=== PATIENT | male | born 1995 | race Hispanic/Latino ===

== ENCOUNTER → 2018-10-18 | Day surgery (SDC) | payer BC ==
[2018-10-17 09:21] LABS: BASOPHILS # (AUTO) 0.1 (0.0-0.1); BASOPHILS % 0.6 % (0.0-1.0); EOSINOPHILS # (AUTO) 0.2 (0.0-0.4); EOSINOPHILS % 1.4 % (0.0-6.0); HEMOGLOBIN 16.2 g/dL (14.0-18.0); LYMPHOCYTES # (AUTO) 1.8 (1.0-3.2); LYMPHOCYTES % 16.9 % (18.0-39.1); MEAN CORPUSCULAR HEMOGLOBIN 29.8 pg (28-32); MEAN CORPUSCULAR HGB CONC 33.8 g/dL (31-35); MEAN CORPUSCULAR VOLUME 88.2 fL (81-99); MONOCYTES # (AUTO) 0.6 (0.2-0.8); MONOCYTES % 5.4 % (4.4-11.3); NEUTROPHILS # (AUTO) 8.1 (2.1-6.9); NEUTROPHILS % 74.7 % (38.7-80.0); PLATELET COUNT 281 x10e3/uL (140-360); RED BLOOD COUNT 5.44 x10e6/uL (4.3-5.7); RED CELL DISTRIBUTION WIDTH 12.9 % (11.7-14.4)
[~2018-10-18] MED LIST: ACETAMINOPHEN 1000 MG/100 ML IV ONE; BUPIVACAINE HCL 0.5% INJ 30 ML VIAL INJ ONE; CEFAZOLIN SOD 1 GM/NS 50ML 100 ML IV ONE; DEXAMETHASONE SOD PHOS INJ 4 MG/ML VIAL ONE; FENTANYL CITRATE/PF 100MCG/2 ML INJ ONE; GLYCOPYRROLATE INJ 1MG/ 5 ML SYR ONE; KETOROLAC TROMETHAMINE 30 MG/ML VIAL ONE; LIDOCAINE HCL 2% LOCAL INJ 5 ML SDV VIAL INJ ONE; MIDAZOLAM HCL 2 MG/2 ML VIAL ONE; NEOSTIGMINE 5 MG/5ML SYR ONE; ONDANSETRON HCL INJ 2MG/ML 2ML 2 MG/ML VIAL ONE; PROPOFOL IV EMULSION 10 MG/ML 20 ML VIAL ONE; ROCURONIUM BROMIDE 10 MG/ML 5ML VIAL ONE; SEVOFLURANE INHAL SOLN 250 ML PEN BTL ONE
--- OUTSIDE RECORDS SUMMARY | 2018-10-18 07:35 | XMS REPORT ---
Author Author [facility] Address Unknown Phone Unavailable Care Team Providers Care Goat Driver Name Role Phone Unavailable Unavailable Payers Payer Name Policy Type Policy Number Effective Date Expiration Date Problems This patient has no known problems. Allergies, Adverse Reactions, Alerts This patient has no known allergies or adverse reactions. Medications This patient has no known medications.
[2018-10-18 11:30] VITALS: BP 145/91
--- NOTE | 2018-10-18 12:34 | Operative Report ---
DATE OF PROCEDURE: 10/18/2018 SURGEON: Branden Mejía MD PREOPERATIVE DIAGNOSES: Chronic cholecystitis, cholelithiasis. POSTOPERATIVE DIAGNOSES: Chronic cholecystitis, cholelithiasis. PROCEDURES: Diagnostic laparoscopy, laparoscopic cholecystectomy. TRANSLATOR/INTERPRETER: None. ANESTHESIA: General endotracheal. INDICATIONS AND FINDINGS: The patient is a 22-year-old male with frequent episodes of right upper quadrant abdominal pain. Workup revealed abnormal HIDA scan, ejection fraction 2.5%. Surgery based on the gallbladder was distended with extensive adhesions involving the omentum over the neck and fundus of the gallbladder. Cystic duct was about 2 mm in diameter. Common bile duct was about 5 mm in diameter. Liver, stomach, lower abdomen all appeared normal. TECHNIQUE: After adequate general endotracheal anesthesia, the patient in supine position, the abdomen was prepped and draped in sterile fashion with ChloraPrep solution. Skin in the umbilicus was infiltrated with 0.5% Marcaine. Incision made in the umbilicus, abdominal wall was elevated and Veress needle was introduced. Pneumoperitoneum was then created. A 10 mm trocar and cannula was then passed through the umbilical wound. Laparoscopic camera was introduced. Initial laparoscopy revealed the gallbladder to be distended with adhesions over the edge of the liver. Stomach and lower abdomen appeared normal. Liver appeared normal. A 10 mm trocar and cannula was placed in the epigastrium and two 5 mm trocars and cannulas were placed in right upper quadrant. These were placed under direct vision. Fundus of the gallbladder was grasped, retracted superiorly. The adhesions of the liver to the gallbladder were lysed staying close to the gallbladder using electrocautery. Neck of the gallbladder was grasped, retracted laterally. Peritoneum over the neck of the gallbladder was incised. The gallbladder cystic duct junction was dissected free. Cystic artery was also dissected free. The neck of the gallbladder completely dissected free. Cystic duct was divided between hemoclips with three clips being left on the common bile duct side. Cystic artery was also divided between hemoclips close to the gallbladder. The gallbladder was dissected free from the liver using scissors and electrocautery. Once it was entirely free, it was placed into an Endopouch and brought through the epigastric cannula. There were no stones that were definitely palpable. Gallbladder bed was inspected for hemostasis which was seen to be adequate. It was irrigated with saline. All fluid aspirated, inspected once again for hemostasis which was seen to be adequate. Instruments and cannulas were then removed. Pneumoperitoneum was evacuated. Wounds were then closed. Fascia in the umbilical and epigastrium closed with 0 Vicryl. Skin to all wounds closed with 4-0 Vicryl and subcuticular fashion. Dermabond and sterile dressing were applied to each wound. The patient tolerated the procedure well. Estimated blood loss was 10 mL. There were no complications. All counts were correct. The patient was taken to the recovery room in satisfactory condition. MD LACI SilvaG/MODL /[id number] cc: Kristian Lai MD
== END | disposition home or self-care (01) ==
LOC: OR 07:02
PROVIDERS: ATTEND Surgery
DX: K80.10 Calculus of gallbladder with chronic cholecystitis without obstruction (principal); F41.9 Anxiety disorder, unspecified; R06.83 Snoring; Z68.32 Body mass index [BMI] 32.0-32.9, adult
CPT/HCPCS: 36415; 47562; 85025; 88304; J0131; J0690; J1100; J1885; J2001; J2250; J2405; J2704; J3010; J3490

== ENCOUNTER 2020-04-11 07:38 | Inpatient (IN) | payer BC, SELFPAY ==
[~2020-04-11] VITALS: Ht 177.8 cm; Wt 86.7 kg
[2020-04-11] MEDS ORDERED: LIPITOR20 MG PO (08:07)
[2020-04-11] MEDS ORDERED: GLIMEPIRIDE2 MG PO (08:07)
[2020-04-11 08:21] LABS: BASOPHILS # (AUTO) 0.1 (0.0-0.1); BASOPHILS % 0.5 % (0.0-1.0); HEMATOCRIT 52.9 % (38.2-49.6); HEMOGLOBIN 17.9 g/dL (14.0-18.0); LYMPHOCYTES % 7.1 % (18.0-39.1); MEAN CORPUSCULAR HGB CONC 33.8 g/dL (31-35); MEAN CORPUSCULAR VOLUME 85.6 fL (81-99); MONOCYTES # (AUTO) 0.4 (0.2-0.8); MONOCYTES % 2.6 % (4.4-11.3); NEUTROPHILS # (AUTO) 12.6 (2.1-6.9); NEUTROPHILS % 89.2 % (38.7-80.0); PLATELET COUNT 388 x10e3/uL (140-360); RED BLOOD COUNT 6.18 x10e6/uL (4.3-5.7); RED CELL DISTRIBUTION WIDTH 12.2 % (11.7-14.4)
[2020-04-11] MEDS ORDERED: LACTATED RINGER'S 1,000 ML INJ STA ×2 (08:52)
[2020-04-11 08:57] LABS: CLARITY,URINE CLEAR (CLEAR); COLOR,URINE YELLOW (YELLOW); LEUKOCYTE ESTERASE ,URINE NEGATIVE (NEGATIVE); NITRITE,URINE NEGATIVE (NEGATIVE); PROTEIN,URINE DIPSTICK >=300 (NEGATIVE)
[2020-04-11 08:58] LABS: KETONES,URINE >=160 (NEGATIVE); URINE UROBILINOGEN 0.2 mg/dL (0.2 - 1)
[2020-04-11] MEDS ORDERED: LACTATED RINGER'S 1,000 ML INJ ONE (09:00)
[2020-04-11 09:02] LABS: ALANINE AMINOTRANSFERASE 74 IU/L (0-55); ALBUMIN 4.6 g/dL (3.5-5.0); ALBUMIN/GLOBULIN RATIO 1.1 (0.8-2.0); ALKALINE PHOSPHATASE 144 IU/L (40-150); ANION GAP 30.8 mmol/L (8-16); BLOOD UREA NITROGEN 18 mg/dL (7-26); BUN/CREATININE RATIO 10 (6-25); CALCIUM 8.9 mg/dL (8.4-10.2); CHLORIDE 97 mmol/L (98-107); CREATINE KINASE 74 IU/L (30-200); CREATININE, SERUM 1.88 mg/dL (0.72-1.25); EST GLOMERULAR FILTRATION RATE 44 ML/MIN (60-); POTASSIUM 3.8 mmol/L (3.5-5.1); SODIUM 130 mmol/L (136-145)
[2020-04-11] MEDS ORDERED: SODIUM CHLORIDE 0.9% 1000ML 3,000 ML ONE (09:02)
[2020-04-11 09:07] LABS: CARBON DIOXIDE 6 mmol/L (22-29); GLUCOSE 500 mg/dL (74-118)
[2020-04-11 09:27] LABS: BACTERIA,URINE MODERATE /HPF; EPITHELIAL CELLS,URINE MODERATE /LPF; RBC,URINE 0-5 /HPF (0-5)
[2020-04-11] MEDS ORDERED: ADENOSINE 6MG/2ML 1 ML ONE (09:31)
[2020-04-11] MEDS ORDERED: CEFEPIME 1GM/NS 0.9% 50 ML 50 ML IV STA (09:37)
[2020-04-11] MEDS: SODIUM CHLORIDE 0.9% 1000ML 1,000 ML IV SCH ×3 (10:28→18:49)
[2020-04-11] MEDS: DEXTROSE 5%/0.45% SOD CHL 1,000 ML IV SCH ×2 (10:29→16:30)
[2020-04-11] MEDS: INSULIN REGULAR, HUMAN 3ML VL 100 UNIT in SODIUM CHLORIDE 0.9% 100 ML IV SCH ×4 (10:29→20:15)
[2020-04-11 11:37] LABS: ANION GAP 20.8 mmol/L (8-16); BLOOD UREA NITROGEN 15 mg/dL (7-26); BUN/CREATININE RATIO 14 (6-25); CHLORIDE 113 mmol/L (98-107); CREATININE, SERUM 1.04 mg/dL (0.72-1.25); EST GLOMERULAR FILTRATION RATE > 60 ML/MIN (60-); GLUCOSE 335 mg/dL (74-118); SODIUM 137 mmol/L (136-145)
[2020-04-11 11:40] LABS: CARBON DIOXIDE 6 mmol/L (22-29); POTASSIUM 2.8 mmol/L (3.5-5.1)
[2020-04-11 11:41] LABS: CALCIUM 6.2 mg/dL (8.4-10.2)
[2020-04-11] MEDS: POTASSIUM CHLORIDE 20MEQ/100ML 200 ML IV PRN (11:56)
[2020-04-11] MEDS ORDERED: POTASSIUM CHLORIDE 20 MEQ TAB CR PO ONE (13:30)
[2020-04-11] MEDS: MAGNESIUM SULF 1GRAM/DEXTROSE 100 ML IV PRN (14:21)
[2020-04-11] MEDS ORDERED: MAGNESIUM SULFATE 2GM/50ML 50 ML IV ONE (14:25)
[2020-04-11 15:24] LABS: ANION GAP 21.2 mmol/L (8-16); BLOOD UREA NITROGEN 15 mg/dL (7-26); BUN/CREATININE RATIO 11 (6-25); CALCIUM 7.7 mg/dL (8.4-10.2); CHLORIDE 109 mmol/L (98-107); EST GLOMERULAR FILTRATION RATE > 60 ML/MIN (60-); GLUCOSE 272 mg/dL (74-118); POTASSIUM 3.2 mmol/L (3.5-5.1); SODIUM 134 mmol/L (136-145)
[2020-04-11 15:26] LABS: CARBON DIOXIDE 7 mmol/L (22-29)
[2020-04-11] MEDS ORDERED: ONDANSETRON HCL INJ 2MG/ML 2ML 2 MG/ML VIAL IV STA (15:38)
[2020-04-11 15:43] LABS: ABG PH 7.11 (7.35-7.45)
[2020-04-11 15:44] LABS: ABG HCO3 3 mmol/L (22-26); ABG PCO2 11 mmHg (35-45); ABG PO2 132 mmHg (80-105); ABG TCO2 5
[2020-04-11] MEDS ORDERED: MORPHINE SULFATE INJ 4 MG/ML INJ 1ML IV ONE (15:45)
[2020-04-11 15:50] LABS: CREATINE KINASE 64 IU/L (30-200)
[2020-04-11 17:41] LABS: ANION GAP 19.2 mmol/L (8-16); BLOOD UREA NITROGEN 17 mg/dL (7-26); BUN/CREATININE RATIO 13 (6-25); CALCIUM 7.9 mg/dL (8.4-10.2); CHLORIDE 112 mmol/L (98-107); CREATININE, SERUM 1.29 mg/dL (0.72-1.25); EST GLOMERULAR FILTRATION RATE > 60 ML/MIN (60-); GLUCOSE 271 mg/dL (74-118); POTASSIUM 3.2 mmol/L (3.5-5.1); SODIUM 133 mmol/L (136-145)
[2020-04-11 17:43] LABS: CARBON DIOXIDE 5 mmol/L (22-29)
[2020-04-11] MEDS: DICYCLOMINE HCL 20 MG TAB PO PRN (18:43)
[2020-04-11 19:22] LABS: ANION GAP 19.2 mmol/L (8-16); BLOOD UREA NITROGEN 17 mg/dL (7-26); BUN/CREATININE RATIO 13 (6-25); CALCIUM 7.9 mg/dL (8.4-10.2); CHLORIDE 111 mmol/L (98-107); CREATININE, SERUM 1.34 mg/dL (0.72-1.25); EST GLOMERULAR FILTRATION RATE > 60 ML/MIN (60-); GLUCOSE 299 mg/dL (74-118); POTASSIUM 3.2 mmol/L (3.5-5.1); SODIUM 132 mmol/L (136-145)
[2020-04-11 19:29] LABS: CARBON DIOXIDE 5 mmol/L (22-29)
[2020-04-11] MEDS: ONDANSETRON HCL INJ 2MG/ML 2ML 2 MG/ML VIAL IV PRN (20:40)
[2020-04-11] MEDS: HYDROMORPHONE 1MG/1ML INJ IV PRN (20:40)
[2020-04-11 21:24] LABS: ANION GAP 16.6 mmol/L (8-16); CALCIUM 7.9 mg/dL (8.4-10.2); CREATININE, SERUM 1.44 mg/dL (0.72-1.25); POTASSIUM 3.6 mmol/L (3.5-5.1)
[2020-04-11 23:39] LABS: ANION GAP 17.6 mmol/L (8-16); CREATININE, SERUM 1.5 mg/dL (0.72-1.25); POTASSIUM 3.6 mmol/L (3.5-5.1)
[2020-04-11 23:53] LABS: CREATINE KINASE 54 IU/L (30-200)
[2020-04-12] VITALS (11 sets, daily range): BP systolic 98–188; BP diastolic 62–126
[2020-04-12] MEDS: SODIUM CHLORIDE 0.9% 1000ML 1,000 ML IV SCH ×4 (00:56→10:25)
[2020-04-12] MEDS ORDERED: SODIUM BICARBONATE 8.4% INJ 50 ML SYR IV STA (02:38)
[2020-04-12] MEDS ORDERED: SODIUM BICARBONATE 8.4% SYRING 100 ML ONE (02:50)
[2020-04-12] MEDS: DEXTROSE 5%/0.45% SOD CHL 1,000 ML IV SCH ×5 (02:58→22:24)
[2020-04-12 04:16] LABS: ANION GAP 17.5 mmol/L (8-16); CREATININE, SERUM 1.72 mg/dL (0.72-1.25); POTASSIUM 3.5 mmol/L (3.5-5.1)
[2020-04-12] MEDS: HYDROMORPHONE 1MG/1ML INJ IV PRN ×4 (04:30→20:56)
[2020-04-12] MEDS ORDERED: CEFEPIME HCL 1 GM VIAL IV SCH (04:30)
[2020-04-12] MEDS: ONDANSETRON HCL INJ 2MG/ML 2ML 2 MG/ML VIAL IV PRN ×3 (04:30→18:07)
[2020-04-12 05:02] LABS: ABG PH 7.21 (7.35-7.45)
[2020-04-12 05:03] LABS: ABG HCO3 13 mmol/L (22-26); ABG PCO2 32 mmHg (35-45); ABG PO2 133 mmHg (80-105); ABG TCO2 14
[2020-04-12] MEDS: INSULIN REGULAR, HUMAN 3ML VL 100 UNIT in SODIUM CHLORIDE 0.9% 100 ML IV SCH ×4 (05:50→14:27)
[2020-04-12] MEDS: CEFEPIME 1GM/NS 0.9% 50 ML 50 ML IV SCH ×2 (06:30→16:14)
[2020-04-12 08:25] LABS: BASOPHILS # (AUTO) 0.2 (0.0-0.1); BASOPHILS % 0.5 % (0.0-1.0); HEMATOCRIT 54.2 % (38.2-49.6); HEMOGLOBIN 18.7 g/dL (14.0-18.0); LYMPHOCYTES # (AUTO) 0.7 (1.0-3.2); LYMPHOCYTES % 1.9 % (18.0-39.1); MEAN CORPUSCULAR HEMOGLOBIN 29.3 pg (28-32); MEAN CORPUSCULAR HGB CONC 34.5 g/dL (31-35); MONOCYTES # (AUTO) 1.7 (0.2-0.8); MONOCYTES % 4.6 % (4.4-11.3); NEUTROPHILS # (AUTO) 33.9 (2.1-6.9); NEUTROPHILS % 92.3 % (38.7-80.0); PLATELET COUNT 183 x10e3/uL (140-360); RED BLOOD COUNT 6.38 x10e6/uL (4.3-5.7); RED CELL DISTRIBUTION WIDTH 12.4 % (11.7-14.4)
[2020-04-12 08:52] LABS: AMYLASE 1078 U/L (25-125)
[2020-04-12 08:53] LABS: ANION GAP 17.4 mmol/L (8-16); CREATININE, SERUM 1.93 mg/dL (0.72-1.25); POTASSIUM 3.4 mmol/L (3.5-5.1)
[2020-04-12] MEDS: PANTOPRAZOLE 40 MG 10ML VIAL IV SCH ×2 (09:01→16:14)
[2020-04-12 09:15] LABS: LIPASE 2708 U/L (8-78)
[2020-04-12 13:01] LABS: ANION GAP 15.5 mmol/L (8-16); CALCIUM 8.1 mg/dL (8.4-10.2); CREATININE, SERUM 2.43 mg/dL (0.72-1.25); POTASSIUM 3.5 mmol/L (3.5-5.1)
[2020-04-12] MEDS ORDERED: DEXTROSE 50% SYRINGE 50 ML IV PRN (14:00)
[2020-04-12] MEDS ORDERED: DEXTROSE 5%/0.45% SOD CHL 1,000 ML IV SCH (14:15)
[2020-04-12 14:34] LABS: CHOL/HDL RATIO 8.4 (3.9-4.7)
[2020-04-12] MEDS ORDERED: LACTATED RINGER'S 1,000 ML INJ ONE ×2 (16:15→19:00)
[2020-04-12 16:30] LABS: FREE T4 (FREE THYROXINE) 0.76 ng/dL (0.8-1.8); THYROID STIMULATING HORMONE 0.255 uIU/mL (0.350-4.940)
[2020-04-12] MEDS: METOPROLOL TARTRATE INJ 1 MG/ML VIAL IV SCH ×2 (17:00→22:22)
[2020-04-12] MEDS ORDERED: AZITHROMYCIN 500MG/NS 250 ML 250 ML IV SCH (17:00)
[2020-04-12 18:17] LABS: ALBUMIN 2.6 g/dL (3.5-5.0); ALBUMIN/GLOBULIN RATIO 0.9 (0.8-2.0); ANION GAP 14.6 mmol/L (8-16); CALCIUM 7.9 mg/dL (8.4-10.2); CREATININE, SERUM 2.67 mg/dL (0.72-1.25); POTASSIUM 3.6 mmol/L (3.5-5.1)
[2020-04-12] MEDS: DICYCLOMINE HCL 20 MG TAB PO PRN (20:56)
[2020-04-12] MEDS ORDERED: DIGOXIN INJ 0.25 MG/ML 2 ML AMP IV PRN (21:45)
[2020-04-12] MEDS ORDERED: DIGOXIN INJ 0.25 MG/ML 2 ML AMP ONE (21:45)
[2020-04-12] MEDS ORDERED: HYDRALAZINE HCL 20 MG/ML VIAL IV PRN (21:45)
[2020-04-12] MEDS ORDERED: LACTATED RINGER'S 1,000 ML ONE ×2 (21:59→23:55)
[2020-04-12] MEDS: PIPERACILLIN/TAZO 2.25 GM 50 ML IV SCH (22:22)
[2020-04-13] VITALS (24 sets, daily range): BP systolic 114–164; BP diastolic 59–88
[2020-04-13 00:03] LABS: BASOPHILS # (AUTO) 0.1 (0.0-0.1); BASOPHILS % 0.3 % (0.0-1.0); LYMPHOCYTES # (AUTO) 0.6 (1.0-3.2); LYMPHOCYTES % 2.7 % (18.0-39.1); MEAN CORPUSCULAR HEMOGLOBIN 29.2 pg (28-32); MEAN CORPUSCULAR VOLUME 83.3 fL (81-99); MONOCYTES # (AUTO) 1.4 (0.2-0.8); MONOCYTES % 6.1 % (4.4-11.3); NEUTROPHILS % 90.1 % (38.7-80.0); PLATELET COUNT 80 x10e3/uL (140-360); RED CELL DISTRIBUTION WIDTH 12.8 % (11.7-14.4)
[2020-04-13 00:21] LABS: ALBUMIN 2.3 g/dL (3.5-5.0); ALBUMIN/GLOBULIN RATIO 0.9 (0.8-2.0); ANION GAP 11.5 mmol/L (8-16); CALCIUM 7.4 mg/dL (8.4-10.2); CREATININE, SERUM 2.86 mg/dL (0.72-1.25); POTASSIUM 3.5 mmol/L (3.5-5.1)
[2020-04-13 00:34] LABS: MAGNESIUM 1.7 MG/DL (1.3-2.1); PHOSPHORUS 2.1 MG/DL (2.3-4.7)
[2020-04-13] MEDS: HYDROMORPHONE 1MG/1ML INJ IV PRN ×5 (00:43→22:10)
[2020-04-13 03:04] LABS: CALCIUM IONIZED 1.3 mmol/L (1.09-1.30)
[2020-04-13 03:25] LABS: ALBUMIN 2.3 g/dL (3.5-5.0); ALBUMIN/GLOBULIN RATIO 0.9 (0.8-2.0); ANION GAP 14.4 mmol/L (8-16); CALCIUM 7.3 mg/dL (8.4-10.2); CREATININE, SERUM 3.14 mg/dL (0.72-1.25); POTASSIUM 3.4 mmol/L (3.5-5.1)
[2020-04-13] MEDS: INSULIN REGULAR, HUMAN 3ML VL 100 UNIT in SODIUM CHLORIDE 0.9% 100 ML IV SCH ×2 (03:38)
[2020-04-13] MEDS ORDERED: LACTATED RINGER'S 1,000 ML INJ SCH (03:45)
[2020-04-13] MEDS: METOPROLOL TARTRATE INJ 1 MG/ML VIAL IV SCH ×3 (05:10→17:00)
[2020-04-13] MEDS: PIPERACILLIN/TAZO 2.25 GM 50 ML IV SCH ×3 (05:10→22:10)
[2020-04-13] MEDS: PANTOPRAZOLE 40 MG 10ML VIAL IV SCH ×2 (08:13→16:41)
[2020-04-13] MEDS: DEXTROSE 5%/0.45% SOD CHL 1,000 ML IV SCH ×2 (08:13→16:41)
[2020-04-13] MEDS ORDERED: DIGOXIN INJ 0.25 MG/ML 2 ML AMP IV ONE (08:15)
[2020-04-13] MEDS ORDERED: ENOXAPARIN 30 MG/0.3 ML SYR SC SCH (09:00)
[2020-04-13] MEDS ORDERED: METHYLPREDNISOLONE SOD SUCC 40 MG/ML VIAL 1ML IV SCH (09:00)
[2020-04-13] MEDS ORDERED: FUROSEMIDE INJ 10 MG/ML 4 ML VIAL IV NR (11:30)
[2020-04-13] MEDS ORDERED: MIDAZOLAM HCL 2 MG/2 ML VIAL IV NR (11:45)
[2020-04-13] MEDS: ONDANSETRON HCL INJ 2MG/ML 2ML 2 MG/ML VIAL IV PRN ×2 (11:46→17:47)
[2020-04-13 14:44] LABS: BASOPHILS # (AUTO) 0.1 (0.0-0.1); BASOPHILS % 0.3 % (0.0-1.0); HEMATOCRIT 40.3 % (38.2-49.6); LYMPHOCYTES # (AUTO) 0.5 (1.0-3.2); LYMPHOCYTES % 2.3 % (18.0-39.1); MEAN CORPUSCULAR HEMOGLOBIN 29.4 pg (28-32); MEAN CORPUSCULAR HGB CONC 34.7 g/dL (31-35); MEAN CORPUSCULAR VOLUME 84.5 fL (81-99); MONOCYTES % 4.7 % (4.4-11.3); NEUTROPHILS # (AUTO) 20.2 (2.1-6.9); NEUTROPHILS % 92.2 % (38.7-80.0); PLATELET COUNT 68 x10e3/uL (140-360); RED BLOOD COUNT 4.77 x10e6/uL (4.3-5.7); RED CELL DISTRIBUTION WIDTH 12.8 % (11.7-14.4)
[2020-04-13 15:05] LABS: ALBUMIN 2.3 g/dL (3.5-5.0); ALBUMIN/GLOBULIN RATIO 0.8 (0.8-2.0); ANION GAP 11.5 mmol/L (8-16); CALCIUM 7.4 mg/dL (8.4-10.2); CREATININE, SERUM 4.37 mg/dL (0.72-1.25); POTASSIUM 3.5 mmol/L (3.5-5.1)
[2020-04-13 15:25] LABS: BAND NEUTROPHILS % (MANUAL) 6 %; METAMYELOCYTES % (MANUAL) 1 % (0-0); MONOCYTES % (MANUAL) 7 % (3.4-9.0); NEUTROPHILS % (MANUAL) 86 % (40-74)
[2020-04-13 15:26] LABS: PLATELET ESTIMATE MODERATELY DECREASED; PLATELET MORPHOLOGY COMMENT FEW LARGE; RBC MORPHOLOGY COMMENT NORMAL
[2020-04-13] MEDS ORDERED: SODIUM CHLORIDE 0.9% 1000ML 2,000 ML ONE (15:54)
[2020-04-13] MEDS ORDERED: HEPARIN SOD (PORCINE) 1000 UNIT/ML 10ML MDV IM ONE (17:30)
[2020-04-13 21:22] LABS: BASOPHILS % 0.2 % (0.0-1.0); HEMATOCRIT 34.2 % (38.2-49.6); HEMOGLOBIN 12.3 g/dL (14.0-18.0); MEAN CORPUSCULAR HEMOGLOBIN 29.3 pg (28-32); MONOCYTES # (AUTO) 1.2 (0.2-0.8); MONOCYTES % 6.2 % (4.4-11.3); NEUTROPHILS # (AUTO) 17.1 (2.1-6.9); NEUTROPHILS % 87.9 % (38.7-80.0); PLATELET COUNT 59 x10e3/uL (140-360); RED CELL DISTRIBUTION WIDTH 12.9 % (11.7-14.4)
[2020-04-13 21:23] LABS: MEAN CORPUSCULAR VOLUME 81.4 fL (81-99)
[2020-04-13 22:02] LABS: ALBUMIN 2.1 g/dL (3.5-5.0); ALBUMIN/GLOBULIN RATIO 0.7 (0.8-2.0); ANION GAP 14.6 mmol/L (8-16); CREATININE, SERUM 3.92 mg/dL (0.72-1.25)
[2020-04-13 22:03] LABS: POTASSIUM 2.6 mmol/L (3.5-5.1)
[2020-04-13] MEDS: POTASSIUM CHLORIDE 20MEQ/100ML 200 ML IV PRN (22:10)
[2020-04-13] MEDS ORDERED: POTASSIUM CHLORIDE 20MEQ/100ML 200 ML ONE (22:16)
[2020-04-14] VITALS (24 sets, daily range): BP systolic 108–151; BP diastolic 31–93
[2020-04-14] MEDS: METOPROLOL TARTRATE INJ 1 MG/ML VIAL IV SCH ×4 (01:00→17:03)
[2020-04-14] MEDS: DEXTROSE 5%/0.45% SOD CHL 1,000 ML IV SCH ×4 (01:57→21:28)
[2020-04-14 03:01] LABS: BASOPHILS % 0.2 % (0.0-1.0); HEMATOCRIT 29.1 % (38.2-49.6); HEMOGLOBIN 10.4 g/dL (14.0-18.0); LYMPHOCYTES # (AUTO) 0.8 (1.0-3.2); LYMPHOCYTES % 5.7 % (18.0-39.1); MEAN CORPUSCULAR HEMOGLOBIN 29.3 pg (28-32); MEAN CORPUSCULAR HGB CONC 35.7 g/dL (31-35); MONOCYTES # (AUTO) 0.9 (0.2-0.8); MONOCYTES % 6.1 % (4.4-11.3); NEUTROPHILS # (AUTO) 12.6 (2.1-6.9); NEUTROPHILS % 87.2 % (38.7-80.0); PLATELET COUNT 58 x10e3/uL (140-360); RED BLOOD COUNT 3.55 x10e6/uL (4.3-5.7); RED CELL DISTRIBUTION WIDTH 13.1 % (11.7-14.4)
[2020-04-14 03:11] LABS: ALBUMIN 1.7 g/dL (3.5-5.0); ALBUMIN/GLOBULIN RATIO 0.7 (0.8-2.0); ANION GAP 11.6 mmol/L (8-16); CREATININE, SERUM 4.26 mg/dL (0.72-1.25)
[2020-04-14 03:15] LABS: POTASSIUM 2.6 mmol/L (3.5-5.1)
[2020-04-14 03:17] LABS: CALCIUM 5.9 mg/dL (8.4-10.2)
[2020-04-14] MEDS ORDERED: POTASSIUM CHLORIDE 20MEQ/100ML 200 ML ONE (03:25)
[2020-04-14 03:46] LABS: HYPOCHROMASIA SLIGHT; LYMPHOCYTES % (MANUAL) 6 % (19-48); MONOCYTES % (MANUAL) 8 % (3.4-9.0); NEUTROPHILS % (MANUAL) 86 % (40-74); POIKILOCYTOSIS SLIGHT
[2020-04-14 03:47] LABS: PLATELET ESTIMATE MARKEDLY DECREASED; PLATELET MORPHOLOGY COMMENT FEW LARGE
[2020-04-14 03:53] LABS: ALBUMIN 1.7 g/dL (3.5-5.0); ALBUMIN/GLOBULIN RATIO 0.7 (0.8-2.0); ANION GAP 11.4 mmol/L (8-16); CREATININE, SERUM 4.35 mg/dL (0.72-1.25)
[2020-04-14 03:59] LABS: POTASSIUM 2.4 mmol/L (3.5-5.1)
[2020-04-14] MEDS: HYDROMORPHONE 1MG/1ML INJ IV PRN ×3 (04:15→15:46)
[2020-04-14] MEDS: POTASSIUM CHLORIDE 20MEQ/100ML 200 ML IV PRN (04:15)
[2020-04-14 04:18] LABS: CALCIUM 5.8 mg/dL (8.4-10.2)
[2020-04-14] MEDS ORDERED: LACTATED RINGER'S 1,000 ML INJ SCH (05:15)
[2020-04-14] MEDS: PIPERACILLIN/TAZO 2.25 GM 50 ML IV SCH ×3 (05:45→21:28)
[2020-04-14 06:34] LABS: BASOPHILS % 0.2 % (0.0-1.0); HEMOGLOBIN 11.3 g/dL (14.0-18.0); LYMPHOCYTES # (AUTO) 0.8 (1.0-3.2); LYMPHOCYTES % 5.6 % (18.0-39.1); MEAN CORPUSCULAR HEMOGLOBIN 28.9 pg (28-32); MEAN CORPUSCULAR HGB CONC 35.3 g/dL (31-35); MEAN CORPUSCULAR VOLUME 81.8 fL (81-99); MONOCYTES # (AUTO) 0.9 (0.2-0.8); MONOCYTES % 5.7 % (4.4-11.3); NEUTROPHILS # (AUTO) 13.2 (2.1-6.9); NEUTROPHILS % 87.4 % (38.7-80.0); PLATELET COUNT 66 x10e3/uL (140-360); RED BLOOD COUNT 3.91 x10e6/uL (4.3-5.7)
[2020-04-14 07:14] LABS: ALBUMIN/GLOBULIN RATIO 0.7 (0.8-2.0); ANION GAP 13.1 mmol/L (8-16); POTASSIUM 3.1 mmol/L (3.5-5.1)
[2020-04-14 07:30] LABS: AMYLASE 563 U/L (25-125); MAGNESIUM 1.5 MG/DL (1.3-2.1)
[2020-04-14 07:47] LABS: CALCIUM 6.7 mg/dL (8.4-10.2)
[2020-04-14] MEDS: PANTOPRAZOLE 40 MG 10ML VIAL IV SCH ×2 (08:08→16:45)
[2020-04-14] MEDS: ENOXAPARIN 30 MG/0.3 ML SYR SC SCH (08:11)
[2020-04-14 08:12] LABS: PHOSPHORUS 0.7 MG/DL (2.3-4.7)
[2020-04-14 08:39] LABS: LIPASE 1506 U/L (8-78)
[2020-04-14] MEDS: ONDANSETRON HCL INJ 2MG/ML 2ML 2 MG/ML VIAL IV PRN ×3 (09:18→19:52)
[2020-04-14] MEDS: INSULIN REGULAR, HUMAN 3ML VL 100 UNIT in SODIUM CHLORIDE 0.9% 100 ML IV SCH ×4 (09:21→19:53)
[2020-04-14] MEDS ORDERED: HEPARIN SOD (PORCINE) 1000 UNIT/ML SDV IV PRN (10:45)
[2020-04-14 11:02] LABS: PLATELET ESTIMATE MODERATELY DECREASED; PLATELET MORPHOLOGY COMMENT NORMAL
[2020-04-14 11:43] LABS: BASOPHILS # (AUTO) 0.1 (0.0-0.1); BASOPHILS % 0.3 % (0.0-1.0); EOSINOPHILS # (AUTO) 0.1 (0.0-0.4); EOSINOPHILS % 0.6 % (0.0-6.0); HEMATOCRIT 34.4 % (38.2-49.6); HEMOGLOBIN 11.8 g/dL (14.0-18.0); LYMPHOCYTES # (AUTO) 1.2 (1.0-3.2); LYMPHOCYTES % 7.3 % (18.0-39.1); MEAN CORPUSCULAR HEMOGLOBIN 29.1 pg (28-32); MEAN CORPUSCULAR HGB CONC 34.3 g/dL (31-35); MEAN CORPUSCULAR VOLUME 84.7 fL (81-99); MONOCYTES # (AUTO) 1.5 (0.2-0.8); NEUTROPHILS # (AUTO) 13.2 (2.1-6.9); NEUTROPHILS % 81.2 % (38.7-80.0); PLATELET COUNT 74 x10e3/uL (140-360); RED BLOOD COUNT 4.06 x10e6/uL (4.3-5.7); RED CELL DISTRIBUTION WIDTH 13.3 % (11.7-14.4)
[2020-04-14 12:00] LABS: HIV 1&2 AB SCREEN NON-REACTIVE (NONREACTIVE)
[2020-04-14 12:02] LABS: ALBUMIN 1.9 g/dL (3.5-5.0); ALBUMIN/GLOBULIN RATIO 0.6 (0.8-2.0); ANION GAP 16.2 mmol/L (8-16); CREATININE, SERUM 5.49 mg/dL (0.72-1.25); POTASSIUM 3.2 mmol/L (3.5-5.1)
[2020-04-14 12:08] LABS: CALCIUM 6.7 mg/dL (8.4-10.2)
[2020-04-14] MEDS ORDERED: CALCIUM CHLORIDE 13.6 MEQ in SODIUM CHLORIDE 0.9% 100 ML 100 ML IV ONE ×2 (14:30→19:00)
[2020-04-14 14:38] LABS: ABG HCO3 11 mmol/L (22-26); ABG PCO2 22 mmHg (35-45); ABG PH 7.31 (7.35-7.45); ABG PO2 70 mmHg (80-105); ABG TCO2 12
[2020-04-14 14:54] LABS: BASOPHILS % 0.2 % (0.0-1.0); HEMATOCRIT 30.8 % (38.2-49.6); HEMOGLOBIN 10.8 g/dL (14.0-18.0); LYMPHOCYTES # (AUTO) 0.8 (1.0-3.2); LYMPHOCYTES % 5.4 % (18.0-39.1); MEAN CORPUSCULAR HEMOGLOBIN 28.9 pg (28-32); MEAN CORPUSCULAR HGB CONC 35.1 g/dL (31-35); MEAN CORPUSCULAR VOLUME 82.4 fL (81-99); MONOCYTES # (AUTO) 1.2 (0.2-0.8); NEUTROPHILS # (AUTO) 12.6 (2.1-6.9); NEUTROPHILS % 84.9 % (38.7-80.0); PLATELET COUNT 78 x10e3/uL (140-360); RED BLOOD COUNT 3.74 x10e6/uL (4.3-5.7); RED CELL DISTRIBUTION WIDTH 13.3 % (11.7-14.4)
[2020-04-14] MEDS: FUROSEMIDE INJ 100 MG in SODIUM CHLORIDE 0.9% 100 ML 90 ML IV SCH (14:54)
[2020-04-14 15:09] LABS: ALBUMIN 1.8 g/dL (3.5-5.0); ALBUMIN/GLOBULIN RATIO 0.6 (0.8-2.0)
[2020-04-14 15:14] LABS: CALCIUM 6.3 mg/dL (8.4-10.2)
[2020-04-14] MEDS ORDERED: DEXTROSE 5%/0.45% SOD CHL 1,000 ML IV SCH (16:15)
[2020-04-14 16:28] LABS: FERRITIN 1363.26 ng/mL (21.81-274.66)
[2020-04-14] MEDS: MORPHINE SULFATE INJ 4 MG/ML INJ 1ML IV PRN ×2 (19:52→23:08)
[2020-04-15] VITALS (33 sets, daily range): BP systolic 106–162; BP diastolic 28–96
[2020-04-15] MEDS: METOPROLOL TARTRATE INJ 1 MG/ML VIAL IV SCH ×4 (00:52→19:15)
[2020-04-15 01:03] LABS: ALBUMIN 1.7 g/dL (3.5-5.0); ALBUMIN/GLOBULIN RATIO 0.6 (0.8-2.0); ANION GAP 13.8 mmol/L (8-16); CREATININE, SERUM 4.78 mg/dL (0.72-1.25)
[2020-04-15 01:04] LABS: CALCIUM 6.8 mg/dL (8.4-10.2); POTASSIUM 2.8 mmol/L (3.5-5.1)
[2020-04-15] MEDS: POTASSIUM CHLORIDE 20MEQ/100ML 200 ML IV PRN ×2 (01:20→06:14)
[2020-04-15] MEDS ORDERED: POTASSIUM CHLORIDE 20MEQ/100ML 200 ML ONE ×2 (01:21→06:19)
[2020-04-15] MEDS: MORPHINE SULFATE INJ 4 MG/ML INJ 1ML IV PRN ×4 (02:09→20:45)
[2020-04-15 05:08] LABS: BASOPHILS # (AUTO) 0.1 (0.0-0.1); BASOPHILS % 0.3 % (0.0-1.0); EOSINOPHILS % 0.1 % (0.0-6.0); HEMATOCRIT 27.6 % (38.2-49.6); HEMOGLOBIN 9.8 g/dL (14.0-18.0); LYMPHOCYTES # (AUTO) 1.5 (1.0-3.2); MEAN CORPUSCULAR HEMOGLOBIN 28.6 pg (28-32); MEAN CORPUSCULAR HGB CONC 35.5 g/dL (31-35); MEAN CORPUSCULAR VOLUME 80.5 fL (81-99); MONOCYTES # (AUTO) 1.3 (0.2-0.8); MONOCYTES % 9.2 % (4.4-11.3); NEUTROPHILS # (AUTO) 11.4 (2.1-6.9); NEUTROPHILS % 78.3 % (38.7-80.0); PLATELET COUNT 106 x10e3/uL (140-360); RED BLOOD COUNT 3.43 x10e6/uL (4.3-5.7); RED CELL DISTRIBUTION WIDTH 13.2 % (11.7-14.4)
[2020-04-15 05:42] LABS: ALBUMIN 1.7 g/dL (3.5-5.0); ALBUMIN/GLOBULIN RATIO 0.6 (0.8-2.0); CREATININE, SERUM 5.36 mg/dL (0.72-1.25)
[2020-04-15 05:45] LABS: CALCIUM 6.5 mg/dL (8.4-10.2)
[2020-04-15 06:08] LABS: MAGNESIUM 1.6 MG/DL (1.3-2.1)
[2020-04-15 06:13] LABS: PHOSPHORUS < 0.7 MG/DL (2.3-4.7)
[2020-04-15] MEDS: DEXTROSE 5%/0.45% SOD CHL 1,000 ML IV SCH ×2 (06:15→20:58)
[2020-04-15] MEDS: PIPERACILLIN/TAZO 2.25 GM 50 ML IV SCH ×2 (06:15→13:00)
[2020-04-15 06:39] LABS: AMYLASE 261 U/L (25-125); LIPASE 446 U/L (8-78)
[2020-04-15] MEDS: FUROSEMIDE INJ 100 MG in SODIUM CHLORIDE 0.9% 100 ML 90 ML IV SCH (08:56)
[2020-04-15] MEDS: PANTOPRAZOLE 40 MG 10ML VIAL IV SCH ×2 (09:31→17:14)
[2020-04-15] MEDS: ENOXAPARIN 30 MG/0.3 ML SYR SC SCH (09:47)
[2020-04-15] MEDS ORDERED: CALCIUM CHLORIDE 13.6 MEQ in SODIUM CHLORIDE 0.9% 100 ML 100 ML IV ONE ×2 (10:30→19:30)
[2020-04-15] MEDS ORDERED: ALBUMIN 25% 12.5GM 0.25 GM/ML BTL IV PRN (11:00)
[2020-04-15] MEDS: ACETAMINOPHEN 325 MG TAB PO PRN (13:07)
[2020-04-15] MEDS: IRON SUCROSE 100 MG in SODIUM CHLORIDE 0.9% 100 ML 100 ML IV SCH (14:06)
[2020-04-15] MEDS ORDERED: REMDESIVIR 200MG/NS 100ML 200 MG in SODIUM CHLORIDE 0.9% 100 ML 100 ML IV ONE (15:00)
[2020-04-15] MEDS ORDERED: POTASSIUM PHOSPHATE 20 MM in SODIUM CHLORIDE 0.9% 250ML 250 ML IV ONE (15:00)
[2020-04-15 16:00] LABS: BASOPHILS # (AUTO) 0.1 (0.0-0.1); BASOPHILS % 0.4 % (0.0-1.0); EOSINOPHILS % 0.2 % (0.0-6.0); HEMATOCRIT 28.1 % (38.2-49.6); LYMPHOCYTES # (AUTO) 1.4 (1.0-3.2); LYMPHOCYTES % 8.8 % (18.0-39.1); MEAN CORPUSCULAR HEMOGLOBIN 29.1 pg (28-32); MEAN CORPUSCULAR HGB CONC 35.6 g/dL (31-35); MEAN CORPUSCULAR VOLUME 81.7 fL (81-99); MONOCYTES # (AUTO) 1.9 (0.2-0.8); MONOCYTES % 11.7 % (4.4-11.3); NEUTROPHILS # (AUTO) 12.1 (2.1-6.9); NEUTROPHILS % 74.7 % (38.7-80.0); PLATELET COUNT 127 x10e3/uL (140-360); RED BLOOD COUNT 3.44 x10e6/uL (4.3-5.7); RED CELL DISTRIBUTION WIDTH 13.2 % (11.7-14.4)
[2020-04-15 16:20] LABS: INR 1.24; PROTHROMBIN TIME 16.4 seconds (11.9-14.5)
[2020-04-15 16:28] LABS: AMYLASE 172 U/L (25-125); LIPASE 238 U/L (8-78)
[2020-04-15] MEDS ORDERED: DILTIAZEM HCL 5 MG/ML 5 ML VIAL IV STA (16:54)
[2020-04-15] MEDS: MAGNESIUM SULF 1GRAM/DEXTROSE 100 ML IV PRN (17:35)
[2020-04-15] MEDS ORDERED: SODIUM PHOSPHATE 20 MMOL in SODIUM CHLORIDE 0.9% 250ML 250 ML INJ ONE (20:30)
[2020-04-16] VITALS (30 sets, daily range): BP systolic 106–155; BP diastolic 35–96
[2020-04-16] MEDS: MORPHINE SULFATE INJ 4 MG/ML INJ 1ML IV PRN ×5 (00:11→21:20)
[2020-04-16] MEDS: METOPROLOL TARTRATE INJ 1 MG/ML VIAL IV SCH ×4 (00:11→18:50)
[2020-04-16 01:05] LABS: BASOPHILS # (AUTO) 0.1 (0.0-0.1); BASOPHILS % 0.4 % (0.0-1.0); EOSINOPHILS # (AUTO) 0.1 (0.0-0.4); EOSINOPHILS % 0.8 % (0.0-6.0); HEMATOCRIT 27.4 % (38.2-49.6); HEMOGLOBIN 9.9 g/dL (14.0-18.0); LYMPHOCYTES # (AUTO) 1.4 (1.0-3.2); LYMPHOCYTES % 9.5 % (18.0-39.1); MEAN CORPUSCULAR HEMOGLOBIN 29.1 pg (28-32); MEAN CORPUSCULAR HGB CONC 36.1 g/dL (31-35); MEAN CORPUSCULAR VOLUME 80.6 fL (81-99); MONOCYTES % 13.5 % (4.4-11.3); NEUTROPHILS # (AUTO) 10.6 (2.1-6.9); NEUTROPHILS % 71.2 % (38.7-80.0); PLATELET COUNT 121 x10e3/uL (140-360); RED CELL DISTRIBUTION WIDTH 13.4 % (11.7-14.4)
[2020-04-16 01:11] LABS: AMYLASE 125 U/L (25-125); LIPASE 196 U/L (8-78)
[2020-04-16 01:25] LABS: MAGNESIUM 1.6 MG/DL (1.3-2.1); PHOSPHORUS 2.3 MG/DL (2.3-4.7)
[2020-04-16 01:39] LABS: ALBUMIN 1.6 g/dL (3.5-5.0); ALBUMIN/GLOBULIN RATIO 0.5 (0.8-2.0); CREATININE, SERUM 4.76 mg/dL (0.72-1.25)
[2020-04-16] MEDS: DEXTROSE 5%/0.45% SOD CHL 1,000 ML IV SCH ×2 (01:39→09:27)
[2020-04-16 05:38] LABS: BASOPHILS # (AUTO) 0.1 (0.0-0.1); BASOPHILS % 0.4 % (0.0-1.0); EOSINOPHILS # (AUTO) 0.1 (0.0-0.4); EOSINOPHILS % 0.8 % (0.0-6.0); HEMATOCRIT 27.1 % (38.2-49.6); HEMOGLOBIN 10.1 g/dL (14.0-18.0); LYMPHOCYTES # (AUTO) 1.6 (1.0-3.2); LYMPHOCYTES % 10.9 % (18.0-39.1); MEAN CORPUSCULAR HEMOGLOBIN 30.8 pg (28-32); MEAN CORPUSCULAR HGB CONC 37.3 g/dL (31-35); MEAN CORPUSCULAR VOLUME 82.6 fL (81-99); MONOCYTES # (AUTO) 2.1 (0.2-0.8); MONOCYTES % 13.8 % (4.4-11.3); NEUTROPHILS # (AUTO) 10.4 (2.1-6.9); NEUTROPHILS % 69.8 % (38.7-80.0); PLATELET COUNT 120 x10e3/uL (140-360); RED BLOOD COUNT 3.28 x10e6/uL (4.3-5.7); RED CELL DISTRIBUTION WIDTH 13.6 % (11.7-14.4)
[2020-04-16 06:11] LABS: ALBUMIN 1.7 g/dL (3.5-5.0); ALBUMIN/GLOBULIN RATIO 0.5 (0.8-2.0); ANION GAP 15.9 mmol/L (8-16); CREATININE, SERUM 5.19 mg/dL (0.72-1.25)
[2020-04-16 06:13] LABS: CALCIUM 6.3 mg/dL (8.4-10.2); POTASSIUM 2.9 mmol/L (3.5-5.1)
[2020-04-16] MEDS: POTASSIUM CHLORIDE 20MEQ/100ML 200 ML IV PRN (06:25)
[2020-04-16] MEDS ORDERED: POTASSIUM CHLORIDE 20MEQ/100ML 200 ML ONE (06:25)
[2020-04-16 07:24] LABS: EOSINOPHILS % (MANUAL) 2 % (0-7); LYMPHOCYTES % (MANUAL) 7 % (19-48); MONOCYTES % (MANUAL) 9 % (3.4-9.0); NEUTROPHILS % (MANUAL) 76 % (40-74); NUCLEATED RED BLOOD CELLS 2
[2020-04-16 07:25] LABS: PLATELET ESTIMATE SLIGHTLY DECREASED; PLATELET MORPHOLOGY COMMENT FEW LARGE; RBC MORPHOLOGY COMMENT NORMAL
[2020-04-16] MEDS: ACETAMINOPHEN 325 MG TAB PO PRN ×2 (07:31→16:59)
[2020-04-16] MEDS: ENOXAPARIN 30 MG/0.3 ML SYR SC SCH (09:08)
[2020-04-16] MEDS: PANTOPRAZOLE 40 MG 10ML VIAL IV SCH ×2 (09:08→16:58)
[2020-04-16] MEDS: FUROSEMIDE INJ 100 MG in SODIUM CHLORIDE 0.9% 100 ML 90 ML IV SCH (09:25)
[2020-04-16] MEDS: IRON SUCROSE 100 MG in SODIUM CHLORIDE 0.9% 100 ML 100 ML IV SCH (09:25)
[2020-04-16 11:05] LABS: BASOPHILS # (AUTO) 0.1 (0.0-0.1); BASOPHILS % 0.7 % (0.0-1.0); EOSINOPHILS # (AUTO) 0.1 (0.0-0.4); EOSINOPHILS % 0.6 % (0.0-6.0); HEMATOCRIT 28.3 % (38.2-49.6); HEMOGLOBIN 9.9 g/dL (14.0-18.0); LYMPHOCYTES # (AUTO) 1.4 (1.0-3.2); LYMPHOCYTES % 9.9 % (18.0-39.1); MEAN CORPUSCULAR HEMOGLOBIN 28.8 pg (28-32); MEAN CORPUSCULAR VOLUME 82.3 fL (81-99); MONOCYTES % 14.5 % (4.4-11.3); NEUTROPHILS # (AUTO) 9.5 (2.1-6.9); NEUTROPHILS % 68.4 % (38.7-80.0); PLATELET COUNT 137 x10e3/uL (140-360); RED BLOOD COUNT 3.44 x10e6/uL (4.3-5.7); RED CELL DISTRIBUTION WIDTH 13.7 % (11.7-14.4)
[2020-04-16] MEDS ORDERED: MAGNESIUM SULFATE 2GM/50ML 50 ML IV ONE (11:15)
[2020-04-16] MEDS ORDERED: CALCIUM CHLORIDE 13.6 MEQ in SODIUM CHLORIDE 0.9% 100 ML 100 ML IV ONE ×2 (11:45→21:00)
[2020-04-16 12:02] LABS: ALBUMIN 1.6 g/dL (3.5-5.0); ALBUMIN/GLOBULIN RATIO 0.5 (0.8-2.0); ANION GAP 15.2 mmol/L (8-16); CREATININE, SERUM 5.95 mg/dL (0.72-1.25); POTASSIUM 3.2 mmol/L (3.5-5.1)
[2020-04-16 12:04] LABS: CALCIUM 6.4 mg/dL (8.4-10.2)
[2020-04-16] MEDS ORDERED: SODIUM PHOSPHATE IN 0.9 % NACL 20 MMOL in SODIUM CHLORIDE 0.9% 250ML 250 ML IV ONE ×2 (13:00)
[2020-04-16] MEDS: REMDESIVIR 100MG/NS 100ML 100 MG in SODIUM CHLORIDE 0.9% 100 ML 100 ML IV SCH (15:34)
[2020-04-16] MEDS: DEXTROSE 5%/0.9% SOD CHL 1,000 ML IV SCH (16:58)
[2020-04-17] VITALS (24 sets, daily range): BP systolic 105–178; BP diastolic 61–108
[2020-04-17] MEDS: FUROSEMIDE INJ 100 MG in SODIUM CHLORIDE 0.9% 100 ML 90 ML IV SCH ×3 (00:02→09:12)
[2020-04-17] MEDS: METOPROLOL TARTRATE INJ 1 MG/ML VIAL IV SCH ×2 (00:03→06:19)
[2020-04-17] MEDS: MORPHINE SULFATE INJ 4 MG/ML INJ 1ML IV PRN ×3 (02:52→14:25)
[2020-04-17] MEDS: DEXTROSE 5%/0.9% SOD CHL 1,000 ML IV SCH ×2 (04:00→11:50)
[2020-04-17 05:36] LABS: BASOPHILS # (AUTO) 0.1 (0.0-0.1); BASOPHILS % 0.6 % (0.0-1.0); EOSINOPHILS # (AUTO) 0.2 (0.0-0.4); EOSINOPHILS % 1.1 % (0.0-6.0); HEMATOCRIT 27.8 % (38.2-49.6); LYMPHOCYTES # (AUTO) 1.5 (1.0-3.2); LYMPHOCYTES % 7.9 % (18.0-39.1); MEAN CORPUSCULAR VOLUME 83.5 fL (81-99); MONOCYTES # (AUTO) 2.8 (0.2-0.8); MONOCYTES % 15.5 % (4.4-11.3); NEUTROPHILS # (AUTO) 12.7 (2.1-6.9); NEUTROPHILS % 69.1 % (38.7-80.0); PLATELET COUNT 155 x10e3/uL (140-360); RED BLOOD COUNT 3.33 x10e6/uL (4.3-5.7); RED CELL DISTRIBUTION WIDTH 13.6 % (11.7-14.4)
[2020-04-17 06:09] LABS: ALBUMIN 1.5 g/dL (3.5-5.0); ALBUMIN/GLOBULIN RATIO 0.4 (0.8-2.0); CREATININE, SERUM 7.32 mg/dL (0.72-1.25)
[2020-04-17 06:15] LABS: CALCIUM 6.7 mg/dL (8.4-10.2)
[2020-04-17] MEDS ORDERED: POTASSIUM CHLORIDE 20MEQ/100ML 200 ML ONE (06:36)
[2020-04-17] MEDS: POTASSIUM CHLORIDE 20MEQ/100ML 200 ML IV PRN (06:38)
[2020-04-17 08:08] LABS: BAND NEUTROPHILS % (MANUAL) 3 %; LYMPHOCYTES % (MANUAL) 7 % (19-48); MONOCYTES % (MANUAL) 13 % (3.4-9.0); NEUTROPHILS % (MANUAL) 77 % (40-74)
[2020-04-17] MEDS: IRON SUCROSE 100 MG in SODIUM CHLORIDE 0.9% 100 ML 100 ML IV SCH (09:11)
[2020-04-17] MEDS: PANTOPRAZOLE 40 MG 10ML VIAL IV SCH ×2 (09:11→16:35)
[2020-04-17] MEDS: POTASSIUM CHLORIDE 10MEQ EA PO SCH (09:11)
[2020-04-17] MEDS: ENOXAPARIN 30 MG/0.3 ML SYR SC SCH (09:12)
[2020-04-17] MEDS: METOPROLOL TARTRATE 25 MG TAB PO SCH ×2 (12:02→16:35)
[2020-04-17] MEDS ORDERED: CALCIUM GLUCONATE 10% INJ 4.65 MEQ in SODIUM CHLORIDE 0.9% 50ML 50 ML IV ONE ×2 (15:00→19:30)
[2020-04-17] MEDS: REMDESIVIR 100MG/NS 100ML 100 MG in SODIUM CHLORIDE 0.9% 100 ML 100 ML IV SCH (15:32)
[2020-04-17] MEDS: CALCIUM CARBONATE 500 MG CHEWABLE TABS PO SCH ×2 (15:33→21:28)
[2020-04-18] VITALS (26 sets, daily range): BP systolic 116–152; BP diastolic 57–99
[2020-04-18] MEDS: METOPROLOL TARTRATE 25 MG TAB PO SCH ×4 (01:10→16:39)
[2020-04-18] MEDS: INSULIN REGULAR, HUMAN 3ML VL 100 UNIT in SODIUM CHLORIDE 0.9% 100 ML IV SCH ×2 (05:45)
[2020-04-18 06:05] LABS: BASOPHILS # (AUTO) 0.1 (0.0-0.1); BASOPHILS % 0.6 % (0.0-1.0); EOSINOPHILS # (AUTO) 0.2 (0.0-0.4); EOSINOPHILS % 0.9 % (0.0-6.0); HEMATOCRIT 26.5 % (38.2-49.6); HEMOGLOBIN 9.5 g/dL (14.0-18.0); LYMPHOCYTES # (AUTO) 1.4 (1.0-3.2); LYMPHOCYTES % 6.8 % (18.0-39.1); MEAN CORPUSCULAR HEMOGLOBIN 29.5 pg (28-32); MEAN CORPUSCULAR HGB CONC 35.8 g/dL (31-35); MEAN CORPUSCULAR VOLUME 82.3 fL (81-99); MONOCYTES # (AUTO) 2.3 (0.2-0.8); MONOCYTES % 11.6 % (4.4-11.3); NEUTROPHILS # (AUTO) 14.9 (2.1-6.9); NEUTROPHILS % 74.5 % (38.7-80.0); PLATELET COUNT 167 x10e3/uL (140-360); RED BLOOD COUNT 3.22 x10e6/uL (4.3-5.7); RED CELL DISTRIBUTION WIDTH 14.4 % (11.7-14.4)
[2020-04-18 06:23] LABS: ALBUMIN 1.4 g/dL (3.5-5.0); ALBUMIN/GLOBULIN RATIO 0.5 (0.8-2.0); ANION GAP 16.4 mmol/L (8-16); CREATININE, SERUM 5.24 mg/dL (0.72-1.25); MAGNESIUM 1.7 MG/DL (1.3-2.1); PHOSPHORUS 1.6 MG/DL (2.3-4.7); POTASSIUM 3.4 mmol/L (3.5-5.1)
[2020-04-18 06:27] LABS: CALCIUM 6.9 mg/dL (8.4-10.2)
[2020-04-18] MEDS: DEXTROSE 5%/0.9% SOD CHL 1,000 ML IV SCH ×3 (06:43→20:21)
[2020-04-18] MEDS: ACETAMINOPHEN 325 MG TAB PO PRN ×2 (06:43→16:39)
[2020-04-18] MEDS: PANTOPRAZOLE 40 MG 10ML VIAL IV SCH ×2 (07:55→16:38)
[2020-04-18] MEDS: CALCIUM CARBONATE 500 MG CHEWABLE TABS PO SCH ×4 (07:56→21:06)
[2020-04-18] MEDS: POTASSIUM CHLORIDE 10MEQ EA PO SCH (07:56)
[2020-04-18] MEDS: ENOXAPARIN 30 MG/0.3 ML SYR SC SCH (07:56)
[2020-04-18] MEDS: IRON SUCROSE 100 MG in SODIUM CHLORIDE 0.9% 100 ML 100 ML IV SCH (09:14)
[2020-04-18 10:41] LABS: EOSINOPHILS % (MANUAL) 2 % (0-7); LYMPHOCYTES % (MANUAL) 3 % (19-48); MONOCYTES % (MANUAL) 8 % (3.4-9.0); MYELOCYTES % (MANUAL) 1 % (0-0); NEUTROPHILS % (MANUAL) 84 % (40-74); NUCLEATED RED BLOOD CELLS 1; PLATELET ESTIMATE ADEQUATE; PLATELET MORPHOLOGY COMMENT NORMAL; RBC MORPHOLOGY COMMENT NORMAL
[2020-04-18 10:42] LABS: TEAR DROP CELLS FEW
[2020-04-18] MEDS ORDERED: SODIUM CHLORIDE 0.9% 250ML 500 ML IV PRN (11:00)
[2020-04-18] MEDS ORDERED: MANNITOL 25% 12.5GM/50 ML VIAL IV PRN (11:00)
[2020-04-18] MEDS: REMDESIVIR 100MG/NS 100ML 100 MG in SODIUM CHLORIDE 0.9% 100 ML 100 ML IV SCH (13:47)
[2020-04-18] MEDS ORDERED: POTASSIUM PHOSPHATE 20 MM in SODIUM CHLORIDE 0.9% 250ML 250 ML IV ONE (16:00)
[2020-04-18] MEDS: VANCOMYCIN 250MG/5ML ORAL SOLN PO SCH (17:21)
[2020-04-18] MEDS ORDERED: DEXTROSE 5% 0 ML IV ONE (20:12)
[2020-04-19] VITALS (20 sets, daily range): BP systolic 112–173; BP diastolic 63–100
[2020-04-19] MEDS ORDERED: MORPHINE SULFATE INJ 2 MG/ML SYR IV PRN
[2020-04-19] MEDS ORDERED: NALOXONE HCL INJ 0.4 MG/ML AMP IV PRN
[2020-04-19] MEDS ORDERED: HALOPERIDOL LACTATE 5 MG/ML VIAL IM ONE
[2020-04-19] MEDS: METOPROLOL TARTRATE 25 MG TAB PO SCH ×5 (00:11→23:05)
[2020-04-19] MEDS: VANCOMYCIN 250MG/5ML ORAL SOLN PO SCH ×5 (00:11→23:05)
[2020-04-19] MEDS: ACETAMINOPHEN 325 MG TAB PO PRN ×3 (00:24→21:27)
[2020-04-19 06:14] LABS: BASOPHILS # (AUTO) 0.1 (0.0-0.1); BASOPHILS % 0.4 % (0.0-1.0); EOSINOPHILS # (AUTO) 0.1 (0.0-0.4); EOSINOPHILS % 0.5 % (0.0-6.0); HEMATOCRIT 26.1 % (38.2-49.6); LYMPHOCYTES # (AUTO) 1.4 (1.0-3.2); LYMPHOCYTES % 6.2 % (18.0-39.1); MEAN CORPUSCULAR HEMOGLOBIN 28.8 pg (28-32); MEAN CORPUSCULAR HGB CONC 34.5 g/dL (31-35); MEAN CORPUSCULAR VOLUME 83.7 fL (81-99); MONOCYTES # (AUTO) 1.9 (0.2-0.8); MONOCYTES % 8.4 % (4.4-11.3); NEUTROPHILS # (AUTO) 17.9 (2.1-6.9); NEUTROPHILS % 80.4 % (38.7-80.0); PLATELET COUNT 170 x10e3/uL (140-360); RED BLOOD COUNT 3.12 x10e6/uL (4.3-5.7); RED CELL DISTRIBUTION WIDTH 15.3 % (11.7-14.4)
[2020-04-19 06:42] LABS: ALBUMIN 1.4 g/dL (3.5-5.0); ALBUMIN/GLOBULIN RATIO 0.4 (0.8-2.0); CREATININE, SERUM 7.12 mg/dL (0.72-1.25); MAGNESIUM 1.8 MG/DL (1.3-2.1); PHOSPHORUS 2.4 MG/DL (2.3-4.7)
[2020-04-19 06:46] LABS: CALCIUM 6.4 mg/dL (8.4-10.2)
[2020-04-19 08:47] LABS: BAND NEUTROPHILS % (MANUAL) 5 %; LYMPHOCYTES % (MANUAL) 7 % (19-48); MONOCYTES % (MANUAL) 7 % (3.4-9.0); NEUTROPHILS % (MANUAL) 81 % (40-74)
[2020-04-19] MEDS: PANTOPRAZOLE 40 MG 10ML VIAL IV SCH ×2 (09:13→17:35)
[2020-04-19] MEDS: ENOXAPARIN 30 MG/0.3 ML SYR SC SCH (09:14)
[2020-04-19] MEDS: IRON SUCROSE 100 MG in SODIUM CHLORIDE 0.9% 100 ML 100 ML IV SCH (09:14)
[2020-04-19] MEDS: CALCIUM CARBONATE 500 MG CHEWABLE TABS PO SCH ×4 (09:14→21:27)
[2020-04-19] MEDS: POTASSIUM CHLORIDE 10MEQ EA PO SCH (09:14)
[2020-04-19] MEDS: DEXTROSE 5%/0.9% SOD CHL 1,000 ML IV SCH ×2 (10:24→23:06)
[2020-04-19] MEDS: LORAZEPAM 0.5 MG TAB PO PRN ×2 (11:15→21:27)
[2020-04-19] MEDS ORDERED: HEPARIN SOD (PORCINE) 1000 UNIT/ML SDV IV PRN (14:30)
[2020-04-19] MEDS: REMDESIVIR 100MG/NS 100ML 100 MG in SODIUM CHLORIDE 0.9% 100 ML 100 ML IV SCH (15:39)
[2020-04-19] MEDS: POTASSIUM CHLORIDE 20MEQ/100ML 200 ML IV PRN (16:02)
[2020-04-19] MEDS ORDERED: POTASSIUM CHLORIDE 20MEQ/100ML 200 ML ONE (16:09)
[2020-04-19] MEDS ORDERED: DEXTROSE 50% SYRINGE 50 ML IV PRN (17:15)
[2020-04-19] MEDS ORDERED: INSULIN LISPRO 100 UNIT/1 ML 3ML VIAL SQ ONE (17:30)
[2020-04-19] MEDS: INSULIN REGULAR, HUMAN 100 UNIT/1 ML 3ML VIAL SQ SCH (21:27)
[2020-04-20] VITALS (26 sets, daily range): BP systolic 125–154; BP diastolic 65–90
[2020-04-20] MEDS: DICYCLOMINE HCL 20 MG TAB PO PRN (00:55)
[2020-04-20] MEDS: METOPROLOL TARTRATE 25 MG TAB PO SCH ×4 (05:39→23:37)
[2020-04-20] MEDS: VANCOMYCIN 250MG/5ML ORAL SOLN PO SCH ×4 (05:39→23:37)
[2020-04-20 05:53] LABS: BASOPHILS # (AUTO) 0.1 (0.0-0.1); BASOPHILS % 0.4 % (0.0-1.0); EOSINOPHILS # (AUTO) 0.2 (0.0-0.4); EOSINOPHILS % 0.8 % (0.0-6.0); HEMATOCRIT 25.1 % (38.2-49.6); HEMOGLOBIN 8.5 g/dL (14.0-18.0); LYMPHOCYTES # (AUTO) 1.1 (1.0-3.2); LYMPHOCYTES % 5.7 % (18.0-39.1); MEAN CORPUSCULAR HEMOGLOBIN 28.7 pg (28-32); MEAN CORPUSCULAR HGB CONC 33.9 g/dL (31-35); MEAN CORPUSCULAR VOLUME 84.8 fL (81-99); MONOCYTES # (AUTO) 1.2 (0.2-0.8); NEUTROPHILS # (AUTO) 16.7 (2.1-6.9); NEUTROPHILS % 84.2 % (38.7-80.0); PLATELET COUNT 158 x10e3/uL (140-360); RED BLOOD COUNT 2.96 x10e6/uL (4.3-5.7); RED CELL DISTRIBUTION WIDTH 15.6 % (11.7-14.4)
[2020-04-20 06:22] LABS: ALBUMIN 1.4 g/dL (3.5-5.0); ALBUMIN/GLOBULIN RATIO 0.4 (0.8-2.0); ANION GAP 16.6 mmol/L (8-16); CREATININE, SERUM 5.74 mg/dL (0.72-1.25); POTASSIUM 3.6 mmol/L (3.5-5.1)
[2020-04-20 06:24] LABS: CALCIUM 6.4 mg/dL (8.4-10.2)
[2020-04-20] MEDS: PANTOPRAZOLE 40 MG 10ML VIAL IV SCH ×2 (08:08→17:49)
[2020-04-20] MEDS: IRON SUCROSE 100 MG in SODIUM CHLORIDE 0.9% 100 ML 100 ML IV SCH (08:08)
[2020-04-20] MEDS: CALCIUM CARBONATE 500 MG CHEWABLE TABS PO SCH ×4 (08:09→21:09)
[2020-04-20] MEDS: POTASSIUM CHLORIDE 10MEQ EA PO SCH (08:09)
[2020-04-20] MEDS: ENOXAPARIN 30 MG/0.3 ML SYR SC SCH (08:09)
[2020-04-20] MEDS: INSULIN REGULAR, HUMAN 100 UNIT/1 ML 3ML VIAL SQ SCH ×4 (08:40→21:13)
[2020-04-20] MEDS: INSULIN GLARGINE 100 UNITS/ML VIAL SQ SCH (08:43)
[2020-04-20] MEDS: ACETAMINOPHEN 325 MG TAB PO PRN ×3 (09:00→23:11)
[2020-04-20] MEDS: DEXTROSE 5%/0.9% SOD CHL 1,000 ML IV SCH (12:27)
[2020-04-20] MEDS: METOCLOPRAMIDE HCL 10 MG/2ML VIAL IV SCH ×2 (17:53→23:37)
[2020-04-21] VITALS (21 sets, daily range): BP systolic 124–158; BP diastolic 61–102
[2020-04-21] MEDS: DICYCLOMINE HCL 20 MG TAB PO PRN (02:11)
[2020-04-21] MEDS: ACETAMINOPHEN 325 MG TAB PO PRN ×2 (05:34→15:34)
[2020-04-21 05:57] LABS: BASOPHILS # (AUTO) 0.1 (0.0-0.1); BASOPHILS % 0.3 % (0.0-1.0); EOSINOPHILS # (AUTO) 0.2 (0.0-0.4); HEMATOCRIT 24.6 % (38.2-49.6); HEMOGLOBIN 8.5 g/dL (14.0-18.0); LYMPHOCYTES % 4.2 % (18.0-39.1); MEAN CORPUSCULAR HEMOGLOBIN 29.6 pg (28-32); MEAN CORPUSCULAR HGB CONC 34.6 g/dL (31-35); MEAN CORPUSCULAR VOLUME 85.7 fL (81-99); MONOCYTES # (AUTO) 0.9 (0.2-0.8); NEUTROPHILS # (AUTO) 19.9 (2.1-6.9); NEUTROPHILS % 87.7 % (38.7-80.0); PLATELET COUNT 187 x10e3/uL (140-360); RED BLOOD COUNT 2.87 x10e6/uL (4.3-5.7); RED CELL DISTRIBUTION WIDTH 15.9 % (11.7-14.4)
[2020-04-21] MEDS: DEXTROSE 5%/0.9% SOD CHL 1,000 ML IV SCH ×2 (06:10→16:06)
[2020-04-21] MEDS: VANCOMYCIN 250MG/5ML ORAL SOLN PO SCH ×4 (06:19→23:57)
[2020-04-21] MEDS: METOCLOPRAMIDE HCL 10 MG/2ML VIAL IV SCH ×4 (06:19→23:55)
[2020-04-21] MEDS: METOPROLOL TARTRATE 25 MG TAB PO SCH ×4 (06:20→23:55)
[2020-04-21 06:23] LABS: ALBUMIN 1.4 g/dL (3.5-5.0); ALBUMIN/GLOBULIN RATIO 0.4 (0.8-2.0); ANION GAP 14.4 mmol/L (8-16); POTASSIUM 3.4 mmol/L (3.5-5.1)
[2020-04-21 06:34] LABS: CALCIUM 6.3 mg/dL (8.4-10.2)
[2020-04-21 06:50] LABS: CREATININE, SERUM 7.44 mg/dL (0.72-1.25)
[2020-04-21 07:54] LABS: MAGNESIUM 1.7 MG/DL (1.3-2.1); PHOSPHORUS 2.9 MG/DL (2.3-4.7)
[2020-04-21] MEDS: DICYCLOMINE HCL 20 MG TAB PO SCH ×3 (08:01→22:00)
[2020-04-21] MEDS: INSULIN REGULAR, HUMAN 100 UNIT/1 ML 3ML VIAL SQ SCH ×4 (08:02→23:00)
[2020-04-21] MEDS: PANTOPRAZOLE 40 MG 10ML VIAL IV SCH ×2 (08:05→17:12)
[2020-04-21] MEDS: IRON SUCROSE 100 MG in SODIUM CHLORIDE 0.9% 100 ML 100 ML IV SCH (08:09)
[2020-04-21] MEDS: INSULIN GLARGINE 100 UNITS/ML VIAL SQ SCH (08:10)
[2020-04-21] MEDS: CALCIUM CARBONATE 500 MG CHEWABLE TABS PO SCH ×4 (08:10→23:00)
[2020-04-21] MEDS: POTASSIUM CHLORIDE 10MEQ EA PO SCH (08:10)
[2020-04-21] MEDS: ENOXAPARIN 30 MG/0.3 ML SYR SC SCH (08:13)
[2020-04-21] MEDS ORDERED: EPOETIN ALFA-EPBX 10,000 UNIT/ML VIAL SC SCH (15:00)
[2020-04-22 00:23] VITALS: BP 149/85
[2020-04-22 05:12] VITALS: BP_SYST 137; BP_SYST 149; BP_DIAS 61; BP_DIAS 85
[2020-04-22] MEDS: DICYCLOMINE HCL 20 MG TAB PO SCH ×3 (05:12→21:18)
[2020-04-22] MEDS: METOCLOPRAMIDE HCL 10 MG/2ML VIAL IV SCH ×3 (05:12→17:14)
[2020-04-22] MEDS: METOPROLOL TARTRATE 25 MG TAB PO SCH ×3 (05:12→17:15)
[2020-04-22] MEDS: VANCOMYCIN 250MG/5ML ORAL SOLN PO SCH ×3 (05:14→19:00)
[2020-04-22] MEDS: HEPARIN SOD (PORCINE) 5,000 UNIT/ML VIAL SC SCH ×3 (05:14→22:00)
[2020-04-22 05:36] LABS: BASOPHILS # (AUTO) 0.1 (0.0-0.1); BASOPHILS % 0.3 % (0.0-1.0); EOSINOPHILS # (AUTO) 0.3 (0.0-0.4); EOSINOPHILS % 1.3 % (0.0-6.0); HEMATOCRIT 24.9 % (38.2-49.6); HEMOGLOBIN 8.4 g/dL (14.0-18.0); LYMPHOCYTES # (AUTO) 1.3 (1.0-3.2); LYMPHOCYTES % 5.9 % (18.0-39.1); MEAN CORPUSCULAR HEMOGLOBIN 28.9 pg (28-32); MEAN CORPUSCULAR HGB CONC 33.7 g/dL (31-35); MEAN CORPUSCULAR VOLUME 85.6 fL (81-99); MONOCYTES # (AUTO) 1.2 (0.2-0.8); MONOCYTES % 5.4 % (4.4-11.3); NEUTROPHILS # (AUTO) 19.3 (2.1-6.9); NEUTROPHILS % 85.1 % (38.7-80.0); PLATELET COUNT 240 x10e3/uL (140-360); RED BLOOD COUNT 2.91 x10e6/uL (4.3-5.7); RED CELL DISTRIBUTION WIDTH 16.6 % (11.7-14.4)
[2020-04-22 05:58] LABS: ALBUMIN 1.4 g/dL (3.5-5.0); ALBUMIN/GLOBULIN RATIO 0.4 (0.8-2.0); ANION GAP 12.9 mmol/L (8-16); CREATININE, SERUM 6.75 mg/dL (0.72-1.25)
[2020-04-22 06:19] LABS: CALCIUM 6.5 mg/dL (8.4-10.2); POTASSIUM 2.9 mmol/L (3.5-5.1)
[2020-04-22] MEDS: INSULIN REGULAR, HUMAN 100 UNIT/1 ML 3ML VIAL SQ SCH ×4 (07:30→21:00)
[2020-04-22] MEDS: PANTOPRAZOLE 40 MG 10ML VIAL IV SCH ×2 (08:23→17:14)
[2020-04-22] MEDS: POTASSIUM CHLORIDE 10MEQ EA PO SCH (08:23)
[2020-04-22] MEDS: CALCIUM CARBONATE 500 MG CHEWABLE TABS PO SCH ×4 (08:23→21:00)
[2020-04-22] MEDS ORDERED: POTASSIUM CHLORIDE 20 MEQ TAB CR PO STA (08:32)
[2020-04-22] MEDS ORDERED: CALCIUM GLUCONATE 10% INJ 4.65 MEQ in SODIUM CHLORIDE 0.9% 50ML 50 ML IV ONE (08:45)
[2020-04-22] MEDS: INSULIN GLARGINE 100 UNITS/ML VIAL SQ SCH (09:08)
[2020-04-22] MEDS: IRON SUCROSE 100 MG in SODIUM CHLORIDE 0.9% 100 ML 100 ML IV SCH (09:10)
[2020-04-22] MEDS ORDERED: SODIUM CHLORIDE 0.9% 250ML 250 ML ONE (09:20)
[2020-04-22 09:52] VITALS: BP 143/89
[2020-04-22] MEDS: DEXTROSE 5%/0.9% SOD CHL 1,000 ML IV SCH ×2 (10:22→23:42)
[2020-04-22] MEDS: LORAZEPAM 0.5 MG TAB PO PRN (10:49)
[2020-04-22 12:35] VITALS: BP 146/88
[2020-04-22 17:22] VITALS: BP 153/93
[2020-04-22 19:18] VITALS: BP 153/90
[2020-04-23] VITALS (7 sets, daily range): BP systolic 148–163; BP diastolic 85–101
[2020-04-23] MEDS: METRONIDAZOLE 500MG/NS 100ML 100 ML IV SCH ×4 (06:00→17:09)
[2020-04-23] MEDS: DICYCLOMINE HCL 20 MG TAB PO SCH ×3 (06:00→21:52)
[2020-04-23] MEDS: METOCLOPRAMIDE HCL 10 MG/2ML VIAL IV SCH ×4 (06:00→17:09)
[2020-04-23] MEDS: VANCOMYCIN 250MG/5ML ORAL SOLN PO SCH ×4 (06:00→17:38)
[2020-04-23] MEDS: HEPARIN SOD (PORCINE) 5,000 UNIT/ML VIAL SC SCH ×3 (06:00→21:57)
[2020-04-23] MEDS: METOPROLOL TARTRATE 25 MG TAB PO SCH ×4 (06:00→17:09)
[2020-04-23 06:08] LABS: BASOPHILS # (AUTO) 0.1 (0.0-0.1); BASOPHILS % 0.3 % (0.0-1.0); EOSINOPHILS # (AUTO) 0.3 (0.0-0.4); EOSINOPHILS % 1.3 % (0.0-6.0); HEMATOCRIT 24.8 % (38.2-49.6); HEMOGLOBIN 8.5 g/dL (14.0-18.0); LYMPHOCYTES # (AUTO) 1.4 (1.0-3.2); MEAN CORPUSCULAR HEMOGLOBIN 29.3 pg (28-32); MEAN CORPUSCULAR HGB CONC 34.3 g/dL (31-35); MEAN CORPUSCULAR VOLUME 85.5 fL (81-99); MONOCYTES # (AUTO) 1.3 (0.2-0.8); MONOCYTES % 5.8 % (4.4-11.3); NEUTROPHILS # (AUTO) 19.3 (2.1-6.9); NEUTROPHILS % 84.7 % (38.7-80.0); PLATELET COUNT 302 x10e3/uL (140-360); RED CELL DISTRIBUTION WIDTH 16.6 % (11.7-14.4)
[2020-04-23 06:30] LABS: ALBUMIN 1.5 g/dL (3.5-5.0); ALBUMIN/GLOBULIN RATIO 0.4 (0.8-2.0); ANION GAP 17.9 mmol/L (8-16); CREATININE, SERUM 8.4 mg/dL (0.72-1.25); MAGNESIUM 1.8 MG/DL (1.3-2.1)
[2020-04-23 06:42] LABS: CALCIUM 6.6 mg/dL (8.4-10.2); POTASSIUM 2.9 mmol/L (3.5-5.1)
[2020-04-23] MEDS: INSULIN REGULAR, HUMAN 100 UNIT/1 ML 3ML VIAL SQ SCH ×4 (07:30→21:00)
[2020-04-23] MEDS: IRON SUCROSE 100 MG in SODIUM CHLORIDE 0.9% 100 ML 100 ML IV SCH (08:15)
[2020-04-23] MEDS: POTASSIUM CHLORIDE 10MEQ EA PO SCH (08:15)
[2020-04-23] MEDS: CALCIUM CARBONATE 500 MG CHEWABLE TABS PO SCH ×4 (08:15→22:05)
[2020-04-23] MEDS: PANTOPRAZOLE 40 MG 10ML VIAL IV SCH ×2 (08:15→16:20)
[2020-04-23] MEDS: INSULIN GLARGINE 100 UNITS/ML VIAL SQ SCH (08:16)
[2020-04-23] MEDS: DEXTROSE 5%/0.9% SOD CHL 1,000 ML IV SCH (13:02)
[2020-04-23] MEDS ORDERED: CALCIUM CHLORIDE 13.6 MEQ in SODIUM CHLORIDE 0.9% 100 ML 100 ML IV ONE (19:00)
[2020-04-23] MEDS ORDERED: POTASSIUM CHLORIDE 10MEQ/100ML 200 ML IV ONE (20:00)
[2020-04-23] MEDS: ACETAMINOPHEN 325 MG TAB PO PRN (22:08)
[2020-04-23] MEDS: LORAZEPAM 0.5 MG TAB PO PRN (23:11)
[2020-04-23] MEDS ORDERED: IOPAMIDOL 370 MG/ML 200 ML INFUS..BTL INJ ONE (23:22)
[2020-04-23] MEDS ORDERED: SODIUM CHLORIDE 0.9% 50ML 50 ML ONE (23:23)
[2020-04-24] VITALS (9 sets, daily range): BP systolic 128–177; BP diastolic 87–101
[2020-04-24] MEDS: METOPROLOL TARTRATE 25 MG TAB PO SCH ×4 (01:30→17:05)
[2020-04-24] MEDS: DEXTROSE 5%/0.9% SOD CHL 1,000 ML IV SCH (02:22)
[2020-04-24] MEDS: HEPARIN SOD (PORCINE) 5,000 UNIT/ML VIAL SC SCH ×3 (05:20→21:21)
[2020-04-24] MEDS: DICYCLOMINE HCL 20 MG TAB PO SCH ×3 (05:20→21:20)
[2020-04-24] MEDS: LORAZEPAM 0.5 MG TAB PO PRN ×3 (05:20→19:19)
[2020-04-24 05:42] LABS: ANION GAP 17.2 mmol/L (8-16); CREATININE, SERUM 9.37 mg/dL (0.72-1.25); POTASSIUM 3.2 mmol/L (3.5-5.1)
[2020-04-24 05:44] LABS: CALCIUM 6.9 mg/dL (8.4-10.2)
[2020-04-24] MEDS ORDERED: CALCIUM GLUCONATE 10% INJ 4.65 MEQ in SODIUM CHLORIDE 0.9% 50ML 50 ML IV ONE (06:30)
[2020-04-24] MEDS: INSULIN REGULAR, HUMAN 100 UNIT/1 ML 3ML VIAL SQ SCH ×4 (07:30→21:00)
[2020-04-24] MEDS: POTASSIUM CHLORIDE 10MEQ EA PO SCH ×2 (10:00→16:41)
[2020-04-24] MEDS: INSULIN GLARGINE 100 UNITS/ML VIAL SQ SCH (10:00)
[2020-04-24] MEDS: IRON SUCROSE 100 MG in SODIUM CHLORIDE 0.9% 100 ML 100 ML IV SCH (10:00)
[2020-04-24] MEDS: PANTOPRAZOLE 40 MG 10ML VIAL IV SCH ×2 (10:00→16:41)
[2020-04-24] MEDS: CALCIUM CARBONATE 500 MG CHEWABLE TABS PO SCH ×4 (10:00→20:29)
[2020-04-24 10:15] LABS: BASOPHILS # (AUTO) 0.1 (0.0-0.1); BASOPHILS % 0.3 % (0.0-1.0); EOSINOPHILS # (AUTO) 0.1 (0.0-0.4); EOSINOPHILS % 0.5 % (0.0-6.0); HEMATOCRIT 24.7 % (38.2-49.6); HEMOGLOBIN 8.2 g/dL (14.0-18.0); LYMPHOCYTES # (AUTO) 1.3 (1.0-3.2); LYMPHOCYTES % 6.2 % (18.0-39.1); MEAN CORPUSCULAR HEMOGLOBIN 28.8 pg (28-32); MEAN CORPUSCULAR HGB CONC 33.2 g/dL (31-35); MEAN CORPUSCULAR VOLUME 86.7 fL (81-99); MONOCYTES # (AUTO) 1.3 (0.2-0.8); MONOCYTES % 5.9 % (4.4-11.3); NEUTROPHILS # (AUTO) 18.4 (2.1-6.9); NEUTROPHILS % 85.9 % (38.7-80.0); PLATELET COUNT 354 x10e3/uL (140-360); RED BLOOD COUNT 2.85 x10e6/uL (4.3-5.7); RED CELL DISTRIBUTION WIDTH 16.7 % (11.7-14.4)
[2020-04-24] MEDS ORDERED: CALCIUM CHLORIDE 13.6 MEQ in SODIUM CHLORIDE 0.9% 100 ML 100 ML IV ONE (11:00)
[2020-04-24] MEDS ORDERED: POTASSIUM CHLORIDE 20MEQ/100ML 200 ML IV ONE (12:00)
[2020-04-24] MEDS: HALOPERIDOL 5 MG TAB PO PRN (14:52)
[2020-04-24] MEDS: FUROSEMIDE 40 MG TAB PO SCH (16:41)
[2020-04-24] MEDS ORDERED: FUROSEMIDE INJ 10 MG/ML 2 ML VIAL IV ONE (17:15)
[2020-04-25] VITALS (7 sets, daily range): BP systolic 134–148; BP diastolic 81–90
[2020-04-25] MEDS: LORAZEPAM 0.5 MG TAB PO PRN ×3 (01:29→17:12)
[2020-04-25] MEDS: HEPARIN SOD (PORCINE) 5,000 UNIT/ML VIAL SC SCH ×3 (05:20→21:10)
[2020-04-25] MEDS: DICYCLOMINE HCL 20 MG TAB PO SCH ×3 (05:20→21:10)
[2020-04-25 05:35] LABS: BASOPHILS # (AUTO) 0.1 (0.0-0.1); BASOPHILS % 0.3 % (0.0-1.0); EOSINOPHILS # (AUTO) 0.1 (0.0-0.4); EOSINOPHILS % 0.6 % (0.0-6.0); HEMATOCRIT 24.2 % (38.2-49.6); HEMOGLOBIN 7.9 g/dL (14.0-18.0); LYMPHOCYTES # (AUTO) 1.3 (1.0-3.2); LYMPHOCYTES % 6.2 % (18.0-39.1); MEAN CORPUSCULAR HEMOGLOBIN 28.5 pg (28-32); MEAN CORPUSCULAR HGB CONC 32.6 g/dL (31-35); MEAN CORPUSCULAR VOLUME 87.4 fL (81-99); MONOCYTES # (AUTO) 1.2 (0.2-0.8); MONOCYTES % 5.8 % (4.4-11.3); NEUTROPHILS # (AUTO) 17.2 (2.1-6.9); NEUTROPHILS % 85.5 % (38.7-80.0); PLATELET COUNT 386 x10e3/uL (140-360); RED BLOOD COUNT 2.77 x10e6/uL (4.3-5.7); RED CELL DISTRIBUTION WIDTH 16.4 % (11.7-14.4)
[2020-04-25 05:43] LABS: ALBUMIN 1.5 g/dL (3.5-5.0); ALBUMIN/GLOBULIN RATIO 0.4 (0.8-2.0); ANION GAP 16.3 mmol/L (8-16); CALCIUM 7.2 mg/dL (8.4-10.2); CREATININE, SERUM 6.45 mg/dL (0.72-1.25); POTASSIUM 3.3 mmol/L (3.5-5.1)
[2020-04-25] MEDS: METOPROLOL TARTRATE 25 MG TAB PO SCH ×4 (06:00→17:12)
[2020-04-25] MEDS: ACETAMINOPHEN 325 MG TAB PO PRN ×2 (06:37→20:48)
[2020-04-25] MEDS: INSULIN REGULAR, HUMAN 100 UNIT/1 ML 3ML VIAL SQ SCH ×4 (07:30→20:53)
[2020-04-25] MEDS ORDERED: SODIUM CHLORIDE 0.9% 250ML 250 ML ONE (08:40)
[2020-04-25] MEDS: PANTOPRAZOLE 40 MG 10ML VIAL IV SCH ×2 (08:59→15:53)
[2020-04-25] MEDS: CALCIUM CARBONATE 500 MG CHEWABLE TABS PO SCH ×4 (08:59→20:54)
[2020-04-25] MEDS: FUROSEMIDE 40 MG TAB PO SCH (08:59)
[2020-04-25] MEDS: IRON SUCROSE 100 MG in SODIUM CHLORIDE 0.9% 100 ML 100 ML IV SCH (08:59)
[2020-04-25] MEDS: POTASSIUM CHLORIDE 10MEQ EA PO SCH ×2 (08:59→17:38)
[2020-04-25] MEDS: INSULIN GLARGINE 100 UNITS/ML VIAL SQ SCH (09:00)
[2020-04-25] MEDS ORDERED: POTASSIUM CHLORIDE 20 MEQ TAB CR PO ONE (16:00)
[2020-04-25] MEDS: ONDANSETRON HCL INJ 2MG/ML 2ML 2 MG/ML VIAL IV PRN (17:12)
[2020-04-25] MEDS: HALOPERIDOL 5 MG TAB PO PRN (20:54)
[2020-04-26] VITALS (8 sets, daily range): BP systolic 113–164; BP diastolic 51–86
[2020-04-26] MEDS: LORAZEPAM 0.5 MG TAB PO PRN ×3 (00:31→22:57)
[2020-04-26] MEDS: METOPROLOL TARTRATE 25 MG TAB PO SCH ×5 (05:40→23:44)
[2020-04-26] MEDS: DICYCLOMINE HCL 20 MG TAB PO SCH ×3 (05:40→21:05)
[2020-04-26] MEDS: HEPARIN SOD (PORCINE) 5,000 UNIT/ML VIAL SC SCH ×3 (05:42→21:05)
[2020-04-26] MEDS: INSULIN REGULAR, HUMAN 100 UNIT/1 ML 3ML VIAL SQ SCH ×4 (07:30→20:43)
[2020-04-26] MEDS: INSULIN GLARGINE 100 UNITS/ML VIAL SQ SCH (08:15)
[2020-04-26] MEDS: NIFEDIPINE CR 30 MG TAB PO SCH (08:15)
[2020-04-26] MEDS: POTASSIUM CHLORIDE 10MEQ EA PO SCH ×2 (08:15→17:30)
[2020-04-26] MEDS: CALCIUM CARBONATE 500 MG CHEWABLE TABS PO SCH ×4 (08:15→21:05)
[2020-04-26] MEDS: FUROSEMIDE 40 MG TAB PO SCH (08:15)
[2020-04-26] MEDS: PANTOPRAZOLE 40 MG 10ML VIAL IV SCH ×2 (08:15→17:30)
[2020-04-26] MEDS: IRON SUCROSE 100 MG in SODIUM CHLORIDE 0.9% 100 ML 100 ML IV SCH (10:00)
[2020-04-26 12:35] LABS: BASOPHILS # (AUTO) 0.1 (0.0-0.1); BASOPHILS % 0.4 % (0.0-1.0); EOSINOPHILS # (AUTO) 0.2 (0.0-0.4); EOSINOPHILS % 0.8 % (0.0-6.0); HEMATOCRIT 25.6 % (38.2-49.6); HEMOGLOBIN 8.1 g/dL (14.0-18.0); LYMPHOCYTES # (AUTO) 1.7 (1.0-3.2); LYMPHOCYTES % 7.4 % (18.0-39.1); MEAN CORPUSCULAR HEMOGLOBIN 28.6 pg (28-32); MEAN CORPUSCULAR HGB CONC 31.6 g/dL (31-35); MONOCYTES # (AUTO) 1.3 (0.2-0.8); NEUTROPHILS # (AUTO) 18.6 (2.1-6.9); NEUTROPHILS % 82.9 % (38.7-80.0); PLATELET COUNT 446 x10e3/uL (140-360); RED BLOOD COUNT 2.83 x10e6/uL (4.3-5.7); RED CELL DISTRIBUTION WIDTH 16.9 % (11.7-14.4)
[2020-04-26 12:42] LABS: MEAN CORPUSCULAR VOLUME 90.5 fL (81-99)
[2020-04-26 13:02] LABS: ALBUMIN 1.7 g/dL (3.5-5.0); ALBUMIN/GLOBULIN RATIO 0.4 (0.8-2.0); ANION GAP 14.7 mmol/L (8-16); CALCIUM 7.2 mg/dL (8.4-10.2); CREATININE, SERUM 7.19 mg/dL (0.72-1.25); POTASSIUM 3.7 mmol/L (3.5-5.1)
[2020-04-26] MEDS: SODIUM CHLORIDE 0.9% 1000ML 2,000 ML IV PRN (14:33)
[2020-04-26 16:16] LABS: CREATININE,URINE RANDOM 48.87 mg/dL (63-166); TOTAL PROTEIN, URINE 18.2 mg/dL (1-14)
[2020-04-26] MEDS: EPOETIN ALFA-EPBX 10,000 UNIT/ML VIAL SC SCH (17:30)
[2020-04-26] MEDS: ACETAMINOPHEN 325 MG TAB PO PRN ×2 (18:05→22:47)
[2020-04-27] VITALS (8 sets, daily range): BP systolic 127–148; BP diastolic 70–92
[2020-04-27] MEDS: DICYCLOMINE HCL 20 MG TAB PO SCH ×3 (05:15→19:56)
[2020-04-27] MEDS: METOPROLOL TARTRATE 25 MG TAB PO SCH ×4 (05:15→23:51)
[2020-04-27 05:26] LABS: BASOPHILS # (AUTO) 0.1 (0.0-0.1); BASOPHILS % 0.4 % (0.0-1.0); EOSINOPHILS # (AUTO) 0.2 (0.0-0.4); EOSINOPHILS % 0.8 % (0.0-6.0); HEMATOCRIT 23.9 % (38.2-49.6); HEMOGLOBIN 7.5 g/dL (14.0-18.0); LYMPHOCYTES # (AUTO) 1.5 (1.0-3.2); LYMPHOCYTES % 7.5 % (18.0-39.1); MEAN CORPUSCULAR HEMOGLOBIN 28.6 pg (28-32); MEAN CORPUSCULAR HGB CONC 31.4 g/dL (31-35); MEAN CORPUSCULAR VOLUME 91.2 fL (81-99); MONOCYTES # (AUTO) 1.4 (0.2-0.8); MONOCYTES % 7.4 % (4.4-11.3); NEUTROPHILS # (AUTO) 15.8 (2.1-6.9); NEUTROPHILS % 81.4 % (38.7-80.0); PLATELET COUNT 422 x10e3/uL (140-360); RED BLOOD COUNT 2.62 x10e6/uL (4.3-5.7); RED CELL DISTRIBUTION WIDTH 16.6 % (11.7-14.4)
[2020-04-27] MEDS: HEPARIN SOD (PORCINE) 5,000 UNIT/ML VIAL SC SCH ×3 (05:34→19:56)
[2020-04-27] MEDS: INSULIN REGULAR, HUMAN 100 UNIT/1 ML 3ML VIAL SQ SCH ×4 (07:30→20:28)
[2020-04-27] MEDS: NIFEDIPINE CR 30 MG TAB PO SCH (10:00)
[2020-04-27] MEDS: POTASSIUM CHLORIDE 10MEQ EA PO SCH ×2 (10:00→17:34)
[2020-04-27] MEDS: PANTOPRAZOLE 40 MG 10ML VIAL IV SCH ×2 (10:00→17:34)
[2020-04-27] MEDS: INSULIN GLARGINE 100 UNITS/ML VIAL SQ SCH (10:00)
[2020-04-27] MEDS: CALCIUM CARBONATE 500 MG CHEWABLE TABS PO SCH ×4 (10:00→19:56)
[2020-04-27] MEDS: FUROSEMIDE 40 MG TAB PO SCH (10:00)
[2020-04-27] MEDS: IRON SUCROSE 100 MG in SODIUM CHLORIDE 0.9% 100 ML 100 ML IV SCH (10:00)
[2020-04-27] MEDS: HALOPERIDOL 5 MG TAB PO PRN ×2 (14:41→19:56)
[2020-04-27] MEDS: LORAZEPAM 0.5 MG TAB PO PRN (19:56)
[2020-04-27] MEDS: ONDANSETRON HCL INJ 2MG/ML 2ML 2 MG/ML VIAL IV PRN (23:14)
[2020-04-28] VITALS (8 sets, daily range): BP systolic 111–138; BP diastolic 62–90
[2020-04-28] MEDS ORDERED: MAGNESIUM/ALUMINUM/SIMETHICONE 30 ML UDC PO ONE (00:30)
[2020-04-28] MEDS ORDERED: BELLADONNA ALK/PHENOBARBITAL 5 ML UDC PO ONE (00:30)
[2020-04-28] MEDS ORDERED: DONNATAL/LIDOCAINE/MAALOX 30 ML SUSP PO ONE (00:30)
[2020-04-28] MEDS ORDERED: LIDOCAINE VISC 2% SOLN 15 ML UDC PO ONE (00:30)
[2020-04-28] MEDS ORDERED: MAGNESIUM HYDROXIDE 30 ML UDC PO PRN (01:45)
[2020-04-28] MEDS ORDERED: SIMETHICONE 80 MG CHEW PO PRN (01:45)
[2020-04-28 01:46] LABS: AMYLASE 91 U/L (25-125); LIPASE 107 U/L (8-78)
[2020-04-28] MEDS: LORAZEPAM 0.5 MG TAB PO PRN (02:30)
[2020-04-28] MEDS: ACETAMINOPHEN 325 MG TAB PO PRN ×3 (03:27→17:00)
[2020-04-28 04:50] LABS: BASOPHILS # (AUTO) 0.1 (0.0-0.1); BASOPHILS % 0.4 % (0.0-1.0); EOSINOPHILS % 0.2 % (0.0-6.0); HEMATOCRIT 29.5 % (38.2-49.6); HEMOGLOBIN 9.5 g/dL (14.0-18.0); LYMPHOCYTES # (AUTO) 0.9 (1.0-3.2); LYMPHOCYTES % 4.8 % (18.0-39.1); MEAN CORPUSCULAR HEMOGLOBIN 29.1 pg (28-32); MEAN CORPUSCULAR HGB CONC 32.2 g/dL (31-35); MEAN CORPUSCULAR VOLUME 90.2 fL (81-99); MONOCYTES # (AUTO) 0.8 (0.2-0.8); MONOCYTES % 4.4 % (4.4-11.3); NEUTROPHILS # (AUTO) 16.5 (2.1-6.9); NEUTROPHILS % 87.3 % (38.7-80.0); PLATELET COUNT 474 x10e3/uL (140-360); RED BLOOD COUNT 3.27 x10e6/uL (4.3-5.7); RED CELL DISTRIBUTION WIDTH 16.6 % (11.7-14.4)
[2020-04-28 05:02] LABS: INR 1.26; PROTHROMBIN TIME 16.6 seconds (11.9-14.5)
[2020-04-28 05:12] LABS: ALBUMIN 1.6 g/dL (3.5-5.0); ALBUMIN/GLOBULIN RATIO 0.4 (0.8-2.0); ANION GAP 18.7 mmol/L (8-16); CALCIUM 7.1 mg/dL (8.4-10.2); CREATININE, SERUM 4.94 mg/dL (0.72-1.25); MAGNESIUM 1.6 MG/DL (1.3-2.1); PHOSPHORUS 3.6 MG/DL (2.3-4.7); POTASSIUM 3.7 mmol/L (3.5-5.1)
[2020-04-28 05:33] LABS: AMYLASE 88 U/L (25-125); LIPASE 92 U/L (8-78)
[2020-04-28] MEDS: HEPARIN SOD (PORCINE) 5,000 UNIT/ML VIAL SC SCH ×3 (05:35→21:35)
[2020-04-28] MEDS: METOPROLOL TARTRATE 25 MG TAB PO SCH ×3 (05:35→17:23)
[2020-04-28] MEDS: DICYCLOMINE HCL 20 MG TAB PO SCH ×3 (05:35→21:35)
[2020-04-28] MEDS ORDERED: HYDROMORPHONE 1MG/1ML INJ IV STA (06:35)
[2020-04-28] MEDS: INSULIN REGULAR, HUMAN 100 UNIT/1 ML 3ML VIAL SQ SCH ×4 (07:30→20:35)
[2020-04-28] MEDS: FUROSEMIDE 40 MG TAB PO SCH (09:08)
[2020-04-28] MEDS: PANTOPRAZOLE 40 MG 10ML VIAL IV SCH ×2 (09:08→17:21)
[2020-04-28] MEDS: POTASSIUM CHLORIDE 10MEQ EA PO SCH ×2 (09:10→17:22)
[2020-04-28] MEDS: NIFEDIPINE CR 30 MG TAB PO SCH (09:12)
[2020-04-28] MEDS: INSULIN GLARGINE 100 UNITS/ML VIAL SQ SCH (09:12)
[2020-04-28] MEDS: CALCIUM CARBONATE 500 MG CHEWABLE TABS PO SCH ×4 (09:38→21:00)
[2020-04-28] MEDS ORDERED: CALCIUM CARBONATE 500 MG CHEWABLE TABS ONE ×2 (09:39→11:35)
[2020-04-28] MEDS: IRON SUCROSE 100 MG in SODIUM CHLORIDE 0.9% 100 ML 100 ML IV SCH (10:00)
[2020-04-28] MEDS ORDERED: DICYCLOMINE HCL 10 MG CAP ONE (11:34)
[2020-04-28] MEDS ORDERED: METOPROLOL TARTRATE 50 MG TAB ONE (11:34)
[2020-04-28] MEDS ORDERED: HEPARIN SOD (PORCINE) 5,000 UNIT/ML VIAL ONE (11:34)
[2020-04-28] MEDS: HYDROMORPHONE 1MG/1ML INJ IV PRN ×2 (11:55→18:50)
[2020-04-28] MEDS ORDERED: ACETAMINOPHEN 325 MG TAB ONE (12:24)
[2020-04-28] MEDS ORDERED: VANCOMYCIN 1GM/NS 250 ML 250 ML IV ONE (19:15)
[2020-04-28] MEDS ORDERED: SODIUM CHLORIDE 0.9% 250ML 250 ML ONE (19:39)
[2020-04-29] VITALS (12 sets, daily range): BP systolic 97–126; BP diastolic 57–70
[2020-04-29] MEDS: ACETAMINOPHEN 325 MG TAB PO PRN ×3 (00:09→21:15)
[2020-04-29] MEDS: METOPROLOL TARTRATE 25 MG TAB PO SCH ×5 (00:09→22:52)
[2020-04-29] MEDS: HYDROMORPHONE 1MG/1ML INJ IV PRN ×5 (00:10→22:52)
[2020-04-29 05:53] LABS: BASOPHILS # (AUTO) 0.1 (0.0-0.1); BASOPHILS % 0.5 % (0.0-1.0); HEMATOCRIT 25.7 % (38.2-49.6); HEMOGLOBIN 7.9 g/dL (14.0-18.0); LYMPHOCYTES # (AUTO) 1.3 (1.0-3.2); LYMPHOCYTES % 5.8 % (18.0-39.1); MEAN CORPUSCULAR HEMOGLOBIN 28.8 pg (28-32); MEAN CORPUSCULAR HGB CONC 30.7 g/dL (31-35); MEAN CORPUSCULAR VOLUME 93.8 fL (81-99); MONOCYTES # (AUTO) 1.4 (0.2-0.8); MONOCYTES % 6.4 % (4.4-11.3); NEUTROPHILS # (AUTO) 18.8 (2.1-6.9); NEUTROPHILS % 84.1 % (38.7-80.0); PLATELET COUNT 412 x10e3/uL (140-360); RED BLOOD COUNT 2.74 x10e6/uL (4.3-5.7); RED CELL DISTRIBUTION WIDTH 17.1 % (11.7-14.4)
[2020-04-29] MEDS: DICYCLOMINE HCL 20 MG TAB PO SCH ×3 (06:00→21:15)
[2020-04-29 06:22] LABS: ALBUMIN 1.5 g/dL (3.5-5.0); ALBUMIN/GLOBULIN RATIO 0.4 (0.8-2.0); ANION GAP 15.6 mmol/L (8-16); CALCIUM 7.1 mg/dL (8.4-10.2); CREATININE, SERUM 5.16 mg/dL (0.72-1.25)
[2020-04-29 06:27] LABS: POTASSIUM 4.6 mmol/L (3.5-5.1)
[2020-04-29 06:44] LABS: AMYLASE 92 U/L (25-125); LIPASE 80 U/L (8-78)
[2020-04-29] MEDS: INSULIN REGULAR, HUMAN 100 UNIT/1 ML 3ML VIAL SQ SCH ×4 (07:30→20:16)
[2020-04-29] MEDS ORDERED: PANTOPRAZOLE 40 MG 10ML VIAL ONE (07:31)
[2020-04-29] MEDS ORDERED: FUROSEMIDE 40 MG TAB ONE (07:31)
[2020-04-29] MEDS ORDERED: POTASSIUM CHLORIDE 20 MEQ TAB CR PO ONE (07:32)
[2020-04-29] MEDS ORDERED: CALCIUM CARBONATE 500 MG CHEWABLE TABS ONE (07:32)
[2020-04-29] MEDS ORDERED: NIFEDIPINE CR 30 MG TAB ONE (07:32)
[2020-04-29] MEDS: FUROSEMIDE 40 MG TAB PO SCH (08:18)
[2020-04-29] MEDS: CALCIUM CARBONATE 500 MG CHEWABLE TABS PO SCH ×4 (08:18→21:15)
[2020-04-29] MEDS: PANTOPRAZOLE 40 MG 10ML VIAL IV SCH ×2 (08:18→16:56)
[2020-04-29] MEDS: NIFEDIPINE CR 30 MG TAB PO SCH (08:18)
[2020-04-29] MEDS: POTASSIUM CHLORIDE 10MEQ EA PO SCH ×2 (08:18→16:25)
[2020-04-29] MEDS ORDERED: VANCOMYCIN 1GM/NS 250 ML 250 ML IV ONE (08:45)
[2020-04-29] MEDS: INSULIN GLARGINE 100 UNITS/ML VIAL SQ SCH (08:59)
[2020-04-29] MEDS: IRON SUCROSE 100 MG in SODIUM CHLORIDE 0.9% 100 ML 100 ML IV SCH (11:11)
[2020-04-29] MEDS: MEROPENEM 500MG/ NS 50ML 50 ML IV SCH (12:31)
[2020-04-29] MEDS ORDERED: LIDOCAINE HCL 1% LOCAL INJ 20 ML VIAL ONE (12:33)
[2020-04-29] MEDS ORDERED: SODIUM CHLORIDE 0.9% 250ML 250 ML ONE (12:33)
[2020-04-29] MEDS ORDERED: FENTANYL CITRATE/PF 100MCG/2 ML INJ ONE ×2 (13:20→14:39)
[2020-04-29] MEDS ORDERED: MIDAZOLAM HCL 2 MG/2 ML VIAL ONE ×2 (13:20→14:38)
[2020-04-29] MEDS ORDERED: HEPARIN SOD (PORCINE) 1000 UNIT/ML SDV ONE (14:39)
[2020-04-29] MEDS: EPOETIN ALFA-EPBX 10,000 UNIT/ML VIAL SC SCH (17:44)
[2020-04-29] MEDS: DEXTROSE 5%/0.9% SOD CHL 1,000 ML IV SCH (18:00)
[2020-04-29] MEDS ORDERED: HEPARIN SOD (PORCINE) 1000 UNIT/ML SDV IV PRN (18:30)
[2020-04-29] MEDS: SODIUM CHLORIDE 0.9% 1000ML 2,000 ML IV PRN (18:32)
[2020-04-29] MEDS ORDERED: SODIUM CHLORIDE 0.9% 250ML 750 ML IV PRN (18:45)
[2020-04-29] MEDS ORDERED: ACETAMINOPHEN 325 MG TAB ONE (21:15)
[2020-04-30] VITALS (9 sets, daily range): BP systolic 105–125; BP diastolic 55–71
[2020-04-30] MEDS ORDERED: ACETAMINOPHEN 325 MG TAB ONE ×4 (01:37→21:21)
[2020-04-30] MEDS: ACETAMINOPHEN 325 MG TAB PO PRN ×4 (01:38→21:54)
[2020-04-30] MEDS: HYDROMORPHONE 1MG/1ML INJ IV PRN ×6 (02:12→21:02)
[2020-04-30 05:04] LABS: BASOPHILS # (AUTO) 0.1 (0.0-0.1); BASOPHILS % 0.5 % (0.0-1.0); EOSINOPHILS # (AUTO) 0.3 (0.0-0.4); EOSINOPHILS % 1.2 % (0.0-6.0); HEMATOCRIT 26.5 % (38.2-49.6); LYMPHOCYTES # (AUTO) 1.3 (1.0-3.2); LYMPHOCYTES % 6.2 % (18.0-39.1); MEAN CORPUSCULAR HEMOGLOBIN 29.7 pg (28-32); MEAN CORPUSCULAR HGB CONC 30.2 g/dL (31-35); MEAN CORPUSCULAR VOLUME 98.5 fL (81-99); MONOCYTES # (AUTO) 1.3 (0.2-0.8); NEUTROPHILS # (AUTO) 17.6 (2.1-6.9); NEUTROPHILS % 82.3 % (38.7-80.0); PLATELET COUNT 406 x10e3/uL (140-360); RED BLOOD COUNT 2.69 x10e6/uL (4.3-5.7); RED CELL DISTRIBUTION WIDTH 17.2 % (11.7-14.4)
[2020-04-30 05:21] LABS: ALBUMIN 1.6 g/dL (3.5-5.0); ALBUMIN/GLOBULIN RATIO 0.4 (0.8-2.0); ANION GAP 15.7 mmol/L (8-16); CALCIUM 7.5 mg/dL (8.4-10.2); CREATININE, SERUM 3.47 mg/dL (0.72-1.25); POTASSIUM 4.7 mmol/L (3.5-5.1)
[2020-04-30] MEDS: METOPROLOL TARTRATE 25 MG TAB PO SCH ×4 (05:41→23:44)
[2020-04-30] MEDS: DICYCLOMINE HCL 20 MG TAB PO SCH ×3 (05:41→21:02)
[2020-04-30 05:52] LABS: AMYLASE 96 U/L (25-125); LIPASE 82 U/L (8-78)
[2020-04-30] MEDS: INSULIN REGULAR, HUMAN 100 UNIT/1 ML 3ML VIAL SQ SCH ×4 (07:30→21:00)
[2020-04-30] MEDS: POTASSIUM CHLORIDE 10MEQ EA PO SCH ×2 (10:05→17:16)
[2020-04-30] MEDS: NIFEDIPINE CR 30 MG TAB PO SCH (10:05)
[2020-04-30] MEDS: PANTOPRAZOLE 40 MG 10ML VIAL IV SCH ×2 (10:05→17:15)
[2020-04-30] MEDS: CALCIUM CARBONATE 500 MG CHEWABLE TABS PO SCH ×4 (10:05→21:02)
[2020-04-30] MEDS: FUROSEMIDE 40 MG TAB PO SCH (10:05)
[2020-04-30] MEDS: INSULIN GLARGINE 100 UNITS/ML VIAL SQ SCH (10:06)
[2020-04-30] MEDS: VANCOMYCIN 1GM/NS 250 ML 250 ML IV SCH (10:59)
[2020-04-30] MEDS: DEXTROSE 5%/0.9% SOD CHL 1,000 ML IV SCH (11:51)
[2020-04-30] MEDS: HEPARIN SOD (PORCINE) 5,000 UNIT/ML VIAL SC SCH ×2 (14:24→21:02)
[2020-04-30] MEDS: MEROPENEM 500MG/ NS 50ML 50 ML IV SCH (14:25)
[2020-05-01] VITALS (7 sets, daily range): BP systolic 112–123; BP diastolic 68–76
[2020-05-01] MEDS: HYDROMORPHONE 1MG/1ML INJ IV PRN ×7 (00:02→21:14)
[2020-05-01] MEDS ORDERED: ACETAMINOPHEN 325 MG TAB ONE ×4 (02:14→13:58)
[2020-05-01] MEDS: ACETAMINOPHEN 325 MG TAB PO PRN ×4 (02:20→13:57)
[2020-05-01] MEDS: DICYCLOMINE HCL 20 MG TAB PO SCH ×3 (06:02→21:13)
[2020-05-01] MEDS: METOPROLOL TARTRATE 25 MG TAB PO SCH ×3 (06:02→17:17)
[2020-05-01] MEDS: HEPARIN SOD (PORCINE) 5,000 UNIT/ML VIAL SC SCH ×3 (06:03→21:58)
[2020-05-01] MEDS: INSULIN REGULAR, HUMAN 100 UNIT/1 ML 3ML VIAL SQ SCH ×4 (07:30→21:00)
[2020-05-01] MEDS: PANTOPRAZOLE 40 MG 10ML VIAL IV SCH ×2 (08:16→17:16)
[2020-05-01] MEDS: VANCOMYCIN 1GM/NS 250 ML 250 ML IV SCH (08:16)
[2020-05-01] MEDS: POTASSIUM CHLORIDE 10MEQ EA PO SCH ×2 (08:16→17:17)
[2020-05-01] MEDS: FUROSEMIDE 40 MG TAB PO SCH (08:16)
[2020-05-01] MEDS: DEXTROSE 5%/0.9% SOD CHL 1,000 ML IV SCH (08:17)
[2020-05-01] MEDS: NIFEDIPINE CR 30 MG TAB PO SCH (08:17)
[2020-05-01] MEDS: CALCIUM CARBONATE 500 MG CHEWABLE TABS PO SCH ×4 (08:17→21:13)
[2020-05-01] MEDS: INSULIN GLARGINE 100 UNITS/ML VIAL SQ SCH (08:52)
[2020-05-01 10:14] LABS: BASOPHILS # (AUTO) 0.1 (0.0-0.1); BASOPHILS % 0.4 % (0.0-1.0); EOSINOPHILS # (AUTO) 0.2 (0.0-0.4); HEMATOCRIT 24.7 % (38.2-49.6); HEMOGLOBIN 7.5 g/dL (14.0-18.0); LYMPHOCYTES # (AUTO) 1.1 (1.0-3.2); LYMPHOCYTES % 6.8 % (18.0-39.1); MEAN CORPUSCULAR HEMOGLOBIN 29.4 pg (28-32); MEAN CORPUSCULAR HGB CONC 30.4 g/dL (31-35); MEAN CORPUSCULAR VOLUME 96.9 fL (81-99); MONOCYTES # (AUTO) 1.3 (0.2-0.8); MONOCYTES % 7.6 % (4.4-11.3); NEUTROPHILS # (AUTO) 13.1 (2.1-6.9); NEUTROPHILS % 80.1 % (38.7-80.0); PLATELET COUNT 414 x10e3/uL (140-360); RED BLOOD COUNT 2.55 x10e6/uL (4.3-5.7); RED CELL DISTRIBUTION WIDTH 16.9 % (11.7-14.4)
[2020-05-01 10:29] LABS: ANION GAP 12.5 mmol/L (8-16); CALCIUM 7.2 mg/dL (8.4-10.2); CREATININE, SERUM 2.78 mg/dL (0.72-1.25); POTASSIUM 4.5 mmol/L (3.5-5.1)
[2020-05-01 10:57] LABS: AMYLASE 94 U/L (25-125); LIPASE 100 U/L (8-78)
[2020-05-01] MEDS: DEXTROSE 5%/0.45% SOD CHL 1,000 ML IV SCH (17:16)
[2020-05-01] MEDS: EPOETIN ALFA-EPBX 10,000 UNIT/ML VIAL SC SCH (17:17)
[2020-05-02] VITALS (8 sets, daily range): BP systolic 100–119; BP diastolic 56–73
[2020-05-02] MEDS: METOPROLOL TARTRATE 25 MG TAB PO SCH ×5 (00:14→23:45)
[2020-05-02] MEDS: HYDROMORPHONE 1MG/1ML INJ IV PRN ×8 (00:14→23:35)
[2020-05-02 04:39] LABS: BASOPHILS # (AUTO) 0.1 (0.0-0.1); BASOPHILS % 0.4 % (0.0-1.0); EOSINOPHILS # (AUTO) 0.1 (0.0-0.4); EOSINOPHILS % 0.5 % (0.0-6.0); HEMOGLOBIN 9.2 g/dL (14.0-18.0); LYMPHOCYTES # (AUTO) 1.4 (1.0-3.2); LYMPHOCYTES % 8.3 % (18.0-39.1); MEAN CORPUSCULAR HEMOGLOBIN 28.9 pg (28-32); MEAN CORPUSCULAR HGB CONC 29.7 g/dL (31-35); MEAN CORPUSCULAR VOLUME 97.5 fL (81-99); MONOCYTES # (AUTO) 1.2 (0.2-0.8); MONOCYTES % 6.7 % (4.4-11.3); NEUTROPHILS # (AUTO) 13.7 (2.1-6.9); PLATELET COUNT 447 x10e3/uL (140-360); RED BLOOD COUNT 3.18 x10e6/uL (4.3-5.7); RED CELL DISTRIBUTION WIDTH 16.7 % (11.7-14.4)
[2020-05-02] MEDS: DICYCLOMINE HCL 20 MG TAB PO SCH ×3 (06:26→21:24)
[2020-05-02] MEDS: HEPARIN SOD (PORCINE) 5,000 UNIT/ML VIAL SC SCH ×3 (06:44→21:26)
[2020-05-02 06:51] LABS: ANION GAP 15.2 mmol/L (8-16); CALCIUM 7.2 mg/dL (8.4-10.2); CREATININE, SERUM 2.77 mg/dL (0.72-1.25); POTASSIUM 5.2 mmol/L (3.5-5.1)
[2020-05-02] MEDS: INSULIN REGULAR, HUMAN 100 UNIT/1 ML 3ML VIAL SQ SCH ×4 (07:30→21:28)
[2020-05-02] MEDS: POTASSIUM CHLORIDE 10MEQ EA PO SCH (09:00)
[2020-05-02] MEDS: INSULIN GLARGINE 100 UNITS/ML VIAL SQ SCH (09:00)
[2020-05-02] MEDS: FLUCONAZOLE 100 MG TAB PO SCH (09:38)
[2020-05-02] MEDS: PANTOPRAZOLE 40 MG 10ML VIAL IV SCH ×2 (09:38→16:47)
[2020-05-02] MEDS: CALCIUM CARBONATE 500 MG CHEWABLE TABS PO SCH ×4 (09:39→21:24)
[2020-05-02] MEDS: NIFEDIPINE CR 30 MG TAB PO SCH (09:39)
[2020-05-02] MEDS: DEXTROSE 5%/0.45% SOD CHL 1,000 ML IV SCH (12:49)
[2020-05-02] MEDS: CENTRAL TPN FORMULA 1 BAG IV SCH ×2 (16:48→20:17)
[2020-05-03] MEDS ORDERED: ACETAMINOPHEN 325 MG TAB ONE (02:15)
[2020-05-03] MEDS: ACETAMINOPHEN 325 MG TAB PO PRN ×2 (02:16→17:00)
[2020-05-03] MEDS: HYDROMORPHONE 1MG/1ML INJ IV PRN (02:42)
[2020-05-03] MEDS: DICYCLOMINE HCL 20 MG TAB PO SCH ×3 (05:39→21:05)
[2020-05-03] MEDS: TRAMADOL HCL 50 MG TAB PO PRN ×3 (05:40→18:08)
[2020-05-03] MEDS: METOPROLOL TARTRATE 25 MG TAB PO SCH ×3 (05:40→16:56)
[2020-05-03] MEDS: HEPARIN SOD (PORCINE) 5,000 UNIT/ML VIAL SC SCH ×3 (05:41→21:08)
[2020-05-03 06:20] LABS: BASOPHILS # (AUTO) 0.1 (0.0-0.1); BASOPHILS % 0.6 % (0.0-1.0); EOSINOPHILS # (AUTO) 0.3 (0.0-0.4); EOSINOPHILS % 1.6 % (0.0-6.0); HEMATOCRIT 27.6 % (38.2-49.6); HEMOGLOBIN 8.1 g/dL (14.0-18.0); LYMPHOCYTES # (AUTO) 1.7 (1.0-3.2); LYMPHOCYTES % 10.3 % (18.0-39.1); MEAN CORPUSCULAR HEMOGLOBIN 28.9 pg (28-32); MEAN CORPUSCULAR HGB CONC 29.3 g/dL (31-35); MEAN CORPUSCULAR VOLUME 98.6 fL (81-99); MONOCYTES # (AUTO) 1.3 (0.2-0.8); MONOCYTES % 7.8 % (4.4-11.3); NEUTROPHILS # (AUTO) 11.8 (2.1-6.9); NEUTROPHILS % 73.2 % (38.7-80.0); PLATELET COUNT 400 x10e3/uL (140-360); RED CELL DISTRIBUTION WIDTH 16.8 % (11.7-14.4)
[2020-05-03] MEDS: LORAZEPAM 0.5 MG TAB PO PRN ×3 (06:46→19:51)
[2020-05-03 06:52] LABS: ANION GAP 14.6 mmol/L (8-16); CALCIUM 7.4 mg/dL (8.4-10.2); CREATININE, SERUM 2.44 mg/dL (0.72-1.25); POTASSIUM 4.6 mmol/L (3.5-5.1)
[2020-05-03] MEDS: FLUCONAZOLE 100 MG TAB PO SCH (07:54)
[2020-05-03] MEDS: NIFEDIPINE CR 30 MG TAB PO SCH (07:54)
[2020-05-03] MEDS: PANTOPRAZOLE 40 MG 10ML VIAL IV SCH ×2 (07:54→16:56)
[2020-05-03] MEDS: CALCIUM CARBONATE 500 MG CHEWABLE TABS PO SCH ×4 (07:54→21:05)
[2020-05-03] MEDS: INSULIN REGULAR, HUMAN 100 UNIT/1 ML 3ML VIAL SQ SCH ×4 (08:00→21:07)
[2020-05-03] MEDS: INSULIN GLARGINE 100 UNITS/ML VIAL SQ SCH (08:00)
[2020-05-03] MEDS: HALOPERIDOL 5 MG TAB PO PRN (08:01)
[2020-05-03 08:19] VITALS: BP 119/74
[2020-05-03 09:37] VITALS: BP 119/74
[2020-05-03 10:07] LABS: BAND NEUTROPHILS % (MANUAL) 1 %; LYMPHOCYTES % (MANUAL) 10 % (19-48); MONOCYTES % (MANUAL) 5 % (3.4-9.0); MYELOCYTES % (MANUAL) 5 % (0-0); NEUTROPHILS % (MANUAL) 79 % (40-74)
[2020-05-03 10:08] LABS: HYPOCHROMASIA SLIGHT; PLATELET ESTIMATE ADEQUATE; PLATELET MORPHOLOGY COMMENT NORMAL; POLYCHROMASIA FEW; RBC MORPHOLOGY COMMENT NORMAL
[2020-05-03 12:08] VITALS: BP 119/69
[2020-05-03 15:57] VITALS: BP 116/67
[2020-05-03] MEDS: FENOFIBRATE 145 MG TAB PO SCH (17:07)
[2020-05-03] MEDS: CENTRAL TPN FORMULA 1 BAG IV SCH (19:48)
[2020-05-03 20:00] VITALS: BP 117/74
[2020-05-03 20:21] VITALS: BP 117/71
[2020-05-04] VITALS (8 sets, daily range): BP systolic 114–134; BP diastolic 54–81
[2020-05-04] MEDS: METOPROLOL TARTRATE 25 MG TAB PO SCH ×4 (00:15→18:44)
[2020-05-04] MEDS: TRAMADOL HCL 50 MG TAB PO PRN ×2 (00:35→12:06)
[2020-05-04] MEDS: DICYCLOMINE HCL 20 MG TAB PO SCH ×3 (05:16→21:42)
[2020-05-04] MEDS: HEPARIN SOD (PORCINE) 5,000 UNIT/ML VIAL SC SCH ×3 (05:19→22:05)
[2020-05-04] MEDS: INSULIN REGULAR, HUMAN 100 UNIT/1 ML 3ML VIAL SQ SCH ×4 (08:15→21:00)
[2020-05-04 09:33] LABS: BASOPHILS # (AUTO) 0.1 (0.0-0.1); BASOPHILS % 0.7 % (0.0-1.0); EOSINOPHILS # (AUTO) 0.2 (0.0-0.4); EOSINOPHILS % 1.2 % (0.0-6.0); HEMATOCRIT 29.9 % (38.2-49.6); HEMOGLOBIN 8.9 g/dL (14.0-18.0); LYMPHOCYTES # (AUTO) 1.9 (1.0-3.2); LYMPHOCYTES % 10.1 % (18.0-39.1); MEAN CORPUSCULAR HEMOGLOBIN 29.3 pg (28-32); MEAN CORPUSCULAR HGB CONC 29.8 g/dL (31-35); MEAN CORPUSCULAR VOLUME 98.4 fL (81-99); MONOCYTES # (AUTO) 1.2 (0.2-0.8); MONOCYTES % 6.3 % (4.4-11.3); NEUTROPHILS # (AUTO) 13.5 (2.1-6.9); NEUTROPHILS % 73.2 % (38.7-80.0); PLATELET COUNT 435 x10e3/uL (140-360); RED BLOOD COUNT 3.04 x10e6/uL (4.3-5.7); RED CELL DISTRIBUTION WIDTH 16.5 % (11.7-14.4)
[2020-05-04 09:45] LABS: ANION GAP 13.5 mmol/L (8-16); CALCIUM 7.5 mg/dL (8.4-10.2); CREATININE, SERUM 1.79 mg/dL (0.72-1.25); POTASSIUM 3.5 mmol/L (3.5-5.1)
[2020-05-04 10:02] LABS: LIPASE 112 U/L (8-78); TRIGLYCERIDES 347 MG/DL (0-149)
[2020-05-04] MEDS: INSULIN GLARGINE 100 UNITS/ML VIAL SQ SCH (10:05)
[2020-05-04] MEDS: FLUCONAZOLE 100 MG TAB PO SCH (10:07)
[2020-05-04] MEDS: PANTOPRAZOLE 40 MG 10ML VIAL IV SCH ×2 (10:07→18:44)
[2020-05-04] MEDS: NIFEDIPINE CR 30 MG TAB PO SCH (10:07)
[2020-05-04] MEDS: FENOFIBRATE 145 MG TAB PO SCH (10:07)
[2020-05-04] MEDS: CALCIUM CARBONATE 500 MG CHEWABLE TABS PO SCH ×4 (10:08→21:03)
[2020-05-04] MEDS: LORAZEPAM 0.5 MG TAB PO PRN (15:23)
[2020-05-04] MEDS: CENTRAL TPN FORMULA 1 BAG IV SCH (20:45)
[2020-05-05] VITALS (8 sets, daily range): BP systolic 102–136; BP diastolic 69–90
[2020-05-05] MEDS: LORAZEPAM 0.5 MG TAB PO PRN ×2 (03:42→20:53)
[2020-05-05] MEDS: DICYCLOMINE HCL 20 MG TAB PO SCH ×3 (06:00→22:04)
[2020-05-05] MEDS: HEPARIN SOD (PORCINE) 5,000 UNIT/ML VIAL SC SCH ×3 (06:00→22:06)
[2020-05-05] MEDS: METOPROLOL TARTRATE 25 MG TAB PO SCH ×4 (06:00→17:19)
[2020-05-05 06:38] LABS: BASOPHILS # (AUTO) 0.1 (0.0-0.1); BASOPHILS % 0.5 % (0.0-1.0); EOSINOPHILS % 0.3 % (0.0-6.0); HEMATOCRIT 25.9 % (38.2-49.6); HEMOGLOBIN 7.6 g/dL (14.0-18.0); LYMPHOCYTES # (AUTO) 1.9 (1.0-3.2); LYMPHOCYTES % 12.7 % (18.0-39.1); MEAN CORPUSCULAR HEMOGLOBIN 28.9 pg (28-32); MEAN CORPUSCULAR HGB CONC 29.3 g/dL (31-35); MEAN CORPUSCULAR VOLUME 98.5 fL (81-99); MONOCYTES # (AUTO) 1.1 (0.2-0.8); MONOCYTES % 7.2 % (4.4-11.3); NEUTROPHILS # (AUTO) 10.4 (2.1-6.9); NEUTROPHILS % 69.7 % (38.7-80.0); PLATELET COUNT 378 x10e3/uL (140-360); RED BLOOD COUNT 2.63 x10e6/uL (4.3-5.7); RED CELL DISTRIBUTION WIDTH 16.7 % (11.7-14.4)
[2020-05-05 07:14] LABS: ALBUMIN 1.6 g/dL (3.5-5.0); ALBUMIN/GLOBULIN RATIO 0.4 (0.8-2.0); ANION GAP 12.5 mmol/L (8-16); CALCIUM 7.6 mg/dL (8.4-10.2); CREATININE, SERUM 1.71 mg/dL (0.72-1.25); POTASSIUM 3.5 mmol/L (3.5-5.1)
[2020-05-05 07:15] LABS: AMYLASE 132 U/L (25-125); LIPASE 111 U/L (8-78)
[2020-05-05] MEDS: INSULIN GLARGINE 100 UNITS/ML VIAL SQ SCH (08:08)
[2020-05-05] MEDS: INSULIN REGULAR, HUMAN 100 UNIT/1 ML 3ML VIAL SQ SCH ×4 (08:15→21:00)
[2020-05-05] MEDS: PANTOPRAZOLE 40 MG 10ML VIAL IV SCH ×2 (08:37→17:18)
[2020-05-05] MEDS: FLUCONAZOLE 100 MG TAB PO SCH (08:37)
[2020-05-05] MEDS: FENOFIBRATE 48 MG TAB PO SCH (08:38)
[2020-05-05] MEDS: CALCIUM CARBONATE 500 MG CHEWABLE TABS PO SCH ×4 (08:38→20:53)
[2020-05-05] MEDS: FENOFIBRATE 145 MG TAB PO SCH (08:38)
[2020-05-05] MEDS: NIFEDIPINE CR 30 MG TAB PO SCH (08:38)
[2020-05-05 09:04] LABS: HYPOCHROMASIA MODERATE; RBC MORPHOLOGY COMMENT ABNORMAL
[2020-05-05 16:17] LABS: HEMATOCRIT 26.4 % (38.2-49.6)
[2020-05-05] MEDS: CENTRAL TPN FORMULA 1 BAG IV SCH (20:00)
[2020-05-05] MEDS: ACETAMINOPHEN 325 MG TAB PO PRN (23:57)
[2020-05-06] VITALS (7 sets, daily range): BP systolic 110–125; BP diastolic 64–78
[2020-05-06] MEDS: METOPROLOL TARTRATE 25 MG TAB PO SCH ×6 (00:04→23:11)
[2020-05-06 05:44] LABS: BASOPHILS # (AUTO) 0.1 (0.0-0.1); BASOPHILS % 0.5 % (0.0-1.0); EOSINOPHILS # (AUTO) 0.1 (0.0-0.4); EOSINOPHILS % 0.7 % (0.0-6.0); HEMATOCRIT 27.9 % (38.2-49.6); HEMOGLOBIN 8.2 g/dL (14.0-18.0); LYMPHOCYTES # (AUTO) 3.6 (1.0-3.2); LYMPHOCYTES % 21.8 % (18.0-39.1); MEAN CORPUSCULAR HEMOGLOBIN 29.6 pg (28-32); MEAN CORPUSCULAR HGB CONC 29.4 g/dL (31-35); MEAN CORPUSCULAR VOLUME 100.7 fL (81-99); MONOCYTES # (AUTO) 1.1 (0.2-0.8); MONOCYTES % 6.4 % (4.4-11.3); NEUTROPHILS # (AUTO) 10.4 (2.1-6.9); NEUTROPHILS % 62.5 % (38.7-80.0); PLATELET COUNT 425 x10e3/uL (140-360); RED BLOOD COUNT 2.77 x10e6/uL (4.3-5.7); RED CELL DISTRIBUTION WIDTH 17.2 % (11.7-14.4)
[2020-05-06] MEDS: DICYCLOMINE HCL 20 MG TAB PO SCH ×4 (06:00→23:09)
[2020-05-06] MEDS: HEPARIN SOD (PORCINE) 5,000 UNIT/ML VIAL SC SCH ×3 (06:01→22:00)
[2020-05-06 06:15] LABS: ALBUMIN 1.8 g/dL (3.5-5.0); ALBUMIN/GLOBULIN RATIO 0.4 (0.8-2.0); ANION GAP 14.6 mmol/L (8-16); CALCIUM 7.7 mg/dL (8.4-10.2); CREATININE, SERUM 1.64 mg/dL (0.72-1.25); POTASSIUM 3.6 mmol/L (3.5-5.1)
[2020-05-06 06:42] LABS: MAGNESIUM 1.7 MG/DL (1.3-2.1); PHOSPHORUS 3.4 MG/DL (2.3-4.7)
[2020-05-06] MEDS: INSULIN REGULAR, HUMAN 100 UNIT/1 ML 3ML VIAL SQ SCH ×5 (07:30→21:00)
[2020-05-06 08:08] LABS: BAND NEUTROPHILS % (MANUAL) 2 %; EOSINOPHILS % (MANUAL) 3 % (0-7); LYMPHOCYTES % (MANUAL) 21 % (19-48); MONOCYTES % (MANUAL) 3 % (3.4-9.0); MYELOCYTES % (MANUAL) 8 % (0-0); NEUTROPHILS % (MANUAL) 63 % (40-74); NUCLEATED RED BLOOD CELLS 1; PLATELET ESTIMATE SLIGHTLY INCREASED; POLYCHROMASIA FEW
[2020-05-06 08:09] LABS: STOMATOCYTES SLIGHT
[2020-05-06 08:10] LABS: PLATELET MORPHOLOGY COMMENT FEW LARGE; RBC MORPHOLOGY COMMENT ABNORMAL
[2020-05-06] MEDS: CALCIUM CARBONATE 500 MG CHEWABLE TABS PO SCH ×4 (09:23→20:00)
[2020-05-06] MEDS: FENOFIBRATE 145 MG TAB PO SCH (09:23)
[2020-05-06] MEDS: FENOFIBRATE 48 MG TAB PO SCH (09:23)
[2020-05-06] MEDS: NIFEDIPINE CR 30 MG TAB PO SCH (09:23)
[2020-05-06] MEDS: PANTOPRAZOLE 40 MG 10ML VIAL IV SCH ×2 (09:23→17:19)
[2020-05-06] MEDS: FLUCONAZOLE 100 MG TAB PO SCH (09:23)
[2020-05-06] MEDS: INSULIN GLARGINE 100 UNITS/ML VIAL SQ SCH (09:24)
[2020-05-06] MEDS: CLOTRIMAZOLE 1% CR 15 GM TOP SCH ×2 (09:24→17:00)
[2020-05-06 09:51] LABS: INR 1.07; PROTHROMBIN TIME 14.6 seconds (11.9-14.5)
[2020-05-06] MEDS: LORAZEPAM 0.5 MG TAB PO PRN (10:03)
[2020-05-06] MEDS: TRAMADOL HCL 50 MG TAB PO PRN ×2 (13:27→20:01)
[2020-05-06] MEDS: ACETAMINOPHEN 325 MG TAB PO PRN (18:26)
[2020-05-07] VITALS (8 sets, daily range): BP systolic 104–126; BP diastolic 60–78
[2020-05-07] MEDS: LORAZEPAM 0.5 MG TAB PO PRN (04:00)
[2020-05-07] MEDS: DICYCLOMINE HCL 20 MG TAB PO SCH ×3 (06:27→20:53)
[2020-05-07] MEDS: METOPROLOL TARTRATE 25 MG TAB PO SCH ×3 (06:28→17:40)
[2020-05-07] MEDS: HEPARIN SOD (PORCINE) 5,000 UNIT/ML VIAL SC SCH (06:29)
[2020-05-07] MEDS: INSULIN REGULAR, HUMAN 100 UNIT/1 ML 3ML VIAL SQ SCH ×4 (07:30→19:53)
[2020-05-07 07:43] LABS: ANION GAP 13.3 mmol/L (8-16); CALCIUM 7.5 mg/dL (8.4-10.2); CREATININE, SERUM 1.78 mg/dL (0.72-1.25); POTASSIUM 4.3 mmol/L (3.5-5.1)
[2020-05-07 07:45] LABS: AMYLASE 177 U/L (25-125); LIPASE 108 U/L (8-78); TRIGLYCERIDES 320 MG/DL (0-149)
[2020-05-07] MEDS: PANTOPRAZOLE 40 MG 10ML VIAL IV SCH ×2 (09:06→17:39)
[2020-05-07] MEDS: ACETAMINOPHEN 325 MG TAB PO PRN ×2 (09:06→18:21)
[2020-05-07] MEDS: CLOTRIMAZOLE 1% CR 15 GM TOP SCH ×2 (09:06→17:39)
[2020-05-07] MEDS: FENOFIBRATE 48 MG TAB PO SCH (09:06)
[2020-05-07] MEDS: CALCIUM CARBONATE 500 MG CHEWABLE TABS PO SCH ×4 (09:06→20:53)
[2020-05-07] MEDS: FENOFIBRATE 145 MG TAB PO SCH (09:06)
[2020-05-07] MEDS: NIFEDIPINE CR 30 MG TAB PO SCH (09:07)
[2020-05-07] MEDS: INSULIN GLARGINE 100 UNITS/ML VIAL SQ SCH (09:07)
[2020-05-07] MEDS: TRAMADOL HCL 50 MG TAB PO PRN (09:36)
[2020-05-07] MEDS: MIRTAZAPINE 15 MG TAB PO SCH (20:53)
[2020-05-07] MEDS ORDERED: MIRTAZAPINE 15 MG TAB PO SCH (21:00)
[2020-05-08] VITALS (8 sets, daily range): BP systolic 105–118; BP diastolic 59–73
[2020-05-08] MEDS: METOPROLOL TARTRATE 25 MG TAB PO SCH ×4 (00:09→17:40)
[2020-05-08] MEDS: ACETAMINOPHEN 325 MG TAB PO PRN ×3 (00:10→19:16)
[2020-05-08] MEDS: LORAZEPAM 0.5 MG TAB PO PRN (04:18)
[2020-05-08] MEDS: DICYCLOMINE HCL 20 MG TAB PO SCH ×3 (05:49→22:00)
[2020-05-08 06:11] LABS: ALBUMIN 1.8 g/dL (3.5-5.0); ALBUMIN/GLOBULIN RATIO 0.4 (0.8-2.0); ANION GAP 14.3 mmol/L (8-16); CALCIUM 7.3 mg/dL (8.4-10.2); CREATININE, SERUM 1.7 mg/dL (0.72-1.25); POTASSIUM 4.3 mmol/L (3.5-5.1)
[2020-05-08] MEDS: INSULIN REGULAR, HUMAN 100 UNIT/1 ML 3ML VIAL SQ SCH ×4 (07:15→20:12)
[2020-05-08] MEDS: CALCIUM CARBONATE 500 MG CHEWABLE TABS PO SCH ×4 (08:15→21:25)
[2020-05-08] MEDS: FENOFIBRATE 48 MG TAB PO SCH (08:15)
[2020-05-08] MEDS: TRAMADOL HCL 50 MG TAB PO PRN (08:15)
[2020-05-08] MEDS: BALSAM PERU/CASTOR OIL 60 GM OINT...G. TP SCH (08:15)
[2020-05-08] MEDS: PANTOPRAZOLE 40 MG 10ML VIAL IV SCH ×2 (08:15→17:40)
[2020-05-08] MEDS: CLOTRIMAZOLE 1% CR 15 GM TOP SCH ×2 (08:15→17:40)
[2020-05-08] MEDS: FENOFIBRATE 145 MG TAB PO SCH (08:15)
[2020-05-08] MEDS: NIFEDIPINE CR 30 MG TAB PO SCH (08:15)
[2020-05-08] MEDS: INSULIN GLARGINE 100 UNITS/ML VIAL SQ SCH (08:46)
[2020-05-08 12:38] LABS: BASOPHILS # (AUTO) 0.1 (0.0-0.1); BASOPHILS % 0.5 % (0.0-1.0); EOSINOPHILS % 0.2 % (0.0-6.0); HEMATOCRIT 27.1 % (38.2-49.6); HEMOGLOBIN 8.2 g/dL (14.0-18.0); LYMPHOCYTES # (AUTO) 1.7 (1.0-3.2); LYMPHOCYTES % 11.5 % (18.0-39.1); MEAN CORPUSCULAR HEMOGLOBIN 29.6 pg (28-32); MEAN CORPUSCULAR HGB CONC 30.3 g/dL (31-35); MEAN CORPUSCULAR VOLUME 97.8 fL (81-99); MONOCYTES # (AUTO) 0.9 (0.2-0.8); MONOCYTES % 5.9 % (4.4-11.3); NEUTROPHILS % 79.2 % (38.7-80.0); PLATELET COUNT 374 x10e3/uL (140-360); RED BLOOD COUNT 2.77 x10e6/uL (4.3-5.7); RED CELL DISTRIBUTION WIDTH 17.1 % (11.7-14.4)
[2020-05-08] MEDS ORDERED: MICAFUNGIN SODIUM 100 ML IV SCH ×2 (14:30→18:00)
[2020-05-08] MEDS: MELATONIN 3 MG TAB PO PRN (20:39)
[2020-05-08] MEDS: MIRTAZAPINE 15 MG TAB PO SCH (21:25)
[2020-05-08] MEDS: HALOPERIDOL 1 MG TAB PO PRN (23:13)
[2020-05-09] VITALS (8 sets, daily range): BP systolic 111–128; BP diastolic 68–93
[2020-05-09] MEDS ORDERED: ATORVASTATIN 10 MG TAB PO STA (00:21)
[2020-05-09] MEDS: ACETAMINOPHEN 325 MG TAB PO PRN ×4 (05:58→20:45)
[2020-05-09] MEDS: DICYCLOMINE HCL 20 MG TAB PO SCH ×3 (06:05→22:00)
[2020-05-09] MEDS: METOPROLOL TARTRATE 25 MG TAB PO SCH ×4 (06:06→15:35)
[2020-05-09] MEDS: TRAMADOL HCL 50 MG TAB PO PRN (06:59)
[2020-05-09] MEDS: INSULIN REGULAR, HUMAN 100 UNIT/1 ML 3ML VIAL SQ SCH ×4 (07:30→21:00)
[2020-05-09] MEDS: NIFEDIPINE CR 30 MG TAB PO SCH (09:35)
[2020-05-09] MEDS: FENOFIBRATE 145 MG TAB PO SCH (09:35)
[2020-05-09] MEDS: PANTOPRAZOLE 40 MG 10ML VIAL IV SCH ×2 (09:35→15:35)
[2020-05-09] MEDS: FENOFIBRATE 48 MG TAB PO SCH (09:35)
[2020-05-09] MEDS: CALCIUM CARBONATE 500 MG CHEWABLE TABS PO SCH ×4 (09:35→21:00)
[2020-05-09] MEDS: BALSAM PERU/CASTOR OIL 60 GM OINT...G. TP SCH (09:36)
[2020-05-09] MEDS: CLOTRIMAZOLE 1% CR 15 GM TOP SCH ×2 (09:36→15:35)
[2020-05-09] MEDS: INSULIN GLARGINE 100 UNITS/ML VIAL SQ SCH (09:55)
[2020-05-09 09:57] LABS: BASOPHILS # (AUTO) 0.1 (0.0-0.1); BASOPHILS % 0.3 % (0.0-1.0); EOSINOPHILS % 0.1 % (0.0-6.0); HEMATOCRIT 28.5 % (38.2-49.6); HEMOGLOBIN 8.6 g/dL (14.0-18.0); LYMPHOCYTES # (AUTO) 2.4 (1.0-3.2); LYMPHOCYTES % 8.7 % (18.0-39.1); MEAN CORPUSCULAR HEMOGLOBIN 29.6 pg (28-32); MEAN CORPUSCULAR HGB CONC 30.2 g/dL (31-35); MEAN CORPUSCULAR VOLUME 97.9 fL (81-99); MONOCYTES # (AUTO) 1.2 (0.2-0.8); MONOCYTES % 4.3 % (4.4-11.3); NEUTROPHILS # (AUTO) 23.7 (2.1-6.9); NEUTROPHILS % 85.5 % (38.7-80.0); PLATELET COUNT 423 x10e3/uL (140-360); RED BLOOD COUNT 2.91 x10e6/uL (4.3-5.7)
[2020-05-09 10:21] LABS: ANION GAP 15.6 mmol/L (8-16); CALCIUM 7.5 mg/dL (8.4-10.2); CREATININE, SERUM 2.04 mg/dL (0.72-1.25); POTASSIUM 4.6 mmol/L (3.5-5.1)
[2020-05-09 10:43] LABS: AMYLASE 205 U/L (25-125); LIPASE 123 U/L (8-78)
[2020-05-09] MEDS: VANCOMYCIN 250MG/5ML ORAL SOLN PO SCH ×2 (11:57→15:35)
[2020-05-09 11:58] LABS: BAND NEUTROPHILS % (MANUAL) 1 %; LYMPHOCYTES % (MANUAL) 5 % (19-48); MONOCYTES % (MANUAL) 6 % (3.4-9.0); NEUTROPHILS % (MANUAL) 88 % (40-74); RBC MORPHOLOGY COMMENT NORMAL
[2020-05-09 11:59] LABS: PLATELET ESTIMATE SLIGHTLY INCREASED
[2020-05-09 12:01] LABS: PLATELET MORPHOLOGY COMMENT NORMAL; POLYCHROMASIA FEW
[2020-05-09] MEDS: LORAZEPAM 0.5 MG TAB PO PRN (13:38)
[2020-05-09] MEDS: LACTATED RINGER'S 1,000 ML INJ SCH (14:22)
[2020-05-09] MEDS: BUSPIRONE HCL 5 MG TAB PO SCH (15:35)
[2020-05-09] MEDS ORDERED: ACETAMINOPHEN 325 MG TAB PO PRN (15:45)
[2020-05-09] MEDS: MELATONIN 3 MG TAB PO PRN (20:45)
[2020-05-09] MEDS: MIRTAZAPINE 15 MG TAB PO SCH (21:00)
[2020-05-09] MEDS: ATORVASTATIN 10 MG TAB PO SCH (21:00)
[2020-05-10] VITALS (8 sets, daily range): BP systolic 104–126; BP diastolic 56–96
[2020-05-10] MEDS: METOPROLOL TARTRATE 25 MG TAB PO SCH ×4 (00:15→17:00)
[2020-05-10] MEDS: VANCOMYCIN 250MG/5ML ORAL SOLN PO SCH ×4 (00:15→17:00)
[2020-05-10] MEDS: ACETAMINOPHEN 325 MG TAB PO PRN ×2 (01:15→14:44)
[2020-05-10] MEDS: LACTATED RINGER'S 1,000 ML INJ SCH (03:20)
[2020-05-10] MEDS: DICYCLOMINE HCL 20 MG TAB PO SCH ×3 (06:00→22:00)
[2020-05-10] MEDS: INSULIN REGULAR, HUMAN 100 UNIT/1 ML 3ML VIAL SQ SCH ×4 (07:30→20:30)
[2020-05-10] MEDS: FENOFIBRATE 145 MG TAB PO SCH (08:45)
[2020-05-10] MEDS: NIFEDIPINE CR 30 MG TAB PO SCH (08:45)
[2020-05-10] MEDS: BUSPIRONE HCL 5 MG TAB PO SCH ×2 (08:45→17:00)
[2020-05-10] MEDS: PANTOPRAZOLE 40 MG 10ML VIAL IV SCH ×2 (08:45→17:00)
[2020-05-10] MEDS: FENOFIBRATE 48 MG TAB PO SCH (08:45)
[2020-05-10] MEDS: INSULIN GLARGINE 100 UNITS/ML VIAL SQ SCH (08:45)
[2020-05-10] MEDS: CLOTRIMAZOLE 1% CR 15 GM TOP SCH ×2 (08:45→17:00)
[2020-05-10] MEDS: LORAZEPAM 0.5 MG TAB PO PRN (08:45)
[2020-05-10] MEDS: BALSAM PERU/CASTOR OIL 60 GM OINT...G. TP SCH (08:45)
[2020-05-10] MEDS: CALCIUM CARBONATE 500 MG CHEWABLE TABS PO SCH ×4 (08:45→20:30)
[2020-05-10 09:33] LABS: HEMATOCRIT 30.9 % (38.2-49.6); HEMOGLOBIN 9.3 g/dL (14.0-18.0); MEAN CORPUSCULAR HEMOGLOBIN 29.3 pg (28-32); MEAN CORPUSCULAR HGB CONC 30.1 g/dL (31-35); MEAN CORPUSCULAR VOLUME 97.5 fL (81-99); PLATELET COUNT 358 x10e3/uL (140-360); RED BLOOD COUNT 3.17 x10e6/uL (4.3-5.7); RED CELL DISTRIBUTION WIDTH 16.5 % (11.7-14.4)
[2020-05-10 09:52] LABS: ANION GAP 19.2 mmol/L (8-16); CALCIUM 7.7 mg/dL (8.4-10.2); CREATININE, SERUM 2.76 mg/dL (0.72-1.25); POTASSIUM 5.2 mmol/L (3.5-5.1)
[2020-05-10 10:15] LABS: BAND NEUTROPHILS % (MANUAL) 3 %; LYMPHOCYTES % (MANUAL) 11 % (19-48); MONOCYTES % (MANUAL) 5 % (3.4-9.0); NEUTROPHILS % (MANUAL) 81 % (40-74)
[2020-05-10 10:16] LABS: ANISOCYTOSIS SLIGHT; PLATELET ESTIMATE ADEQUATE; PLATELET MORPHOLOGY COMMENT NORMAL; RBC MORPHOLOGY COMMENT NORMAL
[2020-05-10] MEDS: HEPARIN SOD (PORCINE) 5,000 UNIT/ML VIAL SC SCH ×2 (14:44→22:00)
[2020-05-10] MEDS ORDERED: FUROSEMIDE INJ 10 MG/ML 2 ML VIAL IV ONE (16:00)
[2020-05-10] MEDS: SODIUM BICARBONATE 8.4% 50 ML in SODIUM CHLORIDE 0.45% 1,000 ML IV SCH (17:00)
[2020-05-10] MEDS: ATORVASTATIN 10 MG TAB PO SCH (20:30)
[2020-05-10] MEDS: MIRTAZAPINE 15 MG TAB PO SCH (20:30)
[2020-05-11] VITALS (8 sets, daily range): BP systolic 101–113; BP diastolic 56–65
[2020-05-11] MEDS: HEPARIN SOD (PORCINE) 5,000 UNIT/ML VIAL SC SCH ×3 (06:00→20:59)
[2020-05-11] MEDS: METOPROLOL TARTRATE 25 MG TAB PO SCH ×5 (06:00→23:00)
[2020-05-11] MEDS: DICYCLOMINE HCL 20 MG TAB PO SCH ×2 (06:00→15:00)
[2020-05-11 06:03] LABS: BASOPHILS # (AUTO) 0.1 (0.0-0.1); BASOPHILS % 0.4 % (0.0-1.0); EOSINOPHILS # (AUTO) 0.1 (0.0-0.4); EOSINOPHILS % 0.4 % (0.0-6.0); HEMATOCRIT 23.7 % (38.2-49.6); HEMOGLOBIN 7.2 g/dL (14.0-18.0); LYMPHOCYTES # (AUTO) 1.7 (1.0-3.2); LYMPHOCYTES % 10.8 % (18.0-39.1); MEAN CORPUSCULAR HEMOGLOBIN 29.1 pg (28-32); MEAN CORPUSCULAR HGB CONC 30.4 g/dL (31-35); MONOCYTES # (AUTO) 0.9 (0.2-0.8); NEUTROPHILS # (AUTO) 12.7 (2.1-6.9); NEUTROPHILS % 81.6 % (38.7-80.0); PLATELET COUNT 348 x10e3/uL (140-360); RED BLOOD COUNT 2.47 x10e6/uL (4.3-5.7); RED CELL DISTRIBUTION WIDTH 16.5 % (11.7-14.4)
[2020-05-11] MEDS: VANCOMYCIN 250MG/5ML ORAL SOLN PO SCH ×4 (06:10→17:48)
[2020-05-11] MEDS: SODIUM BICARBONATE 8.4% 50 ML in SODIUM CHLORIDE 0.45% 1,000 ML IV SCH ×2 (06:15→19:55)
[2020-05-11 06:21] LABS: ALBUMIN 1.5 g/dL (3.5-5.0); ALBUMIN/GLOBULIN RATIO 0.3 (0.8-2.0); ANION GAP 15.1 mmol/L (8-16); CALCIUM 7.3 mg/dL (8.4-10.2); CREATININE, SERUM 2.07 mg/dL (0.72-1.25); POTASSIUM 4.1 mmol/L (3.5-5.1)
[2020-05-11] MEDS ORDERED: SODIUM CHLORIDE 0.9% 1000ML 500 ML IV ONE (06:45)
[2020-05-11] MEDS: INSULIN REGULAR, HUMAN 100 UNIT/1 ML 3ML VIAL SQ SCH ×4 (07:30→20:02)
[2020-05-11] MEDS: BUSPIRONE HCL 5 MG TAB PO SCH ×2 (08:47→16:09)
[2020-05-11] MEDS: CALCIUM CARBONATE 500 MG CHEWABLE TABS PO SCH ×4 (08:47→20:53)
[2020-05-11] MEDS: FENOFIBRATE 145 MG TAB PO SCH (08:47)
[2020-05-11] MEDS: PANTOPRAZOLE 40 MG 10ML VIAL IV SCH ×2 (08:47→16:09)
[2020-05-11] MEDS: FENOFIBRATE 48 MG TAB PO SCH (08:47)
[2020-05-11] MEDS: NIFEDIPINE CR 30 MG TAB PO SCH (08:47)
[2020-05-11] MEDS: CLOTRIMAZOLE 1% CR 15 GM TOP SCH ×2 (08:48→16:09)
[2020-05-11] MEDS: LORAZEPAM 0.5 MG TAB PO PRN (09:10)
[2020-05-11] MEDS: INSULIN GLARGINE 100 UNITS/ML VIAL SQ SCH (09:24)
[2020-05-11] MEDS: BALSAM PERU/CASTOR OIL 60 GM OINT...G. TP SCH (09:42)
[2020-05-11] MEDS ORDERED: SODIUM BICARBONATE 8.4% INJ 50 ML SYR ONE (11:41)
[2020-05-11] MEDS ORDERED: EPINEPHRINE HCL SYRINGE ONE (11:41)
[2020-05-11 15:44] LABS: HEMATOCRIT 25.5 % (38.2-49.6); HEMOGLOBIN 7.6 g/dL (14.0-18.0)
[2020-05-11] MEDS: HALOPERIDOL 1 MG TAB PO PRN (18:39)
[2020-05-11] MEDS ORDERED: LORAZEPAM 0.5 MG TAB PO PRN (19:30)
[2020-05-11] MEDS: ACETAMINOPHEN 325 MG TAB PO PRN ×2 (19:55)
[2020-05-11] MEDS: MELATONIN 3 MG TAB PO PRN (20:53)
[2020-05-11] MEDS: MIRTAZAPINE 15 MG TAB PO SCH (20:53)
[2020-05-11] MEDS: ATORVASTATIN 10 MG TAB PO SCH (20:53)
[2020-05-11] MEDS ORDERED: LORAZEPAM 1 MG TAB PO ONE (23:00)
[2020-05-11] MEDS ORDERED: SODIUM CHLORIDE 0.9% 1000ML 1,000 ML ONE (23:56)
[2020-05-12] VITALS (30 sets, daily range): BP systolic 72–147; BP diastolic 34–95
[2020-05-12] MEDS ORDERED: NALOXONE HCL INJ 0.4 MG/ML AMP ONE (00:14)
[2020-05-12 01:08] LABS: BASOPHILS % 0.2 % (0.0-1.0); EOSINOPHILS % 0.2 % (0.0-6.0); HEMATOCRIT 26.6 % (38.2-49.6); LYMPHOCYTES # (AUTO) 1.9 (1.0-3.2); LYMPHOCYTES % 13.8 % (18.0-39.1); MEAN CORPUSCULAR HGB CONC 25.9 g/dL (31-35); MEAN CORPUSCULAR VOLUME 111.8 fL (81-99); MONOCYTES # (AUTO) 0.6 (0.2-0.8); MONOCYTES % 4.3 % (4.4-11.3); NEUTROPHILS # (AUTO) 10.9 (2.1-6.9); NEUTROPHILS % 80.1 % (38.7-80.0); PLATELET COUNT 409 x10e3/uL (140-360); RED BLOOD COUNT 2.38 x10e6/uL (4.3-5.7); RED CELL DISTRIBUTION WIDTH 17.2 % (11.7-14.4)
[2020-05-12 01:11] LABS: INR 1.53; PROTHROMBIN TIME 19.5 seconds (11.9-14.5)
[2020-05-12 01:21] LABS: ALBUMIN 1.1 g/dL (3.5-5.0); ALBUMIN/GLOBULIN RATIO 0.3 (0.8-2.0); ANION GAP 12.9 mmol/L (8-16); CREATININE, SERUM 2.51 mg/dL (0.72-1.25); POTASSIUM 3.9 mmol/L (3.5-5.1)
[2020-05-12 01:43] LABS: HEMOGLOBIN 6.9 g/dL (14.0-18.0)
[2020-05-12 01:44] LABS: CALCIUM 5.5 mg/dL (8.4-10.2)
[2020-05-12] MEDS ORDERED: NOREPINEPHRINE 8 MG/D5W 250 ML 250 ML ONE (01:47)
[2020-05-12 02:53] LABS: BASOPHILS # (AUTO) 0.1 (0.0-0.1); BASOPHILS % 0.5 % (0.0-1.0); EOSINOPHILS % 0.2 % (0.0-6.0); HEMATOCRIT 29.8 % (38.2-49.6); HEMOGLOBIN 8.9 g/dL (14.0-18.0); LYMPHOCYTES % 5.8 % (18.0-39.1); MEAN CORPUSCULAR HEMOGLOBIN 29.8 pg (28-32); MEAN CORPUSCULAR HGB CONC 29.9 g/dL (31-35); MEAN CORPUSCULAR VOLUME 99.7 fL (81-99); MONOCYTES % 5.7 % (4.4-11.3); NEUTROPHILS # (AUTO) 14.3 (2.1-6.9); NEUTROPHILS % 86.3 % (38.7-80.0); PLATELET COUNT 516 x10e3/uL (140-360); RED BLOOD COUNT 2.99 x10e6/uL (4.3-5.7); RED CELL DISTRIBUTION WIDTH 16.7 % (11.7-14.4)
[2020-05-12 02:54] LABS: INR 1.42; PROTHROMBIN TIME 18.3 seconds (11.9-14.5)
[2020-05-12 03:04] LABS: ALBUMIN 1.5 g/dL (3.5-5.0); ALBUMIN/GLOBULIN RATIO 0.3 (0.8-2.0); ANION GAP 20.8 mmol/L (8-16); CALCIUM 7.1 mg/dL (8.4-10.2); CREATININE, SERUM 2.77 mg/dL (0.72-1.25); POTASSIUM 5.8 mmol/L (3.5-5.1)
[2020-05-12] MEDS: CEFEPIME HCL 1GM 1 GM in SODIUM CHLORIDE 0.9% 50ML 50 ML IV SCH ×2 (03:08→13:45)
[2020-05-12] MEDS: PROPOFOL IV EMULSION 10MG/ML 100 ML IV PRN ×6 (03:22→22:05)
[2020-05-12] MEDS: NOREPINEPHRINE INJ 4MG/4ML 8 MG in DEXTROSE 5% 250ML 250 ML IV PRN ×3 (03:22→17:25)
[2020-05-12] MEDS: VANCOMYCIN 1GM/NS 250 ML 250 ML IV SCH (03:30)
[2020-05-12 03:41] LABS: ABG HCO3 16 mmol/L (22-26); ABG PCO2 28 mmHg (35-45); ABG PH 7.36 (7.35-7.45); ABG PO2 78 mmHg (80-105); ABG TCO2 17
[2020-05-12] MEDS: METOPROLOL TARTRATE 25 MG TAB PO SCH ×3 (05:54→17:07)
[2020-05-12] MEDS: VANCOMYCIN 250MG/5ML ORAL SOLN PO SCH ×5 (05:56→23:20)
[2020-05-12] MEDS: INSULIN REGULAR, HUMAN 100 UNIT/1 ML 3ML VIAL SQ SCH ×4 (06:33→20:50)
[2020-05-12] MEDS ORDERED: NOREPINEPHRINE 8 MG/D5W 250 ML 500 ML ONE (07:27)
[2020-05-12] MEDS: FENOFIBRATE 48 MG TAB PO SCH (08:11)
[2020-05-12] MEDS: FENOFIBRATE 145 MG TAB PO SCH (08:11)
[2020-05-12] MEDS: BUSPIRONE HCL 5 MG TAB PO SCH ×2 (08:11→17:00)
[2020-05-12] MEDS: CALCIUM CARBONATE 500 MG CHEWABLE TABS PO SCH ×4 (08:11→21:27)
[2020-05-12] MEDS: BALSAM PERU/CASTOR OIL 60 GM OINT...G. TP SCH (08:12)
[2020-05-12] MEDS: CLOTRIMAZOLE 1% CR 15 GM TOP SCH ×2 (08:12→17:07)
[2020-05-12] MEDS: ENOXAPARIN SOD INJ 40 MG/0.4 ML SYR SC SCH ×2 (08:12→21:27)
[2020-05-12] MEDS: INSULIN GLARGINE 100 UNITS/ML VIAL SQ SCH (08:14)
[2020-05-12 09:14] LABS: ABG PCO2 26 mmHg (35-45); ABG PH 7.43 (7.35-7.45)
[2020-05-12 09:15] LABS: ABG HCO3 17 mmol/L (22-26); ABG PO2 78 mmHg (80-105); ABG TCO2 17
[2020-05-12] MEDS: ALBUMIN 25% 25GM 100ML 0.25 GM/ML BTL IV SCH ×4 (09:45→22:10)
[2020-05-12] MEDS ORDERED: SODIUM CHLORIDE 0.9% 250ML 250 ML IV ONE (11:30)
[2020-05-12] MEDS: SODIUM BICARBONATE 8.4% 50 ML in SODIUM CHLORIDE 0.45% 1,000 ML IV SCH (11:38)
[2020-05-12] MEDS ORDERED: HEPARIN SOD (PORCINE) 1000 UNIT/ML SDV IV PRN (12:30)
[2020-05-12] MEDS ORDERED: PROPOFOL IV EMULSION 10 MG/ML 50 ML VIAL IV ONE (12:31)
[2020-05-12] MEDS ORDERED: FENTANYL 2,000 MCG/250 ML BAG ONE (12:31)
[2020-05-12] MEDS ORDERED: PROPOFOL IV EMULSION 10MG/ML 100ML BTL ONE (12:31)
[2020-05-12] MEDS ORDERED: MIDAZOLAM HCL 5MG/ML 10ML VIAL 100 ML BAG IV ONE (12:31)
[2020-05-12 12:39] LABS: AMYLASE,BODY FLUID 918
[2020-05-12 12:48] LABS: BODY FLUID APPEARANCE CLOUDY; BODY FLUID COLOR YELLOW
[2020-05-12 12:49] LABS: WBC,BODY FLUID 4696 cells/uL
[2020-05-12 12:50] LABS: RBC,BODY FLUID 77 cells/uL
[2020-05-12 12:51] LABS: BODY FLUID TYPE PERITONEAL
[2020-05-12 12:55] LABS: LYMPHOCYTES,BODY FLUID 3 %; MONO/MACROPHG,BODY FLUID 6 %; NEUTROPHILS,BODY FLUID 91 %
[2020-05-12] MEDS: ALTEPLASE RECOMBINANT 2 MG/2 ML VIAL IV PRN (15:00)
[2020-05-12 15:39] LABS: ABG HCO3 19 mmol/L (22-26); ABG PCO2 29 mmHg (35-45); ABG PH 7.42 (7.35-7.45); ABG PO2 111 mmHg (80-105); ABG TCO2 20
[2020-05-12] MEDS ORDERED: INSULIN GLARGINE 100 UNITS/ML VIAL SQ SCH (21:00)
[2020-05-12] MEDS: ATORVASTATIN 10 MG TAB PO SCH (21:27)
[2020-05-12] MEDS: MIRTAZAPINE 15 MG TAB PO SCH (21:27)
[2020-05-13] VITALS (25 sets, daily range): BP systolic 73–144; BP diastolic 37–58
[2020-05-13] MEDS: PROPOFOL IV EMULSION 10MG/ML 100 ML IV PRN ×3 (00:08→04:58)
[2020-05-13] MEDS: CEFEPIME HCL 1GM 1 GM in SODIUM CHLORIDE 0.9% 50ML 50 ML IV SCH ×2 (01:15→13:54)
[2020-05-13] MEDS: VANCOMYCIN 1GM/NS 250 ML 250 ML IV SCH (02:15)
[2020-05-13] MEDS: NOREPINEPHRINE INJ 4MG/4ML 8 MG in DEXTROSE 5% 250ML 250 ML IV PRN ×3 (04:28→14:32)
[2020-05-13] MEDS: ACETAMINOPHEN 325 MG TAB PO PRN (04:30)
[2020-05-13] MEDS: METOPROLOL TARTRATE 25 MG TAB PO SCH ×2 (05:25)
[2020-05-13] MEDS ORDERED: ALBUMIN 25% 25GM 100ML 0.25 GM/ML BTL IV STA (05:28)
[2020-05-13] MEDS: VANCOMYCIN 250MG/5ML ORAL SOLN PO SCH ×3 (06:26→21:30)
[2020-05-13 06:30] LABS: BASOPHILS # (AUTO) 0.1 (0.0-0.1); BASOPHILS % 0.5 % (0.0-1.0); EOSINOPHILS % 0.2 % (0.0-6.0); HEMATOCRIT 27.3 % (38.2-49.6); HEMOGLOBIN 8.5 g/dL (14.0-18.0); LYMPHOCYTES # (AUTO) 2.8 (1.0-3.2); LYMPHOCYTES % 10.8 % (18.0-39.1); MEAN CORPUSCULAR HEMOGLOBIN 29.4 pg (28-32); MEAN CORPUSCULAR HGB CONC 31.1 g/dL (31-35); MEAN CORPUSCULAR VOLUME 94.5 fL (81-99); MONOCYTES # (AUTO) 1.4 (0.2-0.8); MONOCYTES % 5.6 % (4.4-11.3); NEUTROPHILS # (AUTO) 19.6 (2.1-6.9); NEUTROPHILS % 76.7 % (38.7-80.0); PLATELET COUNT 362 x10e3/uL (140-360); RED BLOOD COUNT 2.89 x10e6/uL (4.3-5.7); RED CELL DISTRIBUTION WIDTH 16.3 % (11.7-14.4)
[2020-05-13 06:56] LABS: ALBUMIN 2.3 g/dL (3.5-5.0); ALBUMIN/GLOBULIN RATIO 0.7 (0.8-2.0); ANION GAP 19.9 mmol/L (8-16); CREATININE, SERUM 3.82 mg/dL (0.72-1.25); POTASSIUM 4.9 mmol/L (3.5-5.1)
[2020-05-13] MEDS ORDERED: ACETAMINOPHEN 325 MG SUPP PR PRN (08:15)
[2020-05-13] MEDS ORDERED: ACETAMINOPHEN 1000 MG/100 ML IV PRN (09:00)
[2020-05-13] MEDS: INSULIN REGULAR, HUMAN 100 UNIT/1 ML 3ML VIAL SQ SCH ×4 (09:05→21:53)
[2020-05-13] MEDS: FENTANYL 2000MCG/NS 250 250 ML IV SCH ×2 (09:24→18:07)
[2020-05-13] MEDS: BALSAM PERU/CASTOR OIL 60 GM OINT...G. TP SCH (09:24)
[2020-05-13] MEDS: FENOFIBRATE 145 MG TAB PO SCH (09:26)
[2020-05-13] MEDS: FENOFIBRATE 48 MG TAB PO SCH (09:26)
[2020-05-13] MEDS: CALCIUM CARBONATE 500 MG CHEWABLE TABS PO SCH ×4 (09:28→21:30)
[2020-05-13] MEDS: INSULIN GLARGINE 100 UNITS/ML VIAL SQ SCH (09:29)
[2020-05-13] MEDS: ALBUMIN 25% 25GM 100ML 0.25 GM/ML BTL IV SCH ×3 (10:15→22:19)
[2020-05-13] MEDS: VASOPRESSIN 60 UNIT in DEXTROSE 5% 50ML 57 ML IV SCH (11:45)
[2020-05-13 12:11] LABS: ABG HCO3 19 mmol/L (22-26); ABG PCO2 31 mmHg (35-45); ABG PO2 84 mmHg (80-105); ABG TCO2 20
[2020-05-13] MEDS ORDERED: ALBUMIN 25% 25GM 100ML 0.25 GM/ML BTL IV ONE ×2 (13:00)
[2020-05-13] MEDS ORDERED: VANCOMYCIN HCL 125 MG CAPSULE PO SCH (13:00)
[2020-05-13] MEDS ORDERED: ALBUMIN 25% 25GM 100ML 100 ML IV SCH (14:00)
[2020-05-13] MEDS ORDERED: CALCIUM CHLORIDE 13.6 MEQ in SODIUM CHLORIDE 0.9% 100 ML 100 ML IV ONE (14:30)
[2020-05-13] MEDS ORDERED: ENOXAPARIN 30 MG/0.3 ML SYR SC SCH (17:00)
[2020-05-13] MEDS: MIDAZOLAM HCL 5MG/ML 10ML VIAL 100 ML IV PRN (18:08)
[2020-05-13 19:57] LABS: ABG HCO3 28 mmol/L (22-26); ABG PCO2 42 mmHg (35-45); ABG PH 7.43 (7.35-7.45); ABG PO2 140 mmHg (80-105); ABG TCO2 29
[2020-05-13] MEDS ORDERED: SODIUM CHLORIDE 0.9% 250ML 250 ML IV ONE (20:00)
[2020-05-13] MEDS ORDERED: INSULIN GLARGINE 100 UNITS/ML VIAL SQ SCH (21:00)
[2020-05-13] MEDS: ATORVASTATIN 10 MG TAB PO SCH (21:30)
[2020-05-14] VITALS (19 sets, daily range): BP systolic 90–173; BP diastolic 29–91
[2020-05-14] MEDS: CEFEPIME HCL 1GM 1 GM in SODIUM CHLORIDE 0.9% 50ML 50 ML IV SCH ×2 (01:45→13:36)
[2020-05-14] MEDS: VANCOMYCIN 1GM/NS 250 ML 250 ML IV SCH (02:30)
[2020-05-14] MEDS: FENTANYL 2000MCG/NS 250 250 ML IV SCH ×2 (04:47→08:38)
[2020-05-14] MEDS: MIDAZOLAM HCL 5MG/ML 10ML VIAL 100 ML IV PRN ×2 (04:47→08:41)
[2020-05-14 06:52] LABS: BASOPHILS % 0.3 % (0.0-1.0); EOSINOPHILS # (AUTO) 0.1 (0.0-0.4); EOSINOPHILS % 0.6 % (0.0-6.0); HEMATOCRIT 24.3 % (38.2-49.6); HEMOGLOBIN 7.6 g/dL (14.0-18.0); LYMPHOCYTES # (AUTO) 0.9 (1.0-3.2); LYMPHOCYTES % 7.6 % (18.0-39.1); MEAN CORPUSCULAR HEMOGLOBIN 29.2 pg (28-32); MEAN CORPUSCULAR HGB CONC 31.3 g/dL (31-35); MEAN CORPUSCULAR VOLUME 93.5 fL (81-99); MONOCYTES # (AUTO) 0.5 (0.2-0.8); MONOCYTES % 4.1 % (4.4-11.3); NEUTROPHILS # (AUTO) 9.4 (2.1-6.9); NEUTROPHILS % 81.7 % (38.7-80.0); PLATELET COUNT 213 x10e3/uL (140-360); RED CELL DISTRIBUTION WIDTH 15.9 % (11.7-14.4)
[2020-05-14] MEDS: INSULIN REGULAR, HUMAN 100 UNIT/1 ML 3ML VIAL SQ SCH ×4 (07:30→21:00)
[2020-05-14 07:50] LABS: ALBUMIN 2.8 g/dL (3.5-5.0); ALBUMIN/GLOBULIN RATIO 1.2 (0.8-2.0); ANION GAP 15.2 mmol/L (8-16); CALCIUM 7.3 mg/dL (8.4-10.2); CREATININE, SERUM 2.86 mg/dL (0.72-1.25); POTASSIUM 3.2 mmol/L (3.5-5.1)
[2020-05-14] MEDS: INSULIN GLARGINE 100 UNITS/ML VIAL SQ SCH ×2 (08:37→21:00)
[2020-05-14] MEDS: NOREPINEPHRINE INJ 4MG/4ML 8 MG in DEXTROSE 5% 250ML 250 ML IV PRN (08:40)
[2020-05-14 08:52] LABS: ABG HCO3 26 mmol/L (22-26); ABG PCO2 41 mmHg (35-45); ABG PO2 97 mmHg (80-105); ABG TCO2 27
[2020-05-14] MEDS: VANCOMYCIN 250MG/5ML ORAL SOLN PO SCH ×4 (09:06→21:05)
[2020-05-14] MEDS: CALCIUM CARBONATE 500 MG CHEWABLE TABS PO SCH ×4 (09:06→21:05)
[2020-05-14] MEDS: FENOFIBRATE 145 MG TAB PO SCH (09:06)
[2020-05-14] MEDS: BALSAM PERU/CASTOR OIL 60 GM OINT...G. TP SCH (09:06)
[2020-05-14] MEDS: FENOFIBRATE 48 MG TAB PO SCH (09:06)
[2020-05-14 10:01] LABS: BAND NEUTROPHILS % (MANUAL) 2 %; EOSINOPHILS % (MANUAL) 1 % (0-7); LYMPHOCYTES % (MANUAL) 12 % (19-48); MONOCYTES % (MANUAL) 5 % (3.4-9.0); MYELOCYTES % (MANUAL) 2 % (0-0); NEUTROPHILS % (MANUAL) 76 % (40-74)
[2020-05-14 10:02] LABS: NUCLEATED RED BLOOD CELLS 2
[2020-05-14 10:03] LABS: PLATELET ESTIMATE ADEQUATE; PLATELET MORPHOLOGY COMMENT NORMAL; RBC MORPHOLOGY COMMENT NORMAL
[2020-05-14] MEDS: VASOPRESSIN 60 UNIT in DEXTROSE 5% 50ML 57 ML IV SCH (11:45)
[2020-05-14] MEDS ORDERED: FUROSEMIDE INJ 10 MG/ML 4 ML VIAL IV ONE (12:30)
[2020-05-14] MEDS ORDERED: POTASSIUM CHLORIDE 20 MEQ TAB CR PO STA (14:44)
[2020-05-14] MEDS ORDERED: KCL 20 MEQ PACKET/ ORAL SOLN PO ONE (15:30)
[2020-05-14] MEDS ORDERED: CALCIUM CHLORIDE 13.6 MEQ in SODIUM CHLORIDE 0.9% 100 ML 100 ML IV ONE (15:30)
[2020-05-14] MEDS: PROPOFOL IV EMULSION 10MG/ML 100 ML IV SCH ×2 (15:44→21:13)
[2020-05-14] MEDS: FUROSEMIDE INJ 100 MG in SODIUM CHLORIDE 0.9% 100 ML 90 ML IV SCH (15:52)
[2020-05-14] MEDS ORDERED: CENTRAL TPN FORMULA 1 BAG IV SCH (20:00)
[2020-05-14] MEDS: ACETAMINOPHEN 1000 MG/100 ML IV PRN (20:30)
[2020-05-14] MEDS: ATORVASTATIN 10 MG TAB PO SCH (21:05)
[2020-05-15] VITALS (26 sets, daily range): BP systolic 94–142; BP diastolic 38–56
[2020-05-15] MEDS: CEFEPIME HCL 1GM 1 GM in SODIUM CHLORIDE 0.9% 50ML 50 ML IV SCH ×2 (01:57→15:40)
[2020-05-15] MEDS: VANCOMYCIN 1GM/NS 250 ML 250 ML IV SCH (02:30)
[2020-05-15] MEDS: PROPOFOL IV EMULSION 10MG/ML 100 ML IV SCH (04:22)
[2020-05-15 06:33] LABS: BASOPHILS # (AUTO) 0.1 (0.0-0.1); BASOPHILS % 0.4 % (0.0-1.0); EOSINOPHILS # (AUTO) 0.1 (0.0-0.4); EOSINOPHILS % 0.8 % (0.0-6.0); HEMOGLOBIN 8.1 g/dL (14.0-18.0); LYMPHOCYTES # (AUTO) 1.4 (1.0-3.2); LYMPHOCYTES % 7.5 % (18.0-39.1); MEAN CORPUSCULAR HEMOGLOBIN 29.2 pg (28-32); MEAN CORPUSCULAR HGB CONC 31.2 g/dL (31-35); MEAN CORPUSCULAR VOLUME 93.9 fL (81-99); MONOCYTES # (AUTO) 0.6 (0.2-0.8); MONOCYTES % 3.3 % (4.4-11.3); NEUTROPHILS # (AUTO) 14.3 (2.1-6.9); NEUTROPHILS % 78.9 % (38.7-80.0); PLATELET COUNT 232 x10e3/uL (140-360); RED BLOOD COUNT 2.77 x10e6/uL (4.3-5.7); RED CELL DISTRIBUTION WIDTH 15.9 % (11.7-14.4)
[2020-05-15 07:05] LABS: ALBUMIN 2.2 g/dL (3.5-5.0); ALBUMIN/GLOBULIN RATIO 0.7 (0.8-2.0); ANION GAP 15.7 mmol/L (8-16); CALCIUM 7.6 mg/dL (8.4-10.2); CREATININE, SERUM 4.31 mg/dL (0.72-1.25); POTASSIUM 3.7 mmol/L (3.5-5.1)
[2020-05-15 08:15] LABS: ABG HCO3 22 mmol/L (22-26); ABG PCO2 34 mmHg (35-45); ABG PH 7.42 (7.35-7.45); ABG PO2 65 mmHg (80-105); ABG TCO2 23
[2020-05-15] MEDS: CALCIUM CARBONATE 500 MG CHEWABLE TABS PO SCH (09:00)
[2020-05-15] MEDS: INSULIN GLARGINE 100 UNITS/ML VIAL SQ SCH ×2 (09:00→20:07)
[2020-05-15] MEDS: VANCOMYCIN 250MG/5ML ORAL SOLN PO SCH ×4 (09:00→20:19)
[2020-05-15] MEDS: BALSAM PERU/CASTOR OIL 60 GM OINT...G. TP SCH (10:01)
[2020-05-15 10:20] LABS: BAND NEUTROPHILS % (MANUAL) 11 %; EOSINOPHILS % (MANUAL) 3 % (0-7); LYMPHOCYTES % (MANUAL) 20 % (19-48); MONOCYTES % (MANUAL) 8 % (3.4-9.0); MYELOCYTES % (MANUAL) 5 % (0-0); NEUTROPHILS % (MANUAL) 53 % (40-74)
[2020-05-15 10:21] LABS: ANISOCYTOSIS SLIGHT; PLATELET ESTIMATE ADEQUATE; PLATELET MORPHOLOGY COMMENT NORMAL; POLYCHROMASIA FEW; RBC MORPHOLOGY COMMENT NORMAL
[2020-05-15] MEDS: INSULIN REGULAR, HUMAN 100 UNIT/1 ML 3ML VIAL SQ SCH ×4 (10:38→19:57)
[2020-05-15] MEDS: FUROSEMIDE INJ 100 MG in SODIUM CHLORIDE 0.9% 100 ML 90 ML IV SCH ×2 (10:39→19:56)
[2020-05-15] MEDS: ACETAMINOPHEN 1000 MG/100 ML IV PRN ×3 (11:24→21:10)
[2020-05-15 12:32] LABS: ABG HCO3 21 mmol/L (22-26); ABG PCO2 30 mmHg (35-45); ABG PH 7.46 (7.35-7.45); ABG PO2 52 mmHg (80-105); ABG TCO2 22
[2020-05-15] MEDS ORDERED: HEPARIN SOD (PORCINE) 1000 UNIT/ML SDV IV PRN ×2 (14:00→18:00)
[2020-05-15] MEDS ORDERED: ALBUMIN 25% 12.5GM 0.25 GM/ML BTL IV PRN (14:00)
[2020-05-15] MEDS ORDERED: SODIUM CHLORIDE 0.9% 1000ML 2,000 ML IV PRN (14:00)
[2020-05-15] MEDS: HEPARIN SOD (PORCINE) 5,000 UNIT/ML VIAL SC SCH ×2 (15:40→20:08)
[2020-05-15] MEDS ORDERED: CALCIUM CHLORIDE 27.2 MEQ in SODIUM CHLORIDE 0.9% 250ML 250 ML IV ONE (16:00)
[2020-05-15] MEDS ORDERED: HALOPERIDOL LACTATE 5 MG/ML VIAL IV PRN (17:45)
[2020-05-15] MEDS ORDERED: CENTRAL TPN FORMULA 1 BAG IV SCH (20:00)
[2020-05-15] MEDS ORDERED: FUROSEMIDE INJ 100 MG in SODIUM CHLORIDE 0.9% 100 ML 90 ML IV SCH (20:00)
[2020-05-16] VITALS (25 sets, daily range): BP systolic 82–140; BP diastolic 37–77
[2020-05-16] MEDS: CEFEPIME HCL 1GM 1 GM in SODIUM CHLORIDE 0.9% 50ML 50 ML IV SCH ×2 (01:45→12:42)
[2020-05-16] MEDS: VANCOMYCIN 1GM/NS 250 ML 250 ML IV SCH (02:46)
[2020-05-16] MEDS: METOPROLOL TARTRATE INJ 1 MG/ML VIAL IV SCH ×3 (05:06→17:46)
[2020-05-16] MEDS: HEPARIN SOD (PORCINE) 5,000 UNIT/ML VIAL SC SCH ×3 (05:06→22:34)
[2020-05-16] MEDS: FUROSEMIDE INJ 100 MG in SODIUM CHLORIDE 0.9% 100 ML 90 ML IV SCH ×2 (05:06→16:25)
[2020-05-16] MEDS ORDERED: ACETAMINOPHEN 1000 MG/100 ML 100 ML IV ONE (05:45)
[2020-05-16 06:40] LABS: BASOPHILS # (AUTO) 0.1 (0.0-0.1); BASOPHILS % 0.3 % (0.0-1.0); EOSINOPHILS # (AUTO) 0.1 (0.0-0.4); EOSINOPHILS % 0.7 % (0.0-6.0); HEMOGLOBIN 7.5 g/dL (14.0-18.0); LYMPHOCYTES # (AUTO) 1.1 (1.0-3.2); LYMPHOCYTES % 5.4 % (18.0-39.1); MEAN CORPUSCULAR HEMOGLOBIN 29.4 pg (28-32); MEAN CORPUSCULAR HGB CONC 31.3 g/dL (31-35); MEAN CORPUSCULAR VOLUME 94.1 fL (81-99); MONOCYTES # (AUTO) 0.7 (0.2-0.8); MONOCYTES % 3.4 % (4.4-11.3); NEUTROPHILS # (AUTO) 16.1 (2.1-6.9); NEUTROPHILS % 82.6 % (38.7-80.0); PLATELET COUNT 251 x10e3/uL (140-360); RED BLOOD COUNT 2.55 x10e6/uL (4.3-5.7)
[2020-05-16 06:58] LABS: ALBUMIN 1.9 g/dL (3.5-5.0); ALBUMIN/GLOBULIN RATIO 0.5 (0.8-2.0); ANION GAP 15.1 mmol/L (8-16); CALCIUM 7.6 mg/dL (8.4-10.2); CREATININE, SERUM 2.82 mg/dL (0.72-1.25); POTASSIUM 3.1 mmol/L (3.5-5.1)
[2020-05-16 07:19] LABS: MAGNESIUM 1.6 MG/DL (1.3-2.1); PHOSPHORUS 1.9 MG/DL (2.3-4.7)
[2020-05-16] MEDS: INSULIN REGULAR, HUMAN 100 UNIT/1 ML 3ML VIAL SQ SCH ×4 (07:30→21:00)
[2020-05-16 07:44] LABS: AMYLASE 87 U/L (25-125); LIPASE 82 U/L (8-78)
[2020-05-16] MEDS: INSULIN GLARGINE 100 UNITS/ML VIAL SQ SCH ×2 (08:03→21:00)
[2020-05-16] MEDS: VANCOMYCIN 250MG/5ML ORAL SOLN PO SCH (08:03)
[2020-05-16] MEDS: BALSAM PERU/CASTOR OIL 60 GM OINT...G. TP SCH (08:04)
[2020-05-16] MEDS ORDERED: POTASSIUM CHLORIDE 20MEQ/100ML 100 ML IV ONE (10:30)
[2020-05-16 10:47] LABS: EOSINOPHILS % (MANUAL) 4 % (0-7); LYMPHOCYTES % (MANUAL) 3 % (19-48); MONOCYTES % (MANUAL) 10 % (3.4-9.0); MYELOCYTES % (MANUAL) 2 % (0-0); NEUTROPHILS % (MANUAL) 78 % (40-74)
[2020-05-16 10:48] LABS: HYPOCHROMASIA SLIG; OVALOCYTES FEW; PLATELET ESTIMATE ADEQUATE; POLYCHROMASIA FEW; RBC MORPHOLOGY COMMENT ABNORMAL; STOMATOCYTES SLIGHT
[2020-05-16] MEDS: ALBUMIN 25% 25GM 100ML 0.25 GM/ML BTL IV SCH ×2 (10:50→17:46)
[2020-05-16] MEDS: ACETAMINOPHEN 1000 MG/100 ML IV PRN ×2 (11:00→21:00)
[2020-05-16] MEDS ORDERED: POTASSIUM PHOSPHATE 20 MM in SODIUM CHLORIDE 0.9% 250ML 250 ML IV ONE (13:30)
[2020-05-16] MEDS ORDERED: SODIUM PHOSPHATE IN 0.9 % NACL 20 MMOL in SODIUM CHLORIDE 0.9% 250ML 250 ML IV ONE ×2 (13:30)
[2020-05-16 15:26] LABS: ABG HCO3 26 mmol/L (22-26); ABG PCO2 35 mmHg (35-45); ABG PH 7.48 (7.35-7.45); ABG PO2 59 mmHg (80-105); ABG TCO2 27
[2020-05-16] MEDS ORDERED: CENTRAL TPN FORMULA 1 BAG IV SCH (20:00)
[2020-05-17] VITALS (28 sets, daily range): BP systolic 97–145; BP diastolic 40–67
[2020-05-17] MEDS: CEFEPIME HCL 1GM 1 GM in SODIUM CHLORIDE 0.9% 50ML 50 ML IV SCH ×2 (02:08→13:45)
[2020-05-17] MEDS: FUROSEMIDE INJ 100 MG in SODIUM CHLORIDE 0.9% 100 ML 90 ML IV SCH ×3 (02:08→17:42)
[2020-05-17] MEDS: VANCOMYCIN 1GM/NS 250 ML 250 ML IV SCH (02:08)
[2020-05-17] MEDS: ALBUMIN 25% 25GM 100ML 0.25 GM/ML BTL IV SCH (02:08)
[2020-05-17] MEDS ORDERED: ACETAMINOPHEN 1000 MG/100 ML 100 ML IV ONE (03:18)
[2020-05-17] MEDS: ACETAMINOPHEN 1000 MG/100 ML IV PRN ×3 (03:36→22:21)
[2020-05-17] MEDS ORDERED: ZIPRASIDONE 20 MG VIAL IM PRN (05:00)
[2020-05-17] MEDS: METOPROLOL TARTRATE INJ 1 MG/ML VIAL IV SCH ×5 (06:00→17:43)
[2020-05-17 06:15] LABS: BASOPHILS # (AUTO) 0.1 (0.0-0.1); BASOPHILS % 0.4 % (0.0-1.0); EOSINOPHILS # (AUTO) 0.1 (0.0-0.4); EOSINOPHILS % 0.7 % (0.0-6.0); HEMATOCRIT 24.1 % (38.2-49.6); HEMOGLOBIN 7.6 g/dL (14.0-18.0); LYMPHOCYTES # (AUTO) 2.3 (1.0-3.2); LYMPHOCYTES % 12.6 % (18.0-39.1); MEAN CORPUSCULAR HEMOGLOBIN 30.2 pg (28-32); MEAN CORPUSCULAR HGB CONC 31.5 g/dL (31-35); MEAN CORPUSCULAR VOLUME 95.6 fL (81-99); MONOCYTES % 5.6 % (4.4-11.3); NEUTROPHILS # (AUTO) 12.9 (2.1-6.9); NEUTROPHILS % 72.4 % (38.7-80.0); PLATELET COUNT 287 x10e3/uL (140-360); RED BLOOD COUNT 2.52 x10e6/uL (4.3-5.7); RED CELL DISTRIBUTION WIDTH 16.1 % (11.7-14.4)
[2020-05-17] MEDS: HEPARIN SOD (PORCINE) 5,000 UNIT/ML VIAL SC SCH ×3 (06:24→21:34)
[2020-05-17 06:45] LABS: ALBUMIN 2.7 g/dL (3.5-5.0); ALBUMIN/GLOBULIN RATIO 0.7 (0.8-2.0); ANION GAP 18.1 mmol/L (8-16); CREATININE, SERUM 3.41 mg/dL (0.72-1.25); POTASSIUM 3.1 mmol/L (3.5-5.1)
[2020-05-17] MEDS: INSULIN REGULAR, HUMAN 100 UNIT/1 ML 3ML VIAL SQ SCH ×4 (07:30→21:00)
[2020-05-17] MEDS: BALSAM PERU/CASTOR OIL 60 GM OINT...G. TP SCH (08:58)
[2020-05-17] MEDS: POTASSIUM CHLORIDE 20MEQ/100ML 100 ML IV SCH (08:58)
[2020-05-17] MEDS ORDERED: POTASSIUM CHLORIDE 20MEQ/100ML 100 ML IV SCH (09:00)
[2020-05-17] MEDS: INSULIN GLARGINE 100 UNITS/ML VIAL SQ SCH ×2 (09:00→21:00)
[2020-05-17 10:08] LABS: BAND NEUTROPHILS % (MANUAL) 2 %; EOSINOPHILS % (MANUAL) 2 % (0-7); LYMPHOCYTES % (MANUAL) 24 % (19-48); MONOCYTES % (MANUAL) 8 % (3.4-9.0); MYELOCYTES % (MANUAL) 6 % (0-0); NEUTROPHILS % (MANUAL) 58 % (40-74); NUCLEATED RED BLOOD CELLS 1; PLATELET ESTIMATE ADEQUATE; PLATELET MORPHOLOGY COMMENT NORMAL; RBC MORPHOLOGY COMMENT ABNORMAL
[2020-05-17 10:09] LABS: STOMATOCYTES SLIGHT
[2020-05-17] MEDS: EPOETIN ALFA-EPBX 10,000 UNIT/ML VIAL SC SCH (12:38)
[2020-05-17] MEDS ORDERED: CALCIUM CHLORIDE 13.6 MEQ in SODIUM CHLORIDE 0.9% 100 ML 100 ML IV ONE (16:00)
[2020-05-17] MEDS ORDERED: CENTRAL TPN FORMULA 1 BAG IV SCH (20:00)
[2020-05-17] MEDS: HALOPERIDOL LACTATE 5 MG/ML VIAL IM SCH (21:00)
[2020-05-17] MEDS ORDERED: ACETAMINOPHEN 1000 MG/100 ML 200 ML IV ONE (22:11)
[2020-05-18] VITALS (27 sets, daily range): BP systolic 100–142; BP diastolic 42–80
[2020-05-18] MEDS: ACETAMINOPHEN 1000 MG/100 ML IV PRN ×2 (05:23→10:43)
[2020-05-18] MEDS: METOPROLOL TARTRATE INJ 1 MG/ML VIAL IV SCH ×4 (05:59→17:14)
[2020-05-18] MEDS: HEPARIN SOD (PORCINE) 5,000 UNIT/ML VIAL SC SCH ×3 (06:00→23:11)
[2020-05-18 06:17] LABS: BASOPHILS # (AUTO) 0.1 (0.0-0.1); BASOPHILS % 0.3 % (0.0-1.0); EOSINOPHILS # (AUTO) 0.2 (0.0-0.4); EOSINOPHILS % 1.1 % (0.0-6.0); HEMATOCRIT 24.7 % (38.2-49.6); HEMOGLOBIN 7.7 g/dL (14.0-18.0); LYMPHOCYTES # (AUTO) 1.6 (1.0-3.2); LYMPHOCYTES % 10.6 % (18.0-39.1); MEAN CORPUSCULAR HEMOGLOBIN 30.3 pg (28-32); MEAN CORPUSCULAR HGB CONC 31.2 g/dL (31-35); MEAN CORPUSCULAR VOLUME 97.2 fL (81-99); MONOCYTES % 6.3 % (4.4-11.3); NEUTROPHILS # (AUTO) 11.4 (2.1-6.9); NEUTROPHILS % 75.1 % (38.7-80.0); PLATELET COUNT 347 x10e3/uL (140-360); RED BLOOD COUNT 2.54 x10e6/uL (4.3-5.7); RED CELL DISTRIBUTION WIDTH 16.1 % (11.7-14.4)
[2020-05-18 06:46] LABS: ALBUMIN 2.3 g/dL (3.5-5.0); ALBUMIN/GLOBULIN RATIO 0.5 (0.8-2.0); ANION GAP 16.4 mmol/L (8-16); CREATININE, SERUM 2.51 mg/dL (0.72-1.25); POTASSIUM 3.4 mmol/L (3.5-5.1)
[2020-05-18] MEDS: INSULIN REGULAR, HUMAN 100 UNIT/1 ML 3ML VIAL SQ SCH ×4 (07:30→21:00)
[2020-05-18] MEDS: FUROSEMIDE INJ 100 MG in SODIUM CHLORIDE 0.9% 100 ML 90 ML IV SCH ×3 (08:00→17:14)
[2020-05-18] MEDS: HALOPERIDOL LACTATE 5 MG/ML VIAL IM SCH ×2 (09:55→21:21)
[2020-05-18] MEDS: BALSAM PERU/CASTOR OIL 60 GM OINT...G. TP SCH (09:55)
[2020-05-18] MEDS: POTASSIUM CHLORIDE 20MEQ/100ML 100 ML IV SCH (09:55)
[2020-05-18] MEDS: INSULIN GLARGINE 100 UNITS/ML VIAL SQ SCH ×2 (10:00→21:00)
[2020-05-18 12:05] LABS: ABG HCO3 27 mmol/L (22-26); ABG PCO2 39 mmHg (35-45); ABG PH 7.44 (7.35-7.45); ABG PO2 71 mmHg (80-105); ABG TCO2 28
[2020-05-18 12:11] LABS: BAND NEUTROPHILS % (MANUAL) 1 %; EOSINOPHILS % (MANUAL) 1 % (0-7); HYPOCHROMASIA SLIGHT; LYMPHOCYTES % (MANUAL) 4 % (19-48); MONOCYTES % (MANUAL) 6 % (3.4-9.0); NEUTROPHILS % (MANUAL) 84 % (40-74); PLATELET ESTIMATE ADEQUATE; PLATELET MORPHOLOGY COMMENT NORMAL; PROMYELOCYTES % (MANUAL) 4 % (0-0); RBC MORPHOLOGY COMMENT ABNORMAL
[2020-05-18] MEDS ORDERED: PROPOFOL IV EMULSION 10MG/ML 100ML BTL ONE (12:38)
[2020-05-18] MEDS ORDERED: IBUPROFEN 800MG/ 200ML 800 MG in SODIUM CHLORIDE 0.9% 250ML 250 ML IV PRN (15:45)
[2020-05-18] MEDS: IBUPROFEN 800MG/ 200ML 200 ML IV PRN (16:24)
[2020-05-18] MEDS ORDERED: SODIUM CHLORIDE 0.9% 1000ML 1,000 ML ONE (16:25)
[2020-05-18] MEDS: CEFTRIAXONE SOD 1 GM in SODIUM CHLORIDE 0.9% 50ML 50 ML IV SCH (17:56)
[2020-05-18] MEDS ORDERED: CEFTRIAXONE SOD 1 GM/50 ML BAG IV SCH (18:00)
[2020-05-18] MEDS ORDERED: CENTRAL TPN FORMULA 1 BAG IV SCH (20:00)
[2020-05-19] VITALS (27 sets, daily range): BP systolic 94–154; BP diastolic 55–79
[2020-05-19] MEDS: METOPROLOL TARTRATE INJ 1 MG/ML VIAL IV SCH ×4 (00:15→17:10)
[2020-05-19] MEDS: IBUPROFEN 800MG/ 200ML 200 ML IV PRN ×3 (00:19→17:10)
[2020-05-19] MEDS: FUROSEMIDE INJ 100 MG in SODIUM CHLORIDE 0.9% 100 ML 90 ML IV SCH ×3 (04:37→22:48)
[2020-05-19] MEDS: HEPARIN SOD (PORCINE) 5,000 UNIT/ML VIAL SC SCH ×3 (06:36→22:00)
[2020-05-19 06:43] LABS: BASOPHILS % 0.3 % (0.0-1.0); EOSINOPHILS # (AUTO) 0.2 (0.0-0.4); EOSINOPHILS % 1.2 % (0.0-6.0); HEMATOCRIT 24.3 % (38.2-49.6); HEMOGLOBIN 7.3 g/dL (14.0-18.0); LYMPHOCYTES # (AUTO) 1.4 (1.0-3.2); LYMPHOCYTES % 9.4 % (18.0-39.1); MEAN CORPUSCULAR HEMOGLOBIN 29.2 pg (28-32); MEAN CORPUSCULAR VOLUME 97.2 fL (81-99); MONOCYTES # (AUTO) 0.9 (0.2-0.8); MONOCYTES % 6.2 % (4.4-11.3); NEUTROPHILS # (AUTO) 11.3 (2.1-6.9); NEUTROPHILS % 77.3 % (38.7-80.0); PLATELET COUNT 389 x10e3/uL (140-360); RED CELL DISTRIBUTION WIDTH 16.1 % (11.7-14.4)
[2020-05-19 07:01] LABS: ALBUMIN 2.1 g/dL (3.5-5.0); ALBUMIN/GLOBULIN RATIO 0.5 (0.8-2.0); CREATININE, SERUM 2.97 mg/dL (0.72-1.25)
[2020-05-19] MEDS: INSULIN REGULAR, HUMAN 100 UNIT/1 ML 3ML VIAL SQ SCH ×4 (07:30→17:36)
[2020-05-19] MEDS: POTASSIUM CHLORIDE 20MEQ/100ML 100 ML IV SCH (08:31)
[2020-05-19] MEDS: HALOPERIDOL LACTATE 5 MG/ML VIAL IM SCH ×2 (08:31→20:51)
[2020-05-19] MEDS: BALSAM PERU/CASTOR OIL 60 GM OINT...G. TP SCH (08:31)
[2020-05-19] MEDS: INSULIN GLARGINE 100 UNITS/ML VIAL SQ SCH ×2 (08:33→20:52)
[2020-05-19] MEDS ORDERED: ACETAMINOPHEN 1000 MG/100 ML IV PRN (09:30)
[2020-05-19] MEDS: CEFTRIAXONE SOD 1 GM in SODIUM CHLORIDE 0.9% 50ML 50 ML IV SCH (17:10)
[2020-05-19] MEDS ORDERED: CENTRAL TPN FORMULA 1 BAG IV SCH (20:00)
[2020-05-20] VITALS (22 sets, daily range): BP systolic 108–156; BP diastolic 47–93
[2020-05-20] MEDS: METOPROLOL TARTRATE INJ 1 MG/ML VIAL IV SCH ×4 (00:04→17:53)
[2020-05-20] MEDS ORDERED: DEXTROSE 50% SYRINGE 50 ML IV PRN (05:45)
[2020-05-20] MEDS: HEPARIN SOD (PORCINE) 5,000 UNIT/ML VIAL SC SCH ×2 (06:28→16:57)
[2020-05-20] MEDS: IBUPROFEN 800MG/ 200ML 200 ML IV PRN ×2 (06:31→20:54)
[2020-05-20 07:05] LABS: BASOPHILS # (AUTO) 0.1 (0.0-0.1); BASOPHILS % 0.5 % (0.0-1.0); EOSINOPHILS # (AUTO) 0.2 (0.0-0.4); EOSINOPHILS % 0.9 % (0.0-6.0); HEMATOCRIT 23.9 % (38.2-49.6); LYMPHOCYTES # (AUTO) 2.8 (1.0-3.2); LYMPHOCYTES % 15.5 % (18.0-39.1); MEAN CORPUSCULAR HEMOGLOBIN 28.7 pg (28-32); MEAN CORPUSCULAR HGB CONC 29.3 g/dL (31-35); MONOCYTES % 5.4 % (4.4-11.3); NEUTROPHILS # (AUTO) 13.4 (2.1-6.9); NEUTROPHILS % 72.7 % (38.7-80.0); PLATELET COUNT 485 x10e3/uL (140-360); RED BLOOD COUNT 2.44 x10e6/uL (4.3-5.7); RED CELL DISTRIBUTION WIDTH 15.9 % (11.7-14.4)
[2020-05-20 07:26] LABS: ALBUMIN 2.1 g/dL (3.5-5.0); ALBUMIN/GLOBULIN RATIO 0.4 (0.8-2.0); CALCIUM 8.2 mg/dL (8.4-10.2); CREATININE, SERUM 3.34 mg/dL (0.72-1.25)
[2020-05-20 07:55] LABS: ANION GAP 21.1 mmol/L (8-16); CALCIUM 8.2 mg/dL (8.4-10.2); CREATININE, SERUM 3.26 mg/dL (0.72-1.25); POTASSIUM 3.1 mmol/L (3.5-5.1)
[2020-05-20 08:02] LABS: ABG HCO3 31 mmol/L (22-26); ABG PCO2 39 mmHg (35-45); ABG PO2 56 mmHg (80-105); ABG TCO2 32
[2020-05-20] MEDS ORDERED: ACETAMINOPHEN 325 MG TAB PO STA (08:07)
[2020-05-20] MEDS ORDERED: SODIUM CHLORIDE 0.9% 250ML 250 ML IV ONE ×2 (08:15→23:15)
[2020-05-20] MEDS: INSULIN REGULAR, HUMAN 100 UNIT/1 ML 3ML VIAL SQ SCH ×3 (09:43→18:26)
[2020-05-20] MEDS: INSULIN GLARGINE 100 UNITS/ML VIAL SQ SCH (09:44)
[2020-05-20] MEDS: POTASSIUM CHLORIDE 20MEQ/100ML 100 ML IV SCH (09:46)
[2020-05-20] MEDS: BALSAM PERU/CASTOR OIL 60 GM OINT...G. TP SCH (09:46)
[2020-05-20] MEDS: FUROSEMIDE INJ 100 MG in SODIUM CHLORIDE 0.9% 100 ML 90 ML IV SCH ×2 (09:46→20:13)
[2020-05-20] MEDS: HALOPERIDOL LACTATE 5 MG/ML VIAL IM SCH (10:03)
[2020-05-20 10:16] LABS: FERRITIN 4109.27 ng/mL (21.81-274.66)
[2020-05-20 11:53] LABS: BAND NEUTROPHILS % (MANUAL) 5 %; LYMPHOCYTES % (MANUAL) 19 % (19-48); MONOCYTES % (MANUAL) 4 % (3.4-9.0); MYELOCYTES % (MANUAL) 4 % (0-0); NEUTROPHILS % (MANUAL) 68 % (40-74); PLATELET ESTIMATE SLIGHTLY INCREASED
[2020-05-20 11:54] LABS: ANISOCYTOSIS SLIGHT; GIANT PLATELETS FEW; PLATELET MORPHOLOGY COMMENT FEW LARGE; RBC MORPHOLOGY COMMENT NORMAL
[2020-05-20] MEDS: EPOETIN ALFA-EPBX 10,000 UNIT/ML VIAL SC SCH (16:56)
[2020-05-20] MEDS: CEFEPIME HCL 1GM 1 GM in SODIUM CHLORIDE 0.9% 50ML 50 ML IV SCH (17:52)
[2020-05-20] MEDS: CENTRAL TPN FORMULA 1 BAG IV SCH (20:14)
[2020-05-20] MEDS ORDERED: MICAFUNGIN SODIUM 50 MG/50 ML BAG IV ONE (22:00)
[2020-05-21] VITALS (25 sets, daily range): BP systolic 107–169; BP diastolic 45–83
[2020-05-21] MEDS: INSULIN GLARGINE 100 UNITS/ML VIAL SQ SCH ×3 (00:29→21:51)
[2020-05-21] MEDS: HALOPERIDOL LACTATE 5 MG/ML VIAL IM SCH ×3 (00:29→21:00)
[2020-05-21] MEDS: INSULIN REGULAR, HUMAN 100 UNIT/1 ML 3ML VIAL SQ SCH ×5 (00:29→21:52)
[2020-05-21] MEDS: METOPROLOL TARTRATE INJ 1 MG/ML VIAL IV SCH ×5 (00:30→23:14)
[2020-05-21] MEDS: HEPARIN SOD (PORCINE) 5,000 UNIT/ML VIAL SC SCH ×4 (00:30→22:26)
[2020-05-21] MEDS: FUROSEMIDE INJ 100 MG in SODIUM CHLORIDE 0.9% 100 ML 90 ML IV SCH ×2 (06:30→19:57)
[2020-05-21 07:05] LABS: BASOPHILS # (AUTO) 0.1 (0.0-0.1); BASOPHILS % 0.7 % (0.0-1.0); EOSINOPHILS # (AUTO) 0.1 (0.0-0.4); EOSINOPHILS % 0.6 % (0.0-6.0); HEMOGLOBIN 8.1 g/dL (14.0-18.0); LYMPHOCYTES # (AUTO) 1.4 (1.0-3.2); LYMPHOCYTES % 7.8 % (18.0-39.1); MEAN CORPUSCULAR HEMOGLOBIN 31.2 pg (28-32); MEAN CORPUSCULAR HGB CONC 31.2 g/dL (31-35); MONOCYTES # (AUTO) 0.8 (0.2-0.8); MONOCYTES % 4.5 % (4.4-11.3); NEUTROPHILS # (AUTO) 14.1 (2.1-6.9); NEUTROPHILS % 79.5 % (38.7-80.0); PLATELET COUNT 451 x10e3/uL (140-360); RED CELL DISTRIBUTION WIDTH 15.9 % (11.7-14.4)
[2020-05-21 07:39] LABS: ALBUMIN 2.1 g/dL (3.5-5.0); ALBUMIN/GLOBULIN RATIO 0.4 (0.8-2.0); CALCIUM 8.2 mg/dL (8.4-10.2); CREATININE, SERUM 2.22 mg/dL (0.72-1.25); MAGNESIUM 1.4 MG/DL (1.3-2.1); PHOSPHORUS 2.2 MG/DL (2.3-4.7)
[2020-05-21 08:02] LABS: INR 1.26; PARTIAL THROMBOPLASTIN TIME 46.5 seconds (23.8-35.5); PROTHROMBIN TIME 16.6 seconds (11.9-14.5)
[2020-05-21] MEDS ORDERED: MICAFUNGIN SODIUM 50 MG/50 ML BAG IV SCH (09:00)
[2020-05-21] MEDS: POTASSIUM CHLORIDE 20MEQ/100ML 100 ML IV SCH (10:50)
[2020-05-21] MEDS: BALSAM PERU/CASTOR OIL 60 GM OINT...G. TP SCH (10:50)
[2020-05-21 11:11] LABS: BAND NEUTROPHILS % (MANUAL) 5 %; EOSINOPHILS % (MANUAL) 3 % (0-7); LYMPHOCYTES % (MANUAL) 9 % (19-48); MONOCYTES % (MANUAL) 4 % (3.4-9.0); MYELOCYTES % (MANUAL) 7 % (0-0); NEUTROPHILS % (MANUAL) 72 % (40-74)
[2020-05-21 11:12] LABS: PLATELET ESTIMATE SLIGHTLY INCREASED; PLATELET MORPHOLOGY COMMENT FEW LARGE
[2020-05-21 11:13] LABS: HYPOCHROMASIA SLIGHT; POLYCHROMASIA FEW; RBC MORPHOLOGY COMMENT NORMAL; STOMATOCYTES SLIGHT
[2020-05-21] MEDS: ACETAMINOPHEN 1000 MG/100 ML IV PRN (11:13)
[2020-05-21 11:14] LABS: GIANT PLATELETS FEW
[2020-05-21 16:56] LABS: ABG HCO3 27 mmol/L (22-26); ABG PCO2 45 mmHg (35-45); ABG PH 7.38 (7.35-7.45); ABG PO2 96 mmHg (80-105); ABG TCO2 28
[2020-05-21] MEDS: CEFEPIME HCL 1GM 1 GM in SODIUM CHLORIDE 0.9% 50ML 50 ML IV SCH (17:23)
[2020-05-21] MEDS: ALBUMIN 25% 25GM 100ML 0.25 GM/ML BTL IV SCH ×2 (17:37→22:26)
[2020-05-21] MEDS: CENTRAL TPN FORMULA 1 BAG IV SCH (21:43)
[2020-05-22] VITALS (24 sets, daily range): BP systolic 115–167; BP diastolic 53–78
[2020-05-22] MEDS ORDERED: ACETAMINOPHEN 1000 MG/100 ML 200 ML IV ONE (00:06)
[2020-05-22] MEDS: ACETAMINOPHEN 1000 MG/100 ML IV PRN ×3 (00:10→22:24)
[2020-05-22 06:13] LABS: BASOPHILS # (AUTO) 0.1 (0.0-0.1); BASOPHILS % 0.6 % (0.0-1.0); EOSINOPHILS # (AUTO) 0.1 (0.0-0.4); EOSINOPHILS % 0.5 % (0.0-6.0); HEMATOCRIT 26.8 % (38.2-49.6); HEMOGLOBIN 8.2 g/dL (14.0-18.0); LYMPHOCYTES # (AUTO) 1.6 (1.0-3.2); LYMPHOCYTES % 7.1 % (18.0-39.1); MEAN CORPUSCULAR HEMOGLOBIN 29.7 pg (28-32); MEAN CORPUSCULAR HGB CONC 30.6 g/dL (31-35); MEAN CORPUSCULAR VOLUME 97.1 fL (81-99); MONOCYTES % 4.2 % (4.4-11.3); NEUTROPHILS # (AUTO) 18.5 (2.1-6.9); NEUTROPHILS % 80.4 % (38.7-80.0); PLATELET COUNT 531 x10e3/uL (140-360); RED BLOOD COUNT 2.76 x10e6/uL (4.3-5.7); RED CELL DISTRIBUTION WIDTH 15.9 % (11.7-14.4)
[2020-05-22] MEDS: FUROSEMIDE INJ 100 MG in SODIUM CHLORIDE 0.9% 100 ML 90 ML IV SCH ×2 (06:13→12:00)
[2020-05-22] MEDS: METOPROLOL TARTRATE INJ 1 MG/ML VIAL IV SCH ×3 (06:14→17:19)
[2020-05-22] MEDS: ALBUMIN 25% 25GM 100ML 0.25 GM/ML BTL IV SCH (06:14)
[2020-05-22] MEDS: HEPARIN SOD (PORCINE) 5,000 UNIT/ML VIAL SC SCH (06:19)
[2020-05-22 06:42] LABS: ALBUMIN 2.6 g/dL (3.5-5.0); ALBUMIN/GLOBULIN RATIO 0.6 (0.8-2.0); ANION GAP 16.4 mmol/L (8-16); CALCIUM 8.6 mg/dL (8.4-10.2); CREATININE, SERUM 2.76 mg/dL (0.72-1.25); POTASSIUM 3.4 mmol/L (3.5-5.1)
[2020-05-22] MEDS: INSULIN REGULAR, HUMAN 100 UNIT/1 ML 3ML VIAL SQ SCH ×4 (07:30→20:39)
[2020-05-22 07:49] LABS: ABG HCO3 29 mmol/L (22-26); ABG PCO2 54 mmHg (35-45); ABG PH 7.34 (7.35-7.45); ABG PO2 91 mmHg (80-105); ABG TCO2 30
[2020-05-22] MEDS: HALOPERIDOL LACTATE 5 MG/ML VIAL IM SCH ×2 (08:04→21:00)
[2020-05-22] MEDS: BALSAM PERU/CASTOR OIL 60 GM OINT...G. TP SCH (08:05)
[2020-05-22] MEDS: POTASSIUM CHLORIDE 20MEQ/100ML 100 ML IV SCH (08:05)
[2020-05-22 08:29] LABS: BAND NEUTROPHILS % (MANUAL) 2 %; LYMPHOCYTES % (MANUAL) 10 % (19-48); MONOCYTES % (MANUAL) 6 % (3.4-9.0); NEUTROPHILS % (MANUAL) 82 % (40-74)
[2020-05-22] MEDS ORDERED: INSULIN GLARGINE 100 UNITS/ML VIAL SQ SCH (09:00)
[2020-05-22] MEDS: MICAFUNGIN SODIUM 50 ML IV SCH (10:24)
[2020-05-22] MEDS: MEROPENEM 1GRAM 1 GM in SODIUM CHLORIDE 0.9% 100 ML 100 ML IV SCH ×2 (11:59→20:28)
[2020-05-22] MEDS: EPOETIN ALFA-EPBX 10,000 UNIT/ML VIAL SC SCH (12:15)
[2020-05-22] MEDS: LINEZOLID 600 MG/D5W 300ML 300 ML IV SCH (12:31)
[2020-05-22] MEDS: INSULIN LISPRO 100 UNIT/1 ML 3ML VIAL SQ SCH (17:18)
[2020-05-22] MEDS ORDERED: CENTRAL TPN FORMULA 1 BAG IV SCH (20:00)
[2020-05-22] MEDS: INSULIN GLARGINE 100 UNITS/ML VIAL SQ SCH (20:40)
[2020-05-23] VITALS (26 sets, daily range): BP systolic 115–157; BP diastolic 54–83
[2020-05-23] MEDS: LINEZOLID 600 MG/D5W 300ML 300 ML IV SCH ×3 (00:04→23:38)
[2020-05-23] MEDS: METOPROLOL TARTRATE INJ 1 MG/ML VIAL IV SCH ×5 (00:04→23:39)
[2020-05-23] MEDS: IBUPROFEN 800MG/ 200ML 200 ML IV PRN ×2 (00:26→11:12)
[2020-05-23] MEDS: MEROPENEM 1GRAM 1 GM in SODIUM CHLORIDE 0.9% 100 ML 100 ML IV SCH ×3 (03:51→20:27)
[2020-05-23] MEDS: FUROSEMIDE INJ 100 MG in SODIUM CHLORIDE 0.9% 100 ML 90 ML IV SCH ×3 (03:51→19:14)
[2020-05-23] MEDS: ACETAMINOPHEN 1000 MG/100 ML IV PRN ×3 (05:55→21:54)
[2020-05-23 06:17] LABS: BASOPHILS # (AUTO) 0.1 (0.0-0.1); BASOPHILS % 0.6 % (0.0-1.0); EOSINOPHILS # (AUTO) 0.3 (0.0-0.4); EOSINOPHILS % 1.7 % (0.0-6.0); HEMATOCRIT 25.9 % (38.2-49.6); HEMOGLOBIN 7.8 g/dL (14.0-18.0); LYMPHOCYTES # (AUTO) 1.9 (1.0-3.2); LYMPHOCYTES % 9.9 % (18.0-39.1); MEAN CORPUSCULAR HEMOGLOBIN 29.4 pg (28-32); MEAN CORPUSCULAR HGB CONC 30.1 g/dL (31-35); MEAN CORPUSCULAR VOLUME 97.7 fL (81-99); MONOCYTES # (AUTO) 1.1 (0.2-0.8); MONOCYTES % 5.7 % (4.4-11.3); NEUTROPHILS # (AUTO) 13.7 (2.1-6.9); NEUTROPHILS % 69.7 % (38.7-80.0); PLATELET COUNT 566 x10e3/uL (140-360); RED BLOOD COUNT 2.65 x10e6/uL (4.3-5.7); RED CELL DISTRIBUTION WIDTH 15.9 % (11.7-14.4)
[2020-05-23 06:59] LABS: ALBUMIN 2.4 g/dL (3.5-5.0); ALBUMIN/GLOBULIN RATIO 0.5 (0.8-2.0); ANION GAP 14.3 mmol/L (8-16); CALCIUM 8.5 mg/dL (8.4-10.2); CREATININE, SERUM 2.89 mg/dL (0.72-1.25); POTASSIUM 3.3 mmol/L (3.5-5.1)
[2020-05-23] MEDS: INSULIN LISPRO 100 UNIT/1 ML 3ML VIAL SQ SCH ×3 (08:09→17:17)
[2020-05-23] MEDS: INSULIN REGULAR, HUMAN 100 UNIT/1 ML 3ML VIAL SQ SCH ×4 (08:10→21:00)
[2020-05-23] MEDS: HALOPERIDOL LACTATE 5 MG/ML VIAL IM SCH ×2 (08:11→21:00)
[2020-05-23] MEDS: POTASSIUM CHLORIDE 20MEQ/100ML 100 ML IV SCH (09:28)
[2020-05-23] MEDS: BALSAM PERU/CASTOR OIL 60 GM OINT...G. TP SCH (09:28)
[2020-05-23] MEDS: INSULIN GLARGINE 100 UNITS/ML VIAL SQ SCH ×2 (09:28→21:21)
[2020-05-23] MEDS: MICAFUNGIN SODIUM 50 ML IV SCH (10:11)
[2020-05-23] MEDS ORDERED: IBUPROFEN 800 MG/8 ML VIAL IV ONE (20:31)
[2020-05-23] MEDS: CENTRAL TPN FORMULA 1 BAG IV SCH (20:33)
[2020-05-24] VITALS (24 sets, daily range): BP systolic 127–183; BP diastolic 71–86
[2020-05-24] MEDS: IBUPROFEN 800MG/ 200ML 200 ML IV PRN (01:04)
[2020-05-24] MEDS: MEROPENEM 1GRAM 1 GM in SODIUM CHLORIDE 0.9% 100 ML 100 ML IV SCH ×3 (02:36→20:08)
[2020-05-24] MEDS: METOPROLOL TARTRATE INJ 1 MG/ML VIAL IV SCH ×4 (06:00→23:43)
[2020-05-24 06:52] LABS: BASOPHILS # (AUTO) 0.1 (0.0-0.1); BASOPHILS % 0.6 % (0.0-1.0); EOSINOPHILS # (AUTO) 0.3 (0.0-0.4); EOSINOPHILS % 1.5 % (0.0-6.0); HEMATOCRIT 26.7 % (38.2-49.6); HEMOGLOBIN 7.8 g/dL (14.0-18.0); MEAN CORPUSCULAR HEMOGLOBIN 28.7 pg (28-32); MEAN CORPUSCULAR HGB CONC 29.2 g/dL (31-35); MEAN CORPUSCULAR VOLUME 98.2 fL (81-99); MONOCYTES # (AUTO) 1.3 (0.2-0.8); MONOCYTES % 7.1 % (4.4-11.3); NEUTROPHILS # (AUTO) 12.5 (2.1-6.9); NEUTROPHILS % 70.3 % (38.7-80.0); PLATELET COUNT 556 x10e3/uL (140-360); RED BLOOD COUNT 2.72 x10e6/uL (4.3-5.7)
[2020-05-24 06:58] LABS: ALBUMIN 2.3 g/dL (3.5-5.0); ALBUMIN/GLOBULIN RATIO 0.5 (0.8-2.0); ANION GAP 15.5 mmol/L (8-16); CALCIUM 8.3 mg/dL (8.4-10.2); CREATININE, SERUM 2.91 mg/dL (0.72-1.25); POTASSIUM 3.5 mmol/L (3.5-5.1)
[2020-05-24] MEDS: HALOPERIDOL LACTATE 5 MG/ML VIAL IM SCH (09:00)
[2020-05-24] MEDS: ACETAMINOPHEN 1000 MG/100 ML IV PRN ×2 (09:41→18:18)
[2020-05-24] MEDS: FUROSEMIDE INJ 100 MG in SODIUM CHLORIDE 0.9% 100 ML 90 ML IV SCH ×2 (09:41→18:19)
[2020-05-24] MEDS: INSULIN REGULAR, HUMAN 100 UNIT/1 ML 3ML VIAL SQ SCH ×4 (09:44→20:28)
[2020-05-24] MEDS: INSULIN LISPRO 100 UNIT/1 ML 3ML VIAL SQ SCH ×3 (09:44→18:19)
[2020-05-24] MEDS: INSULIN GLARGINE 100 UNITS/ML VIAL SQ SCH ×2 (09:45→20:28)
[2020-05-24] MEDS: BALSAM PERU/CASTOR OIL 60 GM OINT...G. TP SCH (09:54)
[2020-05-24] MEDS: POTASSIUM CHLORIDE 20MEQ/100ML 100 ML IV SCH (09:54)
[2020-05-24] MEDS: MICAFUNGIN SODIUM 50 ML IV SCH (09:54)
[2020-05-24] MEDS: LINEZOLID 600 MG/D5W 300ML 300 ML IV SCH ×2 (18:19→23:43)
[2020-05-24] MEDS ORDERED: ACETAMINOPHEN 1000 MG/100 ML IV PRN (19:30)
[2020-05-24] MEDS: CENTRAL TPN FORMULA 1 BAG IV SCH (20:12)
[2020-05-25] VITALS (15 sets, daily range): BP systolic 133–171; BP diastolic 68–88
[2020-05-25] MEDS: MEROPENEM 1GRAM 1 GM in SODIUM CHLORIDE 0.9% 100 ML 100 ML IV SCH ×3 (03:30→19:30)
[2020-05-25] MEDS: METOPROLOL TARTRATE INJ 1 MG/ML VIAL IV SCH ×3 (06:09→17:35)
[2020-05-25] MEDS: FUROSEMIDE INJ 100 MG in SODIUM CHLORIDE 0.9% 100 ML 90 ML IV SCH (06:09)
[2020-05-25 06:14] LABS: BASOPHILS # (AUTO) 0.1 (0.0-0.1); BASOPHILS % 0.6 % (0.0-1.0); EOSINOPHILS # (AUTO) 0.2 (0.0-0.4); EOSINOPHILS % 1.3 % (0.0-6.0); HEMOGLOBIN 8.1 g/dL (14.0-18.0); LYMPHOCYTES # (AUTO) 2.2 (1.0-3.2); LYMPHOCYTES % 12.9 % (18.0-39.1); MEAN CORPUSCULAR HEMOGLOBIN 29.2 pg (28-32); MEAN CORPUSCULAR VOLUME 97.5 fL (81-99); MONOCYTES # (AUTO) 1.2 (0.2-0.8); MONOCYTES % 6.9 % (4.4-11.3); NEUTROPHILS # (AUTO) 12.3 (2.1-6.9); PLATELET COUNT 557 x10e3/uL (140-360); RED BLOOD COUNT 2.77 x10e6/uL (4.3-5.7); RED CELL DISTRIBUTION WIDTH 15.8 % (11.7-14.4)
[2020-05-25 06:39] LABS: ALBUMIN 2.4 g/dL (3.5-5.0); ALBUMIN/GLOBULIN RATIO 0.4 (0.8-2.0); ANION GAP 16.4 mmol/L (8-16); CALCIUM 8.3 mg/dL (8.4-10.2); CREATININE, SERUM 2.5 mg/dL (0.72-1.25); POTASSIUM 3.4 mmol/L (3.5-5.1)
[2020-05-25] MEDS: INSULIN LISPRO 100 UNIT/1 ML 3ML VIAL SQ SCH ×3 (09:46→17:33)
[2020-05-25] MEDS: POTASSIUM CHLORIDE 20MEQ/100ML 100 ML IV SCH (09:47)
[2020-05-25] MEDS: INSULIN REGULAR, HUMAN 100 UNIT/1 ML 3ML VIAL SQ SCH ×4 (09:47→20:36)
[2020-05-25] MEDS: BALSAM PERU/CASTOR OIL 60 GM OINT...G. TP SCH (09:48)
[2020-05-25] MEDS: INSULIN GLARGINE 100 UNITS/ML VIAL SQ SCH ×2 (09:48→20:36)
[2020-05-25] MEDS: MICAFUNGIN SODIUM 50 ML IV SCH (12:48)
[2020-05-25] MEDS: LINEZOLID 600 MG/D5W 300ML 300 ML IV SCH (12:50)
[2020-05-25] MEDS: HEPARIN SOD (PORCINE) 5,000 UNIT/ML VIAL SC SCH ×2 (15:03→20:55)
[2020-05-25] MEDS ORDERED: ENOXAPARIN SOD INJ 40 MG/0.4 ML SYR SC SCH (17:00)
[2020-05-25] MEDS: CENTRAL TPN FORMULA 1 BAG IV SCH (20:35)
[2020-05-25] MEDS: ACETAMINOPHEN 1000 MG/100 ML IV PRN (22:50)
[2020-05-26] VITALS (13 sets, daily range): BP systolic 147–172; BP diastolic 81–112
[2020-05-26] MEDS: LINEZOLID 600 MG/D5W 300ML 300 ML IV SCH ×3 (00:22→23:46)
[2020-05-26] MEDS: MEROPENEM 1GRAM 1 GM in SODIUM CHLORIDE 0.9% 100 ML 100 ML IV SCH ×3 (03:09→20:05)
[2020-05-26] MEDS ORDERED: ACETAMINOPHEN 1000 MG/100 ML 100 ML IV ONE (04:34)
[2020-05-26] MEDS: METOPROLOL TARTRATE INJ 1 MG/ML VIAL IV SCH ×5 (06:00→23:39)
[2020-05-26] MEDS: HEPARIN SOD (PORCINE) 5,000 UNIT/ML VIAL SC SCH ×3 (06:00→22:00)
[2020-05-26 06:41] LABS: BASOPHILS # (AUTO) 0.1 (0.0-0.1); BASOPHILS % 0.6 % (0.0-1.0); EOSINOPHILS # (AUTO) 0.1 (0.0-0.4); EOSINOPHILS % 0.7 % (0.0-6.0); HEMATOCRIT 26.5 % (38.2-49.6); LYMPHOCYTES # (AUTO) 2.5 (1.0-3.2); LYMPHOCYTES % 13.7 % (18.0-39.1); MEAN CORPUSCULAR HEMOGLOBIN 29.2 pg (28-32); MEAN CORPUSCULAR HGB CONC 30.2 g/dL (31-35); MEAN CORPUSCULAR VOLUME 96.7 fL (81-99); MONOCYTES # (AUTO) 1.2 (0.2-0.8); MONOCYTES % 6.6 % (4.4-11.3); NEUTROPHILS # (AUTO) 13.2 (2.1-6.9); NEUTROPHILS % 73.7 % (38.7-80.0); PLATELET COUNT 561 x10e3/uL (140-360); RED BLOOD COUNT 2.74 x10e6/uL (4.3-5.7); RED CELL DISTRIBUTION WIDTH 15.7 % (11.7-14.4)
[2020-05-26 06:56] LABS: ALBUMIN 2.5 g/dL (3.5-5.0); ALBUMIN/GLOBULIN RATIO 0.5 (0.8-2.0); ANION GAP 14.5 mmol/L (8-16); CALCIUM 8.5 mg/dL (8.4-10.2); CREATININE, SERUM 2.02 mg/dL (0.72-1.25); POTASSIUM 3.5 mmol/L (3.5-5.1)
[2020-05-26] MEDS: INSULIN REGULAR, HUMAN 100 UNIT/1 ML 3ML VIAL SQ SCH ×4 (07:30→20:29)
[2020-05-26] MEDS: INSULIN LISPRO 100 UNIT/1 ML 3ML VIAL SQ SCH ×3 (09:05→17:25)
[2020-05-26] MEDS: POTASSIUM CHLORIDE 20MEQ/100ML 100 ML IV SCH (09:06)
[2020-05-26] MEDS: BALSAM PERU/CASTOR OIL 60 GM OINT...G. TP SCH (09:07)
[2020-05-26] MEDS: MICAFUNGIN SODIUM 50 ML IV SCH (09:07)
[2020-05-26] MEDS: INSULIN GLARGINE 100 UNITS/ML VIAL SQ SCH ×2 (09:07→20:30)
[2020-05-26] MEDS: ACETAMINOPHEN 1000 MG/100 ML IV PRN ×3 (10:00→22:00)
[2020-05-26] MEDS ORDERED: IBUPROFEN 800MG/ 200ML 800 MG in SODIUM CHLORIDE 0.9% 250ML 250 ML IV PRN (13:32)
[2020-05-26] MEDS: CENTRAL TPN FORMULA 1 BAG IV SCH (20:18)
[2020-05-27] VITALS (17 sets, daily range): BP systolic 133–176; BP diastolic 87–111
[2020-05-27] MEDS: MEROPENEM 1GRAM 1 GM in SODIUM CHLORIDE 0.9% 100 ML 100 ML IV SCH ×3 (03:57→20:40)
[2020-05-27] MEDS: METOPROLOL TARTRATE INJ 1 MG/ML VIAL IV SCH ×4 (05:13→23:30)
[2020-05-27] MEDS: HEPARIN SOD (PORCINE) 5,000 UNIT/ML VIAL SC SCH ×3 (05:14→21:17)
[2020-05-27] MEDS: ACETAMINOPHEN 1000 MG/100 ML IV PRN ×3 (05:30→20:40)
[2020-05-27 06:20] LABS: BASOPHILS # (AUTO) 0.1 (0.0-0.1); BASOPHILS % 0.7 % (0.0-1.0); EOSINOPHILS # (AUTO) 0.2 (0.0-0.4); EOSINOPHILS % 1.2 % (0.0-6.0); HEMATOCRIT 25.4 % (38.2-49.6); HEMOGLOBIN 7.9 g/dL (14.0-18.0); LYMPHOCYTES # (AUTO) 2.4 (1.0-3.2); LYMPHOCYTES % 15.5 % (18.0-39.1); MEAN CORPUSCULAR HEMOGLOBIN 29.5 pg (28-32); MEAN CORPUSCULAR HGB CONC 31.1 g/dL (31-35); MEAN CORPUSCULAR VOLUME 94.8 fL (81-99); MONOCYTES # (AUTO) 1.3 (0.2-0.8); MONOCYTES % 8.5 % (4.4-11.3); NEUTROPHILS # (AUTO) 10.9 (2.1-6.9); NEUTROPHILS % 69.8 % (38.7-80.0); PLATELET COUNT 551 x10e3/uL (140-360); RED BLOOD COUNT 2.68 x10e6/uL (4.3-5.7); RED CELL DISTRIBUTION WIDTH 15.3 % (11.7-14.4)
[2020-05-27 07:02] LABS: ALBUMIN 2.5 g/dL (3.5-5.0); ALBUMIN/GLOBULIN RATIO 0.5 (0.8-2.0); ANION GAP 15.4 mmol/L (8-16); CALCIUM 8.5 mg/dL (8.4-10.2); CREATININE, SERUM 1.43 mg/dL (0.72-1.25); POTASSIUM 3.4 mmol/L (3.5-5.1)
[2020-05-27] MEDS: INSULIN REGULAR, HUMAN 100 UNIT/1 ML 3ML VIAL SQ SCH ×4 (07:23→21:15)
[2020-05-27] MEDS: INSULIN LISPRO 100 UNIT/1 ML 3ML VIAL SQ SCH ×3 (07:23→17:32)
[2020-05-27] MEDS: POTASSIUM CHLORIDE 20MEQ/100ML 100 ML IV SCH (08:43)
[2020-05-27] MEDS: INSULIN GLARGINE 100 UNITS/ML VIAL SQ SCH ×2 (08:43→21:16)
[2020-05-27] MEDS: BALSAM PERU/CASTOR OIL 60 GM OINT...G. TP SCH (08:44)
[2020-05-27] MEDS: MICAFUNGIN SODIUM 50 ML IV SCH (10:26)
[2020-05-27] MEDS: LINEZOLID 600 MG/D5W 300ML 300 ML IV SCH (12:12)
[2020-05-27] MEDS ORDERED: POTASSIUM CHLORIDE 20MEQ/100ML 100 ML IV ONE (16:45)
[2020-05-27] MEDS: IBUPROFEN 800MG/ 200ML 200 ML IV PRN (19:45)
[2020-05-27] MEDS: CENTRAL TPN FORMULA 1 BAG IV SCH (20:43)
[2020-05-28] VITALS (26 sets, daily range): BP systolic 106–188; BP diastolic 59–114
[2020-05-28] MEDS: LINEZOLID 600 MG/D5W 300ML 300 ML IV SCH ×2 (00:30→12:24)
[2020-05-28] MEDS ORDERED: LEVETIRACETAM 500MG/5ML VIAL 2,000 MG in SODIUM CHLORIDE 0.9% 100 ML 100 ML IV ONE (01:45)
[2020-05-28 01:57] LABS: BASOPHILS # (AUTO) 0.2 (0.0-0.1); BASOPHILS % 0.6 % (0.0-1.0); LYMPHOCYTES # (AUTO) 7.4 (1.0-3.2); LYMPHOCYTES % 22.7 % (18.0-39.1); MEAN CORPUSCULAR HEMOGLOBIN 28.9 pg (28-32); MEAN CORPUSCULAR VOLUME 96.5 fL (81-99); MONOCYTES % 6.1 % (4.4-11.3); NEUTROPHILS # (AUTO) 21.9 (2.1-6.9); NEUTROPHILS % 66.9 % (38.7-80.0); PLATELET COUNT 664 x10e3/uL (140-360); RED BLOOD COUNT 3.11 x10e6/uL (4.3-5.7); RED CELL DISTRIBUTION WIDTH 15.6 % (11.7-14.4)
[2020-05-28] MEDS: IBUPROFEN 800MG/ 200ML 200 ML IV PRN ×2 (02:00→09:02)
[2020-05-28] MEDS ORDERED: LEVETIRACETAM 500 MG/5 ML VIAL IV ONE ×2 (02:06→02:08)
[2020-05-28 02:13] LABS: ALANINE AMINOTRANSFERASE 20 IU/L (0-55); ALBUMIN 2.6 g/dL (3.5-5.0); ALBUMIN/GLOBULIN RATIO 0.5 (0.8-2.0); ALKALINE PHOSPHATASE 68 IU/L (40-150); ANION GAP 21.2 mmol/L (8-16); BLOOD UREA NITROGEN 37 mg/dL (7-26); BUN/CREATININE RATIO 28 (6-25); CALCIUM 8.8 mg/dL (8.4-10.2); CARBON DIOXIDE 21 mmol/L (22-29); CHLORIDE 102 mmol/L (98-107); CREATINE KINASE 12 IU/L (30-200); EST GLOMERULAR FILTRATION RATE > 60 ML/MIN (60-); GLUCOSE 151 mg/dL (74-118); SODIUM 140 mmol/L (136-145)
[2020-05-28 02:17] LABS: POTASSIUM 4.2 mmol/L (3.5-5.1)
[2020-05-28] MEDS ORDERED: SODIUM CHLORIDE 0.9% 100 ML ONE (02:18)
[2020-05-28] MEDS: ACETAMINOPHEN 1000 MG/100 ML IV PRN ×2 (02:30→19:15)
[2020-05-28] MEDS: MEROPENEM 1GRAM 1 GM in SODIUM CHLORIDE 0.9% 100 ML 100 ML IV SCH ×3 (03:30→19:30)
[2020-05-28] MEDS: METOPROLOL TARTRATE INJ 1 MG/ML VIAL IV SCH ×3 (06:18→17:49)
[2020-05-28] MEDS: HEPARIN SOD (PORCINE) 5,000 UNIT/ML VIAL SC SCH ×3 (06:19→21:02)
[2020-05-28 06:45] LABS: BASOPHILS # (AUTO) 0.2 (0.0-0.1); BASOPHILS % 0.8 % (0.0-1.0); EOSINOPHILS % 0.1 % (0.0-6.0); HEMATOCRIT 25.8 % (38.2-49.6); HEMOGLOBIN 8.1 g/dL (14.0-18.0); LYMPHOCYTES # (AUTO) 1.9 (1.0-3.2); MEAN CORPUSCULAR HEMOGLOBIN 29.8 pg (28-32); MEAN CORPUSCULAR HGB CONC 31.4 g/dL (31-35); MEAN CORPUSCULAR VOLUME 94.9 fL (81-99); MONOCYTES # (AUTO) 1.2 (0.2-0.8); MONOCYTES % 5.2 % (4.4-11.3); NEUTROPHILS # (AUTO) 19.6 (2.1-6.9); NEUTROPHILS % 83.3 % (38.7-80.0); PLATELET COUNT 527 x10e3/uL (140-360); RED BLOOD COUNT 2.72 x10e6/uL (4.3-5.7); RED CELL DISTRIBUTION WIDTH 15.5 % (11.7-14.4)
[2020-05-28 07:12] LABS: ALANINE AMINOTRANSFERASE 16 IU/L (0-55); ALBUMIN 2.4 g/dL (3.5-5.0); ALBUMIN/GLOBULIN RATIO 0.5 (0.8-2.0); ALKALINE PHOSPHATASE 63 IU/L (40-150); ANION GAP 16.6 mmol/L (8-16); BLOOD UREA NITROGEN 38 mg/dL (7-26); BUN/CREATININE RATIO 34 (6-25); CARBON DIOXIDE 26 mmol/L (22-29); CHLORIDE 103 mmol/L (98-107); CREATININE, SERUM 1.13 mg/dL (0.72-1.25); EST GLOMERULAR FILTRATION RATE > 60 ML/MIN (60-); GLUCOSE 117 mg/dL (74-118); POTASSIUM 3.6 mmol/L (3.5-5.1); SODIUM 142 mmol/L (136-145)
[2020-05-28] MEDS: INSULIN REGULAR, HUMAN 100 UNIT/1 ML 3ML VIAL SQ SCH ×4 (07:30→21:00)
[2020-05-28] MEDS: INSULIN LISPRO 100 UNIT/1 ML 3ML VIAL SQ SCH ×3 (08:16→16:21)
[2020-05-28] MEDS: INSULIN GLARGINE 100 UNITS/ML VIAL SQ SCH ×2 (09:00→21:02)
[2020-05-28] MEDS: BALSAM PERU/CASTOR OIL 60 GM OINT...G. TP SCH (09:01)
[2020-05-28] MEDS: POTASSIUM CHLORIDE 20MEQ/100ML 200 ML IV SCH (09:01)
[2020-05-28 09:32] LABS: PLATELET MORPHOLOGY COMMENT NORMAL; RBC MORPHOLOGY COMMENT NORMAL
[2020-05-28 09:38] LABS: NEUTROPHILS % (MANUAL) 81 % (40-74)
[2020-05-28 09:39] LABS: BAND NEUTROPHILS % (MANUAL) 6 %; LYMPHOCYTES % (MANUAL) 8 % (19-48); MONOCYTES % (MANUAL) 3 % (3.4-9.0); MYELOCYTES % (MANUAL) 2 % (0-0); PLATELET ESTIMATE SLIGHTLY INCREASED
[2020-05-28] MEDS: SODIUM CHLORIDE 0.9% IV SCH ×2 (12:24→21:22)
[2020-05-28] MEDS: LEVETIRACETAM IV SCH ×2 (12:24→21:22)
[2020-05-28] MEDS: CENTRAL TPN FORMULA 1 BAG IV SCH (20:30)
[2020-05-29] VITALS (24 sets, daily range): BP systolic 115–151; BP diastolic 61–108
[2020-05-29] MEDS: METOPROLOL TARTRATE INJ 1 MG/ML VIAL IV SCH ×5 (00:17→23:56)
[2020-05-29] MEDS: LINEZOLID 600 MG/D5W 300ML 300 ML IV SCH (00:17)
[2020-05-29] MEDS: ACETAMINOPHEN 1000 MG/100 ML IV PRN ×2 (02:15→20:00)
[2020-05-29] MEDS: MEROPENEM 1GRAM 1 GM in SODIUM CHLORIDE 0.9% 100 ML 100 ML IV SCH (03:30)
[2020-05-29] MEDS: HEPARIN SOD (PORCINE) 5,000 UNIT/ML VIAL SC SCH ×3 (05:56→21:14)
[2020-05-29 06:03] LABS: BASOPHILS # (AUTO) 0.1 (0.0-0.1); BASOPHILS % 0.3 % (0.0-1.0); EOSINOPHILS # (AUTO) 0.3 (0.0-0.4); EOSINOPHILS % 1.5 % (0.0-6.0); HEMATOCRIT 24.4 % (38.2-49.6); HEMOGLOBIN 7.4 g/dL (14.0-18.0); LYMPHOCYTES # (AUTO) 2.1 (1.0-3.2); LYMPHOCYTES % 11.6 % (18.0-39.1); MEAN CORPUSCULAR HEMOGLOBIN 28.7 pg (28-32); MEAN CORPUSCULAR HGB CONC 30.3 g/dL (31-35); MEAN CORPUSCULAR VOLUME 94.6 fL (81-99); MONOCYTES # (AUTO) 1.5 (0.2-0.8); MONOCYTES % 8.4 % (4.4-11.3); NEUTROPHILS # (AUTO) 13.3 (2.1-6.9); NEUTROPHILS % 74.2 % (38.7-80.0); PLATELET COUNT 550 x10e3/uL (140-360); RED BLOOD COUNT 2.58 x10e6/uL (4.3-5.7); RED CELL DISTRIBUTION WIDTH 15.4 % (11.7-14.4)
[2020-05-29 06:23] LABS: ALANINE AMINOTRANSFERASE 14 IU/L (0-55); ALBUMIN 2.3 g/dL (3.5-5.0); ALBUMIN/GLOBULIN RATIO 0.5 (0.8-2.0); ALKALINE PHOSPHATASE 74 IU/L (40-150); ANION GAP 14.8 mmol/L (8-16); BLOOD UREA NITROGEN 33 mg/dL (7-26); BUN/CREATININE RATIO 33 (6-25); CALCIUM 8.1 mg/dL (8.4-10.2); CARBON DIOXIDE 27 mmol/L (22-29); CHLORIDE 106 mmol/L (98-107); CREATININE, SERUM 0.99 mg/dL (0.72-1.25); EST GLOMERULAR FILTRATION RATE > 60 ML/MIN (60-); GLUCOSE 115 mg/dL (74-118); MAGNESIUM 1.5 MG/DL (1.3-2.1); POTASSIUM 3.8 mmol/L (3.5-5.1); SODIUM 144 mmol/L (136-145)
[2020-05-29 07:19] LABS: BAND NEUTROPHILS % (MANUAL) 2 %; LYMPHOCYTES % (MANUAL) 7 % (19-48); METAMYELOCYTES % (MANUAL) 2 % (0-0); MONOCYTES % (MANUAL) 3 % (3.4-9.0); MYELOCYTES % (MANUAL) 1 % (0-0); NEUTROPHILS % (MANUAL) 82 % (40-74)
[2020-05-29 07:20] LABS: ANISOCYTOSIS SLIG; HYPOCHROMASIA SLIGHT; MICROCYTOSIS SLIG; POIKILOCYTOSIS SLIGHT; RBC MORPHOLOGY COMMENT NORMAL; SMUDGE CELLS FEW; STOMATOCYTES SLIGHT
[2020-05-29] MEDS: INSULIN REGULAR, HUMAN 100 UNIT/1 ML 3ML VIAL SQ SCH ×4 (07:30→20:57)
[2020-05-29] MEDS: INSULIN LISPRO 100 UNIT/1 ML 3ML VIAL SQ SCH ×3 (07:30→16:59)
[2020-05-29] MEDS: INSULIN GLARGINE 100 UNITS/ML VIAL SQ SCH ×2 (09:00→21:00)
[2020-05-29] MEDS: LEVETIRACETAM IV SCH ×2 (09:05→20:53)
[2020-05-29] MEDS: SODIUM CHLORIDE 0.9% IV SCH ×2 (09:05→20:53)
[2020-05-29] MEDS: BALSAM PERU/CASTOR OIL 60 GM OINT...G. TP SCH (09:06)
[2020-05-29] MEDS: POTASSIUM CHLORIDE 20MEQ/100ML 200 ML IV SCH (09:07)
[2020-05-29] MEDS ORDERED: EPOETIN ALFA-EPBX 10,000 UNIT/ML VIAL SC SCH (12:00)
[2020-05-29] MEDS ORDERED: MAGNESIUM SULFATE 2GM/50ML 50 ML IV ONE (16:00)
[2020-05-29] MEDS: CENTRAL TPN FORMULA 1 BAG IV SCH (20:00)
[2020-05-30] VITALS (25 sets, daily range): BP systolic 114–174; BP diastolic 50–111
[2020-05-30] MEDS: ACETAMINOPHEN 1000 MG/100 ML IV PRN ×2 (02:00→09:38)
[2020-05-30 05:23] LABS: BASOPHILS # (AUTO) 0.1 (0.0-0.1); BASOPHILS % 0.4 % (0.0-1.0); EOSINOPHILS # (AUTO) 0.3 (0.0-0.4); EOSINOPHILS % 2.1 % (0.0-6.0); HEMATOCRIT 23.6 % (38.2-49.6); HEMOGLOBIN 7.2 g/dL (14.0-18.0); LYMPHOCYTES % 13.6 % (18.0-39.1); MEAN CORPUSCULAR HEMOGLOBIN 29.3 pg (28-32); MEAN CORPUSCULAR HGB CONC 30.5 g/dL (31-35); MEAN CORPUSCULAR VOLUME 95.9 fL (81-99); MONOCYTES # (AUTO) 1.2 (0.2-0.8); MONOCYTES % 8.3 % (4.4-11.3); NEUTROPHILS # (AUTO) 10.6 (2.1-6.9); NEUTROPHILS % 71.1 % (38.7-80.0); PLATELET COUNT 600 x10e3/uL (140-360); RED BLOOD COUNT 2.46 x10e6/uL (4.3-5.7); RED CELL DISTRIBUTION WIDTH 15.4 % (11.7-14.4)
[2020-05-30] MEDS: HEPARIN SOD (PORCINE) 5,000 UNIT/ML VIAL SC SCH ×3 (06:00→21:08)
[2020-05-30] MEDS: METOPROLOL TARTRATE INJ 1 MG/ML VIAL IV SCH ×2 (06:00→12:02)
[2020-05-30 06:02] LABS: ALANINE AMINOTRANSFERASE 36 IU/L (0-55); ALBUMIN 2.3 g/dL (3.5-5.0); ALBUMIN/GLOBULIN RATIO 0.4 (0.8-2.0); ALKALINE PHOSPHATASE 73 IU/L (40-150); ANION GAP 15.9 mmol/L (8-16); BLOOD UREA NITROGEN 30 mg/dL (7-26); BUN/CREATININE RATIO 30 (6-25); CALCIUM 8.3 mg/dL (8.4-10.2); CARBON DIOXIDE 23 mmol/L (22-29); CHLORIDE 109 mmol/L (98-107); EST GLOMERULAR FILTRATION RATE > 60 ML/MIN (60-); GLUCOSE 106 mg/dL (74-118); POTASSIUM 3.9 mmol/L (3.5-5.1); SODIUM 144 mmol/L (136-145)
[2020-05-30] MEDS: INSULIN LISPRO 100 UNIT/1 ML 3ML VIAL SQ SCH ×3 (07:30→17:21)
[2020-05-30] MEDS: INSULIN REGULAR, HUMAN 100 UNIT/1 ML 3ML VIAL SQ SCH ×4 (07:30→21:00)
[2020-05-30] MEDS: POTASSIUM CHLORIDE 20MEQ/100ML 200 ML IV SCH (08:42)
[2020-05-30] MEDS: SODIUM CHLORIDE 0.9% IV SCH ×2 (08:42→20:59)
[2020-05-30] MEDS: LEVETIRACETAM IV SCH ×2 (08:42→20:59)
[2020-05-30] MEDS: INSULIN GLARGINE 100 UNITS/ML VIAL SQ SCH ×2 (08:43→21:00)
[2020-05-30] MEDS: BALSAM PERU/CASTOR OIL 60 GM OINT...G. TP SCH (08:43)
[2020-05-30] MEDS ORDERED: ACETAMINOPHEN 325 MG TAB PO STA (10:05)
[2020-05-30] MEDS ORDERED: SODIUM CHLORIDE 0.9% 250ML 250 ML IV ONE (10:15)
[2020-05-30] MEDS ORDERED: AMLODIPINE BESYLATE 5 MG TAB PO ONE (15:45)
[2020-05-30 16:39] LABS: AMYLASE 187 U/L (25-125); LIPASE 140 U/L (8-78)
[2020-05-30 16:50] LABS: HIV 1&2 AB SCREEN NON-REACTIVE (NONREACTIVE)
[2020-05-30] MEDS ORDERED: ACETAMINOPHEN 1000 MG/100 ML IV PRN (20:45)
[2020-05-30] MEDS: CENTRAL TPN FORMULA 1 BAG IV SCH (21:00)
[2020-05-30] MEDS: ONDANSETRON HCL INJ 2MG/ML 2ML 2 MG/ML VIAL IV PRN (23:00)
[2020-05-30] MEDS ORDERED: ONDANSETRON HCL INJ 2MG/ML 2ML 2 MG/ML VIAL ONE (23:03)
[2020-05-31] VITALS (26 sets, daily range): BP systolic 18–156; BP diastolic 69–117
[2020-05-31] MEDS ORDERED: ACETAMINOPHEN 1000 MG/100 ML 200 ML IV ONE (02:10)
[2020-05-31 05:52] LABS: BASOPHILS # (AUTO) 0.1 (0.0-0.1); BASOPHILS % 0.4 % (0.0-1.0); EOSINOPHILS # (AUTO) 0.1 (0.0-0.4); EOSINOPHILS % 0.4 % (0.0-6.0); HEMATOCRIT 26.6 % (38.2-49.6); HEMOGLOBIN 8.2 g/dL (14.0-18.0); LYMPHOCYTES # (AUTO) 1.8 (1.0-3.2); MEAN CORPUSCULAR HEMOGLOBIN 29.2 pg (28-32); MEAN CORPUSCULAR HGB CONC 30.8 g/dL (31-35); MEAN CORPUSCULAR VOLUME 94.7 fL (81-99); MONOCYTES # (AUTO) 1.5 (0.2-0.8); MONOCYTES % 8.4 % (4.4-11.3); NEUTROPHILS # (AUTO) 14.1 (2.1-6.9); NEUTROPHILS % 78.2 % (38.7-80.0); PLATELET COUNT 585 x10e3/uL (140-360); RED BLOOD COUNT 2.81 x10e6/uL (4.3-5.7); RED CELL DISTRIBUTION WIDTH 15.1 % (11.7-14.4)
[2020-05-31 06:03] LABS: ALANINE AMINOTRANSFERASE 42 IU/L (0-55); ALBUMIN 2.4 g/dL (3.5-5.0); ALBUMIN/GLOBULIN RATIO 0.5 (0.8-2.0); ALKALINE PHOSPHATASE 72 IU/L (40-150); ANION GAP 15.3 mmol/L (8-16); BLOOD UREA NITROGEN 24 mg/dL (7-26); BUN/CREATININE RATIO 30 (6-25); CALCIUM 8.5 mg/dL (8.4-10.2); CARBON DIOXIDE 23 mmol/L (22-29); CHLORIDE 112 mmol/L (98-107); EST GLOMERULAR FILTRATION RATE > 60 ML/MIN (60-); GLUCOSE 126 mg/dL (74-118); POTASSIUM 4.3 mmol/L (3.5-5.1); SODIUM 146 mmol/L (136-145)
[2020-05-31] MEDS: HEPARIN SOD (PORCINE) 5,000 UNIT/ML VIAL SC SCH ×2 (06:21→14:02)
[2020-05-31 06:22] LABS: AMYLASE 217 U/L (25-125); LIPASE 154 U/L (8-78); TRIGLYCERIDES 336 MG/DL (0-149)
[2020-05-31] MEDS: INSULIN GLARGINE 100 UNITS/ML VIAL SQ SCH (09:00)
[2020-05-31] MEDS ORDERED: AMLODIPINE BESYLATE 5 MG TAB PO SCH (09:00)
[2020-05-31] MEDS: PANTOPRAZOLE 40 MG 10ML VIAL IV SCH ×2 (09:08→17:34)
[2020-05-31] MEDS: LEVETIRACETAM IV SCH ×2 (09:09→21:00)
[2020-05-31] MEDS: BALSAM PERU/CASTOR OIL 60 GM OINT...G. TP SCH (09:09)
[2020-05-31] MEDS: SODIUM CHLORIDE 0.9% IV SCH ×2 (09:09→21:00)
[2020-05-31] MEDS: POTASSIUM CHLORIDE 20MEQ/100ML 200 ML IV SCH (09:10)
[2020-05-31] MEDS: INSULIN REGULAR, HUMAN 100 UNIT/1 ML 3ML VIAL SQ SCH ×4 (09:11→21:00)
[2020-05-31] MEDS: INSULIN LISPRO 100 UNIT/1 ML 3ML VIAL SQ SCH ×3 (09:11→17:35)
[2020-05-31] MEDS: ACETAMINOPHEN 325 MG TAB PO PRN (09:53)
[2020-05-31] MEDS ORDERED: DEXTROSE 5% 1,000 ML IV ONE (15:35)
[2020-05-31] MEDS: CENTRAL TPN FORMULA 1 BAG IV SCH (19:46)
[2020-06-01] VITALS (23 sets, daily range): BP systolic 99–153; BP diastolic 52–109
[2020-06-01] MEDS: INSULIN GLARGINE 100 UNITS/ML VIAL SQ SCH ×3 (04:05→20:05)
[2020-06-01] MEDS: HEPARIN SOD (PORCINE) 5,000 UNIT/ML VIAL SC SCH ×4 (04:08→20:06)
[2020-06-01 06:19] LABS: BASOPHILS # (AUTO) 0.1 (0.0-0.1); BASOPHILS % 0.5 % (0.0-1.0); EOSINOPHILS # (AUTO) 0.3 (0.0-0.4); EOSINOPHILS % 1.5 % (0.0-6.0); HEMATOCRIT 25.4 % (38.2-49.6); HEMOGLOBIN 7.9 g/dL (14.0-18.0); LYMPHOCYTES # (AUTO) 2.1 (1.0-3.2); LYMPHOCYTES % 12.6 % (18.0-39.1); MEAN CORPUSCULAR HEMOGLOBIN 29.6 pg (28-32); MEAN CORPUSCULAR HGB CONC 31.1 g/dL (31-35); MEAN CORPUSCULAR VOLUME 95.1 fL (81-99); MONOCYTES # (AUTO) 1.5 (0.2-0.8); MONOCYTES % 9.1 % (4.4-11.3); NEUTROPHILS # (AUTO) 12.1 (2.1-6.9); NEUTROPHILS % 71.7 % (38.7-80.0); PLATELET COUNT 649 x10e3/uL (140-360); RED BLOOD COUNT 2.67 x10e6/uL (4.3-5.7); RED CELL DISTRIBUTION WIDTH 15.5 % (11.7-14.4)
[2020-06-01 06:48] LABS: ALANINE AMINOTRANSFERASE 52 IU/L (0-55); ALBUMIN 2.3 g/dL (3.5-5.0); ALBUMIN/GLOBULIN RATIO 0.4 (0.8-2.0); ALKALINE PHOSPHATASE 77 IU/L (40-150); ANION GAP 13.4 mmol/L (8-16); BLOOD UREA NITROGEN 21 mg/dL (7-26); BUN/CREATININE RATIO 27 (6-25); CALCIUM 8.4 mg/dL (8.4-10.2); CARBON DIOXIDE 23 mmol/L (22-29); CHLORIDE 110 mmol/L (98-107); CREATININE, SERUM 0.78 mg/dL (0.72-1.25); EST GLOMERULAR FILTRATION RATE > 60 ML/MIN (60-); GLUCOSE 118 mg/dL (74-118); POTASSIUM 4.4 mmol/L (3.5-5.1); SODIUM 142 mmol/L (136-145)
[2020-06-01] MEDS: PANTOPRAZOLE 40 MG 10ML VIAL IV SCH ×2 (07:53→16:44)
[2020-06-01] MEDS: INSULIN LISPRO 100 UNIT/1 ML 3ML VIAL SQ SCH ×3 (07:54→16:46)
[2020-06-01] MEDS: INSULIN REGULAR, HUMAN 100 UNIT/1 ML 3ML VIAL SQ SCH ×4 (07:55→20:05)
[2020-06-01] MEDS: LEVETIRACETAM IV SCH ×2 (09:24→20:04)
[2020-06-01] MEDS: SODIUM CHLORIDE 0.9% IV SCH ×2 (09:24→20:04)
[2020-06-01] MEDS: METHYLPREDNISOLONE SOD SUCC 40 MG/ML VIAL 1ML IV SCH (09:25)
[2020-06-01] MEDS: BALSAM PERU/CASTOR OIL 60 GM OINT...G. TP SCH (09:25)
[2020-06-01] MEDS: AMLODIPINE BESYLATE 10 MG TAB PO SCH (09:25)
[2020-06-01] MEDS: POTASSIUM CHLORIDE 20MEQ/100ML 200 ML IV SCH (09:26)
[2020-06-01] MEDS: ACETAMINOPHEN 325 MG TAB PO PRN (10:15)
[2020-06-01] MEDS: CENTRAL TPN FORMULA 1 BAG IV SCH (19:37)
[2020-06-02] VITALS (16 sets, daily range): BP systolic 109–147; BP diastolic 67–96
[2020-06-02] MEDS: HEPARIN SOD (PORCINE) 5,000 UNIT/ML VIAL SC SCH ×3 (06:11→21:18)
[2020-06-02] MEDS: INSULIN LISPRO 100 UNIT/1 ML 3ML VIAL SQ SCH ×3 (06:11→16:25)
[2020-06-02 06:15] LABS: BASOPHILS # (AUTO) 0.1 (0.0-0.1); BASOPHILS % 0.4 % (0.0-1.0); EOSINOPHILS % 0.2 % (0.0-6.0); HEMATOCRIT 27.8 % (38.2-49.6); HEMOGLOBIN 8.4 g/dL (14.0-18.0); MEAN CORPUSCULAR HEMOGLOBIN 28.7 pg (28-32); MEAN CORPUSCULAR HGB CONC 30.2 g/dL (31-35); MEAN CORPUSCULAR VOLUME 94.9 fL (81-99); MONOCYTES % 7.1 % (4.4-11.3); NEUTROPHILS # (AUTO) 10.5 (2.1-6.9); NEUTROPHILS % 72.4 % (38.7-80.0); PLATELET COUNT 652 x10e3/uL (140-360); RED BLOOD COUNT 2.93 x10e6/uL (4.3-5.7); RED CELL DISTRIBUTION WIDTH 15.1 % (11.7-14.4)
[2020-06-02] MEDS: INSULIN REGULAR, HUMAN 100 UNIT/1 ML 3ML VIAL SQ SCH ×4 (07:30→21:17)
[2020-06-02] MEDS: PANTOPRAZOLE 40 MG 10ML VIAL IV SCH ×2 (07:46→16:25)
[2020-06-02 07:50] LABS: BASOPHILS # (AUTO) 0.1 (0.0-0.1); BASOPHILS % 0.4 % (0.0-1.0); EOSINOPHILS # (AUTO) 0.1 (0.0-0.4); EOSINOPHILS % 0.4 % (0.0-6.0); HEMATOCRIT 24.3 % (38.2-49.6); HEMOGLOBIN 7.5 g/dL (14.0-18.0); LYMPHOCYTES # (AUTO) 2.4 (1.0-3.2); LYMPHOCYTES % 15.2 % (18.0-39.1); MEAN CORPUSCULAR HEMOGLOBIN 29.1 pg (28-32); MEAN CORPUSCULAR HGB CONC 30.9 g/dL (31-35); MEAN CORPUSCULAR VOLUME 94.2 fL (81-99); MONOCYTES # (AUTO) 1.3 (0.2-0.8); MONOCYTES % 8.4 % (4.4-11.3); NEUTROPHILS # (AUTO) 10.8 (2.1-6.9); NEUTROPHILS % 69.8 % (38.7-80.0); PLATELET COUNT 654 x10e3/uL (140-360); RED BLOOD COUNT 2.58 x10e6/uL (4.3-5.7); RED CELL DISTRIBUTION WIDTH 15.2 % (11.7-14.4)
[2020-06-02 07:53] LABS: ALANINE AMINOTRANSFERASE 63 IU/L (0-55); ALBUMIN 2.5 g/dL (3.5-5.0); ALBUMIN/GLOBULIN RATIO 0.5 (0.8-2.0); ALKALINE PHOSPHATASE 102 IU/L (40-150); ANION GAP 17.4 mmol/L (8-16); BLOOD UREA NITROGEN 24 mg/dL (7-26); BUN/CREATININE RATIO 30 (6-25); CALCIUM 8.5 mg/dL (8.4-10.2); CARBON DIOXIDE 20 mmol/L (22-29); CHLORIDE 109 mmol/L (98-107); CREATININE, SERUM 0.79 mg/dL (0.72-1.25); EST GLOMERULAR FILTRATION RATE > 60 ML/MIN (60-); GLUCOSE 131 mg/dL (74-118); POTASSIUM 4.4 mmol/L (3.5-5.1); SODIUM 142 mmol/L (136-145)
[2020-06-02 07:54] LABS: AMYLASE 148 U/L (25-125); LIPASE 109 U/L (8-78); TRIGLYCERIDES 359 MG/DL (0-149)
[2020-06-02] MEDS: POTASSIUM CHLORIDE 20MEQ/100ML 200 ML IV SCH (08:18)
[2020-06-02] MEDS: METHYLPREDNISOLONE SOD SUCC 40 MG/ML VIAL 1ML IV SCH (08:18)
[2020-06-02] MEDS: AMLODIPINE BESYLATE 10 MG TAB PO SCH (08:19)
[2020-06-02] MEDS: BALSAM PERU/CASTOR OIL 60 GM OINT...G. TP SCH (08:19)
[2020-06-02] MEDS: INSULIN GLARGINE 100 UNITS/ML VIAL SQ SCH ×2 (08:22→21:17)
[2020-06-02] MEDS: LEVETIRACETAM IV SCH ×2 (09:05→21:16)
[2020-06-02] MEDS: SODIUM CHLORIDE 0.9% IV SCH ×2 (09:05→21:16)
[2020-06-02 12:34] LABS: BAND NEUTROPHILS % (MANUAL) 2 %; HYPOCHROMASIA SLIGHT; LYMPHOCYTES % (MANUAL) 16 % (19-48); MONOCYTES % (MANUAL) 10 % (3.4-9.0); NEUTROPHILS % (MANUAL) 70 % (40-74); PLATELET ESTIMATE MARKEDLY INCREASED; PLATELET MORPHOLOGY COMMENT NORMAL; PROMYELOCYTES % (MANUAL) 2 % (0-0); RBC MORPHOLOGY COMMENT ABNORMAL
[2020-06-02 12:46] LABS: BAND NEUTROPHILS % (MANUAL) 2 %; HYPOCHROMASIA MODERATE; LYMPHOCYTES % (MANUAL) 14 % (19-48); MONOCYTES % (MANUAL) 13 % (3.4-9.0); MYELOCYTES % (MANUAL) 2 % (0-0); NEUTROPHILS % (MANUAL) 67 % (40-74); PLATELET ESTIMATE MARKEDLY INCREASED; PROMYELOCYTES % (MANUAL) 2 % (0-0); RBC MORPHOLOGY COMMENT ABNORMAL
[2020-06-02 12:47] LABS: PLATELET MORPHOLOGY COMMENT FEW LARGE
[2020-06-02] MEDS: ONDANSETRON HCL INJ 2MG/ML 2ML 2 MG/ML VIAL IV PRN (13:31)
[2020-06-02] MEDS ORDERED: ENOXAPARIN SOD INJ 40 MG/0.4 ML SYR SC SCH (17:00)
[2020-06-02] MEDS ORDERED: CENTRAL TPN FORMULA 1 BAG IV SCH (20:00)
[2020-06-03] VITALS (20 sets, daily range): BP systolic 107–142; BP diastolic 60–111
[2020-06-03 05:04] LABS: BASOPHILS # (AUTO) 0.1 (0.0-0.1); BASOPHILS % 0.5 % (0.0-1.0); EOSINOPHILS % 0.1 % (0.0-6.0); HEMATOCRIT 25.1 % (38.2-49.6); HEMOGLOBIN 7.9 g/dL (14.0-18.0); LYMPHOCYTES # (AUTO) 2.3 (1.0-3.2); LYMPHOCYTES % 13.4 % (18.0-39.1); MEAN CORPUSCULAR HEMOGLOBIN 29.7 pg (28-32); MEAN CORPUSCULAR HGB CONC 31.5 g/dL (31-35); MEAN CORPUSCULAR VOLUME 94.4 fL (81-99); MONOCYTES # (AUTO) 1.4 (0.2-0.8); MONOCYTES % 8.1 % (4.4-11.3); NEUTROPHILS # (AUTO) 12.2 (2.1-6.9); NEUTROPHILS % 71.7 % (38.7-80.0); PLATELET COUNT 613 x10e3/uL (140-360); RED BLOOD COUNT 2.66 x10e6/uL (4.3-5.7)
[2020-06-03 05:24] LABS: ALANINE AMINOTRANSFERASE 135 IU/L (0-55); ALBUMIN 2.6 g/dL (3.5-5.0); ALBUMIN/GLOBULIN RATIO 0.5 (0.8-2.0); ALKALINE PHOSPHATASE 116 IU/L (40-150); ANION GAP 13.1 mmol/L (8-16); BLOOD UREA NITROGEN 23 mg/dL (7-26); BUN/CREATININE RATIO 29 (6-25); CALCIUM 8.6 mg/dL (8.4-10.2); CARBON DIOXIDE 22 mmol/L (22-29); CHLORIDE 107 mmol/L (98-107); EST GLOMERULAR FILTRATION RATE > 60 ML/MIN (60-); GLUCOSE 106 mg/dL (74-118); MAGNESIUM 1.5 MG/DL (1.3-2.1); PHOSPHORUS 3.7 MG/DL (2.3-4.7); POTASSIUM 4.1 mmol/L (3.5-5.1); SODIUM 138 mmol/L (136-145)
[2020-06-03] MEDS: HEPARIN SOD (PORCINE) 5,000 UNIT/ML VIAL SC SCH ×3 (05:38→22:25)
[2020-06-03] MEDS: INSULIN LISPRO 100 UNIT/1 ML 3ML VIAL SQ SCH ×4 (07:30→21:00)
[2020-06-03] MEDS: INSULIN REGULAR, HUMAN 100 UNIT/1 ML 3ML VIAL SQ SCH ×3 (07:30→16:37)
[2020-06-03] MEDS: PANTOPRAZOLE 40 MG 10ML VIAL IV SCH ×2 (07:59→16:36)
[2020-06-03] MEDS: SODIUM CHLORIDE 0.9% IV SCH ×2 (08:00→21:16)
[2020-06-03] MEDS: AMLODIPINE BESYLATE 10 MG TAB PO SCH (08:00)
[2020-06-03] MEDS: LEVETIRACETAM IV SCH ×2 (08:00→21:16)
[2020-06-03] MEDS: METHYLPREDNISOLONE SOD SUCC 40 MG/ML VIAL 1ML IV SCH (08:00)
[2020-06-03] MEDS: BALSAM PERU/CASTOR OIL 60 GM OINT...G. TP SCH (08:00)
[2020-06-03] MEDS: POTASSIUM CHLORIDE 20MEQ/100ML 200 ML IV SCH (08:00)
[2020-06-03] MEDS: INSULIN GLARGINE 100 UNITS/ML VIAL SQ SCH ×2 (09:06→21:16)
[2020-06-03] MEDS: ACETAMINOPHEN 325 MG TAB PO PRN (14:22)
[2020-06-03] MEDS ORDERED: MAGNESIUM SULF 1GRAM/DEXTROSE 200 ML IV ONE (15:30)
[2020-06-03 15:46] LABS: BODY FLUID APPEARANCE TURBID; BODY FLUID COLOR STRAW; BODY FLUID TYPE PERITONEAL
[2020-06-03 16:08] LABS: WBC,BODY FLUID 7618 cells/uL
[2020-06-03 16:09] LABS: RBC,BODY FLUID 170000 cells/uL
[2020-06-03] MEDS ORDERED: DEXTROSE 50% SYRINGE 50 ML IV PRN (16:45)
[2020-06-03 18:25] LABS: LYMPHOCYTES,BODY FLUID 1 %; MONO/MACROPHG,BODY FLUID 90 %; NEUTROPHILS,BODY FLUID 4 %; OTHER CELLS,BODY FLUID 5 %
[2020-06-03] MEDS: CENTRAL TPN FORMULA 1 BAG IV SCH (21:16)
[2020-06-04] VITALS (7 sets, daily range): BP systolic 122–135; BP diastolic 79–92
[2020-06-04] MEDS: HEPARIN SOD (PORCINE) 5,000 UNIT/ML VIAL SC SCH (06:11)
[2020-06-04] MEDS: PANTOPRAZOLE 40 MG 10ML VIAL IV SCH ×2 (07:30→16:30)
[2020-06-04] MEDS: AMLODIPINE BESYLATE 10 MG TAB PO SCH (09:00)
[2020-06-04] MEDS: SODIUM CHLORIDE 0.9% IV SCH ×2 (09:00→21:17)
[2020-06-04] MEDS: METHYLPREDNISOLONE SOD SUCC 40 MG/ML VIAL 1ML IV SCH (09:00)
[2020-06-04] MEDS: LEVETIRACETAM IV SCH ×2 (09:00→21:17)
[2020-06-04] MEDS: BALSAM PERU/CASTOR OIL 60 GM OINT...G. TP SCH (09:53)
[2020-06-04] MEDS: INSULIN GLARGINE 100 UNITS/ML VIAL SQ SCH ×2 (09:59→20:25)
[2020-06-04] MEDS: INSULIN LISPRO 100 UNIT/1 ML 3ML VIAL SQ SCH ×7 (09:59→20:24)
[2020-06-04] MEDS: ONDANSETRON HCL INJ 2MG/ML 2ML 2 MG/ML VIAL IV PRN (14:17)
[2020-06-04] MEDS ORDERED: VANCOMYCIN 1GM/NS 250 ML 250 ML IV SCH (14:30)
[2020-06-04] MEDS ORDERED: SODIUM CHLORIDE 0.9% 250ML 250 ML ONE ×2 (15:11→20:47)
[2020-06-04] MEDS ORDERED: GADOBENATE DIMEGLUMINE 0 ML IV ONE (15:55)
[2020-06-04] MEDS: ENOXAPARIN SOD INJ 40 MG/0.4 ML SYR SC SCH (17:50)
[2020-06-04] MEDS: CENTRAL TPN FORMULA 1 BAG IV SCH (20:27)
[2020-06-05] VITALS (8 sets, daily range): BP systolic 117–130; BP diastolic 80–87
[2020-06-05] MEDS ORDERED: VANCOMYCIN 1GM/NS 250 ML 250 ML IV SCH (03:00)
[2020-06-05] MEDS: ACETAMINOPHEN 325 MG TAB PO PRN ×2 (04:17→09:09)
[2020-06-05 04:49] LABS: HEMATOCRIT 26.6 % (38.2-49.6); HEMOGLOBIN 8.3 g/dL (14.0-18.0); MEAN CORPUSCULAR HGB CONC 31.2 g/dL (31-35); PLATELET COUNT 580 x10e3/uL (140-360); RED BLOOD COUNT 2.86 x10e6/uL (4.3-5.7); RED CELL DISTRIBUTION WIDTH 15.4 % (11.7-14.4)
[2020-06-05 05:06] LABS: ANION GAP 16.3 mmol/L (8-16); BLOOD UREA NITROGEN 26 mg/dL (7-26); BUN/CREATININE RATIO 33 (6-25); CALCIUM 8.5 mg/dL (8.4-10.2); CARBON DIOXIDE 20 mmol/L (22-29); CHLORIDE 108 mmol/L (98-107); EST GLOMERULAR FILTRATION RATE > 60 ML/MIN (60-); GLUCOSE 122 mg/dL (74-118); MAGNESIUM 1.8 MG/DL (1.3-2.1); POTASSIUM 4.3 mmol/L (3.5-5.1); SODIUM 140 mmol/L (136-145)
[2020-06-05 06:20] LABS: LYMPHOCYTES % (MANUAL) 12 % (19-48); METAMYELOCYTES % (MANUAL) 2 % (0-0); NEUTROPHILS % (MANUAL) 85 % (40-74); PLATELET MORPHOLOGY COMMENT FEW LARGE
[2020-06-05 06:21] LABS: PLATELET ESTIMATE ADEQUATE
[2020-06-05 06:22] LABS: ANISOCYTOSIS SLIG; HYPOCHROMASIA SLIGHT; MICROCYTOSIS SLIG; POIKILOCYTOSIS SLIGHT; RBC MORPHOLOGY COMMENT ABNORMAL
[2020-06-05] MEDS: INSULIN LISPRO 100 UNIT/1 ML 3ML VIAL SQ SCH ×7 (07:30→20:22)
[2020-06-05] MEDS: PANTOPRAZOLE 40 MG 10ML VIAL IV SCH ×2 (07:30→15:34)
[2020-06-05] MEDS: HALOPERIDOL 1 MG TAB PO PRN (07:47)
[2020-06-05] MEDS: SODIUM CHLORIDE 0.9% IV SCH ×2 (08:30→20:21)
[2020-06-05] MEDS: METHYLPREDNISOLONE SOD SUCC 40 MG/ML VIAL 1ML IV SCH (08:30)
[2020-06-05] MEDS: LEVETIRACETAM IV SCH ×2 (08:30→20:21)
[2020-06-05] MEDS: AMLODIPINE BESYLATE 10 MG TAB PO SCH (08:30)
[2020-06-05] MEDS: BALSAM PERU/CASTOR OIL 60 GM OINT...G. TP SCH (08:31)
[2020-06-05] MEDS: INSULIN GLARGINE 100 UNITS/ML VIAL SQ SCH ×2 (08:32→20:25)
[2020-06-05] MEDS: ACETAMINOPHEN/CODEINE 300MG - 30MG TAB PO PRN ×2 (12:07→20:21)
[2020-06-05] MEDS ORDERED: MAGNESIUM SULFATE 2GM/50ML 50 ML IV ONE (14:00)
[2020-06-05] MEDS ORDERED: MAGNESIUM SULF 1GRAM/DEXTROSE 100 ML IV ONE (14:30)
[2020-06-05] MEDS: ONDANSETRON HCL INJ 2MG/ML 2ML 2 MG/ML VIAL IV PRN (15:49)
[2020-06-05] MEDS: ENOXAPARIN SOD INJ 40 MG/0.4 ML SYR SC SCH (16:29)
[2020-06-05] MEDS: VANCOMYCIN HCL 125 MG CAPSULE PO SCH ×2 (17:01→23:19)
[2020-06-05] MEDS: CENTRAL TPN FORMULA 1 BAG IV SCH (20:01)
[2020-06-06] VITALS (8 sets, daily range): BP systolic 113–140; BP diastolic 75–87
[2020-06-06] MEDS: ACETAMINOPHEN/CODEINE 300MG - 30MG TAB PO PRN (04:23)
[2020-06-06 05:49] LABS: BASOPHILS # (AUTO) 0.1 (0.0-0.1); BASOPHILS % 0.3 % (0.0-1.0); EOSINOPHILS # (AUTO) 0.1 (0.0-0.4); EOSINOPHILS % 0.3 % (0.0-6.0); HEMATOCRIT 26.2 % (38.2-49.6); HEMOGLOBIN 8.2 g/dL (14.0-18.0); LYMPHOCYTES # (AUTO) 2.2 (1.0-3.2); LYMPHOCYTES % 9.9 % (18.0-39.1); MEAN CORPUSCULAR HEMOGLOBIN 29.8 pg (28-32); MEAN CORPUSCULAR HGB CONC 31.3 g/dL (31-35); MEAN CORPUSCULAR VOLUME 95.3 fL (81-99); MONOCYTES # (AUTO) 1.5 (0.2-0.8); MONOCYTES % 6.8 % (4.4-11.3); NEUTROPHILS # (AUTO) 17.9 (2.1-6.9); NEUTROPHILS % 79.8 % (38.7-80.0); PLATELET COUNT 562 x10e3/uL (140-360); RED BLOOD COUNT 2.75 x10e6/uL (4.3-5.7); RED CELL DISTRIBUTION WIDTH 15.6 % (11.7-14.4)
[2020-06-06] MEDS: VANCOMYCIN HCL 125 MG CAPSULE PO SCH ×3 (05:51→17:17)
[2020-06-06 06:10] LABS: ALANINE AMINOTRANSFERASE 89 IU/L (0-55); ALBUMIN 2.9 g/dL (3.5-5.0); ALBUMIN/GLOBULIN RATIO 0.6 (0.8-2.0); ALKALINE PHOSPHATASE 193 IU/L (40-150); BLOOD UREA NITROGEN 28 mg/dL (7-26); BUN/CREATININE RATIO 33 (6-25); CALCIUM 8.6 mg/dL (8.4-10.2); CARBON DIOXIDE 22 mmol/L (22-29); CHLORIDE 108 mmol/L (98-107); CREATININE, SERUM 0.84 mg/dL (0.72-1.25); EST GLOMERULAR FILTRATION RATE > 60 ML/MIN (60-); GLUCOSE 116 mg/dL (74-118); SODIUM 139 mmol/L (136-145)
[2020-06-06] MEDS: INSULIN LISPRO 100 UNIT/1 ML 3ML VIAL SQ SCH ×7 (07:30→21:00)
[2020-06-06] MEDS: BALSAM PERU/CASTOR OIL 60 GM OINT...G. TP SCH (09:00)
[2020-06-06] MEDS: SODIUM CHLORIDE 0.9% IV SCH ×2 (09:00→21:25)
[2020-06-06] MEDS: METHYLPREDNISOLONE SOD SUCC 40 MG/ML VIAL 1ML IV SCH (09:00)
[2020-06-06] MEDS: LEVETIRACETAM IV SCH ×2 (09:00→21:25)
[2020-06-06] MEDS: AMLODIPINE BESYLATE 10 MG TAB PO SCH (09:00)
[2020-06-06] MEDS: INSULIN GLARGINE 100 UNITS/ML VIAL SQ SCH ×2 (09:30→20:45)
[2020-06-06] MEDS: PANTOPRAZOLE 40 MG 10ML VIAL IV SCH ×2 (09:30→16:30)
[2020-06-06] MEDS ORDERED: VANCOMYCIN 1GM/NS 250 ML 250 ML IV SCH (12:30)
[2020-06-06] MEDS: ENOXAPARIN SOD INJ 40 MG/0.4 ML SYR SC SCH (17:00)
[2020-06-06] MEDS: VANCOMYCIN 1GM/NS 250 ML 250 ML IV SCH (20:00)
[2020-06-06] MEDS: CENTRAL TPN FORMULA 1 BAG IV SCH (20:00)
[2020-06-07] VITALS (8 sets, daily range): BP systolic 118–151; BP diastolic 20–89
[2020-06-07] MEDS: VANCOMYCIN HCL 125 MG CAPSULE PO SCH ×4 (00:45→17:11)
[2020-06-07 05:46] LABS: BASOPHILS # (AUTO) 0.1 (0.0-0.1); BASOPHILS % 0.3 % (0.0-1.0); EOSINOPHILS % 0.2 % (0.0-6.0); HEMOGLOBIN 8.9 g/dL (14.0-18.0); LYMPHOCYTES # (AUTO) 2.2 (1.0-3.2); LYMPHOCYTES % 12.9 % (18.0-39.1); MEAN CORPUSCULAR HEMOGLOBIN 29.1 pg (28-32); MEAN CORPUSCULAR HGB CONC 30.7 g/dL (31-35); MEAN CORPUSCULAR VOLUME 94.8 fL (81-99); MONOCYTES # (AUTO) 1.2 (0.2-0.8); MONOCYTES % 6.6 % (4.4-11.3); NEUTROPHILS # (AUTO) 13.6 (2.1-6.9); NEUTROPHILS % 78.5 % (38.7-80.0); PLATELET COUNT 351 x10e3/uL (140-360); RED BLOOD COUNT 3.06 x10e6/uL (4.3-5.7)
[2020-06-07] MEDS: INSULIN LISPRO 100 UNIT/1 ML 3ML VIAL SQ SCH ×7 (07:30→21:00)
[2020-06-07] MEDS: VANCOMYCIN 1GM/NS 250 ML 250 ML IV SCH ×2 (08:00→20:20)
[2020-06-07] MEDS: COLLAGENASE 5 GM TUBE TOP SCH (08:29)
[2020-06-07] MEDS: SODIUM CHLORIDE 0.9% IV SCH ×2 (08:29→21:50)
[2020-06-07] MEDS: LEVETIRACETAM IV SCH ×2 (08:29→21:50)
[2020-06-07] MEDS: METHYLPREDNISOLONE SOD SUCC 40 MG/ML VIAL 1ML IV SCH (08:29)
[2020-06-07] MEDS: PANTOPRAZOLE 40 MG 10ML VIAL IV SCH ×2 (08:29→16:33)
[2020-06-07] MEDS: INSULIN GLARGINE 100 UNITS/ML VIAL SQ SCH ×2 (08:30→21:00)
[2020-06-07] MEDS: AMLODIPINE BESYLATE 10 MG TAB PO SCH (08:30)
[2020-06-07 14:21] LABS: BODY FLUID TYPE PERITONEAL
[2020-06-07 14:23] LABS: BODY FLUID APPEARANCE TURBID; BODY FLUID COLOR STRAW
[2020-06-07 14:24] LABS: RBC,BODY FLUID 68000 cells/uL; WBC,BODY FLUID 2709 cells/uL
[2020-06-07] MEDS: ENOXAPARIN SOD INJ 40 MG/0.4 ML SYR SC SCH (16:53)
[2020-06-07] MEDS: CENTRAL TPN FORMULA 1 BAG IV SCH (20:00)
[2020-06-08] VITALS (8 sets, daily range): BP systolic 121–140; BP diastolic 77–93
[2020-06-08 05:12] LABS: BASOPHILS # (AUTO) 0.1 (0.0-0.1); BASOPHILS % 0.3 % (0.0-1.0); EOSINOPHILS # (AUTO) 0.1 (0.0-0.4); EOSINOPHILS % 0.3 % (0.0-6.0); HEMATOCRIT 25.9 % (38.2-49.6); HEMOGLOBIN 8.3 g/dL (14.0-18.0); LYMPHOCYTES # (AUTO) 2.1 (1.0-3.2); LYMPHOCYTES % 13.3 % (18.0-39.1); MEAN CORPUSCULAR HEMOGLOBIN 29.5 pg (28-32); MEAN CORPUSCULAR VOLUME 92.2 fL (81-99); MONOCYTES # (AUTO) 1.5 (0.2-0.8); MONOCYTES % 9.4 % (4.4-11.3); NEUTROPHILS # (AUTO) 11.7 (2.1-6.9); NEUTROPHILS % 75.2 % (38.7-80.0); PLATELET COUNT 490 x10e3/uL (140-360); RED BLOOD COUNT 2.81 x10e6/uL (4.3-5.7); RED CELL DISTRIBUTION WIDTH 15.4 % (11.7-14.4)
[2020-06-08 05:33] LABS: ALANINE AMINOTRANSFERASE 75 IU/L (0-55); ALBUMIN 2.8 g/dL (3.5-5.0); ALBUMIN/GLOBULIN RATIO 0.7 (0.8-2.0); ALKALINE PHOSPHATASE 218 IU/L (40-150); ANION GAP 13.7 mmol/L (8-16); BLOOD UREA NITROGEN 17 mg/dL (7-26); BUN/CREATININE RATIO 25 (6-25); CALCIUM 8.4 mg/dL (8.4-10.2); CARBON DIOXIDE 22 mmol/L (22-29); CHLORIDE 105 mmol/L (98-107); CREATININE, SERUM 0.69 mg/dL (0.72-1.25); EST GLOMERULAR FILTRATION RATE > 60 ML/MIN (60-); GLUCOSE 98 mg/dL (74-118); MAGNESIUM 1.4 MG/DL (1.3-2.1); PHOSPHORUS 3.4 MG/DL (2.3-4.7); POTASSIUM 3.7 mmol/L (3.5-5.1); SODIUM 137 mmol/L (136-145)
[2020-06-08] MEDS: VANCOMYCIN HCL 125 MG CAPSULE PO SCH ×5 (06:00→23:07)
[2020-06-08] MEDS: INSULIN LISPRO 100 UNIT/1 ML 3ML VIAL SQ SCH ×7 (07:30→21:00)
[2020-06-08] MEDS: INSULIN GLARGINE 100 UNITS/ML VIAL SQ SCH ×2 (09:00→21:00)
[2020-06-08] MEDS: PANTOPRAZOLE 40 MG 10ML VIAL IV SCH ×2 (09:23→18:05)
[2020-06-08] MEDS: VANCOMYCIN 1GM/NS 250 ML 250 ML IV SCH ×2 (09:28→20:31)
[2020-06-08] MEDS: COLLAGENASE 5 GM TUBE TOP SCH (09:30)
[2020-06-08] MEDS: AMLODIPINE BESYLATE 10 MG TAB PO SCH (09:32)
[2020-06-08] MEDS: SODIUM CHLORIDE 0.9% IV SCH ×2 (09:39→20:14)
[2020-06-08] MEDS: LEVETIRACETAM IV SCH ×2 (09:39→20:14)
[2020-06-08] MEDS ORDERED: LORAZEPAM INJ 2 MG/ML VIAL IV NR (11:30)
[2020-06-08] MEDS ORDERED: CENTRAL TPN FORMULA 1 BAG IV SCH (12:00)
[2020-06-08] MEDS ORDERED: MAGNESIUM SULF 1GRAM/DEXTROSE 100 ML IV ONE (15:30)
[2020-06-08] MEDS ORDERED: MAGNESIUM SULFATE 2GM/50ML 50 ML IV ONE ×2 (15:30→20:00)
[2020-06-08] MEDS ORDERED: MAGNESIUM SULF 1GRAM/DEXTROSE 300 ML IV ONE (15:30)
[2020-06-08] MEDS: ENOXAPARIN SOD INJ 40 MG/0.4 ML SYR SC SCH (18:05)
[2020-06-08] MEDS ORDERED: DEXTROSE 10% 1,000 ML IV ONE (21:15)
[2020-06-08] MEDS: ACETAMINOPHEN 325 MG TAB PO PRN (23:08)
[2020-06-09] VITALS (8 sets, daily range): BP systolic 106–127; BP diastolic 63–76
[2020-06-09] MEDS: VANCOMYCIN HCL 125 MG CAPSULE PO SCH ×4 (05:31→23:31)
[2020-06-09] MEDS: INSULIN LISPRO 100 UNIT/1 ML 3ML VIAL SQ SCH ×6 (07:30→21:00)
[2020-06-09] MEDS: VANCOMYCIN 1GM/NS 250 ML 250 ML IV SCH ×2 (08:00→20:00)
[2020-06-09] MEDS: PANTOPRAZOLE 40 MG 10ML VIAL IV SCH ×2 (08:10→16:30)
[2020-06-09] MEDS: ACETAMINOPHEN 325 MG TAB PO PRN ×3 (08:20→23:31)
[2020-06-09] MEDS: LEVETIRACETAM IV SCH ×2 (09:09→21:00)
[2020-06-09] MEDS: SODIUM CHLORIDE 0.9% IV SCH ×2 (09:09→21:00)
[2020-06-09] MEDS: AMLODIPINE BESYLATE 10 MG TAB PO SCH (09:10)
[2020-06-09] MEDS: INSULIN GLARGINE 100 UNITS/ML VIAL SQ SCH (09:18)
[2020-06-09] MEDS: COLLAGENASE 5 GM TUBE TOP SCH (12:00)
[2020-06-09] MEDS: ENOXAPARIN SOD INJ 40 MG/0.4 ML SYR SC SCH (17:12)
[2020-06-09] MEDS ORDERED: SODIUM CHLORIDE 0.9% 1000ML 1,000 ML IV ONE ×2 (17:30→17:45)
[2020-06-09] MEDS: SODIUM CHLORIDE 0.9% 1000ML 1,000 ML IV SCH (21:23)
[2020-06-10] VITALS (7 sets, daily range): BP systolic 100–130; BP diastolic 54–79
[2020-06-10] MEDS: SODIUM CHLORIDE 0.9% 1000ML 1,000 ML IV SCH ×2 (05:00→15:19)
[2020-06-10 05:40] LABS: BASOPHILS % 0.2 % (0.0-1.0); EOSINOPHILS % 0.2 % (0.0-6.0); HEMATOCRIT 24.3 % (38.2-49.6); HEMOGLOBIN 7.9 g/dL (14.0-18.0); LYMPHOCYTES # (AUTO) 1.9 (1.0-3.2); LYMPHOCYTES % 10.5 % (18.0-39.1); MEAN CORPUSCULAR HEMOGLOBIN 29.7 pg (28-32); MEAN CORPUSCULAR HGB CONC 32.5 g/dL (31-35); MEAN CORPUSCULAR VOLUME 91.4 fL (81-99); MONOCYTES # (AUTO) 1.6 (0.2-0.8); MONOCYTES % 8.7 % (4.4-11.3); NEUTROPHILS # (AUTO) 14.2 (2.1-6.9); NEUTROPHILS % 78.8 % (38.7-80.0); PLATELET COUNT 432 x10e3/uL (140-360); RED BLOOD COUNT 2.66 x10e6/uL (4.3-5.7); RED CELL DISTRIBUTION WIDTH 15.1 % (11.7-14.4)
[2020-06-10] MEDS: VANCOMYCIN HCL 125 MG CAPSULE PO SCH ×3 (05:45→18:35)
[2020-06-10 06:01] LABS: ALANINE AMINOTRANSFERASE 55 IU/L (0-55); ALBUMIN 2.4 g/dL (3.5-5.0); ALBUMIN/GLOBULIN RATIO 0.6 (0.8-2.0); ALKALINE PHOSPHATASE 147 IU/L (40-150); ANION GAP 16.7 mmol/L (8-16); BLOOD UREA NITROGEN 11 mg/dL (7-26); BUN/CREATININE RATIO 16 (6-25); CALCIUM 7.8 mg/dL (8.4-10.2); CARBON DIOXIDE 20 mmol/L (22-29); CHLORIDE 104 mmol/L (98-107); CREATININE, SERUM 0.69 mg/dL (0.72-1.25); EST GLOMERULAR FILTRATION RATE > 60 ML/MIN (60-); GLUCOSE 78 mg/dL (74-118); MAGNESIUM 1.3 MG/DL (1.3-2.1); POTASSIUM 3.7 mmol/L (3.5-5.1); SODIUM 137 mmol/L (136-145)
[2020-06-10] MEDS: INSULIN LISPRO 100 UNIT/1 ML 3ML VIAL SQ SCH ×4 (07:30→20:51)
[2020-06-10] MEDS: AMLODIPINE BESYLATE 10 MG TAB PO SCH (08:16)
[2020-06-10] MEDS: VANCOMYCIN 1GM/NS 250 ML 250 ML IV SCH ×2 (08:16→20:51)
[2020-06-10] MEDS: PANTOPRAZOLE 40 MG 10ML VIAL IV SCH ×2 (08:16→18:35)
[2020-06-10] MEDS: ACETAMINOPHEN 325 MG TAB PO PRN ×2 (08:17→15:19)
[2020-06-10] MEDS ORDERED: INSULIN GLARGINE 100 UNITS/ML VIAL SQ SCH (09:00)
[2020-06-10] MEDS: LEVETIRACETAM IV SCH ×2 (11:15→22:29)
[2020-06-10] MEDS: SODIUM CHLORIDE 0.9% IV SCH ×2 (11:15→22:29)
[2020-06-10 13:34] LABS: BODY FLUID COLOR RED; BODY FLUID TYPE PERITONEAL
[2020-06-10 13:35] LABS: BODY FLUID APPEARANCE TURBID; WBC,BODY FLUID 20324 cells/uL
[2020-06-10 13:36] LABS: RBC,BODY FLUID 363000 cells/uL
[2020-06-10] MEDS: ONDANSETRON HCL INJ 2MG/ML 2ML 2 MG/ML VIAL IV PRN (13:46)
[2020-06-10] MEDS ORDERED: MAGNESIUM SULF 1GRAM/DEXTROSE 300 ML IV ONE (15:00)
[2020-06-10] MEDS: ENOXAPARIN SOD INJ 40 MG/0.4 ML SYR SC SCH (18:35)
[2020-06-10] MEDS: COLLAGENASE 5 GM TUBE TOP SCH (18:47)
[2020-06-11] VITALS (10 sets, daily range): BP systolic 98–134; BP diastolic 50–66
[2020-06-11] MEDS: VANCOMYCIN HCL 125 MG CAPSULE PO SCH ×4 (00:05→17:55)
[2020-06-11] MEDS: ACETAMINOPHEN 325 MG TAB PO PRN ×3 (00:08→17:56)
[2020-06-11] MEDS: SODIUM CHLORIDE 0.9% 1000ML 1,000 ML IV SCH ×3 (01:04→21:00)
[2020-06-11 06:21] LABS: BASOPHILS % 0.2 % (0.0-1.0); EOSINOPHILS # (AUTO) 0.2 (0.0-0.4); EOSINOPHILS % 1.2 % (0.0-6.0); HEMATOCRIT 23.8 % (38.2-49.6); HEMOGLOBIN 7.6 g/dL (14.0-18.0); LYMPHOCYTES # (AUTO) 1.7 (1.0-3.2); LYMPHOCYTES % 12.8 % (18.0-39.1); MEAN CORPUSCULAR HEMOGLOBIN 29.5 pg (28-32); MEAN CORPUSCULAR HGB CONC 31.9 g/dL (31-35); MEAN CORPUSCULAR VOLUME 92.2 fL (81-99); MONOCYTES # (AUTO) 1.5 (0.2-0.8); MONOCYTES % 11.3 % (4.4-11.3); NEUTROPHILS # (AUTO) 9.5 (2.1-6.9); NEUTROPHILS % 72.6 % (38.7-80.0); PLATELET COUNT 374 x10e3/uL (140-360); RED BLOOD COUNT 2.58 x10e6/uL (4.3-5.7)
[2020-06-11 07:06] LABS: CALCIUM IONIZED 1.2 mmol/L (1.09-1.30)
[2020-06-11 07:24] LABS: ANION GAP 14.4 mmol/L (8-16); BLOOD UREA NITROGEN 8 mg/dL (7-26); BUN/CREATININE RATIO 11 (6-25); CALCIUM 7.8 mg/dL (8.4-10.2); CARBON DIOXIDE 20 mmol/L (22-29); CHLORIDE 105 mmol/L (98-107); CREATININE, SERUM 0.75 mg/dL (0.72-1.25); EST GLOMERULAR FILTRATION RATE > 60 ML/MIN (60-); GLUCOSE 81 mg/dL (74-118); MAGNESIUM 1.9 MG/DL (1.3-2.1); POTASSIUM 3.4 mmol/L (3.5-5.1); SODIUM 136 mmol/L (136-145)
[2020-06-11] MEDS: INSULIN LISPRO 100 UNIT/1 ML 3ML VIAL SQ SCH ×4 (07:30→21:00)
[2020-06-11] MEDS ORDERED: METOPROLOL SUCCINATE 50 MG TAB XL PO SCH (09:00)
[2020-06-11] MEDS: METOPROLOL SUCCINATE 50 MG TAB XL PO SCH ×2 (10:30→17:55)
[2020-06-11] MEDS: COLLAGENASE 5 GM TUBE TOP SCH (10:30)
[2020-06-11] MEDS: INSULIN GLARGINE 100 UNITS/ML VIAL SQ SCH (10:30)
[2020-06-11] MEDS: SODIUM CHLORIDE 0.9% IV SCH ×2 (10:30→21:00)
[2020-06-11] MEDS: PANTOPRAZOLE 40 MG 10ML VIAL IV SCH ×2 (10:30→17:55)
[2020-06-11] MEDS: LEVETIRACETAM IV SCH ×2 (10:30→21:00)
[2020-06-11] MEDS: AMLODIPINE BESYLATE 5 MG TAB PO SCH (10:30)
[2020-06-11] MEDS: VANCOMYCIN 1GM/NS 250 ML 250 ML IV SCH ×3 (12:00→20:00)
[2020-06-11] MEDS ORDERED: POTASSIUM CHLORIDE 20 MEQ TAB CR PO NR (14:15)
[2020-06-11] MEDS ORDERED: POTASSIUM CHLORIDE 20 MEQ TAB CR PO ONE (17:00)
[2020-06-11 18:11] LABS: BODY FLUID TYPE PLEURAL
[2020-06-11 18:12] LABS: BODY FLUID APPEARANCE TURBID; BODY FLUID COLOR RED
[2020-06-11 18:13] LABS: WBC,BODY FLUID 66932 cells/uL
[2020-06-11 18:14] LABS: RBC,BODY FLUID 338000 cells/uL
[2020-06-12] VITALS (9 sets, daily range): BP systolic 97–132; BP diastolic 60–73
[2020-06-12] MEDS: ACETAMINOPHEN 325 MG TAB PO PRN
[2020-06-12] MEDS: VANCOMYCIN HCL 125 MG CAPSULE PO SCH ×3 (06:00→13:24)
[2020-06-12] MEDS: SODIUM CHLORIDE 0.9% 1000ML 1,000 ML IV SCH ×2 (06:09→16:51)
[2020-06-12] MEDS: INSULIN LISPRO 100 UNIT/1 ML 3ML VIAL SQ SCH ×4 (07:30→21:00)
[2020-06-12] MEDS: LEVETIRACETAM IV SCH ×2 (08:57→21:00)
[2020-06-12] MEDS: SODIUM CHLORIDE 0.9% IV SCH ×2 (08:57→21:00)
[2020-06-12] MEDS: PANTOPRAZOLE 40 MG 10ML VIAL IV SCH ×2 (08:59→16:52)
[2020-06-12] MEDS: AMLODIPINE BESYLATE 5 MG TAB PO SCH (08:59)
[2020-06-12] MEDS: METOPROLOL SUCCINATE 50 MG TAB XL PO SCH ×2 (09:00→16:51)
[2020-06-12] MEDS: VANCOMYCIN 1GM/NS 250 ML 250 ML IV SCH (09:00)
[2020-06-12] MEDS: INSULIN GLARGINE 100 UNITS/ML VIAL SQ SCH (09:00)
[2020-06-12] MEDS: COLLAGENASE 5 GM TUBE TOP SCH (12:02)
[2020-06-12] MEDS: LINEZOLID 600 MG/D5W 300ML 300 ML IV SCH (15:11)
[2020-06-13] VITALS (8 sets, daily range): BP systolic 103–119; BP diastolic 59–68
[2020-06-13] MEDS: LINEZOLID 600 MG/D5W 300ML 300 ML IV SCH ×2 (02:00→14:00)
[2020-06-13] MEDS: SODIUM CHLORIDE 0.9% 1000ML 1,000 ML IV SCH ×3 (03:00→22:00)
[2020-06-13 06:05] LABS: BASOPHILS % 0.3 % (0.0-1.0); EOSINOPHILS # (AUTO) 0.1 (0.0-0.4); EOSINOPHILS % 1.2 % (0.0-6.0); HEMATOCRIT 23.2 % (38.2-49.6); HEMOGLOBIN 7.2 g/dL (14.0-18.0); LYMPHOCYTES # (AUTO) 1.8 (1.0-3.2); LYMPHOCYTES % 15.4 % (18.0-39.1); MEAN CORPUSCULAR HEMOGLOBIN 28.8 pg (28-32); MEAN CORPUSCULAR VOLUME 92.8 fL (81-99); MONOCYTES # (AUTO) 1.4 (0.2-0.8); MONOCYTES % 11.7 % (4.4-11.3); NEUTROPHILS # (AUTO) 8.2 (2.1-6.9); NEUTROPHILS % 70.1 % (38.7-80.0); PLATELET COUNT 358 x10e3/uL (140-360); RED CELL DISTRIBUTION WIDTH 15.5 % (11.7-14.4)
[2020-06-13 06:30] LABS: ALANINE AMINOTRANSFERASE 63 IU/L (0-55); ALBUMIN 2.1 g/dL (3.5-5.0); ALBUMIN/GLOBULIN RATIO 0.5 (0.8-2.0); ALKALINE PHOSPHATASE 112 IU/L (40-150); ANION GAP 12.2 mmol/L (8-16); BLOOD UREA NITROGEN < 5 mg/dL (7-26); CALCIUM 7.7 mg/dL (8.4-10.2); CARBON DIOXIDE 22 mmol/L (22-29); CHLORIDE 107 mmol/L (98-107); CREATININE, SERUM 0.68 mg/dL (0.72-1.25); EST GLOMERULAR FILTRATION RATE > 60 ML/MIN (60-); GLUCOSE 113 mg/dL (74-118); MAGNESIUM 1.3 MG/DL (1.3-2.1); POTASSIUM 3.2 mmol/L (3.5-5.1); SODIUM 138 mmol/L (136-145)
[2020-06-13 06:31] LABS: BUN/CREATININE RATIO 7 (6-25)
[2020-06-13 06:50] LABS: % IRON SATURATION 10 % (15-50); IRON 15 ug/dL (65-175); TOTAL IRON BINDING CAPACITY 155 ug/dL (261-478); TRANSFERRIN 111 mg/dL (174-364)
[2020-06-13] MEDS: INSULIN LISPRO 100 UNIT/1 ML 3ML VIAL SQ SCH ×4 (07:30→21:00)
[2020-06-13] MEDS: INSULIN GLARGINE 100 UNITS/ML VIAL SQ SCH (09:00)
[2020-06-13] MEDS: AMLODIPINE BESYLATE 5 MG TAB PO SCH (10:06)
[2020-06-13] MEDS: PANTOPRAZOLE 40 MG 10ML VIAL IV SCH ×2 (10:07→17:29)
[2020-06-13] MEDS: COLLAGENASE 5 GM TUBE TOP SCH (10:07)
[2020-06-13] MEDS: METOPROLOL SUCCINATE 50 MG TAB XL PO SCH ×2 (10:07→17:30)
[2020-06-13] MEDS: SODIUM CHLORIDE 0.9% IV SCH ×2 (10:09→22:11)
[2020-06-13] MEDS: LEVETIRACETAM IV SCH ×2 (10:09→22:11)
[2020-06-13] MEDS ORDERED: SODIUM CHLORIDE 0.9% 250ML 250 ML IV ONE (10:45)
[2020-06-13] MEDS ORDERED: MAGNESIUM SULF 1GRAM/DEXTROSE 100 ML IV ONE ×4 (15:45→22:17)
[2020-06-13] MEDS ORDERED: POTASSIUM CHLORIDE 20 MEQ TAB CR PO STA (15:47)
[2020-06-14] VITALS (7 sets, daily range): BP systolic 118–134; BP diastolic 61–71
[2020-06-14] MEDS: ACETAMINOPHEN 325 MG TAB PO PRN ×2 (00:53→21:07)
[2020-06-14] MEDS: LINEZOLID 600 MG/D5W 300ML 300 ML IV SCH ×2 (03:33→15:55)
[2020-06-14 06:16] LABS: BASOPHILS # (AUTO) 0.1 (0.0-0.1); BASOPHILS % 0.5 % (0.0-1.0); EOSINOPHILS # (AUTO) 0.1 (0.0-0.4); HEMATOCRIT 25.4 % (38.2-49.6); LYMPHOCYTES # (AUTO) 1.7 (1.0-3.2); LYMPHOCYTES % 16.9 % (18.0-39.1); MEAN CORPUSCULAR HGB CONC 31.5 g/dL (31-35); MEAN CORPUSCULAR VOLUME 88.8 fL (81-99); MONOCYTES # (AUTO) 1.2 (0.2-0.8); MONOCYTES % 11.6 % (4.4-11.3); PLATELET COUNT 369 x10e3/uL (140-360); RED BLOOD COUNT 2.86 x10e6/uL (4.3-5.7)
[2020-06-14 07:19] LABS: ANION GAP 13.5 mmol/L (8-16); BLOOD UREA NITROGEN < 5 mg/dL (7-26); CALCIUM 7.7 mg/dL (8.4-10.2); CARBON DIOXIDE 20 mmol/L (22-29); CHLORIDE 107 mmol/L (98-107); CREATININE, SERUM 0.68 mg/dL (0.72-1.25); EST GLOMERULAR FILTRATION RATE > 60 ML/MIN (60-); GLUCOSE 105 mg/dL (74-118); MAGNESIUM 1.8 MG/DL (1.3-2.1); POTASSIUM 3.5 mmol/L (3.5-5.1); SODIUM 137 mmol/L (136-145)
[2020-06-14 07:20] LABS: BUN/CREATININE RATIO 7 (6-25)
[2020-06-14] MEDS: INSULIN LISPRO 100 UNIT/1 ML 3ML VIAL SQ SCH ×4 (07:30→20:46)
[2020-06-14] MEDS: INSULIN GLARGINE 100 UNITS/ML VIAL SQ SCH (09:00)
[2020-06-14] MEDS: SODIUM CHLORIDE 0.9% IV SCH ×2 (10:42→20:16)
[2020-06-14] MEDS: SODIUM CHLORIDE 0.9% 1000ML 1,000 ML IV SCH ×2 (10:42→20:00)
[2020-06-14] MEDS: PANTOPRAZOLE 40 MG 10ML VIAL IV SCH ×2 (10:42→16:42)
[2020-06-14] MEDS: LEVETIRACETAM IV SCH ×2 (10:42→20:16)
[2020-06-14] MEDS: AMLODIPINE BESYLATE 5 MG TAB PO SCH (10:43)
[2020-06-14] MEDS: COLLAGENASE 5 GM TUBE TOP SCH (10:43)
[2020-06-14] MEDS: METOPROLOL SUCCINATE 50 MG TAB XL PO SCH ×2 (10:43→16:42)
[2020-06-14] MEDS: MAGNESIUM OXIDE 400 MG TAB PO SCH (10:48)
[2020-06-14] MEDS: ONDANSETRON HCL INJ 2MG/ML 2ML 2 MG/ML VIAL IV PRN (10:48)
[2020-06-14] MEDS ORDERED: MAGNESIUM OXIDE 400 MG TAB PO ONE (19:45)
[2020-06-14] MEDS ORDERED: POTASSIUM CHLORIDE 10MEQ EA PO ONE (19:45)
[2020-06-15] VITALS (9 sets, daily range): BP systolic 118–133; BP diastolic 68–85
[2020-06-15] MEDS: LINEZOLID 600 MG/D5W 300ML 300 ML IV SCH ×2 (02:00→17:11)
[2020-06-15] MEDS: SODIUM CHLORIDE 0.9% 1000ML 1,000 ML IV SCH ×2 (05:00→17:11)
[2020-06-15] MEDS: ONDANSETRON HCL INJ 2MG/ML 2ML 2 MG/ML VIAL IV PRN (05:11)
[2020-06-15] MEDS: INSULIN LISPRO 100 UNIT/1 ML 3ML VIAL SQ SCH ×4 (07:30→21:00)
[2020-06-15] MEDS: PANTOPRAZOLE 40 MG 10ML VIAL IV SCH ×2 (08:45→17:11)
[2020-06-15] MEDS: MAGNESIUM OXIDE 400 MG TAB PO SCH (08:46)
[2020-06-15] MEDS: METOPROLOL SUCCINATE 50 MG TAB XL PO SCH ×2 (08:47→17:12)
[2020-06-15] MEDS: AMLODIPINE BESYLATE 5 MG TAB PO SCH (08:47)
[2020-06-15] MEDS ORDERED: INSULIN GLARGINE 100 UNITS/ML VIAL SQ SCH (09:00)
[2020-06-15] MEDS: COLLAGENASE 5 GM TUBE TOP SCH (09:01)
[2020-06-15] MEDS: IRON SUCROSE 100 MG in SODIUM CHLORIDE 0.9% 100 ML 100 ML IV SCH (11:00)
[2020-06-15] MEDS: LEVETIRACETAM IV SCH ×2 (11:00→21:10)
[2020-06-15] MEDS: SODIUM CHLORIDE 0.9% IV SCH ×2 (11:00→21:10)
[2020-06-15] MEDS ORDERED: DICYCLOMINE HCL 10 MG CAP PO NR (13:15)
[2020-06-16] VITALS (7 sets, daily range): BP systolic 122–129; BP diastolic 62–80
[2020-06-16] MEDS: LINEZOLID 600 MG/D5W 300ML 300 ML IV SCH ×2 (02:16→14:53)
[2020-06-16] MEDS: SODIUM CHLORIDE 0.9% 1000ML 1,000 ML IV SCH ×3 (02:16→20:52)
[2020-06-16] MEDS: INSULIN LISPRO 100 UNIT/1 ML 3ML VIAL SQ SCH ×4 (07:30→20:44)
[2020-06-16 07:53] LABS: AMYLASE 184 U/L (25-125); LIPASE 182 U/L (8-78)
[2020-06-16] MEDS: ONDANSETRON HCL INJ 2MG/ML 2ML 2 MG/ML VIAL IV PRN ×2 (08:34→15:47)
[2020-06-16] MEDS: PANTOPRAZOLE 40 MG 10ML VIAL IV SCH ×2 (08:35→14:53)
[2020-06-16] MEDS: DICYCLOMINE HCL 20 MG TAB PO SCH ×3 (08:37→20:52)
[2020-06-16] MEDS: AMLODIPINE BESYLATE 5 MG TAB PO SCH (08:37)
[2020-06-16] MEDS: METOPROLOL SUCCINATE 50 MG TAB XL PO SCH ×2 (08:38→17:40)
[2020-06-16] MEDS: MAGNESIUM OXIDE 400 MG TAB PO SCH (09:00)
[2020-06-16] MEDS: COLLAGENASE 5 GM TUBE TOP SCH (09:00)
[2020-06-16] MEDS: INSULIN GLARGINE 100 UNITS/ML VIAL SQ SCH (09:00)
[2020-06-16] MEDS: LEVETIRACETAM IV SCH ×2 (09:30→20:52)
[2020-06-16] MEDS: SODIUM CHLORIDE 0.9% IV SCH ×2 (09:30→20:52)
[2020-06-16] MEDS: IRON SUCROSE 100 MG in SODIUM CHLORIDE 0.9% 100 ML 100 ML IV SCH (10:00)
[2020-06-17] VITALS (8 sets, daily range): BP systolic 126–134; BP diastolic 67–75
[2020-06-17] MEDS: LINEZOLID 600 MG/D5W 300ML 300 ML IV SCH ×2 (01:15→13:58)
[2020-06-17] MEDS: ACETAMINOPHEN 325 MG TAB PO PRN ×2 (01:26→14:55)
[2020-06-17] MEDS: ONDANSETRON HCL INJ 2MG/ML 2ML 2 MG/ML VIAL IV PRN ×2 (02:09→14:55)
[2020-06-17 07:08] LABS: BASOPHILS % 0.4 % (0.0-1.0); EOSINOPHILS # (AUTO) 0.1 (0.0-0.4); EOSINOPHILS % 0.7 % (0.0-6.0); HEMATOCRIT 28.5 % (38.2-49.6); HEMOGLOBIN 8.6 g/dL (14.0-18.0); LYMPHOCYTES # (AUTO) 1.6 (1.0-3.2); LYMPHOCYTES % 15.6 % (18.0-39.1); MEAN CORPUSCULAR HEMOGLOBIN 27.6 pg (28-32); MEAN CORPUSCULAR HGB CONC 30.2 g/dL (31-35); MEAN CORPUSCULAR VOLUME 91.3 fL (81-99); MONOCYTES # (AUTO) 0.9 (0.2-0.8); MONOCYTES % 8.5 % (4.4-11.3); NEUTROPHILS # (AUTO) 7.6 (2.1-6.9); NEUTROPHILS % 74.1 % (38.7-80.0); PLATELET COUNT 313 x10e3/uL (140-360); RED BLOOD COUNT 3.12 x10e6/uL (4.3-5.7); RED CELL DISTRIBUTION WIDTH 16.5 % (11.7-14.4)
[2020-06-17] MEDS: INSULIN LISPRO 100 UNIT/1 ML 3ML VIAL SQ SCH ×4 (07:30→20:42)
[2020-06-17] MEDS: PANTOPRAZOLE 40 MG 10ML VIAL IV SCH ×2 (08:00→16:30)
[2020-06-17 08:07] LABS: ALANINE AMINOTRANSFERASE 33 IU/L (0-55); ALBUMIN 2.2 g/dL (3.5-5.0); ALBUMIN/GLOBULIN RATIO 0.6 (0.8-2.0); ALKALINE PHOSPHATASE 89 IU/L (40-150); AMYLASE 215 U/L (25-125); ANION GAP 13.4 mmol/L (8-16); BLOOD UREA NITROGEN < 5 mg/dL (7-26); CALCIUM 7.7 mg/dL (8.4-10.2); CARBON DIOXIDE 21 mmol/L (22-29); CHLORIDE 107 mmol/L (98-107); CREATININE, SERUM 0.67 mg/dL (0.72-1.25); EST GLOMERULAR FILTRATION RATE > 60 ML/MIN (60-); GLUCOSE 88 mg/dL (74-118); LIPASE 216 U/L (8-78); POTASSIUM 3.4 mmol/L (3.5-5.1); SODIUM 138 mmol/L (136-145)
[2020-06-17 08:08] LABS: BUN/CREATININE RATIO 7 (6-25)
[2020-06-17] MEDS: SODIUM CHLORIDE 0.9% 1000ML 1,000 ML IV SCH ×2 (08:16→20:42)
[2020-06-17] MEDS: METOPROLOL SUCCINATE 50 MG TAB XL PO SCH ×2 (09:00→17:00)
[2020-06-17] MEDS: INSULIN GLARGINE 100 UNITS/ML VIAL SQ SCH (09:00)
[2020-06-17] MEDS: MAGNESIUM OXIDE 400 MG TAB PO SCH (09:00)
[2020-06-17] MEDS: SODIUM CHLORIDE 0.9% IV SCH ×2 (09:23→20:42)
[2020-06-17] MEDS: DICYCLOMINE HCL 20 MG TAB PO SCH ×3 (09:23→20:42)
[2020-06-17] MEDS: AMLODIPINE BESYLATE 5 MG TAB PO SCH (09:23)
[2020-06-17] MEDS: LEVETIRACETAM IV SCH ×2 (09:23→20:42)
[2020-06-17] MEDS: IRON SUCROSE 100 MG in SODIUM CHLORIDE 0.9% 100 ML 100 ML IV SCH (10:00)
[2020-06-17] MEDS: COLLAGENASE 5 GM TUBE TOP SCH (12:05)
[2020-06-17] MEDS ORDERED: MAGNESIUM SULF 1GRAM/DEXTROSE 100 ML IV ONE ×2 (14:00→19:30)
[2020-06-17] MEDS ORDERED: MAGNESIUM SULFATE 2GM/50ML 50 ML IV ONE (15:00)
[2020-06-17] MEDS ORDERED: POTASSIUM CHLORIDE 20MEQ/100ML 100 ML IV ONE (17:00)
[2020-06-18] VITALS (8 sets, daily range): BP systolic 124–132; BP diastolic 71–81
[2020-06-18] MEDS: LINEZOLID 600 MG/D5W 300ML 300 ML IV SCH ×2 (01:08→15:43)
[2020-06-18] MEDS ORDERED: CHLORDIAZEPOXIDE/CLIDINIUM 1 CAP PO STA (01:58)
[2020-06-18] MEDS ORDERED: AMYLAS/CELLU/LIPAS/PROTEA/BILE 12,000 UNIT CAP PO ONE (02:15)
[2020-06-18] MEDS: SODIUM CHLORIDE 0.9% 1000ML 1,000 ML IV SCH ×3 (05:15→23:14)
[2020-06-18 07:26] LABS: AMYLASE 198 U/L (25-125); LIPASE 169 U/L (8-78)
[2020-06-18] MEDS: INSULIN LISPRO 100 UNIT/1 ML 3ML VIAL SQ SCH ×4 (07:30→20:46)
[2020-06-18] MEDS: INSULIN GLARGINE 100 UNITS/ML VIAL SQ SCH (09:00)
[2020-06-18] MEDS: CHLORDIAZEPOXIDE/CLIDINIUM 1 CAP PO SCH ×4 (10:04→20:55)
[2020-06-18] MEDS: PANTOPRAZOLE 40 MG 10ML VIAL IV SCH ×2 (10:06→15:36)
[2020-06-18] MEDS: AMYLAS/CELLU/LIPAS/PROTEA/BILE 12,000 UNIT CAP PO SCH ×3 (10:15→21:40)
[2020-06-18] MEDS: MAGNESIUM OXIDE 400 MG TAB PO SCH (10:15)
[2020-06-18] MEDS: AMLODIPINE BESYLATE 5 MG TAB PO SCH (10:15)
[2020-06-18] MEDS: METOPROLOL SUCCINATE 50 MG TAB XL PO SCH ×2 (10:18→17:41)
[2020-06-18] MEDS: LEVETIRACETAM IV SCH ×2 (11:18→20:55)
[2020-06-18] MEDS: SODIUM CHLORIDE 0.9% IV SCH ×2 (11:18→20:55)
[2020-06-18] MEDS: COLLAGENASE 5 GM TUBE TOP SCH (17:41)
[2020-06-18] MEDS: ONDANSETRON HCL INJ 2MG/ML 2ML 2 MG/ML VIAL IV PRN (17:54)
[2020-06-19] VITALS (7 sets, daily range): BP systolic 117–134; BP diastolic 64–81
[2020-06-19] MEDS ORDERED: METOCLOPRAMIDE HCL 10 MG/2ML VIAL IV STA (01:50)
[2020-06-19] MEDS: LINEZOLID 600 MG/D5W 300ML 300 ML IV SCH ×2 (02:02→14:01)
[2020-06-19] MEDS: METOCLOPRAMIDE HCL 10 MG/2ML VIAL IV SCH ×3 (05:35→18:00)
[2020-06-19 06:20] LABS: BASOPHILS % 0.3 % (0.0-1.0); EOSINOPHILS # (AUTO) 0.1 (0.0-0.4); EOSINOPHILS % 0.5 % (0.0-6.0); HEMATOCRIT 26.6 % (38.2-49.6); HEMOGLOBIN 8.5 g/dL (14.0-18.0); LYMPHOCYTES # (AUTO) 1.6 (1.0-3.2); LYMPHOCYTES % 13.3 % (18.0-39.1); MEAN CORPUSCULAR VOLUME 87.5 fL (81-99); MONOCYTES # (AUTO) 0.9 (0.2-0.8); MONOCYTES % 7.4 % (4.4-11.3); NEUTROPHILS # (AUTO) 9.1 (2.1-6.9); PLATELET COUNT 356 x10e3/uL (140-360); RED BLOOD COUNT 3.04 x10e6/uL (4.3-5.7); RED CELL DISTRIBUTION WIDTH 16.1 % (11.7-14.4)
[2020-06-19 06:47] LABS: ANION GAP 13.3 mmol/L (8-16); BLOOD UREA NITROGEN 5 mg/dL (7-26); BUN/CREATININE RATIO 7 (6-25); CALCIUM 7.8 mg/dL (8.4-10.2); CARBON DIOXIDE 22 mmol/L (22-29); CHLORIDE 105 mmol/L (98-107); CREATININE, SERUM 0.67 mg/dL (0.72-1.25); EST GLOMERULAR FILTRATION RATE > 60 ML/MIN (60-); GLUCOSE 90 mg/dL (74-118); MAGNESIUM 1.8 MG/DL (1.3-2.1); POTASSIUM 3.3 mmol/L (3.5-5.1); SODIUM 137 mmol/L (136-145)
[2020-06-19 06:49] LABS: AMYLASE 196 U/L (25-125); LIPASE 161 U/L (8-78)
[2020-06-19] MEDS: INSULIN LISPRO 100 UNIT/1 ML 3ML VIAL SQ SCH ×4 (07:30→21:00)
[2020-06-19] MEDS: CHLORDIAZEPOXIDE/CLIDINIUM 1 CAP PO SCH ×4 (08:13→21:00)
[2020-06-19] MEDS: PANTOPRAZOLE 40 MG 10ML VIAL IV SCH ×2 (08:13→16:30)
[2020-06-19] MEDS: SODIUM CHLORIDE 0.9% 1000ML 1,000 ML IV SCH ×2 (09:00→23:00)
[2020-06-19] MEDS: LEVETIRACETAM IV SCH ×2 (09:00→21:00)
[2020-06-19] MEDS: SODIUM CHLORIDE 0.9% IV SCH ×2 (09:00→21:00)
[2020-06-19] MEDS: METOPROLOL SUCCINATE 50 MG TAB XL PO SCH ×2 (09:00→17:00)
[2020-06-19] MEDS: AMLODIPINE BESYLATE 5 MG TAB PO SCH (09:00)
[2020-06-19] MEDS: HEPARIN SOD (PORCINE) 5,000 UNIT/ML VIAL SC SCH ×2 (09:00→21:00)
[2020-06-19] MEDS: INSULIN GLARGINE 100 UNITS/ML VIAL SQ SCH (09:00)
[2020-06-19] MEDS: AMYLAS/CELLU/LIPAS/PROTEA/BILE 12,000 UNIT CAP PO SCH ×3 (09:00→21:00)
[2020-06-19] MEDS: MAGNESIUM OXIDE 400 MG TAB PO SCH (09:00)
[2020-06-19] MEDS: COLLAGENASE 5 GM TUBE TOP SCH (09:35)
[2020-06-19] MEDS ORDERED: MAGNESIUM SULF 1GRAM/DEXTROSE 100 ML IV ONE (14:45)
[2020-06-19] MEDS ORDERED: POTASSIUM CHLORIDE 20MEQ/100ML 200 ML IV ONE (15:00)
[2020-06-20] VITALS (9 sets, daily range): BP systolic 112–126; BP diastolic 68–74
[2020-06-20] MEDS: LINEZOLID 600 MG/D5W 300ML 300 ML IV SCH ×2 (03:30→17:19)
[2020-06-20] MEDS: METOCLOPRAMIDE HCL 10 MG/2ML VIAL IV SCH ×5 (06:00→23:52)
[2020-06-20 07:07] LABS: CLARITY,URINE CLEAR (CLEAR); COLOR,URINE YELLOW (YELLOW); KETONES,URINE NEGATIVE (NEGATIVE); LEUKOCYTE ESTERASE ,URINE NEGATIVE (NEGATIVE); NITRITE,URINE NEGATIVE (NEGATIVE); PROTEIN,URINE DIPSTICK 1+ (NEGATIVE); URINE UROBILINOGEN 0.2 mg/dL (0.2 - 1)
[2020-06-20 07:15] LABS: BACTERIA,URINE MANY /HPF; EPITHELIAL CELLS,URINE RARE /LPF; RBC,URINE 0-5 /HPF (0-5)
[2020-06-20] MEDS: INSULIN LISPRO 100 UNIT/1 ML 3ML VIAL SQ SCH ×4 (07:30→21:00)
[2020-06-20] MEDS: INSULIN GLARGINE 100 UNITS/ML VIAL SQ SCH (09:00)
[2020-06-20] MEDS: SODIUM CHLORIDE 0.9% 1000ML 1,000 ML IV SCH ×2 (09:22→17:19)
[2020-06-20] MEDS: AMYLAS/CELLU/LIPAS/PROTEA/BILE 12,000 UNIT CAP PO SCH ×3 (09:23→20:59)
[2020-06-20] MEDS: CHLORDIAZEPOXIDE/CLIDINIUM 1 CAP PO SCH ×4 (09:23→21:00)
[2020-06-20] MEDS: PANTOPRAZOLE 40 MG 10ML VIAL IV SCH ×2 (09:23→17:19)
[2020-06-20] MEDS: AMLODIPINE BESYLATE 5 MG TAB PO SCH (09:24)
[2020-06-20] MEDS: MAGNESIUM OXIDE 400 MG TAB PO SCH (09:24)
[2020-06-20] MEDS: METOPROLOL SUCCINATE 50 MG TAB XL PO SCH ×2 (09:25→17:19)
[2020-06-20] MEDS: HEPARIN SOD (PORCINE) 5,000 UNIT/ML VIAL SC SCH ×2 (09:26→20:49)
[2020-06-20] MEDS: SODIUM CHLORIDE 0.9% IV SCH ×2 (09:37→20:59)
[2020-06-20] MEDS: LEVETIRACETAM IV SCH ×2 (09:37→20:59)
[2020-06-20] MEDS ORDERED: LORAZEPAM INJ 2 MG/ML VIAL IV PRN (12:00)
[2020-06-20] MEDS ORDERED: LORAZEPAM INJ 2 MG/ML VIAL IV ONE (12:00)
[2020-06-20] MEDS: COLLAGENASE 5 GM TUBE TOP SCH (12:27)
[2020-06-20] MEDS ORDERED: SODIUM CHLORIDE 0.9% 50ML 50 ML ONE (12:44)
[2020-06-20] MEDS ORDERED: GADOBENATE DIMEGLUMINE 1 ML IV ONE (12:44)
[2020-06-20] MEDS: ONDANSETRON HCL INJ 2MG/ML 2ML 2 MG/ML VIAL IV PRN (17:33)
[2020-06-20] MEDS: ACETAMINOPHEN 325 MG TAB PO PRN (22:00)
[2020-06-21] VITALS (7 sets, daily range): BP systolic 106–128; BP diastolic 56–73
[2020-06-21] MEDS: LINEZOLID 600 MG/D5W 300ML 300 ML IV SCH ×2 (02:00→14:19)
[2020-06-21] MEDS: METOCLOPRAMIDE HCL 10 MG/2ML VIAL IV SCH ×3 (06:00→17:55)
[2020-06-21] MEDS: SODIUM CHLORIDE 0.9% 1000ML 1,000 ML IV SCH ×2 (06:22→11:00)
[2020-06-21 07:06] LABS: BASOPHILS # (AUTO) 0.1 (0.0-0.1); BASOPHILS % 0.4 % (0.0-1.0); EOSINOPHILS # (AUTO) 0.1 (0.0-0.4); EOSINOPHILS % 0.4 % (0.0-6.0); HEMATOCRIT 26.7 % (38.2-49.6); HEMOGLOBIN 8.3 g/dL (14.0-18.0); LYMPHOCYTES # (AUTO) 2.3 (1.0-3.2); LYMPHOCYTES % 17.7 % (18.0-39.1); MEAN CORPUSCULAR HEMOGLOBIN 27.9 pg (28-32); MEAN CORPUSCULAR HGB CONC 31.1 g/dL (31-35); MEAN CORPUSCULAR VOLUME 89.6 fL (81-99); MONOCYTES # (AUTO) 1.2 (0.2-0.8); MONOCYTES % 8.9 % (4.4-11.3); NEUTROPHILS # (AUTO) 9.3 (2.1-6.9); NEUTROPHILS % 71.8 % (38.7-80.0); PLATELET COUNT 394 x10e3/uL (140-360); RED BLOOD COUNT 2.98 x10e6/uL (4.3-5.7); RED CELL DISTRIBUTION WIDTH 16.3 % (11.7-14.4)
[2020-06-21 07:16] LABS: INR 1.37; PROTHROMBIN TIME 17.5 seconds (11.9-14.5)
[2020-06-21 07:17] LABS: PARTIAL THROMBOPLASTIN TIME 52.8 seconds (23.8-35.5)
[2020-06-21 07:29] LABS: ALANINE AMINOTRANSFERASE 28 IU/L (0-55); ALBUMIN 2.2 g/dL (3.5-5.0); ALBUMIN/GLOBULIN RATIO 0.6 (0.8-2.0); ALKALINE PHOSPHATASE 121 IU/L (40-150); ANION GAP 14.4 mmol/L (8-16); BLOOD UREA NITROGEN 5 mg/dL (7-26); BUN/CREATININE RATIO 6 (6-25); CALCIUM 7.6 mg/dL (8.4-10.2); CARBON DIOXIDE 20 mmol/L (22-29); CHLORIDE 105 mmol/L (98-107); CREATININE, SERUM 0.78 mg/dL (0.72-1.25); EST GLOMERULAR FILTRATION RATE > 60 ML/MIN (60-); GLUCOSE 87 mg/dL (74-118); POTASSIUM 3.4 mmol/L (3.5-5.1); SODIUM 136 mmol/L (136-145)
[2020-06-21] MEDS: CHLORDIAZEPOXIDE/CLIDINIUM 1 CAP PO SCH ×4 (07:30→21:22)
[2020-06-21] MEDS: INSULIN LISPRO 100 UNIT/1 ML 3ML VIAL SQ SCH ×4 (07:30→21:00)
[2020-06-21] MEDS: PANTOPRAZOLE 40 MG 10ML VIAL IV SCH ×2 (08:25→17:16)
[2020-06-21] MEDS: METOPROLOL SUCCINATE 50 MG TAB XL PO SCH ×2 (09:00→17:00)
[2020-06-21] MEDS: AMLODIPINE BESYLATE 5 MG TAB PO SCH (09:00)
[2020-06-21] MEDS: HEPARIN SOD (PORCINE) 5,000 UNIT/ML VIAL SC SCH ×2 (09:00→21:22)
[2020-06-21] MEDS ORDERED: AMYLAS/CELLU/LIPAS/PROTEA/BILE 12,000 UNIT CAP PO SCH (09:00)
[2020-06-21] MEDS: INSULIN GLARGINE 100 UNITS/ML VIAL SQ SCH (09:00)
[2020-06-21] MEDS ORDERED: MIDAZOLAM HCL 2 MG/2 ML VIAL ONE ×2 (09:53→11:24)
[2020-06-21] MEDS ORDERED: FENTANYL CITRATE/PF 100MCG/2 ML INJ ONE ×2 (09:54→11:24)
[2020-06-21] MEDS: SODIUM CHLORIDE 0.9% IV SCH ×2 (09:56→21:30)
[2020-06-21] MEDS: LEVETIRACETAM IV SCH ×2 (09:56→21:30)
[2020-06-21 12:56] LABS: BODY FLUID TYPE PERITONEAL
[2020-06-21 12:57] LABS: BODY FLUID APPEARANCE TURBID
[2020-06-21 12:58] LABS: RBC,BODY FLUID 150000 cells/uL; WBC,BODY FLUID 121833 cells/uL
[2020-06-21] MEDS: ACETAMINOPHEN 325 MG TAB PO PRN (13:35)
[2020-06-21 13:37] LABS: LYMPHOCYTES,BODY FLUID 33 %; MONO/MACROPHG,BODY FLUID 58 %; NEUTROPHILS,BODY FLUID 9 %
[2020-06-21] MEDS: COLLAGENASE 5 GM TUBE TOP SCH (17:16)
[2020-06-21] MEDS: MAGNESIUM OXIDE 400 MG TAB PO SCH (17:55)
[2020-06-21] MEDS: PANCRELIPASE 6000 ER CAPSULE PO SCH (18:00)
[2020-06-21] MEDS ORDERED: POTASSIUM CHLORIDE 20MEQ/100ML 100 ML IV ONE ×2 (18:30→20:30)
[2020-06-21] MEDS: MORPHINE SULFATE INJ 2 MG/ML SYR IV PRN (19:05)
[2020-06-21] MEDS: ONDANSETRON HCL INJ 2MG/ML 2ML 2 MG/ML VIAL IV PRN (19:05)
[2020-06-21] MEDS: CENTRAL TPN FORMULA 1 BAG IV SCH (23:39)
[2020-06-22] MEDS: CHLORDIAZEPOXIDE/CLIDINIUM 1 CAP PO SCH ×5 (00:14→20:56)
[2020-06-22] MEDS: METOCLOPRAMIDE HCL 10 MG/2ML VIAL IV SCH ×4 (00:14→18:15)
[2020-06-22] MEDS: SODIUM CHLORIDE 0.9% 1000ML 1,000 ML IV SCH ×3 (00:14→17:00)
[2020-06-22] MEDS: ACETAMINOPHEN 325 MG TAB PO PRN ×3 (00:15→17:00)
[2020-06-22] MEDS: ONDANSETRON HCL INJ 2MG/ML 2ML 2 MG/ML VIAL IV PRN ×2 (02:13→11:00)
[2020-06-22] MEDS: MORPHINE SULFATE INJ 2 MG/ML SYR IV PRN ×3 (02:13→16:10)
[2020-06-22] MEDS: LINEZOLID 600 MG/D5W 300ML 300 ML IV SCH ×2 (03:00→15:00)
[2020-06-22 04:00] VITALS: BP 99/56
[2020-06-22] MEDS: CEFEPIME HCL 1GM 1 GM in SODIUM CHLORIDE 0.9% 50ML 50 ML IV SCH ×3 (06:00→22:00)
[2020-06-22] MEDS ORDERED: CEFEPIME HCL 1 GM VIAL IV SCH (06:00)
[2020-06-22 06:34] LABS: BASOPHILS # (AUTO) 0.1 (0.0-0.1); BASOPHILS % 0.4 % (0.0-1.0); EOSINOPHILS % 0.1 % (0.0-6.0); HEMATOCRIT 27.9 % (38.2-49.6); HEMOGLOBIN 8.7 g/dL (14.0-18.0); LYMPHOCYTES # (AUTO) 2.6 (1.0-3.2); LYMPHOCYTES % 18.3 % (18.0-39.1); MEAN CORPUSCULAR HGB CONC 31.2 g/dL (31-35); MEAN CORPUSCULAR VOLUME 89.7 fL (81-99); MONOCYTES # (AUTO) 1.2 (0.2-0.8); MONOCYTES % 8.4 % (4.4-11.3); NEUTROPHILS % 71.7 % (38.7-80.0); PLATELET COUNT 361 x10e3/uL (140-360); RED BLOOD COUNT 3.11 x10e6/uL (4.3-5.7); RED CELL DISTRIBUTION WIDTH 16.1 % (11.7-14.4)
[2020-06-22 06:56] LABS: ALANINE AMINOTRANSFERASE 27 IU/L (0-55); ALBUMIN 1.9 g/dL (3.5-5.0); ALBUMIN/GLOBULIN RATIO 0.5 (0.8-2.0); ALKALINE PHOSPHATASE 145 IU/L (40-150); ANION GAP 13.7 mmol/L (8-16); BLOOD UREA NITROGEN 5 mg/dL (7-26); BUN/CREATININE RATIO 6 (6-25); CALCIUM 7.4 mg/dL (8.4-10.2); CARBON DIOXIDE 20 mmol/L (22-29); CHLORIDE 106 mmol/L (98-107); CREATININE, SERUM 0.77 mg/dL (0.72-1.25); EST GLOMERULAR FILTRATION RATE > 60 ML/MIN (60-); GLUCOSE 110 mg/dL (74-118); POTASSIUM 3.7 mmol/L (3.5-5.1); SODIUM 136 mmol/L (136-145)
[2020-06-22] MEDS: INSULIN LISPRO 100 UNIT/1 ML 3ML VIAL SQ SCH ×4 (07:30→21:00)
[2020-06-22 08:00] VITALS: BP 113/63
[2020-06-22] MEDS: PANCRELIPASE 6000 ER CAPSULE PO SCH ×3 (08:00→17:00)
[2020-06-22] MEDS: PANTOPRAZOLE 40 MG 10ML VIAL IV SCH ×2 (08:30→17:13)
[2020-06-22] MEDS: AMLODIPINE BESYLATE 5 MG TAB PO SCH (09:40)
[2020-06-22] MEDS: SODIUM CHLORIDE 0.9% IV SCH ×2 (09:40→20:55)
[2020-06-22] MEDS: MAGNESIUM OXIDE 400 MG TAB PO SCH (09:40)
[2020-06-22] MEDS: LEVETIRACETAM IV SCH ×2 (09:40→20:55)
[2020-06-22] MEDS: COLLAGENASE 5 GM TUBE TOP SCH (09:41)
[2020-06-22] MEDS: METOPROLOL SUCCINATE 50 MG TAB XL PO SCH ×3 (09:41→18:00)
[2020-06-22] MEDS: INSULIN GLARGINE 100 UNITS/ML VIAL SQ SCH (09:49)
[2020-06-22] MEDS: HEPARIN SOD (PORCINE) 5,000 UNIT/ML VIAL SC SCH ×2 (09:50→21:00)
[2020-06-22 11:30] VITALS: BP 107/59
[2020-06-22 16:22] VITALS: BP 120/67
[2020-06-22 20:00] VITALS: BP 103/59
[2020-06-22] MEDS: CENTRAL TPN FORMULA 1 BAG IV SCH (20:30)
[2020-06-23] VITALS (8 sets, daily range): BP systolic 105–115; BP diastolic 52–64
[2020-06-23] MEDS: METOCLOPRAMIDE HCL 10 MG/2ML VIAL IV SCH ×4 (00:13→18:32)
[2020-06-23] MEDS: MORPHINE SULFATE INJ 2 MG/ML SYR IV PRN ×3 (02:54→18:20)
[2020-06-23] MEDS: SODIUM CHLORIDE 0.9% 1000ML 1,000 ML IV SCH ×3 (03:00→23:00)
[2020-06-23 06:08] LABS: BASOPHILS % 0.2 % (0.0-1.0); EOSINOPHILS % 0.2 % (0.0-6.0); HEMATOCRIT 24.8 % (38.2-49.6); HEMOGLOBIN 7.2 g/dL (14.0-18.0); LYMPHOCYTES # (AUTO) 1.4 (1.0-3.2); MEAN CORPUSCULAR VOLUME 96.5 fL (81-99); MONOCYTES # (AUTO) 1.1 (0.2-0.8); MONOCYTES % 9.1 % (4.4-11.3); NEUTROPHILS # (AUTO) 9.9 (2.1-6.9); NEUTROPHILS % 78.6 % (38.7-80.0); PLATELET COUNT 347 x10e3/uL (140-360); RED BLOOD COUNT 2.57 x10e6/uL (4.3-5.7); RED CELL DISTRIBUTION WIDTH 16.5 % (11.7-14.4)
[2020-06-23] MEDS: LINEZOLID 600 MG/D5W 300ML 300 ML IV SCH ×2 (06:28→18:32)
[2020-06-23] MEDS: CEFEPIME HCL 1GM 1 GM in SODIUM CHLORIDE 0.9% 50ML 50 ML IV SCH ×3 (06:29→22:16)
[2020-06-23] MEDS: CHLORDIAZEPOXIDE/CLIDINIUM 1 CAP PO SCH ×4 (07:30→21:00)
[2020-06-23] MEDS: PANTOPRAZOLE 40 MG 10ML VIAL IV SCH ×2 (07:30→17:27)
[2020-06-23] MEDS: INSULIN LISPRO 100 UNIT/1 ML 3ML VIAL SQ SCH ×4 (07:30→21:00)
[2020-06-23] MEDS: PANCRELIPASE 6000 ER CAPSULE PO SCH ×3 (08:00→17:00)
[2020-06-23] MEDS: SODIUM CHLORIDE 0.9% IV SCH ×2 (09:00→21:00)
[2020-06-23] MEDS: LEVETIRACETAM IV SCH ×2 (09:00→21:00)
[2020-06-23] MEDS: METOPROLOL SUCCINATE 50 MG TAB XL PO SCH ×2 (09:00→18:32)
[2020-06-23] MEDS: AMLODIPINE BESYLATE 5 MG TAB PO SCH (09:00)
[2020-06-23] MEDS: MAGNESIUM OXIDE 400 MG TAB PO SCH (09:10)
[2020-06-23] MEDS: HEPARIN SOD (PORCINE) 5,000 UNIT/ML VIAL SC SCH ×2 (09:11→21:04)
[2020-06-23] MEDS: COLLAGENASE 5 GM TUBE TOP SCH (09:11)
[2020-06-23] MEDS: INSULIN GLARGINE 100 UNITS/ML VIAL SQ SCH (09:12)
[2020-06-23] MEDS: ACETAMINOPHEN 325 MG TAB PO PRN (13:50)
[2020-06-23] MEDS ORDERED: SODIUM CHLORIDE 0.9% 250ML 250 ML ONE (14:25)
[2020-06-23] MEDS: CENTRAL TPN FORMULA 1 BAG IV SCH (20:59)
[2020-06-24] VITALS (7 sets, daily range): BP systolic 108–131; BP diastolic 62–74
[2020-06-24] MEDS: METOCLOPRAMIDE HCL 10 MG/2ML VIAL IV SCH ×4 (00:09→18:12)
[2020-06-24] MEDS: MORPHINE SULFATE INJ 2 MG/ML SYR IV PRN ×2 (04:20→15:01)
[2020-06-24] MEDS: ONDANSETRON HCL INJ 2MG/ML 2ML 2 MG/ML VIAL IV PRN (04:20)
[2020-06-24] MEDS: CEFEPIME HCL 1GM 1 GM in SODIUM CHLORIDE 0.9% 50ML 50 ML IV SCH ×3 (05:23→22:00)
[2020-06-24 05:46] LABS: BASOPHILS # (AUTO) 0.1 (0.0-0.1); BASOPHILS % 0.4 % (0.0-1.0); EOSINOPHILS % 0.1 % (0.0-6.0); HEMATOCRIT 29.7 % (38.2-49.6); HEMOGLOBIN 9.3 g/dL (14.0-18.0); LYMPHOCYTES # (AUTO) 1.5 (1.0-3.2); LYMPHOCYTES % 12.4 % (18.0-39.1); MEAN CORPUSCULAR HEMOGLOBIN 28.1 pg (28-32); MEAN CORPUSCULAR HGB CONC 31.3 g/dL (31-35); MEAN CORPUSCULAR VOLUME 89.7 fL (81-99); MONOCYTES # (AUTO) 1.4 (0.2-0.8); MONOCYTES % 11.7 % (4.4-11.3); NEUTROPHILS # (AUTO) 8.7 (2.1-6.9); NEUTROPHILS % 74.1 % (38.7-80.0); PLATELET COUNT 316 x10e3/uL (140-360); RED BLOOD COUNT 3.31 x10e6/uL (4.3-5.7); RED CELL DISTRIBUTION WIDTH 15.8 % (11.7-14.4)
[2020-06-24] MEDS: LINEZOLID 600 MG/D5W 300ML 300 ML IV SCH ×2 (05:57→18:07)
[2020-06-24] MEDS: INSULIN LISPRO 100 UNIT/1 ML 3ML VIAL SQ SCH ×4 (07:30→21:00)
[2020-06-24 07:59] LABS: ANION GAP 14.8 mmol/L (8-16); BLOOD UREA NITROGEN 8 mg/dL (7-26); BUN/CREATININE RATIO 13 (6-25); CALCIUM 7.8 mg/dL (8.4-10.2); CARBON DIOXIDE 20 mmol/L (22-29); CHLORIDE 106 mmol/L (98-107); CREATININE, SERUM 0.64 mg/dL (0.72-1.25); EST GLOMERULAR FILTRATION RATE > 60 ML/MIN (60-); GLUCOSE 131 mg/dL (74-118); POTASSIUM 3.8 mmol/L (3.5-5.1); SODIUM 137 mmol/L (136-145)
[2020-06-24] MEDS: PANCRELIPASE 6000 ER CAPSULE PO SCH ×2 (08:00→11:23)
[2020-06-24] MEDS: SODIUM CHLORIDE 0.9% 1000ML 1,000 ML IV SCH ×2 (09:00→18:12)
[2020-06-24] MEDS: INSULIN GLARGINE 100 UNITS/ML VIAL SQ SCH (10:00)
[2020-06-24] MEDS: SODIUM CHLORIDE 0.9% IV SCH ×2 (11:06→21:00)
[2020-06-24] MEDS: LEVETIRACETAM IV SCH ×2 (11:06→21:00)
[2020-06-24] MEDS: PANTOPRAZOLE 40 MG 10ML VIAL IV SCH ×2 (11:06→18:12)
[2020-06-24] MEDS: HEPARIN SOD (PORCINE) 5,000 UNIT/ML VIAL SC SCH ×2 (11:11→21:00)
[2020-06-24] MEDS: CHLORDIAZEPOXIDE/CLIDINIUM 1 CAP PO SCH ×5 (11:19→21:00)
[2020-06-24] MEDS: MAGNESIUM OXIDE 400 MG TAB PO SCH (11:19)
[2020-06-24] MEDS: COLLAGENASE 5 GM TUBE TOP SCH (11:20)
[2020-06-24] MEDS: METOPROLOL SUCCINATE 50 MG TAB XL PO SCH ×2 (11:20→18:15)
[2020-06-24] MEDS: AMLODIPINE BESYLATE 5 MG TAB PO SCH (11:20)
[2020-06-24] MEDS: AMYLAS/CELLU/LIPAS/PROTEA/BILE 12,000 UNIT CAP PO SCH ×2 (12:00→17:00)
[2020-06-24] MEDS: CENTRAL TPN FORMULA 1 BAG IV SCH (20:00)
[2020-06-24] MEDS ORDERED: SODIUM CHLORIDE 0.9% 50ML 50 ML ONE (22:22)
[2020-06-25] MEDS: METOCLOPRAMIDE HCL 10 MG/2ML VIAL IV SCH ×4 (00:12→18:24)
[2020-06-25] MEDS: LINEZOLID 600 MG/D5W 300ML 300 ML IV SCH ×2 (04:42→18:24)
[2020-06-25] MEDS: SODIUM CHLORIDE 0.9% 1000ML 1,000 ML IV SCH ×3 (05:00→15:00)
[2020-06-25] MEDS: CEFEPIME HCL 1GM 1 GM in SODIUM CHLORIDE 0.9% 50ML 50 ML IV SCH ×3 (06:00→22:00)
[2020-06-25] MEDS: INSULIN LISPRO 100 UNIT/1 ML 3ML VIAL SQ SCH ×4 (07:30→21:00)
[2020-06-25] MEDS: AMYLAS/CELLU/LIPAS/PROTEA/BILE 12,000 UNIT CAP PO SCH ×3 (08:00→17:00)
[2020-06-25 08:37] VITALS: BP 108/62
[2020-06-25 08:45] VITALS: BP 107/50
[2020-06-25] MEDS: AMLODIPINE BESYLATE 5 MG TAB PO SCH (09:00)
[2020-06-25] MEDS: INSULIN GLARGINE 100 UNITS/ML VIAL SQ SCH (10:00)
[2020-06-25] MEDS: ONDANSETRON HCL INJ 2MG/ML 2ML 2 MG/ML VIAL IV SCH ×3 (10:40→18:23)
[2020-06-25] MEDS: PANTOPRAZOLE 40 MG 10ML VIAL IV SCH ×2 (10:40→18:23)
[2020-06-25] MEDS: METOPROLOL SUCCINATE 50 MG TAB XL PO SCH ×2 (10:55→18:24)
[2020-06-25] MEDS: MAGNESIUM OXIDE 400 MG TAB PO SCH (10:55)
[2020-06-25] MEDS: CHLORDIAZEPOXIDE/CLIDINIUM 1 CAP PO SCH ×4 (10:55→21:00)
[2020-06-25] MEDS: COLLAGENASE 5 GM TUBE TOP SCH (11:01)
[2020-06-25] MEDS: HEPARIN SOD (PORCINE) 5,000 UNIT/ML VIAL SC SCH ×2 (11:02→21:00)
[2020-06-25 11:34] VITALS: BP 116/66
[2020-06-25] MEDS: SODIUM CHLORIDE 0.9% IV SCH ×2 (12:25→21:00)
[2020-06-25] MEDS: LEVETIRACETAM IV SCH ×2 (12:25→21:00)
[2020-06-25 16:19] VITALS: BP 112/69
[2020-06-25] MEDS: MORPHINE SULFATE INJ 2 MG/ML SYR IV PRN (18:24)
[2020-06-25 19:38] VITALS: BP 116/66
[2020-06-25] MEDS: CENTRAL TPN FORMULA 1 BAG IV SCH (20:00)
[2020-06-25 20:37] VITALS: BP 116/66
[2020-06-26] MEDS: SODIUM CHLORIDE 0.9% 1000ML 1,000 ML IV SCH ×3 (01:00→21:00)
[2020-06-26] MEDS: LINEZOLID 600 MG/D5W 300ML 300 ML IV SCH ×2 (05:30→17:44)
[2020-06-26] MEDS: METOCLOPRAMIDE HCL 10 MG/2ML VIAL IV SCH ×4 (06:00→17:44)
[2020-06-26] MEDS: CEFEPIME HCL 1GM 1 GM in SODIUM CHLORIDE 0.9% 50ML 50 ML IV SCH ×3 (06:00→22:00)
[2020-06-26] MEDS: INSULIN LISPRO 100 UNIT/1 ML 3ML VIAL SQ SCH ×4 (07:30→21:00)
[2020-06-26 07:43] LABS: BASOPHILS % 0.5 % (0.0-1.0); EOSINOPHILS % 0.1 % (0.0-6.0); HEMATOCRIT 30.2 % (38.2-49.6); HEMOGLOBIN 9.6 g/dL (14.0-18.0); LYMPHOCYTES # (AUTO) 1.5 (1.0-3.2); LYMPHOCYTES % 17.2 % (18.0-39.1); MEAN CORPUSCULAR HEMOGLOBIN 28.6 pg (28-32); MEAN CORPUSCULAR HGB CONC 31.8 g/dL (31-35); MEAN CORPUSCULAR VOLUME 89.9 fL (81-99); MONOCYTES % 10.8 % (4.4-11.3); NEUTROPHILS # (AUTO) 5.9 (2.1-6.9); NEUTROPHILS % 66.7 % (38.7-80.0); PLATELET COUNT 312 x10e3/uL (140-360); RED BLOOD COUNT 3.36 x10e6/uL (4.3-5.7); RED CELL DISTRIBUTION WIDTH 15.7 % (11.7-14.4)
[2020-06-26] MEDS: AMYLAS/CELLU/LIPAS/PROTEA/BILE 12,000 UNIT CAP PO SCH ×3 (08:00→17:00)
[2020-06-26 08:09] LABS: ALANINE AMINOTRANSFERASE 61 IU/L (0-55); ALBUMIN/GLOBULIN RATIO 0.5 (0.8-2.0); ALKALINE PHOSPHATASE 171 IU/L (40-150); ANION GAP 10.4 mmol/L (8-16); BLOOD UREA NITROGEN 9 mg/dL (7-26); BUN/CREATININE RATIO 15 (6-25); CALCIUM 8.1 mg/dL (8.4-10.2); CARBON DIOXIDE 22 mmol/L (22-29); CHLORIDE 105 mmol/L (98-107); CREATININE, SERUM 0.62 mg/dL (0.72-1.25); EST GLOMERULAR FILTRATION RATE > 60 ML/MIN (60-); GLUCOSE 151 mg/dL (74-118); POTASSIUM 4.4 mmol/L (3.5-5.1); SODIUM 133 mmol/L (136-145)
[2020-06-26 08:34] VITALS: BP 112/65
[2020-06-26] MEDS: MAGNESIUM OXIDE 400 MG TAB PO SCH (09:26)
[2020-06-26] MEDS: CHLORDIAZEPOXIDE/CLIDINIUM 1 CAP PO SCH ×4 (09:27→21:00)
[2020-06-26] MEDS: ONDANSETRON HCL INJ 2MG/ML 2ML 2 MG/ML VIAL IV SCH ×3 (09:36→17:21)
[2020-06-26] MEDS: PANTOPRAZOLE 40 MG 10ML VIAL IV SCH ×2 (09:36→17:20)
[2020-06-26] MEDS: SODIUM CHLORIDE 0.9% IV SCH ×2 (09:37→21:00)
[2020-06-26] MEDS: LEVETIRACETAM IV SCH ×2 (09:37→21:00)
[2020-06-26] MEDS: METOPROLOL SUCCINATE 50 MG TAB XL PO SCH ×2 (09:41→17:00)
[2020-06-26] MEDS: AMLODIPINE BESYLATE 5 MG TAB PO SCH (09:41)
[2020-06-26 09:54] VITALS: BP 112/65
[2020-06-26] MEDS: INSULIN GLARGINE 100 UNITS/ML VIAL SQ SCH (10:03)
[2020-06-26 11:58] VITALS: BP 111/68
[2020-06-26 16:22] VITALS: BP 105/65
[2020-06-26] MEDS: COLLAGENASE 5 GM TUBE TOP SCH (17:14)
[2020-06-26] MEDS: MORPHINE SULFATE INJ 2 MG/ML SYR IV PRN (17:44)
[2020-06-26] MEDS: CENTRAL TPN FORMULA 1 BAG IV SCH (20:00)
[2020-06-27] MEDS: LINEZOLID 600 MG/D5W 300ML 300 ML IV SCH ×2 (05:30→16:53)
[2020-06-27] MEDS: CEFEPIME HCL 1GM 1 GM in SODIUM CHLORIDE 0.9% 50ML 50 ML IV SCH ×3 (06:00→22:00)
[2020-06-27] MEDS: METOCLOPRAMIDE HCL 10 MG/2ML VIAL IV SCH ×4 (06:00→17:09)
[2020-06-27] MEDS: AMYLAS/CELLU/LIPAS/PROTEA/BILE 12,000 UNIT CAP PO SCH ×3 (08:00→16:47)
[2020-06-27 08:11] VITALS: BP 112/69
[2020-06-27] MEDS: ONDANSETRON HCL INJ 2MG/ML 2ML 2 MG/ML VIAL IV SCH ×3 (08:27→16:53)
[2020-06-27] MEDS: PANTOPRAZOLE 40 MG 10ML VIAL IV SCH ×2 (08:27→16:53)
[2020-06-27] MEDS: CHLORDIAZEPOXIDE/CLIDINIUM 1 CAP PO SCH ×4 (08:27→21:00)
[2020-06-27] MEDS: INSULIN LISPRO 100 UNIT/1 ML 3ML VIAL SQ SCH ×4 (08:28→21:00)
[2020-06-27] MEDS: AMLODIPINE BESYLATE 5 MG TAB PO SCH (08:28)
[2020-06-27] MEDS: MAGNESIUM OXIDE 400 MG TAB PO SCH (08:28)
[2020-06-27] MEDS: HEPARIN SOD (PORCINE) 5,000 UNIT/ML VIAL SC SCH ×2 (08:29→21:00)
[2020-06-27] MEDS: METOPROLOL SUCCINATE 50 MG TAB XL PO SCH ×2 (08:29→16:47)
[2020-06-27] MEDS: INSULIN GLARGINE 100 UNITS/ML VIAL SQ SCH (08:31)
[2020-06-27] MEDS: SODIUM CHLORIDE 0.9% IV SCH (08:48)
[2020-06-27] MEDS: LEVETIRACETAM IV SCH (08:48)
[2020-06-27 08:53] VITALS: BP 112/69
[2020-06-27] MEDS: COLLAGENASE 5 GM TUBE TOP SCH (09:00)
[2020-06-27] MEDS: MORPHINE SULFATE INJ 2 MG/ML SYR IV PRN ×2 (10:21→23:30)
[2020-06-27 11:33] VITALS: BP 109/64
[2020-06-27] MEDS: SODIUM CHLORIDE 0.9% 1000ML 1,000 ML IV SCH ×2 (14:09→16:41)
[2020-06-27 16:10] VITALS: BP 115/74
[2020-06-27] MEDS: CENTRAL TPN FORMULA 1 BAG IV SCH (20:00)
[2020-06-27 21:04] VITALS: BP 119/71
[2020-06-28] MEDS: SODIUM CHLORIDE 0.9% 1000ML 1,000 ML IV SCH ×3 (03:00→21:23)
[2020-06-28] MEDS: LINEZOLID 600 MG/D5W 300ML 300 ML IV SCH ×2 (05:30→17:01)
[2020-06-28] MEDS: CEFEPIME HCL 1GM 1 GM in SODIUM CHLORIDE 0.9% 50ML 50 ML IV SCH ×3 (06:00→22:00)
[2020-06-28] MEDS: METOCLOPRAMIDE HCL 10 MG/2ML VIAL IV SCH ×4 (06:00→17:01)
[2020-06-28 06:21] LABS: BASOPHILS # (AUTO) 0.1 (0.0-0.1); BASOPHILS % 0.7 % (0.0-1.0); EOSINOPHILS # (AUTO) 0.1 (0.0-0.4); EOSINOPHILS % 0.5 % (0.0-6.0); HEMATOCRIT 31.4 % (38.2-49.6); LYMPHOCYTES # (AUTO) 1.8 (1.0-3.2); LYMPHOCYTES % 11.9 % (18.0-39.1); MEAN CORPUSCULAR HEMOGLOBIN 28.5 pg (28-32); MEAN CORPUSCULAR HGB CONC 31.8 g/dL (31-35); MEAN CORPUSCULAR VOLUME 89.5 fL (81-99); MONOCYTES % 6.5 % (4.4-11.3); NEUTROPHILS # (AUTO) 11.8 (2.1-6.9); PLATELET COUNT 341 x10e3/uL (140-360); RED BLOOD COUNT 3.51 x10e6/uL (4.3-5.7); RED CELL DISTRIBUTION WIDTH 15.7 % (11.7-14.4)
[2020-06-28] MEDS: AMYLAS/CELLU/LIPAS/PROTEA/BILE 12,000 UNIT CAP PO SCH ×3 (08:00→15:45)
[2020-06-28 08:25] VITALS: BP 119/71
[2020-06-28] MEDS: PANTOPRAZOLE 40 MG 10ML VIAL IV SCH ×2 (08:25→16:56)
[2020-06-28] MEDS: ONDANSETRON HCL INJ 2MG/ML 2ML 2 MG/ML VIAL IV SCH ×3 (08:26→16:59)
[2020-06-28] MEDS: CHLORDIAZEPOXIDE/CLIDINIUM 1 CAP PO SCH ×4 (08:27→21:00)
[2020-06-28] MEDS: MAGNESIUM OXIDE 400 MG TAB PO SCH (08:27)
[2020-06-28] MEDS: METOPROLOL SUCCINATE 50 MG TAB XL PO SCH ×2 (08:29→17:02)
[2020-06-28] MEDS: AMLODIPINE BESYLATE 5 MG TAB PO SCH (08:29)
[2020-06-28 08:30] VITALS: BP 120/75
[2020-06-28] MEDS: COLLAGENASE 5 GM TUBE TOP SCH (08:31)
[2020-06-28] MEDS: HEPARIN SOD (PORCINE) 5,000 UNIT/ML VIAL SC SCH ×2 (08:50→21:00)
[2020-06-28] MEDS: INSULIN GLARGINE 100 UNITS/ML VIAL SQ SCH (08:50)
[2020-06-28] MEDS: INSULIN LISPRO 100 UNIT/1 ML 3ML VIAL SQ SCH ×4 (08:50→21:00)
[2020-06-28] MEDS: MORPHINE SULFATE INJ 2 MG/ML SYR IV PRN (12:08)
[2020-06-28 12:59] VITALS: BP 120/74
[2020-06-28 16:45] VITALS: BP 110/59
[2020-06-28] MEDS: CENTRAL TPN FORMULA 1 BAG IV SCH (20:00)
[2020-06-28 20:59] VITALS: BP 124/69
[2020-06-29] MEDS: LINEZOLID 600 MG/D5W 300ML 300 ML IV SCH (05:43)
[2020-06-29] MEDS: CEFEPIME HCL 1GM 1 GM in SODIUM CHLORIDE 0.9% 50ML 50 ML IV SCH ×2 (06:37→14:00)
[2020-06-29] MEDS: METOCLOPRAMIDE HCL 10 MG/2ML VIAL IV SCH ×3 (06:37→12:27)
[2020-06-29] MEDS: INSULIN LISPRO 100 UNIT/1 ML 3ML VIAL SQ SCH ×2 (07:30→11:30)
[2020-06-29 07:39] LABS: BASOPHILS # (AUTO) 0.1 (0.0-0.1); BASOPHILS % 0.6 % (0.0-1.0); EOSINOPHILS # (AUTO) 0.1 (0.0-0.4); EOSINOPHILS % 0.6 % (0.0-6.0); HEMATOCRIT 29.2 % (38.2-49.6); HEMOGLOBIN 9.2 g/dL (14.0-18.0); LYMPHOCYTES # (AUTO) 1.6 (1.0-3.2); LYMPHOCYTES % 12.7 % (18.0-39.1); MEAN CORPUSCULAR HEMOGLOBIN 28.5 pg (28-32); MEAN CORPUSCULAR HGB CONC 31.5 g/dL (31-35); MEAN CORPUSCULAR VOLUME 90.4 fL (81-99); MONOCYTES # (AUTO) 0.8 (0.2-0.8); MONOCYTES % 6.8 % (4.4-11.3); NEUTROPHILS # (AUTO) 9.1 (2.1-6.9); NEUTROPHILS % 74.8 % (38.7-80.0); PLATELET COUNT 319 x10e3/uL (140-360); RED BLOOD COUNT 3.23 x10e6/uL (4.3-5.7); RED CELL DISTRIBUTION WIDTH 15.8 % (11.7-14.4)
[2020-06-29 07:54] LABS: ALANINE AMINOTRANSFERASE 33 IU/L (0-55); ALBUMIN 2.3 g/dL (3.5-5.0); ALBUMIN/GLOBULIN RATIO 0.6 (0.8-2.0); ALKALINE PHOSPHATASE 150 IU/L (40-150); ANION GAP 13.5 mmol/L (8-16); BLOOD UREA NITROGEN 9 mg/dL (7-26); BUN/CREATININE RATIO 15 (6-25); CALCIUM 8.4 mg/dL (8.4-10.2); CARBON DIOXIDE 22 mmol/L (22-29); CHLORIDE 104 mmol/L (98-107); CREATININE, SERUM 0.61 mg/dL (0.72-1.25); EST GLOMERULAR FILTRATION RATE > 60 ML/MIN (60-); GLUCOSE 150 mg/dL (74-118); POTASSIUM 4.5 mmol/L (3.5-5.1); SODIUM 135 mmol/L (136-145)
[2020-06-29 09:00] VITALS: BP 115/71
[2020-06-29 09:02] VITALS: BP 115/71
[2020-06-29] MEDS: ONDANSETRON HCL INJ 2MG/ML 2ML 2 MG/ML VIAL IV SCH ×2 (09:59→12:31)
[2020-06-29] MEDS: PANTOPRAZOLE 40 MG 10ML VIAL IV SCH (09:59)
[2020-06-29] MEDS: CHLORDIAZEPOXIDE/CLIDINIUM 1 CAP PO SCH ×2 (10:01→12:31)
[2020-06-29] MEDS: AMYLAS/CELLU/LIPAS/PROTEA/BILE 12,000 UNIT CAP PO SCH ×2 (10:02→12:31)
[2020-06-29] MEDS: MAGNESIUM OXIDE 400 MG TAB PO SCH (10:02)
[2020-06-29] MEDS: SODIUM CHLORIDE 0.9% 1000ML 1,000 ML IV SCH (10:02)
[2020-06-29] MEDS: METOPROLOL SUCCINATE 50 MG TAB XL PO SCH (10:03)
[2020-06-29] MEDS: AMLODIPINE BESYLATE 5 MG TAB PO SCH (10:03)
[2020-06-29] MEDS: HEPARIN SOD (PORCINE) 5,000 UNIT/ML VIAL SC SCH (10:05)
[2020-06-29] MEDS: INSULIN GLARGINE 100 UNITS/ML VIAL SQ SCH (10:07)
[2020-06-29] MEDS: COLLAGENASE 5 GM TUBE TOP SCH (10:07)
[2020-06-29] MEDS ORDERED: MORPHINE SULFATE INJ 2 MG/ML SYR IV PRN (13:00)
== END 2020-06-29 15:28 | DRG 870 ==
LOC: ER 07:48 → INTOOBSV 07:54 → OBSVTOIN 07:54 → ERHOLD 07:54 → ICU 04-12 13:33 → IMCU 04-21 21:24 → COVIDICU 05-12 01:21 → ICU 06-01 17:14 → IMCU 06-04 05:33 → MED/SURG3 06-08 08:40
PROVIDERS: ADMIT Internal Medicine; ATTEND Internal Medicine
PROC: 02HV33Z Insertion of Infusion Device into Superior Vena Cava, Percutaneous Approach (ICD-10-PCS; 2020-04-11)
PROC: 02HV33Z Insertion of Infusion Device into Superior Vena Cava, Percutaneous Approach (ICD-10-PCS; 2020-04-12)
PROC: 5A1D70Z Performance of Urinary Filtration, Intermittent, Less than 6 Hours Per Day (ICD-10-PCS; 2020-04-13)
PROC: 0JH63XZ Insertion of Tunneled Vascular Access Device into Chest Subcutaneous Tissue and Fascia, Percutaneous Approach (ICD-10-PCS; 2020-04-29)
PROC: 0BH17EZ Insertion of Endotracheal Airway into Trachea, Via Natural or Artificial Opening (ICD-10-PCS; principal; 2020-05-12)
PROC: 5A1955Z Respiratory Ventilation, Greater than 96 Consecutive Hours (ICD-10-PCS; 2020-05-12)
PROC: 0W9G3ZZ Drainage of Peritoneal Cavity, Percutaneous Approach (ICD-10-PCS; 2020-05-12)
PROC: 0W9G3ZZ Drainage of Peritoneal Cavity, Percutaneous Approach (ICD-10-PCS; 2020-05-13)
PROC: 02HV33Z Insertion of Infusion Device into Superior Vena Cava, Percutaneous Approach (ICD-10-PCS; 2020-05-22)
PROC: 0W9G3ZZ Drainage of Peritoneal Cavity, Percutaneous Approach (ICD-10-PCS; 2020-06-03)
PROC: 0W9G3ZZ Drainage of Peritoneal Cavity, Percutaneous Approach (ICD-10-PCS; 2020-06-07)
PROC: 0W9G3ZZ Drainage of Peritoneal Cavity, Percutaneous Approach (ICD-10-PCS; 2020-06-07)
PROC: 0W9G3ZZ Drainage of Peritoneal Cavity, Percutaneous Approach (ICD-10-PCS; 2020-06-07)
DX: A41.89 Other specified sepsis (principal); U07.1 COVID-19; E11.10 Type 2 diabetes mellitus with ketoacidosis without coma; J96.00 Acute respiratory failure, unspecified whether with hypoxia or hypercapnia; J12.82 Pneumonia due to coronavirus disease 2019; K65.9 Peritonitis, unspecified; K85.92 Acute pancreatitis with infected necrosis, unspecified; E87.2 Acidosis; I47.1 Supraventricular tachycardia; N17.9 Acute kidney failure, unspecified; E44.0 Moderate protein-calorie malnutrition; E87.4 Mixed disorder of acid-base balance; R65.20 Severe sepsis without septic shock; E86.1 Hypovolemia; D69.6 Thrombocytopenia, unspecified; E87.6 Hypokalemia; R56.9 Unspecified convulsions; Z68.27 Body mass index [BMI] 27.0-27.9, adult; D69.59 Other secondary thrombocytopenia; F43.23 Adjustment disorder with mixed anxiety and depressed mood; E11.65 Type 2 diabetes mellitus with hyperglycemia
CPT/HCPCS: 31500; 36415; 36558; 36569; 36584; 36589; 36600; 49083; 49406; 50200; 70450; 71045; 71046; 71250; 72148; 74018; 74019; 74176; 74177; 74183; 74470; 76700; 76705; 76937; 76942; 77001; 77012; 80048; 80053; 80061; 80202; 81001; 81050; 81161; 81220; 82140; 82150; 82550; 82553; 82575; 82607; 82728; 82746; 82805; 82948; 83010; 83036; 83520; 83540; 83605; 83615; 83630; 83690; 83735; 83970; 84100; 84156; 84157; 84439; 84443; 84466; 84478; 84484; 85007; 85014; 85018; 85025; 85027; 85045; 85379; 85384; 85610; 85651; 85730; 86021; 86039; 86140; 86160; 86225; 86704; 86706; 86850; 86900; 86920; 87040; 87045; 87070; 87086; 87102; 87116; 87177; 87186; 87205; 87206; 87340; 87390; 88112; 88305; 89051; 90962; 92950; 93005; 93041; 93306; 93970; 93971; 94002; 94003; 95819; 96361; 96365; 96366; 96372; 97139; 99251; 99285; G0433; G0435; J0153; J0171; J0360; J0456; J0610; J0692; J0696; J1160; J1170; J1630; J1644; J1650; J1756; J1815; J1817; J1940; J2001; J2020; J2060; J2185; J2248; J2250; J2270; J2310; J2405; J2543; J2765; J2920; J2997; J3010; J3370; J3475; J3480; J3486; J7030; J7042; J7050; J7070; J7121; J7799; P9016; P9047; Q9967; U0002

== ENCOUNTER 2020-08-06 12:36 | Inpatient (IN) | payer BC ==
[~2020-08-06] VITALS: Ht 180.3 cm; Wt 73.6 kg
[~2020-08-06 12:36] MED LIST changes: -ACETAMINOPHEN 1000 MG/100 ML IV ONE; -BUPIVACAINE HCL 0.5% INJ 30 ML VIAL INJ ONE; -CEFAZOLIN SOD 1 GM/NS 50ML 100 ML IV ONE; -DEXAMETHASONE SOD PHOS INJ 4 MG/ML VIAL ONE; -FENTANYL CITRATE/PF 100MCG/2 ML INJ ONE; +GLIMEPIRIDE2 MG PO; -GLYCOPYRROLATE INJ 1MG/ 5 ML SYR ONE; -KETOROLAC TROMETHAMINE 30 MG/ML VIAL ONE; -LIDOCAINE HCL 2% LOCAL INJ 5 ML SDV VIAL INJ ONE; +LIPITOR20 MG PO; -MIDAZOLAM HCL 2 MG/2 ML VIAL ONE; -NEOSTIGMINE 5 MG/5ML SYR ONE; -ONDANSETRON HCL INJ 2MG/ML 2ML 2 MG/ML VIAL ONE; -PROPOFOL IV EMULSION 10 MG/ML 20 ML VIAL ONE; -ROCURONIUM BROMIDE 10 MG/ML 5ML VIAL ONE; -SEVOFLURANE INHAL SOLN 250 ML PEN BTL ONE
[2020-08-06 17:22] LABS: BASOPHILS # (AUTO) 0.1 (0.0-0.1); BASOPHILS % 0.8 % (0.0-1.0); EOSINOPHILS # (AUTO) 0.2 (0.0-0.4); EOSINOPHILS % 1.3 % (0.0-6.0); HEMATOCRIT 29.7 % (38.2-49.6); HEMOGLOBIN 9.4 g/dL (14.0-18.0); LYMPHOCYTES # (AUTO) 1.8 (1.0-3.2); LYMPHOCYTES % 16.3 % (18.0-39.1); MEAN CORPUSCULAR HEMOGLOBIN 27.7 pg (28-32); MEAN CORPUSCULAR HGB CONC 31.6 g/dL (31-35); MEAN CORPUSCULAR VOLUME 87.6 fL (81-99); MONOCYTES # (AUTO) 1.1 (0.2-0.8); NEUTROPHILS # (AUTO) 7.4 (2.1-6.9); NEUTROPHILS % 65.9 % (38.7-80.0); PLATELET COUNT 210 x10e3/uL (140-360); RED BLOOD COUNT 3.39 x10e6/uL (4.3-5.7); RED CELL DISTRIBUTION WIDTH 14.4 % (11.7-14.4)
[2020-08-06] MEDS: HYDROMORPHONE 1MG/1ML INJ IV PRN ×2 (17:33→22:10)
[2020-08-06 17:40] LABS: ALANINE AMINOTRANSFERASE 174 IU/L (0-55); ALBUMIN 2.4 g/dL (3.5-5.0); ALBUMIN/GLOBULIN RATIO 0.6 (0.8-2.0); ALKALINE PHOSPHATASE 177 IU/L (40-150); ANION GAP 14.9 mmol/L (8-16); BLOOD UREA NITROGEN 10 mg/dL (7-26); BUN/CREATININE RATIO 16 (6-25); CALCIUM 8.3 mg/dL (8.4-10.2); CARBON DIOXIDE 19 mmol/L (22-29); CHLORIDE 99 mmol/L (98-107); CREATININE, SERUM 0.63 mg/dL (0.72-1.25); EST GLOMERULAR FILTRATION RATE > 60 ML/MIN (60-); GLUCOSE 120 mg/dL (74-118); POTASSIUM 3.9 mmol/L (3.5-5.1); SODIUM 129 mmol/L (136-145)
[2020-08-06] MEDS ORDERED: PANTOPRAZOLE SO40 MG IV (17:40)
[2020-08-06] MEDS ORDERED: AMLODIPINE BESYL5 MG PO (17:40)
[2020-08-06] MEDS ORDERED: HYDROMORPHO2 MG/1 M1 IV (17:40)
[2020-08-06] MEDS ORDERED: REMERON15 MG PO (17:40)
[2020-08-06] MEDS ORDERED: FLUCONAZOL200 MG/100 IV (17:40)
[2020-08-06] MEDS ORDERED: METOCLOPRA10 MG/2 ML IV (17:40)
[2020-08-06] MEDS ORDERED: heparin SC (17:40)
[2020-08-06] MEDS ORDERED: VANCOMYCIN HCL1 GM IV (17:40)
[2020-08-06] MEDS ORDERED: ketorolac IV (17:40)
[2020-08-06] MEDS ORDERED: LEVEMIR FL100 UNIT/1 SC (17:40)
[2020-08-06] MEDS ORDERED: DICYCLOMINE HCL10 MG PO (17:40)
[2020-08-06] MEDS ORDERED: ACETAMINOPHEN325 M1 PO (17:40)
[2020-08-06] MEDS ORDERED: FENTANYL1 EAC1 TOP (17:40)
[2020-08-06] MEDS ORDERED: MAGNESIUM OXID400 MG PO (17:40)
[2020-08-06] MEDS ORDERED: VENELEX TOP (17:40)
[2020-08-06] MEDS ORDERED: santyl TOP (17:40)
[2020-08-06] MEDS ORDERED: MEROPENEM-500 MG/50 IV (17:40)
[2020-08-06] MEDS ORDERED: DEXTROSE 50%-WA50 ML IV (17:40)
[2020-08-06] MEDS ORDERED: CREON DR 12,001 EACH PO (17:40)
[2020-08-06] MEDS ORDERED: MIRALAX17 GM PO (17:40)
[2020-08-06] MEDS ORDERED: ONDANSETRON2 MG/1 ML IV ×2 (17:40)
[2020-08-06 18:00] VITALS: BP 124/80
[2020-08-06 18:30] VITALS: BP 124/80
[2020-08-06 21:00] VITALS: BP 124/80
[2020-08-06 21:35] VITALS: BP 138/81
[2020-08-06] MEDS ORDERED: DEXTROSE 50% SYRINGE 50 ML IV PRN (22:00)
[2020-08-06] MEDS ORDERED: HYDROMORPHONE 2MG/ML 2 MG/ML ML IV PRN (22:45)
[2020-08-07] VITALS (7 sets, daily range): BP systolic 130–146; BP diastolic 76–90
[2020-08-07] MEDS: ONDANSETRON HCL INJ 2MG/ML 2ML 2 MG/ML VIAL IV PRN (00:08)
[2020-08-07] MEDS ORDERED: SOD PHOSPHATE/SOD BIPHOSPHATE ENEMA 132 ML BTL PR ONE (04:00)
[2020-08-07] MEDS ORDERED: BISACODYL 10 MG SUPP PR PRN (04:00)
[2020-08-07] MEDS ORDERED: BISACODYL 10 MG SUPP PR ONE (04:45)
[2020-08-07] MEDS ORDERED: PANTOPRAZOLE 40 MG 10ML VIAL IV SCH (05:00)
[2020-08-07 05:55] LABS: INR 1.06; PARTIAL THROMBOPLASTIN TIME 38.9 seconds (23.8-35.5); PROTHROMBIN TIME 14.4 seconds (11.9-14.5)
[2020-08-07] MEDS: VANCOMYCIN 1GM/NS 250 ML 250 ML IV SCH ×2 (05:56→16:52)
[2020-08-07] MEDS: INSULIN REGULAR, HUMAN 100 UNIT/1 ML 3ML VIAL SQ SCH ×4 (06:00→18:00)
[2020-08-07] MEDS ORDERED: MEROPENEM 1GRAM 1 GM in SODIUM CHLORIDE 0.9% 100 ML 100 ML IV SCH (06:00)
[2020-08-07] MEDS ORDERED: SODIUM CHLORIDE 0.9% 250ML 250 ML ONE (06:03)
[2020-08-07 06:06] LABS: % IRON SATURATION 23 % (15-50); AMYLASE 236 U/L (25-125); IRON 42 ug/dL (65-175); LIPASE 245 U/L (8-78); TOTAL IRON BINDING CAPACITY 186 ug/dL (261-478); TRANSFERRIN 133 mg/dL (174-364)
[2020-08-07] MEDS: PANTOPRAZOLE 40 MG 10ML VIAL IV SCH ×2 (09:05→16:47)
[2020-08-07] MEDS: HYDROMORPHONE 1MG/1ML INJ IV PRN ×4 (09:05→20:22)
[2020-08-07] MEDS: MEROPENEM 1GRAM 1 GM in SODIUM CHLORIDE 0.9% 100 ML 100 ML IV SCH ×2 (09:31→18:46)
[2020-08-07] MEDS ORDERED: SODIUM CHLORIDE 0.9% 50ML 50 ML ONE (13:19)
[2020-08-07] MEDS ORDERED: IOPAMIDOL 370 MG/ML 200 ML INFUS..BTL INJ ONE (13:19)
[2020-08-07] MEDS ORDERED: IOPAMIDOL 300MG/ML 100 ML INFUS..BTL IV ONE (14:09)
[2020-08-08] VITALS (9 sets, daily range): BP systolic 108–146; BP diastolic 73–89
[2020-08-08] MEDS: HYDROMORPHONE 1MG/1ML INJ IV PRN ×6 (00:45→23:25)
[2020-08-08] MEDS ORDERED: DEXTROSE 5%/LACTATED RINGERS 1,000 ML IV SCH (01:15)
[2020-08-08] MEDS: MEROPENEM 1GRAM 1 GM in SODIUM CHLORIDE 0.9% 100 ML 100 ML IV SCH ×3 (02:06→18:28)
[2020-08-08] MEDS: INSULIN REGULAR, HUMAN 100 UNIT/1 ML 3ML VIAL SQ SCH ×5 (06:00→23:56)
[2020-08-08] MEDS: VANCOMYCIN 1GM/NS 250 ML 250 ML IV SCH ×2 (06:15→17:15)
[2020-08-08] MEDS ORDERED: SODIUM CHLORIDE 0.9% 50ML 50 ML ONE (07:55)
[2020-08-08] MEDS ORDERED: GADOBENATE DIMEGLUMINE 1 ML IV ONE (07:56)
[2020-08-08] MEDS: PANTOPRAZOLE 40 MG 10ML VIAL IV SCH ×2 (08:32→17:00)
[2020-08-08] MEDS: IRON SUCROSE 100 MG in SODIUM CHLORIDE 0.9% 100 ML 100 ML IV SCH (08:36)
[2020-08-08] MEDS ORDERED: SODIUM CHLORIDE 0.9% 100 ML ONE (11:39)
[2020-08-08] MEDS ORDERED: PROPOFOL IV EMULSION 10 MG/ML 20 ML VIAL ONE (17:26)
[2020-08-08] MEDS ORDERED: POVIDONE IODINE 0.05% 0.05 % ML PO ONE (17:26)
[2020-08-08] MEDS: DEXTROSE 10% 1,000 ML IV SCH (18:20)
[2020-08-09] VITALS (8 sets, daily range): BP systolic 125–137; BP diastolic 75–87
[2020-08-09] MEDS ORDERED: FENTANYL 25 MCG/HR PATCH TOP SCH
[2020-08-09] MEDS ORDERED: FENOFIBRATE 145 MG TAB PO STA (00:05)
[2020-08-09] MEDS: MEROPENEM 1GRAM 1 GM in SODIUM CHLORIDE 0.9% 100 ML 100 ML IV SCH (02:22)
[2020-08-09] MEDS: HYDROMORPHONE 1MG/1ML INJ IV PRN ×7 (02:23→21:19)
[2020-08-09] MEDS: VANCOMYCIN 1GM/NS 250 ML 250 ML IV SCH ×2 (05:33→17:02)
[2020-08-09] MEDS: INSULIN REGULAR, HUMAN 100 UNIT/1 ML 3ML VIAL SQ SCH ×3 (05:34→17:41)
[2020-08-09] MEDS: ACETAMINOPHEN 325 MG TAB PO PRN (05:50)
[2020-08-09 06:32] LABS: BASOPHILS # (AUTO) 0.1 (0.0-0.1); BASOPHILS % 0.6 % (0.0-1.0); EOSINOPHILS % 0.2 % (0.0-6.0); HEMATOCRIT 33.9 % (38.2-49.6); HEMOGLOBIN 10.6 g/dL (14.0-18.0); LYMPHOCYTES # (AUTO) 1.4 (1.0-3.2); MEAN CORPUSCULAR HEMOGLOBIN 27.5 pg (28-32); MEAN CORPUSCULAR HGB CONC 31.3 g/dL (31-35); MEAN CORPUSCULAR VOLUME 88.1 fL (81-99); MONOCYTES # (AUTO) 0.9 (0.2-0.8); NEUTROPHILS # (AUTO) 15.3 (2.1-6.9); NEUTROPHILS % 84.8 % (38.7-80.0); PLATELET COUNT 318 x10e3/uL (140-360); RED BLOOD COUNT 3.85 x10e6/uL (4.3-5.7); RED CELL DISTRIBUTION WIDTH 14.1 % (11.7-14.4)
[2020-08-09 07:03] LABS: ALANINE AMINOTRANSFERASE 93 IU/L (0-55); ALBUMIN 2.4 g/dL (3.5-5.0); ALBUMIN/GLOBULIN RATIO 0.5 (0.8-2.0); ALKALINE PHOSPHATASE 147 IU/L (40-150); AMYLASE 404 U/L (25-125); ANION GAP 14.9 mmol/L (8-16); BLOOD UREA NITROGEN 9 mg/dL (7-26); BUN/CREATININE RATIO 16 (6-25); CALCIUM 7.9 mg/dL (8.4-10.2); CARBON DIOXIDE 21 mmol/L (22-29); CHLORIDE 98 mmol/L (98-107); CREATININE, SERUM 0.57 mg/dL (0.72-1.25); EST GLOMERULAR FILTRATION RATE > 60 ML/MIN (60-); GLUCOSE 124 mg/dL (74-118); LIPASE 450 U/L (8-78); MAGNESIUM 1.6 MG/DL (1.3-2.1); POTASSIUM 3.9 mmol/L (3.5-5.1); SODIUM 130 mmol/L (136-145)
[2020-08-09] MEDS: DEXTROSE 10% 1,000 ML IV SCH ×2 (08:24→19:00)
[2020-08-09] MEDS: PANTOPRAZOLE 40 MG 10ML VIAL IV SCH ×2 (08:25→17:02)
[2020-08-09] MEDS: FENOFIBRATE 145 MG TAB PO SCH (09:00)
[2020-08-09] MEDS: IRON SUCROSE 100 MG in SODIUM CHLORIDE 0.9% 100 ML 100 ML IV SCH (10:05)
[2020-08-09] MEDS: MEROPENEM 1GM 100 ML IV SCH ×2 (11:20→17:41)
[2020-08-09] MEDS: CENTRAL TPN FORMULA 1 BAG IV SCH (20:00)
[2020-08-10] VITALS (9 sets, daily range): BP systolic 115–153; BP diastolic 62–85
[2020-08-10] MEDS: HYDROMORPHONE 1MG/1ML INJ IV PRN ×6 (00:29→20:46)
[2020-08-10] MEDS: MEROPENEM 1GM 100 ML IV SCH ×3 (02:00→17:30)
[2020-08-10] MEDS ORDERED: SODIUM CHLORIDE 0.9% 250ML 250 ML ONE (03:43)
[2020-08-10] MEDS: VANCOMYCIN 1GM/NS 250 ML 250 ML IV SCH ×2 (04:34→18:27)
[2020-08-10] MEDS: ACETAMINOPHEN 325 MG TAB PO PRN (04:35)
[2020-08-10] MEDS: INSULIN REGULAR, HUMAN 100 UNIT/1 ML 3ML VIAL SQ SCH ×4 (06:00→18:29)
[2020-08-10 07:25] LABS: BASOPHILS % 0.2 % (0.0-1.0); EOSINOPHILS # (AUTO) 0.1 (0.0-0.4); EOSINOPHILS % 0.9 % (0.0-6.0); HEMATOCRIT 26.9 % (38.2-49.6); HEMOGLOBIN 8.7 g/dL (14.0-18.0); LYMPHOCYTES # (AUTO) 1.9 (1.0-3.2); LYMPHOCYTES % 13.6 % (18.0-39.1); MEAN CORPUSCULAR HEMOGLOBIN 27.9 pg (28-32); MEAN CORPUSCULAR HGB CONC 32.3 g/dL (31-35); MEAN CORPUSCULAR VOLUME 86.2 fL (81-99); MONOCYTES # (AUTO) 1.4 (0.2-0.8); MONOCYTES % 10.2 % (4.4-11.3); NEUTROPHILS # (AUTO) 10.1 (2.1-6.9); NEUTROPHILS % 73.6 % (38.7-80.0); PLATELET COUNT 352 x10e3/uL (140-360); RED BLOOD COUNT 3.12 x10e6/uL (4.3-5.7)
[2020-08-10] MEDS: IRON SUCROSE 100 MG in SODIUM CHLORIDE 0.9% 100 ML 100 ML IV SCH (08:47)
[2020-08-10] MEDS: PANTOPRAZOLE 40 MG 10ML VIAL IV SCH ×2 (08:47→17:30)
[2020-08-10] MEDS: FENOFIBRATE 145 MG TAB PO SCH (08:47)
[2020-08-10] MEDS: ONDANSETRON HCL INJ 2MG/ML 2ML 2 MG/ML VIAL IV PRN ×2 (12:30→14:43)
[2020-08-10] MEDS: FLUCONAZOLE 200 MG/100 ML 100 ML IV SCH (14:32)
[2020-08-10] MEDS: CENTRAL TPN FORMULA 1 BAG IV SCH (23:18)
[2020-08-11] VITALS (7 sets, daily range): BP systolic 125–142; BP diastolic 76–93
[2020-08-11] MEDS: HYDROMORPHONE 1MG/1ML INJ IV PRN ×6 (00:21→16:05)
[2020-08-11] MEDS: MEROPENEM 1GM 100 ML IV SCH ×2 (02:00→09:51)
[2020-08-11] MEDS: INSULIN REGULAR, HUMAN 100 UNIT/1 ML 3ML VIAL SQ SCH ×3 (06:00→12:00)
[2020-08-11 06:21] LABS: BASOPHILS % 0.4 % (0.0-1.0); EOSINOPHILS # (AUTO) 0.4 (0.0-0.4); EOSINOPHILS % 4.4 % (0.0-6.0); HEMATOCRIT 27.5 % (38.2-49.6); HEMOGLOBIN 8.7 g/dL (14.0-18.0); LYMPHOCYTES # (AUTO) 1.7 (1.0-3.2); LYMPHOCYTES % 17.8 % (18.0-39.1); MEAN CORPUSCULAR HEMOGLOBIN 28.5 pg (28-32); MEAN CORPUSCULAR HGB CONC 31.6 g/dL (31-35); MEAN CORPUSCULAR VOLUME 90.2 fL (81-99); MONOCYTES % 10.2 % (4.4-11.3); NEUTROPHILS # (AUTO) 6.2 (2.1-6.9); NEUTROPHILS % 64.6 % (38.7-80.0); PLATELET COUNT 373 x10e3/uL (140-360); RED BLOOD COUNT 3.05 x10e6/uL (4.3-5.7); RED CELL DISTRIBUTION WIDTH 14.2 % (11.7-14.4)
[2020-08-11 07:24] LABS: ALANINE AMINOTRANSFERASE 60 IU/L (0-55); ALBUMIN 2.2 g/dL (3.5-5.0); ALBUMIN/GLOBULIN RATIO 0.5 (0.8-2.0); ALKALINE PHOSPHATASE 108 IU/L (40-150); AMYLASE 189 U/L (25-125); ANION GAP 12.9 mmol/L (8-16); BLOOD UREA NITROGEN 9 mg/dL (7-26); BUN/CREATININE RATIO 16 (6-25); CALCIUM 7.8 mg/dL (8.4-10.2); CARBON DIOXIDE 21 mmol/L (22-29); CHLORIDE 102 mmol/L (98-107); CREATININE, SERUM 0.55 mg/dL (0.72-1.25); EST GLOMERULAR FILTRATION RATE > 60 ML/MIN (60-); GLUCOSE 87 mg/dL (74-118); LIPASE 197 U/L (8-78); POTASSIUM 3.9 mmol/L (3.5-5.1); SODIUM 132 mmol/L (136-145)
[2020-08-11] MEDS: VANCOMYCIN 1GM/NS 250 ML 250 ML IV SCH ×3 (07:30→20:20)
[2020-08-11] MEDS: FENOFIBRATE 145 MG TAB PO SCH (09:00)
[2020-08-11] MEDS: PANTOPRAZOLE 40 MG 10ML VIAL IV SCH ×2 (09:51→16:23)
[2020-08-11] MEDS: FLUCONAZOLE 200 MG/100 ML 100 ML IV SCH (11:15)
[2020-08-11] MEDS: IRON SUCROSE 100 MG in SODIUM CHLORIDE 0.9% 100 ML 100 ML IV SCH (13:00)
[2020-08-11] MEDS: ONDANSETRON HCL INJ 2MG/ML 2ML 2 MG/ML VIAL IV PRN (19:34)
== END 2020-08-11 21:03 | disposition short-term general hospital (02) | DRG 438 ==
LOC: UNDOADMIN 13:01 → MED/SURG2 13:01
PROVIDERS: ADMIT Internal Medicine; ATTEND Internal Medicine
PROC: 0WPJX0Z Removal of Drainage Device from Pelvic Cavity, External Approach (ICD-10-PCS; principal; 2020-08-06)
DX: K85.92 Acute pancreatitis with infected necrosis, unspecified (principal); E11.10 Type 2 diabetes mellitus with ketoacidosis without coma; K65.9 Peritonitis, unspecified; E87.1 Hypo-osmolality and hyponatremia; Z20.822 Contact with and (suspected) exposure to COVID-19; I10 Essential (primary) hypertension; K85.81 Other acute pancreatitis with uninfected necrosis; B94.8 Sequelae of other specified infectious and parasitic diseases; G89.29 Other chronic pain; K59.00 Constipation, unspecified; K21.9 Gastro-esophageal reflux disease without esophagitis; M21.371 Foot drop, right foot; D63.8 Anemia in other chronic diseases classified elsewhere; D50.9 Iron deficiency anemia, unspecified
CPT/HCPCS: 36415; 74177; 74183; 74470; 76080; 80053; 80202; 82150; 82607; 82728; 82746; 82948; 83010; 83540; 83615; 83690; 83735; 84466; 84478; 85025; 85045; 85610; 85730; 87040; 87070; 87071; 87205; 96361; 99251; J1170; J1450; J1756; J2185; J2405; J3370; J7050; Q9967; U0002

== ENCOUNTER 2021-05-28 18:16 | Inpatient (IN) | payer BC ==
[~2021-05-28] VITALS: Ht 180.3 cm; Wt 64.9 kg
[~2021-05-28 18:16] MED LIST changes: +ACETAMINOPHEN325 M1 PO; +AMLODIPINE BESYL5 MG PO; +CREON DR 12,001 EACH PO; +DEXTROSE 50%-WA50 ML IV; +DICYCLOMINE HCL10 MG PO; +FENTANYL1 EAC1 TOP; +FLUCONAZOL200 MG/100 IV; +HYDROMORPHO2 MG/1 M1 IV; +LEVEMIR FL100 UNIT/1 SC; +MAGNESIUM OXID400 MG PO; +MEROPENEM-500 MG/50 IV; +METOCLOPRA10 MG/2 ML IV; +MIRALAX17 GM PO; +ONDANSETRON2 MG/1 ML IV; +PANTOPRAZOLE SO40 MG IV; +REMERON15 MG PO; +VANCOMYCIN HCL1 GM IV; +VENELEX TOP; +heparin SC; +ketorolac IV; +santyl TOP
[2021-05-28 18:49] LABS: BASOPHILS # (AUTO) 0.2 (0.0-0.1); BASOPHILS % 0.4 % (0.0-1.0); EOSINOPHILS # (AUTO) 0.1 (0.0-0.4); EOSINOPHILS % 0.2 % (0.0-6.0); HEMATOCRIT 35.3 % (38.2-49.6); LYMPHOCYTES % 6.9 % (18.0-39.1); MEAN CORPUSCULAR HEMOGLOBIN 28.3 pg (28-32); MEAN CORPUSCULAR HGB CONC 31.2 g/dL (31-35); MEAN CORPUSCULAR VOLUME 90.7 fL (81-99); MONOCYTES % 2.4 % (4.4-11.3); NEUTROPHILS # (AUTO) 37.9 (2.1-6.9); NEUTROPHILS % 88.5 % (38.7-80.0); PLATELET COUNT 681 x10e3/uL (140-360); RED BLOOD COUNT 3.89 x10e6/uL (4.3-5.7); RED CELL DISTRIBUTION WIDTH 14.9 % (11.7-14.4)
[2021-05-28 19:04] LABS: ALBUMIN/GLOBULIN RATIO 0.3 (0.8-2.0); ANION GAP 21.3 mmol/L (8-16); CALCIUM 8.9 mg/dL (8.4-10.2); CREATININE, SERUM 1.13 mg/dL (0.72-1.25); POTASSIUM 4.3 mmol/L (3.5-5.1)
[2021-05-28 19:05] LABS: AMYLASE 42 U/L (25-125); LIPASE 22 U/L (8-78)
[2021-05-28 19:44] LABS: BAND NEUTROPHILS % (MANUAL) 5 %; EOSINOPHILS % (MANUAL) 12 % (0-7); LYMPHOCYTES % (MANUAL) 6 % (19-48); METAMYELOCYTES % (MANUAL) 2 % (0-0); MONOCYTES % (MANUAL) 2 % (3.4-9.0); NEUTROPHILS % (MANUAL) 71 % (40-74)
[2021-05-28 19:45] LABS: PLATELET ESTIMATE MARKEDLY INCREASED
[2021-05-28] MEDS ORDERED: PIPERACILLIN/TAZOBACTAM 3.375 GM in SODIUM CHLORIDE 0.9% 50ML 50 ML IV ONE (19:45)
[2021-05-28] MEDS ORDERED: SODIUM CHLORIDE 0.9% IV SCH (19:45)
[2021-05-28 19:46] LABS: PLATELET MORPHOLOGY COMMENT FEW LARGE
[2021-05-28] MEDS ORDERED: SODIUM CHLORIDE 0.9% 50ML 50 ML ONE (19:47)
[2021-05-28] MEDS ORDERED: IOPAMIDOL 370 MG/ML 200 ML INFUS..BTL INJ ONE (19:47)
[2021-05-28 19:48] LABS: RBC MORPHOLOGY COMMENT NORMAL; TOXIC GRANULATION SLIGHT
[2021-05-28] MEDS ORDERED: SODIUM CHLORIDE 0.9% 1000ML 1,000 ML IV STA ×2 (23:08)
[2021-05-29] VITALS (22 sets, daily range): BP systolic 103–122; BP diastolic 49–81
[2021-05-29 00:05] LABS: CLARITY,URINE CLEAR (CLEAR); COLOR,URINE YELLOW (YELLOW); KETONES,URINE NEGATIVE (NEGATIVE); LEUKOCYTE ESTERASE ,URINE NEGATIVE (NEGATIVE); NITRITE,URINE NEGATIVE (NEGATIVE); PROTEIN,URINE DIPSTICK 1+ (NEGATIVE); URINE UROBILINOGEN 1 mg/dL (0.2 - 1)
[2021-05-29 00:07] LABS: BACTERIA,URINE FEW /HPF; EPITHELIAL CELLS,URINE FEW /LPF; RBC,URINE 0-5 /HPF (0-5)
[2021-05-29 00:08] LABS: AMORPHOUS SEDIMENT,URINE MODERATE (FEW)
[2021-05-29] MEDS: SODIUM CHLORIDE 0.9% 1000ML 1,000 ML IV SCH ×3 (01:57→17:40)
[2021-05-29 02:02] LABS: CREATINE KINASE < 7 IU/L (30-200)
[2021-05-29] MEDS ORDERED: MELATONIN 3 MG TAB PO PRN (03:45)
[2021-05-29] MEDS ORDERED: HYDRALAZINE HCL 20 MG/ML VIAL IV PRN (03:45)
[2021-05-29] MEDS ORDERED: GUAIFENESIN/DEXTROMETHORPHAN LIQD 5 ML UDC PO PRN (03:45)
[2021-05-29] MEDS ORDERED: ACETAMINOPHEN 325 MG TAB PO PRN (03:45)
[2021-05-29] MEDS ORDERED: ONDANSETRON HCL INJ 2MG/ML 2ML 2 MG/ML VIAL IV PRN (03:45)
[2021-05-29] MEDS ORDERED: DEXTROSE 50% SYRINGE 50 ML IV PRN (03:45)
[2021-05-29] MEDS ORDERED: PIPERACILLIN/TAZOBACTAM 3.375 GM in SODIUM CHLORIDE 0.9% 50ML 50 ML IV STA (03:53)
[2021-05-29 06:09] LABS: BASOPHILS % 0.2 % (0.0-1.0); EOSINOPHILS # (AUTO) 0.1 (0.0-0.4); EOSINOPHILS % 0.6 % (0.0-6.0); HEMATOCRIT 23.2 % (38.2-49.6); LYMPHOCYTES # (AUTO) 0.9 (1.0-3.2); LYMPHOCYTES % 5.9 % (18.0-39.1); MEAN CORPUSCULAR HEMOGLOBIN 28.1 pg (28-32); MEAN CORPUSCULAR HGB CONC 30.2 g/dL (31-35); MEAN CORPUSCULAR VOLUME 93.2 fL (81-99); MONOCYTES # (AUTO) 0.6 (0.2-0.8); MONOCYTES % 3.7 % (4.4-11.3); NEUTROPHILS % 88.7 % (38.7-80.0); RED BLOOD COUNT 2.49 x10e6/uL (4.3-5.7); RED CELL DISTRIBUTION WIDTH 14.9 % (11.7-14.4)
[2021-05-29 06:22] LABS: PLATELET COUNT 320 x10e3/uL (140-360)
[2021-05-29 06:31] LABS: ALBUMIN 1.3 g/dL (3.5-5.0); ANION GAP 9.6 mmol/L (8-16); CREATININE, SERUM 0.73 mg/dL (0.72-1.25); POTASSIUM 3.6 mmol/L (3.5-5.1)
[2021-05-29 06:32] LABS: ALBUMIN/GLOBULIN RATIO 0.3 (0.8-2.0)
[2021-05-29] MEDS ORDERED: SODIUM CHLORIDE 0.9% 250ML 250 ML IV ONE (06:45)
[2021-05-29] MEDS: INSULIN REGULAR, HUMAN 100 UNIT/1 ML SQ SCH ×4 (07:30→21:00)
[2021-05-29 07:57] LABS: BAND NEUTROPHILS % (MANUAL) 8 %; EOSINOPHILS % (MANUAL) 3 % (0-7); LYMPHOCYTES % (MANUAL) 4 % (19-48); MONOCYTES % (MANUAL) 2 % (3.4-9.0); NEUTROPHILS % (MANUAL) 83 % (40-74)
[2021-05-29 07:58] LABS: PLATELET ESTIMATE ADEQUATE; PLATELET MORPHOLOGY COMMENT NORMAL; RBC MORPHOLOGY COMMENT NORMAL
[2021-05-29] MEDS: MULTIVITAMINS/MINERALS TAB PO SCH (08:57)
[2021-05-29] MEDS ORDERED: SODIUM CHLORIDE 0.9% 250ML 250 ML ONE (10:54)
[2021-05-29] MEDS: ONDANSETRON HCL INJ 2MG/ML 2ML 2 MG/ML VIAL IV PRN ×2 (13:22→17:34)
[2021-05-29] MEDS: PIPERACILLIN/TAZOBACTAM 3.375 GM in SODIUM CHLORIDE 0.9% 50ML 50 ML IV SCH ×2 (13:23→17:57)
[2021-05-29] MEDS: Morphine 4mg Syringe 4 MG/ML INJ IV PRN ×3 (13:26→21:30)
[2021-05-29] MEDS: Vancomycin IV 1 GM in SODIUM CHLORIDE 0.9% 250ML 250 ML IV SCH (16:13)
[2021-05-29] MEDS: ENOXAPARIN SOD INJ 40 MG/0.4 ML SYR SC SCH (17:40)
[2021-05-29 18:13] LABS: CREATINE KINASE < 7 IU/L (30-200)
[2021-05-30] VITALS (24 sets, daily range): BP systolic 101–142; BP diastolic 43–91
[2021-05-30] MEDS: PIPERACILLIN/TAZOBACTAM 3.375 GM in SODIUM CHLORIDE 0.9% 50ML 50 ML IV SCH ×5 (00:55→23:40)
[2021-05-30] MEDS: Morphine 4mg Syringe 4 MG/ML INJ IV PRN (01:52)
[2021-05-30] MEDS: Vancomycin IV 1 GM in SODIUM CHLORIDE 0.9% 250ML 250 ML IV SCH ×2 (04:30→16:46)
[2021-05-30] MEDS: SODIUM CHLORIDE 0.9% 1000ML 1,000 ML IV SCH ×3 (04:37→16:46)
[2021-05-30 05:01] LABS: BASOPHILS % 0.3 % (0.0-1.0); EOSINOPHILS # (AUTO) 0.1 (0.0-0.4); EOSINOPHILS % 1.1 % (0.0-6.0); HEMATOCRIT 25.1 % (38.2-49.6); HEMOGLOBIN 7.6 g/dL (14.0-18.0); LYMPHOCYTES # (AUTO) 1.3 (1.0-3.2); LYMPHOCYTES % 13.9 % (18.0-39.1); MEAN CORPUSCULAR HEMOGLOBIN 27.9 pg (28-32); MEAN CORPUSCULAR HGB CONC 30.3 g/dL (31-35); MEAN CORPUSCULAR VOLUME 92.3 fL (81-99); MONOCYTES # (AUTO) 0.6 (0.2-0.8); NEUTROPHILS % 76.4 % (38.7-80.0); PLATELET COUNT 358 x10e3/uL (140-360); RED BLOOD COUNT 2.72 x10e6/uL (4.3-5.7); RED CELL DISTRIBUTION WIDTH 15.7 % (11.7-14.4)
[2021-05-30 05:22] LABS: ALBUMIN 1.3 g/dL (3.5-5.0); ALBUMIN/GLOBULIN RATIO 0.3 (0.8-2.0); ANION GAP 7.6 mmol/L (8-16); CALCIUM 7.1 mg/dL (8.4-10.2); CREATININE, SERUM 0.63 mg/dL (0.72-1.25); POTASSIUM 3.6 mmol/L (3.5-5.1)
[2021-05-30] MEDS: HYDROMORPHONE 1MG/1ML INJ IV PRN ×5 (05:44→21:41)
[2021-05-30 06:00] LABS: CREATINE KINASE < 7 IU/L (30-200)
[2021-05-30 06:11] LABS: MAGNESIUM 1.8 MG/DL (1.3-2.1); PHOSPHORUS 2.9 MG/DL (2.3-4.7)
[2021-05-30] MEDS: INSULIN REGULAR, HUMAN 100 UNIT/1 ML SQ SCH ×4 (07:30→20:55)
[2021-05-30] MEDS: MULTIVITAMINS/MINERALS TAB PO SCH (08:02)
[2021-05-30] MEDS: ENOXAPARIN SOD INJ 40 MG/0.4 ML SYR SC SCH (16:46)
[2021-05-31] VITALS (16 sets, daily range): BP systolic 105–123; BP diastolic 57–80
[2021-05-31] MEDS: SODIUM CHLORIDE 0.9% 1000ML 1,000 ML IV SCH ×3 (00:29→17:05)
[2021-05-31] MEDS: HYDROMORPHONE 1MG/1ML INJ IV PRN ×6 (01:44→21:30)
[2021-05-31] MEDS: Vancomycin IV 1 GM in SODIUM CHLORIDE 0.9% 250ML 250 ML IV SCH ×2 (03:41→16:45)
[2021-05-31 04:57] LABS: BASOPHILS % 0.4 % (0.0-1.0); EOSINOPHILS # (AUTO) 0.1 (0.0-0.4); EOSINOPHILS % 1.6 % (0.0-6.0); HEMATOCRIT 27.5 % (38.2-49.6); HEMOGLOBIN 8.3 g/dL (14.0-18.0); LYMPHOCYTES # (AUTO) 1.3 (1.0-3.2); LYMPHOCYTES % 18.2 % (18.0-39.1); MEAN CORPUSCULAR HEMOGLOBIN 27.9 pg (28-32); MEAN CORPUSCULAR HGB CONC 30.2 g/dL (31-35); MEAN CORPUSCULAR VOLUME 92.6 fL (81-99); MONOCYTES # (AUTO) 0.4 (0.2-0.8); MONOCYTES % 6.1 % (4.4-11.3); PLATELET COUNT 344 x10e3/uL (140-360); RED BLOOD COUNT 2.97 x10e6/uL (4.3-5.7)
[2021-05-31 05:21] LABS: ALBUMIN 1.4 g/dL (3.5-5.0); ALBUMIN/GLOBULIN RATIO 0.3 (0.8-2.0); ANION GAP 7.8 mmol/L (8-16); CALCIUM 7.2 mg/dL (8.4-10.2); CREATININE, SERUM 0.63 mg/dL (0.72-1.25); POTASSIUM 3.8 mmol/L (3.5-5.1)
[2021-05-31] MEDS: PIPERACILLIN/TAZOBACTAM 3.375 GM in SODIUM CHLORIDE 0.9% 50ML 50 ML IV SCH ×3 (05:32→18:05)
[2021-05-31] MEDS: INSULIN REGULAR, HUMAN 100 UNIT/1 ML SQ SCH ×4 (07:14→20:55)
[2021-05-31] MEDS: MULTIVITAMINS/MINERALS TAB PO SCH (07:14)
[2021-05-31] MEDS: ENOXAPARIN SOD INJ 40 MG/0.4 ML SYR SC SCH (17:05)
[2021-06-01] VITALS (8 sets, daily range): BP systolic 107–125; BP diastolic 70–87
[2021-06-01] MEDS: SODIUM CHLORIDE 0.9% 1000ML 1,000 ML IV SCH ×3 (00:42→16:45)
[2021-06-01] MEDS: HYDROMORPHONE 1MG/1ML INJ IV PRN ×9 (00:42→22:30)
[2021-06-01] MEDS: PIPERACILLIN/TAZOBACTAM 3.375 GM in SODIUM CHLORIDE 0.9% 50ML 50 ML IV SCH ×4 (00:42→19:07)
[2021-06-01 04:09] LABS: BASOPHILS % 0.5 % (0.0-1.0); EOSINOPHILS # (AUTO) 0.1 (0.0-0.4); EOSINOPHILS % 1.4 % (0.0-6.0); HEMOGLOBIN 8.6 g/dL (14.0-18.0); LYMPHOCYTES # (AUTO) 1.3 (1.0-3.2); LYMPHOCYTES % 21.2 % (18.0-39.1); MEAN CORPUSCULAR HEMOGLOBIN 27.8 pg (28-32); MEAN CORPUSCULAR HGB CONC 30.7 g/dL (31-35); MEAN CORPUSCULAR VOLUME 90.6 fL (81-99); MONOCYTES # (AUTO) 0.4 (0.2-0.8); MONOCYTES % 5.9 % (4.4-11.3); NEUTROPHILS # (AUTO) 4.1 (2.1-6.9); NEUTROPHILS % 68.8 % (38.7-80.0); PLATELET COUNT 370 x10e3/uL (140-360); RED BLOOD COUNT 3.09 x10e6/uL (4.3-5.7); RED CELL DISTRIBUTION WIDTH 14.6 % (11.7-14.4)
[2021-06-01 04:22] LABS: ALBUMIN 1.5 g/dL (3.5-5.0); ALBUMIN/GLOBULIN RATIO 0.3 (0.8-2.0); ANION GAP 7.6 mmol/L (8-16); CALCIUM 7.3 mg/dL (8.4-10.2); CREATININE, SERUM 0.64 mg/dL (0.72-1.25); POTASSIUM 3.6 mmol/L (3.5-5.1)
[2021-06-01] MEDS: Vancomycin IV 1 GM in SODIUM CHLORIDE 0.9% 250ML 250 ML IV SCH ×2 (05:15→15:01)
[2021-06-01] MEDS: INSULIN REGULAR, HUMAN 100 UNIT/1 ML SQ SCH ×4 (07:30→21:00)
[2021-06-01] MEDS: MULTIVITAMINS/MINERALS TAB PO SCH (08:49)
[2021-06-01] MEDS: ENOXAPARIN SOD INJ 40 MG/0.4 ML SYR SC SCH (16:32)
[2021-06-02] VITALS (7 sets, daily range): BP systolic 114–126; BP diastolic 68–80
[2021-06-02] MEDS: Vancomycin IV 1 GM in SODIUM CHLORIDE 0.9% 250ML 250 ML IV SCH ×3 (01:30→16:04)
[2021-06-02] MEDS: HYDROMORPHONE 1MG/1ML INJ IV PRN ×7 (01:30→23:05)
[2021-06-02] MEDS: SODIUM CHLORIDE 0.9% 1000ML 1,000 ML IV SCH ×2 (02:23→16:45)
[2021-06-02] MEDS: PIPERACILLIN/TAZOBACTAM 3.375 GM in SODIUM CHLORIDE 0.9% 50ML 50 ML IV SCH ×6 (06:00→23:53)
[2021-06-02] MEDS: INSULIN REGULAR, HUMAN 100 UNIT/1 ML SQ SCH ×4 (07:30→21:00)
[2021-06-02] MEDS: MULTIVITAMINS/MINERALS TAB PO SCH (09:00)
[2021-06-02] MEDS ORDERED: LIDOCAINE HCL 2% LOCAL INJ 5 ML SDV VIAL INJ ONE (12:30)
[2021-06-02] MEDS ORDERED: ONDANSETRON HCL INJ 2MG/ML 2ML 2 MG/ML VIAL ONE (12:30)
[2021-06-02] MEDS ORDERED: SEVOFLURANE INHAL SOLN 250 ML PEN BTL ONE (12:30)
[2021-06-02] MEDS ORDERED: EPHEDRINE SULFATE INJ 50 MG/ML VIAL ONE (12:30)
[2021-06-02] MEDS ORDERED: DEXAMETHASONE SOD PHOS INJ 4 MG/ML SDV ONE (12:30)
[2021-06-02] MEDS ORDERED: PROPOFOL IV EMULSION 10 MG/ML 20 ML VIAL ONE (12:30)
[2021-06-02] MEDS ORDERED: POVIDONE IODINE 0.05% 0.05 % ML PO ONE (12:30)
[2021-06-02] MEDS ORDERED: FENTANYL CITRATE/PF 100MCG/2 ML INJ ONE ×2 (15:17→16:53)
[2021-06-02] MEDS ORDERED: MIDAZOLAM HCL 2 MG/2 ML VIAL ONE (16:53)
[2021-06-02] MEDS: ENOXAPARIN SOD INJ 40 MG/0.4 ML SYR SC SCH (17:04)
[2021-06-03] VITALS (8 sets, daily range): BP systolic 113–138; BP diastolic 73–93
[2021-06-03] MEDS: HYDROMORPHONE 1MG/1ML INJ IV PRN ×8 (02:05→23:35)
[2021-06-03] MEDS: Vancomycin IV 1 GM in SODIUM CHLORIDE 0.9% 250ML 250 ML IV SCH ×2 (03:34→16:54)
[2021-06-03] MEDS: SODIUM CHLORIDE 0.9% 1000ML 1,000 ML IV SCH ×3 (03:34→17:38)
[2021-06-03 05:51] LABS: BASOPHILS % 0.2 % (0.0-1.0); EOSINOPHILS % 0.1 % (0.0-6.0); HEMATOCRIT 28.6 % (38.2-49.6); HEMOGLOBIN 8.9 g/dL (14.0-18.0); LYMPHOCYTES # (AUTO) 1.4 (1.0-3.2); LYMPHOCYTES % 9.7 % (18.0-39.1); MEAN CORPUSCULAR HEMOGLOBIN 27.7 pg (28-32); MEAN CORPUSCULAR HGB CONC 31.1 g/dL (31-35); MEAN CORPUSCULAR VOLUME 89.1 fL (81-99); MONOCYTES # (AUTO) 0.6 (0.2-0.8); MONOCYTES % 4.2 % (4.4-11.3); NEUTROPHILS % 85.2 % (38.7-80.0); RED BLOOD COUNT 3.21 x10e6/uL (4.3-5.7); RED CELL DISTRIBUTION WIDTH 14.5 % (11.7-14.4)
[2021-06-03] MEDS: PIPERACILLIN/TAZOBACTAM 3.375 GM in SODIUM CHLORIDE 0.9% 50ML 50 ML IV SCH ×4 (06:00→23:53)
[2021-06-03 06:12] LABS: PLATELET COUNT 181 x10e3/uL (140-360)
[2021-06-03 06:26] LABS: ALBUMIN 1.7 g/dL (3.5-5.0); ALBUMIN/GLOBULIN RATIO 0.4 (0.8-2.0); ANION GAP 7.9 mmol/L (8-16); CALCIUM 7.3 mg/dL (8.4-10.2); CREATININE, SERUM 0.58 mg/dL (0.72-1.25); MAGNESIUM 1.6 MG/DL (1.3-2.1); POTASSIUM 3.9 mmol/L (3.5-5.1)
[2021-06-03] MEDS: INSULIN REGULAR, HUMAN 100 UNIT/1 ML SQ SCH ×4 (07:30→20:33)
[2021-06-03] MEDS: MULTIVITAMINS/MINERALS TAB PO SCH (08:09)
[2021-06-03] MEDS ORDERED: LACTULOSE SYRUP 20 GM/30 ML UDC PO ONE (13:45)
[2021-06-03] MEDS: ENOXAPARIN SOD INJ 40 MG/0.4 ML SYR SC SCH (17:38)
[2021-06-03] MEDS ORDERED: ZOLPIDEM TARTRATE 10 MG TAB PO PRN (21:15)
[2021-06-04] VITALS (8 sets, daily range): BP systolic 102–177; BP diastolic 65–81
[2021-06-04] MEDS: HYDROMORPHONE 1MG/1ML INJ IV PRN ×6 (02:40→23:07)
[2021-06-04] MEDS: SODIUM CHLORIDE 0.9% 1000ML 1,000 ML IV SCH ×3 (02:57→16:44)
[2021-06-04] MEDS: Vancomycin IV 1 GM in SODIUM CHLORIDE 0.9% 250ML 250 ML IV SCH ×2 (02:57→16:01)
[2021-06-04] MEDS: PIPERACILLIN/TAZOBACTAM 3.375 GM in SODIUM CHLORIDE 0.9% 50ML 50 ML IV SCH ×4 (05:56→23:12)
[2021-06-04 07:00] LABS: BASOPHILS # (AUTO) 0.1 (0.0-0.1); BASOPHILS % 0.5 % (0.0-1.0); EOSINOPHILS # (AUTO) 0.1 (0.0-0.4); EOSINOPHILS % 0.7 % (0.0-6.0); HEMATOCRIT 25.2 % (38.2-49.6); HEMOGLOBIN 7.8 g/dL (14.0-18.0); LYMPHOCYTES # (AUTO) 1.4 (1.0-3.2); LYMPHOCYTES % 14.2 % (18.0-39.1); MEAN CORPUSCULAR VOLUME 90.3 fL (81-99); MONOCYTES # (AUTO) 0.6 (0.2-0.8); MONOCYTES % 6.6 % (4.4-11.3); NEUTROPHILS # (AUTO) 7.3 (2.1-6.9); NEUTROPHILS % 77.1 % (38.7-80.0); PLATELET COUNT 314 x10e3/uL (140-360); RED BLOOD COUNT 2.79 x10e6/uL (4.3-5.7)
[2021-06-04 07:25] LABS: ALBUMIN 1.6 g/dL (3.5-5.0); ALBUMIN/GLOBULIN RATIO 0.4 (0.8-2.0); ANION GAP 8.5 mmol/L (8-16); CALCIUM 7.5 mg/dL (8.4-10.2); CREATININE, SERUM 0.62 mg/dL (0.72-1.25); POTASSIUM 3.5 mmol/L (3.5-5.1)
[2021-06-04] MEDS: INSULIN REGULAR, HUMAN 100 UNIT/1 ML SQ SCH ×4 (07:30→21:07)
[2021-06-04] MEDS: MULTIVITAMINS/MINERALS TAB PO SCH (08:21)
[2021-06-04] MEDS: HYDROCODONE/APAP 7.5MG-325MG 1 EA TAB PO PRN ×3 (08:23→21:15)
[2021-06-04] MEDS: ENOXAPARIN SOD INJ 40 MG/0.4 ML SYR SC SCH (17:32)
[2021-06-05] VITALS (8 sets, daily range): BP systolic 116–126; BP diastolic 71–82
[2021-06-05] MEDS: SODIUM CHLORIDE 0.9% 1000ML 1,000 ML IV SCH ×4 (01:56→23:03)
[2021-06-05] MEDS: HYDROMORPHONE 1MG/1ML INJ IV PRN ×8 (02:15→23:03)
[2021-06-05] MEDS: Vancomycin IV 1 GM in SODIUM CHLORIDE 0.9% 250ML 250 ML IV SCH ×2 (03:53→16:14)
[2021-06-05] MEDS: PIPERACILLIN/TAZOBACTAM 3.375 GM in SODIUM CHLORIDE 0.9% 50ML 50 ML IV SCH ×4 (05:36→23:03)
[2021-06-05] MEDS: INSULIN REGULAR, HUMAN 100 UNIT/1 ML SQ SCH ×4 (07:30→20:20)
[2021-06-05] MEDS: MULTIVITAMINS/MINERALS TAB PO SCH (08:47)
[2021-06-06] VITALS (7 sets, daily range): BP systolic 112–134; BP diastolic 63–87
[2021-06-06] MEDS: HYDROMORPHONE 1MG/1ML INJ IV PRN ×7 (01:41→21:35)
[2021-06-06] MEDS: Vancomycin IV 1 GM in SODIUM CHLORIDE 0.9% 250ML 250 ML IV SCH ×2 (04:02→14:59)
[2021-06-06 05:56] LABS: BASOPHILS # (AUTO) 0.1 (0.0-0.1); BASOPHILS % 1.3 % (0.0-1.0); HEMATOCRIT 24.6 % (38.2-49.6); HEMOGLOBIN 7.7 g/dL (14.0-18.0); LYMPHOCYTES # (AUTO) 1.4 (1.0-3.2); LYMPHOCYTES % 23.9 % (18.0-39.1); MEAN CORPUSCULAR HEMOGLOBIN 28.2 pg (28-32); MEAN CORPUSCULAR HGB CONC 31.3 g/dL (31-35); MEAN CORPUSCULAR VOLUME 90.1 fL (81-99); MONOCYTES # (AUTO) 0.4 (0.2-0.8); MONOCYTES % 6.7 % (4.4-11.3); NEUTROPHILS % 66.9 % (38.7-80.0); PLATELET COUNT 359 x10e3/uL (140-360); RED BLOOD COUNT 2.73 x10e6/uL (4.3-5.7); RED CELL DISTRIBUTION WIDTH 15.2 % (11.7-14.4)
[2021-06-06] MEDS: PIPERACILLIN/TAZOBACTAM 3.375 GM in SODIUM CHLORIDE 0.9% 50ML 50 ML IV SCH ×3 (06:21→18:26)
[2021-06-06 06:24] LABS: ALBUMIN 1.7 g/dL (3.5-5.0); ALBUMIN/GLOBULIN RATIO 0.4 (0.8-2.0); ALKALINE PHOSPHATASE 42 IU/L (40-150); ANION GAP 8.3 mmol/L (8-16); BLOOD UREA NITROGEN < 5 mg/dL (7-26); CALCIUM 7.9 mg/dL (8.4-10.2); CARBON DIOXIDE 25 mmol/L (22-29); CHLORIDE 109 mmol/L (98-107); CREATININE, SERUM 0.63 mg/dL (0.72-1.25); EST GLOMERULAR FILTRATION RATE 153 ML/MIN (60-); GLUCOSE 88 mg/dL (74-118); POTASSIUM 3.3 mmol/L (3.5-5.1); SODIUM 139 mmol/L (136-145)
[2021-06-06 06:27] LABS: ALANINE AMINOTRANSFERASE < 6 IU/L (0-55); BUN/CREATININE RATIO 8 (6-25)
[2021-06-06] MEDS: INSULIN REGULAR, HUMAN 100 UNIT/1 ML SQ SCH ×4 (07:30→20:58)
[2021-06-06] MEDS: SODIUM CHLORIDE 0.9% 1000ML 1,000 ML IV SCH ×2 (08:45→16:42)
[2021-06-06] MEDS: MULTIVITAMINS/MINERALS TAB PO SCH (09:00)
[2021-06-07 00:30] VITALS: BP 137/81
[2021-06-07] MEDS: SODIUM CHLORIDE 0.9% 1000ML 1,000 ML IV SCH ×3 (00:38→16:55)
[2021-06-07] MEDS: PIPERACILLIN/TAZOBACTAM 3.375 GM in SODIUM CHLORIDE 0.9% 50ML 50 ML IV SCH ×4 (00:38→18:20)
[2021-06-07] MEDS: HYDROMORPHONE 1MG/1ML INJ IV PRN ×7 (00:38→20:37)
[2021-06-07] MEDS: Vancomycin IV 1 GM in SODIUM CHLORIDE 0.9% 250ML 250 ML IV SCH ×2 (03:40→16:55)
[2021-06-07 05:46] VITALS: BP 122/81
[2021-06-07] MEDS: INSULIN REGULAR, HUMAN 100 UNIT/1 ML SQ SCH ×4 (07:30→20:30)
[2021-06-07 08:22] VITALS: BP 119/74
[2021-06-07 08:24] LABS: BASOPHILS # (AUTO) 0.1 (0.0-0.1); EOSINOPHILS # (AUTO) 0.1 (0.0-0.4); EOSINOPHILS % 1.9 % (0.0-6.0); HEMATOCRIT 26.3 % (38.2-49.6); HEMOGLOBIN 8.1 g/dL (14.0-18.0); LYMPHOCYTES # (AUTO) 1.1 (1.0-3.2); LYMPHOCYTES % 16.6 % (18.0-39.1); MEAN CORPUSCULAR HEMOGLOBIN 28.1 pg (28-32); MEAN CORPUSCULAR HGB CONC 30.8 g/dL (31-35); MEAN CORPUSCULAR VOLUME 91.3 fL (81-99); MONOCYTES # (AUTO) 0.4 (0.2-0.8); MONOCYTES % 6.3 % (4.4-11.3); NEUTROPHILS # (AUTO) 5.1 (2.1-6.9); NEUTROPHILS % 73.8 % (38.7-80.0); PLATELET COUNT 347 x10e3/uL (140-360); RED BLOOD COUNT 2.88 x10e6/uL (4.3-5.7); RED CELL DISTRIBUTION WIDTH 15.4 % (11.7-14.4)
[2021-06-07 08:47] LABS: % IRON SATURATION 16 % (15-50); IRON 27 ug/dL (65-175); TOTAL IRON BINDING CAPACITY 172 ug/dL (261-478); TRANSFERRIN 123 mg/dL (174-364)
[2021-06-07 08:50] LABS: ANION GAP 8.2 mmol/L (8-16); BLOOD UREA NITROGEN < 5 mg/dL (7-26); CALCIUM 7.9 mg/dL (8.4-10.2); CARBON DIOXIDE 24 mmol/L (22-29); CHLORIDE 110 mmol/L (98-107); CREATININE, SERUM 0.62 mg/dL (0.72-1.25); EST GLOMERULAR FILTRATION RATE 156 ML/MIN (60-); GLUCOSE 85 mg/dL (74-118); POTASSIUM 3.2 mmol/L (3.5-5.1); SODIUM 139 mmol/L (136-145)
[2021-06-07 08:51] LABS: BUN/CREATININE RATIO 8 (6-25)
[2021-06-07] MEDS: MULTIVITAMINS/MINERALS TAB PO SCH (10:10)
[2021-06-07 11:46] VITALS: BP 116/75
[2021-06-07 20:30] VITALS: BP 120/74
[2021-06-08] VITALS (8 sets, daily range): BP systolic 114–128; BP diastolic 67–80
[2021-06-08] MEDS: PIPERACILLIN/TAZOBACTAM 3.375 GM in SODIUM CHLORIDE 0.9% 50ML 50 ML IV SCH ×2 (00:30→06:28)
[2021-06-08] MEDS: HYDROMORPHONE 1MG/1ML INJ IV PRN ×5 (00:30→21:00)
[2021-06-08] MEDS: SODIUM CHLORIDE 0.9% 1000ML 1,000 ML IV SCH ×3 (01:45→17:26)
[2021-06-08] MEDS: Vancomycin IV 1 GM in SODIUM CHLORIDE 0.9% 250ML 250 ML IV SCH (03:42)
[2021-06-08] MEDS: INSULIN REGULAR, HUMAN 100 UNIT/1 ML SQ SCH ×4 (07:30→21:00)
[2021-06-08] MEDS: MULTIVITAMINS/MINERALS TAB PO SCH (11:07)
[2021-06-08] MEDS: CEFTRIAXONE 2 GM in SODIUM CHLORIDE 0.9% 100 ML IV SCH (14:12)
[2021-06-09] VITALS (8 sets, daily range): BP systolic 112–130; BP diastolic 65–79
[2021-06-09] MEDS: HYDROMORPHONE 1MG/1ML INJ IV PRN ×5 (03:00→13:54)
[2021-06-09] MEDS: SODIUM CHLORIDE 0.9% 1000ML 1,000 ML IV SCH ×3 (05:55→18:11)
[2021-06-09] MEDS: INSULIN REGULAR, HUMAN 100 UNIT/1 ML SQ SCH ×4 (07:30→21:37)
[2021-06-09 08:39] LABS: BASOPHILS # (AUTO) 0.1 (0.0-0.1); BASOPHILS % 0.8 % (0.0-1.0); EOSINOPHILS # (AUTO) 0.5 (0.0-0.4); EOSINOPHILS % 5.5 % (0.0-6.0); HEMOGLOBIN 8.2 g/dL (14.0-18.0); LYMPHOCYTES # (AUTO) 1.4 (1.0-3.2); LYMPHOCYTES % 16.1 % (18.0-39.1); MEAN CORPUSCULAR HGB CONC 30.4 g/dL (31-35); MEAN CORPUSCULAR VOLUME 92.2 fL (81-99); MONOCYTES # (AUTO) 0.5 (0.2-0.8); MONOCYTES % 5.4 % (4.4-11.3); NEUTROPHILS # (AUTO) 6.1 (2.1-6.9); NEUTROPHILS % 71.8 % (38.7-80.0); PLATELET COUNT 327 x10e3/uL (140-360); RED BLOOD COUNT 2.93 x10e6/uL (4.3-5.7); RED CELL DISTRIBUTION WIDTH 15.5 % (11.7-14.4)
[2021-06-09 09:09] LABS: ALBUMIN/GLOBULIN RATIO 0.5 (0.8-2.0); ALKALINE PHOSPHATASE 47 IU/L (40-150); ANION GAP 8.4 mmol/L (8-16); BLOOD UREA NITROGEN < 5 mg/dL (7-26); CALCIUM 7.9 mg/dL (8.4-10.2); CARBON DIOXIDE 27 mmol/L (22-29); CHLORIDE 107 mmol/L (98-107); CREATININE, SERUM 0.63 mg/dL (0.72-1.25); EST GLOMERULAR FILTRATION RATE 153 ML/MIN (60-); GLUCOSE 128 mg/dL (74-118); MAGNESIUM 1.6 MG/DL (1.3-2.1); POTASSIUM 3.4 mmol/L (3.5-5.1); SODIUM 139 mmol/L (136-145)
[2021-06-09] MEDS: MULTIVITAMINS/MINERALS TAB PO SCH (09:11)
[2021-06-09 09:18] LABS: ALANINE AMINOTRANSFERASE < 6 IU/L (0-55); BUN/CREATININE RATIO 8 (6-25)
[2021-06-09] MEDS: HYDROCODONE/APAP 7.5MG-325MG 1 EA TAB PO PRN ×2 (12:16→18:39)
[2021-06-09] MEDS: CEFTRIAXONE 2 GM in SODIUM CHLORIDE 0.9% 100 ML IV SCH (12:16)
[2021-06-09] MEDS ORDERED: POTASSIUM CHLORIDE 20 MEQ TAB CR PO ONE (13:45)
[2021-06-10] VITALS: BP 126/77
[2021-06-10] MEDS: HYDROCODONE/APAP 7.5MG-325MG 1 EA TAB PO PRN (00:29)
[2021-06-10 05:27] VITALS: BP 122/63
[2021-06-10] MEDS: SODIUM CHLORIDE 0.9% 1000ML 1,000 ML IV SCH ×2 (05:47→08:10)
[2021-06-10] MEDS: INSULIN REGULAR, HUMAN 100 UNIT/1 ML SQ SCH ×2 (07:27→11:30)
[2021-06-10 08:02] VITALS: BP 119/77
[2021-06-10] MEDS: MULTIVITAMINS/MINERALS TAB PO SCH (08:09)
[2021-06-10 08:27] VITALS: BP 119/77
[2021-06-10 12:07] VITALS: BP 106/65
[2021-06-10] MEDS ORDERED: HYDROCODON-ACE1 EA12 PO (13:11)
[2021-06-10] MEDS ORDERED: KEFLEX125 MG/5 M PO (13:38)
[2021-06-10] MEDS ORDERED: ONDANSETRON HCL 4 MG ORAL DISINTEGRATING TAB PO PRN (13:45)
[2021-06-10] MEDS ORDERED: CEPHALEXIN 500 MG CAP PO SCH (15:00)
== END 2021-06-10 15:08 | disposition home or self-care (01) | DRG 853 ==
LOC: ER 18:23 → ERHOLD 05-29 00:53 → ICU 05-29 13:17 → MED/SURG3 05-31 13:11
PROVIDERS: ADMIT Internal Medicine; ATTEND Internal Medicine
PROC: 30233N1 Transfusion of Nonautologous Red Blood Cells into Peripheral Vein, Percutaneous Approach (ICD-10-PCS; 2021-05-29)
PROC: 3E03329 Introduction of Other Anti-infective into Peripheral Vein, Percutaneous Approach (ICD-10-PCS; 2021-05-29)
PROC: 0JD70ZZ Extraction of Back Subcutaneous Tissue and Fascia, Open Approach (ICD-10-PCS; 2021-06-02)
PROC: 0JDM0ZZ Extraction of Left Upper Leg Subcutaneous Tissue and Fascia, Open Approach (ICD-10-PCS; principal; 2021-06-02 13:44)
DX: A41.9 Sepsis, unspecified organism (principal); K85.91 Acute pancreatitis with uninfected necrosis, unspecified; E43 Unspecified severe protein-calorie malnutrition; K85.82 Other acute pancreatitis with infected necrosis; L02.416 Cutaneous abscess of left lower limb; L02.212 Cutaneous abscess of back [any part, except buttock and flank]; L03.317 Cellulitis of buttock; Z68.1 Body mass index [BMI] 19.9 or less, adult; N17.9 Acute kidney failure, unspecified; R65.20 Severe sepsis without septic shock; D89.2 Hypergammaglobulinemia, unspecified; E88.09 Other disorders of plasma-protein metabolism, not elsewhere classified; E11.9 Type 2 diabetes mellitus without complications; D64.9 Anemia, unspecified; I10 Essential (primary) hypertension; U09.9 Post COVID-19 condition, unspecified; Z79.4 Long term (current) use of insulin; Z90.49 Acquired absence of other specified parts of digestive tract; Z82.49 Family history of ischemic heart disease and other diseases of the circulatory system; Z20.822 Contact with and (suspected) exposure to COVID-19; K59.00 Constipation, unspecified
CPT/HCPCS: 36415; 36600; 74177; 80048; 80053; 80202; 81001; 82150; 82550; 82553; 82948; 83540; 83605; 83690; 83735; 84100; 84134; 84466; 84484; 85025; 86850; 86900; 86920; 87040; 87071; 87075; 87205; 96361; 99251; 99284; J0696; J1100; J1170; J1650; J1817; J2001; J2250; J2270; J2405; J2543; J3010; J3370; J7030; J7050; P9016; Q9967; U0002

== ENCOUNTER → 2023-01-08 | Outpatient (REF) | payer OTHER ==
[~2023-01-08] MED LIST changes: +HYDROCODON-ACE1 EA12 PO; +IOPAMIDOL 370 MG/ML 100 ML INFUS..BTL INJ ONE; +KEFLEX125 MG/5 M PO; +LANTUS 3ML100 UNITS/ SQ
== END ==
LOC: CT 13:33
PROVIDERS: ATTEND Internal Medicine
DX: K86.1 Other chronic pancreatitis (principal)
CPT/HCPCS: 74177; Q9967

== ENCOUNTER 2024-11-06 05:52 | Emergency (ER) | payer BC, OTHER ==
[~2024-11-06] VITALS: Ht 177.8 cm; Wt 70.3 kg
[~2024-11-06 05:52] MED LIST changes: -IOPAMIDOL 370 MG/ML 100 ML INFUS..BTL INJ ONE
[2024-11-06] MEDS: SODIUM CHLORIDE 0.9% 1000ML 2,180 ML IV ONE (06:39)
[2024-11-06 06:52] LABS: BASOPHILS % 0.3 % (0.0-1.0); EOSINOPHILS % 0.0 % (0.0-6.0); LYMPHOCYTES % 16.1 % (18.0-39.1); MONOCYTES % 3.8 % (4.4-11.3); NEUTROPHILS % 79.0 % (38.7-80.0); RED CELL DISTRIBUTION WIDTH 13.8 % (11.7-14.4)
[2024-11-06] MEDS: ONDANSETRON HCL INJ 2MG/ML 2ML 2 MG/ML VIAL IV STA (06:58)
[2024-11-06] MEDS: Morphine 2mg Syringe 2 MG/ML SYR IV ONE (06:58)
[2024-11-06 07:00] LABS: INR 0.87
[2024-11-06 07:10] LABS: EST GLOMERULAR FILTRATION RATE 113.0 ML/MIN (>=60)
[2024-11-06] MEDS ORDERED: IOPAMIDOL 370 MG/ML 100 ML INFUS..BTL INJ ONE (08:30)
[2024-11-06] MEDS: Vancomycin IV 1 GM in SODIUM CHLORIDE 0.9% 250ML 250 ML IV ONE (08:37)
[2024-11-06 09:05] LABS: LEUKOCYTE ESTERASE ,URINE NEGATIVE (NEGATIVE); PROTEIN,URINE DIPSTICK NEGATIVE (NEGATIVE); URINE UROBILINOGEN 0.2 mg/dL (0.2 - 1)
[2024-11-06] MEDS: POTASSIUM CHLORIDE 20MEQ/100ML 100 ML IV ONE (09:05)
[2024-11-06] MEDS: INSULIN REGULAR, HUMAN 100 UNIT/1 ML SQ ONE (09:07)
[2024-11-06 09:09] LABS: EPITHELIAL CELLS,URINE FEW /LPF; WBC,URINE (MAN) 0-5 /HPF (0-5)
[2024-11-06] MEDS ORDERED: SODIUM CHLORIDE 0.9% 1000ML 1,000 ML IV SCH (11:00)
[2024-11-06 12:54] LABS: EST GLOMERULAR FILTRATION RATE 125.0 ML/MIN (>=60)
[2024-11-06] MEDS ORDERED: INSULIN REGULAR, HUMAN 100 UNIT/1 ML SQ ONE (15:30)
[2024-11-06] MEDS ORDERED: SODIUM CHLORIDE 0.9% 500ML 500 ML IV ONE (15:30)
[2024-11-06 15:59] VITALS: PULSE 109; RESP 18; TEMP 98.7; O2SAT 100
[2024-11-06] MEDS: INSULIN GLARGINE 100 UNITS/ML VIAL SQ STA (16:02)
== END 2024-11-06 17:22 | disposition home or self-care (01) ==
LOC: ER 06:08
DX: A41.9 Sepsis, unspecified organism (principal); K86.3 Pseudocyst of pancreas; Z48.03 Encounter for change or removal of drains; Z99.2 Dependence on renal dialysis; I10 Essential (primary) hypertension; E11.65 Type 2 diabetes mellitus with hyperglycemia
CPT/HCPCS: 36415; 71045; 74177; 80048; 80053; 81001; 82948; 83605; 85025; 85610; 85730; 87040; 87086; 93005; 99284; J1815; J2270; J2405; J2543; J3373; J3480; J7030; J7040; J7050; Q9967